=== PATIENT | male | born 1945 | race Caucasian/White ===

== ENCOUNTER → 2017-10-04 | Outpatient (CLI) | payer MEDICARE, SELFPAY | PROVIDERS: Visit Provider Nurse Practitioner Family | DX: E11.9 Type 2 diabetes mellitus without complications (principal) | CPT/HCPCS: 83036 ==

== ENCOUNTER 2017-10-25 01:11 | Emergency (ER) | payer MEDICARE, SELFPAY ==
[2017-10-25 01:14] VITALS: BP 116/69; PULSE 81; RESP 16; TEMP 37.7; O2SAT 99; BMI 38.0
--- NOTE | 2017-10-25 01:25 | CT_ITS ---
CT abdomen pelvis wo con CLINICAL INDICATION: Abdominal pain, bilateral small flank pain ITS.REASON: abd pain ORDERING PHYSICIAN: Kaveh Benoit MD PATIENT AGE: 72 years COMPARISON: 01/25/2010 TECHNIQUE: Axial images obtained with sagittal and coronal reformats. PROCEDURE: Oral Contrast: None IV Contrast: None . FINDINGS: Lower thorax: No acute finding . There is a stent within the LAD versus severe calcification ABDOMEN: Liver: No masses or biliary dilatation. Gallbladder: Prior cholecystectomy. No ductal dilatation or pneumobilia Pancreas: No masses or peripancreatic fluid collections. Spleen: Unremarkable. Adrenals: Unremarkable Kidneys/ureters: No masses. No renal calculi. No hydronephrosis. No perinephric fluid collections. No ureteral dilatation or obvious ureteral calculi. Stomach bowel: Nondistended. No obvious mass or thickening. Appendix: No evidence of appendicitis. PELVIS: Reproductive: There is a penile prosthesis present. The bulb is only partially inflated in the right lower pelvic region Bladder: Nondistended. No obvious stones or masses. ABDOMEN & PELVIS: Peritoneum: No abnormal fluid collections. No obvious inflammatory changes. No free air. Lymph nodes: No enlarged lymph nodes apparent. Vasculature: No evidence of abdominal aortic aneurysm. No retroperitoneal hemorrhage evident. Bones: Degenerative changes lumbar spine IMPRESSION: 1. No acute finding. 2. Penile prosthesis present. The bulb is only partially inflated. Please correlate clinically regarding this finding.
[2017-10-25 01:35] LABS: Basophils % 0.6 % (0.1-2.0); Eosinophils # 0.1 K/mm3 (0.0-0.4); Eosinophils % 2.5 % (0.1-12.0); Hematocrit 37.2 % (42.0-52.0); Hemoglobin 11.8 g/dL (14.1-18.0); Lymphocytes # 0.9 K/mm3 (0.7-4.5); Lymphocytes % 20.6 K/mm3 (10-50); Mean Corpuscular HGB Conc 31.8 g/dL (31.8-35.4); Mean Corpuscular Hemoglobin 28.6 pg (27.0-31.2); Mean Corpuscular Volume 89.8 fl (80-94); Mean Platelet Volume 7.5 fl (7.4-10.4); Monocytes # 0.5 K/mm3 (0.1-1.0); Monocytes % 10.1 % (1.7-9.3); Neutrophils % 66.3 % (37.0-80.0); Platelet Count 228 K/mm3 (142-424); Red Blood Count 4.14 M/mm3 (4.60-6.20); Red Cell Distribution Width 15.1 % (11.5-17.5); White Blood Count 4.6 K/mm3 (4.8-10.8)
[2017-10-25 01:40] LABS: Microscopic, Urine URINE MICROSCOPIC (MICROSCOPIC)
[2017-10-25 01:41] LABS: Appearance,Urine CLEAR (Clear); Bilirubin,Urine Negative (Negative); Blood, Urine TRACE-I (Negative); Color,Urine YELLOW (Yellow); Glucose,Urine (UA) Negative (Negative); Ketones,Urine Negative (Negative); Leukocyte Esterase,Urine Negative (Negative); Nitrate,Urine Negative (Negative); Protein,Urine TRACE (Negative); Specific Gravity, Urine 1.025 (1.005-1.030); Urobilinogen,Urine 0.2 EU/dl (0.2)
[2017-10-25 01:46] LABS: Lipase 218 u/L (73-393)
[2017-10-25 01:49] LABS: Alanine Aminotransferase 24 U/L (12-78); Albumin Level 3.8 gm/dL (3.4-5.0); Albumin/Globulin Ratio 0.8 (1.1-1.8); Alkaline Phosphatase 112 U/L (46-116); Amylase 109 U/L (25-125); Anion Gap 12.1 mEq/L (5-15); Aspartate Amino Transferase 20 U/L (15-37); Bilirubin,Total 0.3 mg/dL (0.2-1.0); Blood Urea Nitrogen 50 mg/dL (7-18); Calcium 8.8 mg/dL (8.5-10.1); Carbon Dioxide 26 mmol/L (21.0-32.0); Chloride 102 mmol/L (98-107); Creatinine Clearance Estimated 49 mL/min (0-300); Estimated Glomerular Filt Rate 26 ml/min (>60); GFR (African American) 31 ML/MIN (>60); Globulin 4.5 gm/dl (1.3-3.2); Glucose 173 mg/dL (74-106); Potassium 5.1 mmoL/L (3.5-5.1); Sodium 135 mmol/L (136-145); Total Protein,Serum 8.3 gm/dL (6.4-8.2)
[2017-10-25 01:54] LABS: Bacteria,Urine 1+ /lpf; Mucus,Urine 1+ /lpf
--- NOTE | 2017-10-25 02:20 | HMH.EDUROGM ---
ED Disposition Clinical Impression: Urethritis, Renal insufficiency Disposition: Home, Self-Care Condition on Discharge: Good Instructions: Prostatitis Additional Instructions: see pcp today for follow up and meds adjustment Referrals: Kaveh Benoit MD [Primary Care Provider] - - Critical Care Critical Care Time: No Attestation: On 10/25/17, the high probability of a clinically significant, sudden or life threatening deterioration of the following system(s) required my full and direct attention, intervention and personal management. The time I documented below is in addition to time spent performing reported procedures but includes the following listed in this critical care notation. Medical Decision Making - Medical Records Medical records reviewed: Yes: I reviewed the patient's medical records. Vital Signs: 10/25/17 01:14 Temperature 99.9 F H Temperature Source Oral Pulse Rate [Right Radial] 81 Respiratory Rate 16 Blood Pressure [Right Arm] 116/69 Blood Pressure Mean [Right Arm] 84 Blood Pressure Source [Right Arm] Automatic Cuff Blood Pressure Position [Right Arm] Sitting 02 Sat by Pulse Oximetry 99 Oxygen Delivery Method Room Air - Lab Data Lab results reviewed: Yes: I reviewed the patient's lab results. Lab Results 10/25/17 01:25: WBC 4.6 L, RBC 4.14 L, Hgb 11.8 L, Hct 37.2 L, MCV 89.8, MCH 28.6, MCHC 31.8, RDW 15.1, Plt Count 228, MPV 7.5, Neut % (Auto) 66.3, Lymph % (Auto) 20.6, [place] % (Auto) 10.1 H, Eos % (Auto) 2.5, Baso % (Auto) 0.6, Neut # (Auto) 3.0, Lymph # (Auto) 0.9, [place] # (Auto) 0.5, Eos # (Auto) 0.1, Baso # (Auto) 0.0 10/25/17 01:25: Sodium 135 L, Potassium 5.1, Chloride 102, Carbon Dioxide 26, Anion Gap 12.1, BUN 50 H, Creatinine 2.50 H, Estimated Creat Clear 49, Estimated GFR 26 L, Est GFR ( Amer) 31 L, Glucose 173 H, Calcium 8.8, Total Bilirubin 0.3, AST 20, ALT 24, Alkaline Phosphatase 112, Total Protein 8.3 H, Albumin 3.8, Globulin 4.5 H, Albumin/Globulin Ratio 0.8 L, Amylase 109 10/25/17 01:25: Lipase 218 10/25/17 01:30: Urine Color Yellow, Urine Appearance Clear, Urine pH 6.0, Ur Specific [place] 1.025, Urine Protein Trace, Urine Glucose (UA) Negative, Urine Ketones Negative, Urine Blood Trace-i, Urine Nitrate Negative, Urine Bilirubin Negative, Urine Urobilinogen 0.2, Ur Leukocyte Esterase Negative, Urine WBC 3-5, Ur Squamous Epith Cells 3-5, Urine Bacteria 1+, Hyaline Casts 5-10, Urine Mucus 1+ Result diagrams: 10/25/17 01:25 10/25/17 01:25 Orders (Tests/Meds): ORDERS Category Date Time Status CT abdomen pelvis wo con Stat Cat Scan 10/25/17 01:25 Taken - CT Data CT Scan: Abdomen, Pelvis Time Received: 02:[address] Reviewed: Yes: I have viewed the radiologist's interpretation Preliminary Findings: Normal/NAD - Bj Inquiry Pt receiving controlled substance: No Male Urogenital HPI - General Chief complaint: Urogenital-Male Stated complaint: burning when voiding, diarrhea, back pain Time Seen by Provider: 10/25/17 02:20 Mode of Arrival: Wheelchair Source of Information: Patient, Relative, Medical Record Limitations: Physical Limitations Description of Symptoms (Recalled from ER Triage Doc. by RN): PT REPORTS KIDNEY PAIN, BURNING WITH URINATION, AND BLOOD IN URINE - History of Present Illness HPI Narrative: py with bilat flank pain with no gross hematuria over the last 2 days MD Complaint: dysuria Onset (ago): day(s) Duration: intermittent Location: right flank, left flank, abdomen Severity: moderate Quality: burning Exacerbating factors: urination - Related Data Home Medications Medication Instructions Recorded Confirmed ALPRAZolam [Alprazolam 2mg Tab] 2 mg pe PO DAILY 10/25/17 10/25/17 Carvedilol [Carvedilol 3.125mg Tab] 3.125 mg PO DAILY 10/25/17 10/25/17 Clopidogrel Bisulfate [Plavix 75mg 75 mg PO DAILY 10/25/17 10/25/17 Tab] Furosemide [Furosemide 40MG tAB] 40 mg PO DAILY 10/25/17 10/25/17 Gabapentin [Neurontin
--- NOTE | 2017-10-25 02:26 | ED_ITS ---
ED Disposition Clinical Impression: Urethritis, Renal insufficiency Disposition: Home, Self-Care Condition on Discharge: Good Instructions: Prostatitis Additional Instructions: see pcp today for follow up and meds adjustment Referrals: Kaveh Benoit MD [Primary Care Provider] - - Critical Care Critical Care Time: No Attestation: On 10/25/17, the high probability of a clinically significant, sudden or life threatening deterioration of the following system(s) required my full and direct attention, intervention and personal management. The time I documented below is in addition to time spent performing reported procedures but includes the following listed in this critical care notation. Medical Decision Making - Medical Records Medical records reviewed: Yes: I reviewed the patient's medical records. Vital Signs: 10/25/17 01:14 Temperature 99.9 F H Temperature Source Oral Pulse Rate [Right Radial] 81 Respiratory Rate 16 Blood Pressure [Right Arm] 116/69 Blood Pressure Mean [Right Arm] 84 Blood Pressure Source [Right Arm] Automatic Cuff Blood Pressure Position [Right Arm] Sitting 02 Sat by Pulse Oximetry 99 Oxygen Delivery Method Room Air - Lab Data Lab results reviewed: Yes: I reviewed the patient's lab results. Lab Results 10/25/17 01:25: WBC 4.6 L, RBC 4.14 L, Hgb 11.8 L, Hct 37.2 L, MCV 89.8, MCH 28.6, MCHC 31.8, RDW 15.1, Plt Count 228, MPV 7.5, Neut % (Auto) 66.3, Lymph % ( Auto) 20.6, [place] % (Auto) 10.1 H, Eos % (Auto) 2.5, Baso % (Auto) 0.6, Neut # ( Auto) 3.0, Lymph # (Auto) 0.9, [place] # (Auto) 0.5, Eos # (Auto) 0.1, Baso # (Auto ) 0.0 10/25/17 01:25: Sodium 135 L, Potassium 5.1, Chloride 102, Carbon Dioxide 26, Anion Gap 12.1, BUN 50 H, Creatinine 2.50 H, Estimated Creat Clear 49, Estimated GFR 26 L, Est GFR ( Amer) 31 L, Glucose 173 H, Calcium 8.8, Total Bilirubin 0.3, AST 20, ALT 24, Alkaline Phosphatase 112, Total Protein 8.3 H, Albumin 3.8, Globulin 4.5 H, Albumin/Globulin Ratio 0.8 L, Amylase 109 10/25/17 01:25: Lipase 218 10/25/17 01:30: Urine Color Yellow, Urine Appearance Clear, Urine pH 6.0, Ur Specific [place] 1.025, Urine Protein Trace, Urine Glucose (UA) Negative, Urine Ketones Negative, Urine Blood Trace-i, Urine Nitrate Negative, Urine Bilirubin Negative, Urine Urobilinogen 0.2, Ur Leukocyte Esterase Negative, Urine WBC 3-5 , Ur Squamous Epith Cells 3-5, Urine Bacteria 1+, Hyaline Casts 5-10, Urine Mucus 1+ Result diagrams: 10/25/17 01:25 10/25/17 01:25 Orders (Tests/Meds): ORDERS Category Date Time Status CT abdomen pelvis wo con Stat Cat Scan 10/25/17 01:25 Taken - CT Data CT Scan: Abdomen, Pelvis Time Received: 02:[address] Reviewed: Yes: I have viewed the radiologist's interpretation Preliminary Findings: Normal/NAD - Bj Inquiry Pt receiving controlled substance: No Male Urogenital HPI - General Chief complaint: Urogenital-Male Stated complaint: burning when voiding, diarrhea, back pain Time Seen by Provider: 10/25/17 02:20 Mode of Arrival: Wheelchair Source of Information: Patient, Relative, Medical Record Limitations: Physical Limitations Description of Symptoms (Recalled from ER Triage Doc. by RN): PT REPORTS KIDNEY PAIN, BURNING WITH URINATION, AND BLOOD IN URINE - History of Present Illness HPI Narrative: py with bilat flank pain with no gross hematuria over the last 2 days MD Complaint: dysuria Onset (ago): day(s)
== END 2017-10-25 03:14 | disposition home or self-care (01) ==
PROVIDERS: Emergency Provider Emergency Medicine; PCP Emergency Medicine
DX: N34.2 Other urethritis (principal); N28.9 Disorder of kidney and ureter, unspecified; E11.65 Type 2 diabetes mellitus with hyperglycemia; Z79.4 Long term (current) use of insulin
CPT/HCPCS: 74176; 80053; 81001; 82150; 83036; 83690; 85025; 87086; 96374; 99283

== ENCOUNTER → 2017-11-02 08:01 | Outpatient (CLI) | payer MEDICARE, SELFPAY ==
--- NOTE | 2017-11-02 08:03 | CA_ITS ---
PROCEDURE: 2-D M-mode and color Doppler study INDICATIONS FOR THE TEST: Chest pain COPD Heart Murmur Tobacco Smoking Palpitations Fatigue Syncope EdemaX HypertensionXDiabetes MellitusX Rheumatic Fever SOBXDOEXObesityXHyperlipidemiaX Family History HD Additional History CAD PATIENT INFORMATION HEIGHT: 72 WEIGHT:280 GENDER: Male B/P:127/76 2-D/M-MODE INTERPRETATION: 2-D MEASUREMENTS OBSERVED VALUES IN CMS Right Ventricular Dimension (RVDd) 3.3 Interventricular Septum (Thickness)(IVsd) 1.3 Left Ventricular Internal Dimensions(LVIDd) 5.7 Left Ventricular Posterior Wall (Thickness)(LVPWd) 1.3 Aortic Root 3.3 Aortic Cusp Separation 2.3 Left Atrial Dimensions (LAD) 4.7 2D 1. Left atrium is mildly enlarged, left ventricle is normal size, there is mild concentric left ventricular hypertrophy, visually estimated ejection fraction of 55% with no obvious regional wall motion abnormality, there is abnormal septal motion. 2. The right atrium and right ventricle are mildly enlarged with normal contractility. 3. The aortic valve is minimally thickened and fibrosed. 4. The mitral and tricuspid valve are structurally normal. 5. The pulmonic valve is poorly visualized. 6. No significant pericardial effusion noted. DOPPLER INTERROGATION: Doppler interrogation of the aortic, mitral and tricuspid valvular presence of mild aortic, mild mitral and tricuspid regurgitation, tricuspid and jet velocity is insufficient for calculation of the right ventricular systolic pressure, grade 1 diastolic dysfunction seen without tissue Doppler evidence of raised left atrial pressure. CONCLUSION: 1. Mildly enlarged left atrium, normal left ventricular size, mild concentric left ventricular hypertrophy, visually estimated ejection fraction 55% with no obvious regional wall motion abnormality, there is abnormal septal motion. Grade 1 diastolic dysfunction seen without tissue Doppler evidence of raised left atrial pressure. 2. Mild aortic, mild mitral and tricuspid regurgitation, tricuspid regurgitant jet velocity is insufficient for calculation of the right ventricular systolic pressure. 3. No significant pericardial effusion noted.
== END ==
PROVIDERS: PCP Emergency Medicine; Visit Provider Internal Medicine
DX: E11.9 Type 2 diabetes mellitus without complications; E78.5 Hyperlipidemia, unspecified; N18.9 Chronic kidney disease, unspecified; I10 Essential (primary) hypertension; I65.23 Occlusion and stenosis of bilateral carotid arteries; I25.10 Atherosclerotic heart disease of native coronary artery without angina pectoris; R53.83 Other fatigue; R20.2 Paresthesia of skin
CPT/HCPCS: 93306

== ENCOUNTER → 2017-11-15 13:27 | Outpatient (CLI) | payer MEDICARE, SELFPAY ==
[2017-11-15 13:33] LABS: Microscopic, Urine URINE MICROSCOPIC (MICROSCOPIC)
[2017-11-15 14:32] LABS: Basophils % 0.4 % (0.1-2.0); Eosinophils # 0.2 K/mm3 (0.0-0.4); Eosinophils % 2.7 % (0.1-12.0); Hematocrit 34.2 % (42.0-52.0); Lymphocytes # 1.8 K/mm3 (0.7-4.5); Lymphocytes % 30.5 K/mm3 (10-50); Mean Corpuscular HGB Conc 32.3 g/dL (31.8-35.4); Mean Corpuscular Hemoglobin 28.8 pg (27.0-31.2); Mean Corpuscular Volume 89.1 fl (80-94); Monocytes # 0.5 K/mm3 (0.1-1.0); Monocytes % 7.9 % (1.7-9.3); Neutrophils # 3.4 K/mm3 (1.8-7.8); Neutrophils % 58.5 % (37.0-80.0); Platelet Count 263 K/mm3 (142-424); Red Blood Count 3.83 M/mm3 (4.60-6.20); Red Cell Distribution Width 14.9 % (11.5-17.5); White Blood Count 5.8 K/mm3 (4.8-10.8)
[2017-11-15 14:52] LABS: Appearance,Urine CLEAR (Clear); Bilirubin,Urine Negative (Negative); Blood, Urine Negative (Negative); Color,Urine YELLOW (Yellow); Glucose,Urine (UA) Negative (Negative); Ketones,Urine Negative (Negative); Leukocyte Esterase,Urine 1+ (Negative); Nitrate,Urine Negative (Negative); Protein,Urine TRACE (Negative); Specific Gravity, Urine 1.025 (1.005-1.030); Urobilinogen,Urine 0.2 EU/dl (0.2)
[2017-11-15 15:09] LABS: Bacteria,Urine 1+ /lpf
[2017-11-15 15:18] LABS: Total Protein,Urine Random 34.7 mg/dL (0.0-11.9)
[2017-11-15 15:40] LABS: Albumin Level 3.4 gm/dL (3.4-5.0); Anion Gap 11.6 mEq/L (5-15); Blood Urea Nitrogen 30 mg/dL (7-18); Calcium 8.7 mg/dL (8.5-10.1); Carbon Dioxide 30 mmol/L (21.0-32.0); Chloride 109 mmol/L (98-107); Creatinine,Serum 1.74 mg/dL (0.70-1.30); Estimated Glomerular Filt Rate 39 ml/min (>60); GFR (African American) 47 ML/MIN (>60); Glucose 140 mg/dL (74-106); Phosphorous 3.6 mg/dL (2.4-4.9); Potassium 4.6 mmoL/L (3.5-5.1); Sodium 146 mmol/L (136-145)
[2017-11-16 17:11] LABS: Parathyroid Hormone Intact 63 pg/mL (15-65); Vitamin D 25 Hydroxy 14.9 ng/mL (30.0-100.0)
== END ==
PROVIDERS: PCP Emergency Medicine; Visit Provider Internal Medicine Nephrology
DX: N28.9 Disorder of kidney and ureter, unspecified (principal)
CPT/HCPCS: 36415; 80069; 81001; 82565; 82652; 83970; 84155; 85025; 87086

== ENCOUNTER → 2017-11-21 12:39 | Outpatient (POV) | payer MEDICARE, SELFPAY | PROVIDERS: Visit Provider Internal Medicine Nephrology | DX: Z00.00 Encounter for general adult medical examination without abnormal findings (principal) ==

== ENCOUNTER → 2017-11-29 09:33 | Outpatient (CLI) | payer MEDICARE, SELFPAY ==
--- NOTE | 2017-11-29 09:36 | US_ITS ---
US Arterial Ankle Brachial Ind INDICATION for exam: Claudication, leg pain, Hypertension, diabetes, coronary artery disease, bilateral claudication ORDERING PHYSICIAN: Charly Serra MD PATIENT AGE: 72 years TECHNIQUE: Segmental pressures obtained of both right and left leg. These are compared to brachial blood pressure to yield index at each level sampled including summary MICHAEL. The data sheets from the procedure are available in PACS FINDINGS Rest study only performed today No prior studies available for comparison. Blood pressures reported are in millimeters mercury. RIGHT LEG MICHAEL = 1.2. Right TBI 1.1 Brachial BP: 168 Thigh BP: 189 Calf BP: 183 Ankle PT: 203 Ankle DP : 186 Digit =187 LEFT LEG MICHAEL = 1.2 Left TBI 0.8 Brachial BPD: 170 Thigh BP: 195 Calf BP: 188 Ankle PT:202 Ankle DP: 198 Digit = 134 Pulses and waveforms: Normal IMPRESSION: The ABIs as reported above are within normal limits. Waveforms and pulses are also unremarkable.
== END ==
PROVIDERS: PCP Emergency Medicine; Visit Provider Internal Medicine
DX: R09.89 Other specified symptoms and signs involving the circulatory and respiratory systems (principal)
CPT/HCPCS: 93922

== ENCOUNTER 2017-12-04 06:56 | Day surgery (SDC) | payer MEDICARE, SELFPAY ==
[2017-12-03 12:04] VITALS: BMI 39.3
[2017-12-04 07:10] VITALS: BP 174/87; PULSE 73; RESP 18; TEMP 37.2; O2SAT 95
[2017-12-04 08:35] VITALS: BP 163/77; PULSE 68; RESP 16; O2SAT 96
[2017-12-04 08:40] VITALS: BP 162/69; PULSE 66; RESP 16; O2SAT 100
[2017-12-04 08:45] VITALS: BP 158/70; PULSE 67; RESP 16; O2SAT 96
[2017-12-04 08:50] VITALS: BP 157/65; PULSE 66; RESP 16; O2SAT 99
[2017-12-04 10:37] VITALS: BP 142/89; PULSE 71; RESP 18; TEMP 37.2; O2SAT 94
[2017-12-06 15:10] LABS: POC Glucose,Bedside 200 mg/dL (70-110)
== END 2017-12-04 09:20 | disposition home or self-care (01) ==
LOC: OR 06:58
PROVIDERS: PCP Emergency Medicine; Visit Provider Ophthalmology
DX: H25.813 Combined forms of age-related cataract, bilateral (principal); H53.8 Other visual disturbances; E11.9 Type 2 diabetes mellitus without complications
CPT/HCPCS: 66984; 82962; V2632

== ENCOUNTER 2017-12-18 07:05 | Day surgery (SDC) | payer MEDICARE, SELFPAY ==
[2017-12-17 12:41] VITALS: BMI 38.0
[2017-12-18] VITALS (7 sets, daily range): BP systolic 106–131; BP diastolic 59–69; PULSE 64–70; RESP 18; TEMP 36.6; O2SAT 94–97
[2017-12-18 07:57] LABS: POC Glucose,Bedside 269 mg/dL (70-110)
== END 2017-12-18 08:42 | disposition home or self-care (01) ==
LOC: OR 07:06
PROVIDERS: PCP Emergency Medicine; Visit Provider Ophthalmology
DX: H25.813 Combined forms of age-related cataract, bilateral (principal)
CPT/HCPCS: 66984; 82962; V2632

== ENCOUNTER → 2017-12-31 13:36 | Outpatient (REF) | payer MEDICARE, SELFPAY ==
[2017-12-31 18:54] LABS: Barbiturates Screen,Urine Negative ng/mL (<200); Methadone Screen,Urine Negative ng/mL (<300)
[2017-12-31 19:07] LABS: Amphetamine/Metha Screen,Urine Negative ng/mL (<1000); Benzodiazepines Screen,Urine Negative ng/mL (200); Cannabinoid Screen,Urine Negative ng/mL (<50); Cocaine Screen,Urine Negative ng/g (<300); Opiate Screen,Urine Negative ng/mL (<300); Phencyclidine Screen,Urine Negative ng/mL (<25)
== END ==
LOC: LAB 13:36
PROVIDERS: Visit Provider Emergency Medicine
DX: Z79.899 Other long term (current) drug therapy (principal)
CPT/HCPCS: 80305

== ENCOUNTER → 2018-01-25 14:38 | Outpatient (REF) | payer MEDICARE, SELFPAY ==
[2018-01-25 18:25] LABS: Hemoglobin A1C 9.2 % (0.0-7.0)
[2018-01-25 18:35] LABS: Anion Gap 10.2 mEq/L (5-15); Blood Urea Nitrogen 36 mg/dL (7-18); Carbon Dioxide 32 mmol/L (21.0-32.0); Chloride 104 mmol/L (98-107); Creatinine,Serum 1.81 mg/dL (0.70-1.30); Estimated Glomerular Filt Rate 37 ml/min (>60); Free T4 (Free Thyroxine) 1.07 ng/dl (0.76-1.46); GFR (African American) 45 ML/MIN (>60); Glucose 235 mg/dL (74-106); Potassium 5.2 mmoL/L (3.5-5.1); Sodium 141 mmol/L (136-145); Thyroid Stimulating Hormone 2.98 uIU/ml (0.358-3.740)
[2018-01-25 19:39] LABS: Amphetamine/Metha Screen,Urine Negative ng/mL (<1000); Barbiturates Screen,Urine Negative ng/mL (<200); Benzodiazepines Screen,Urine Negative ng/mL (200); Cannabinoid Screen,Urine Negative ng/mL (<50); Cocaine Screen,Urine Negative ng/g (<300); Methadone Screen,Urine Negative ng/mL (<300); Opiate Screen,Urine Negative ng/mL (<300); Phencyclidine Screen,Urine Negative ng/mL (<25)
== END ==
LOC: LAB 14:38
PROVIDERS: Visit Provider Emergency Medicine
DX: Z79.899 Other long term (current) drug therapy (principal); E11.9 Type 2 diabetes mellitus without complications; E78.5 Hyperlipidemia, unspecified
CPT/HCPCS: 80048; 80305; 83036; 84439; 84443

== ENCOUNTER → 2018-02-04 14:15 | Outpatient (CLI) | payer MEDICARE, SELFPAY ==
--- NOTE | 2018-02-04 14:31 | US_ITS ---
US kidney retroperitoneal comp HISTORY: ITS.REASON: CHRONIC KIDNEY DISEASE,STAGE III ORDERING PHYSICIAN: Ramu Garcia PATIENT AGE: 72 years FINDINGS: RIGHT KIDNEY:11 x 5 x 7 cm. Mild cortical thinning. No hydronephrosis mass or perinephric fluid collection. Unremarkable echogenicity LEFT KIDNEY:10 x 5 x 5 cm. No hydronephrosis. Mild cortical thinning. No hydronephrosis, mass, or perinephric fluid. Unremarkable echogenicity OTHER FINDINGS: No other pertinent findings IMPRESSION: Bilateral renal cortical thinning. No hydronephrosis
== END ==
PROVIDERS: PCP Emergency Medicine; Visit Provider Internal Medicine Nephrology
DX: N18.3 Chronic kidney disease, stage 3 (moderate) (principal)
CPT/HCPCS: 76770

== ENCOUNTER → 2018-03-11 13:28 | Outpatient (REF) | payer MEDICARE, SELFPAY ==
[2018-03-11 19:39] LABS: Blood Urea Nitrogen 37 mg/dL (7-18); Calcium 8.9 mg/dL (8.5-10.1); Carbon Dioxide 28 mmol/L (21.0-32.0); Chloride 104 mmol/L (98-107); Creatinine,Serum 2.19 mg/dL (0.70-1.30); Estimated Glomerular Filt Rate 30 ml/min (>60); GFR (African American) 36 ML/MIN (>60); Glucose 345 mg/dL (74-106); Sodium 139 mmol/L (136-145)
[2018-03-11 20:37] LABS: Hemoglobin A1C 8.8 % (0.0-7.0)
== END ==
LOC: LAB 13:28
PROVIDERS: Visit Provider Emergency Medicine
DX: E11.9 Type 2 diabetes mellitus without complications (principal); M25.471 Effusion, right ankle; M25.472 Effusion, left ankle
CPT/HCPCS: 80048; 83036

== ENCOUNTER → 2018-05-06 15:06 | Outpatient (CLI) | payer MEDICARE, SELFPAY ==
[2018-05-06 15:22] LABS: Basophils % 0.7 % (0.1-2.0); Eosinophils # 0.2 K/mm3 (0.0-0.4); Eosinophils % 3.3 % (0.1-12.0); Hematocrit 36.1 % (42.0-52.0); Hemoglobin 11.9 g/dL (14.1-18.0); Lymphocytes # 1.7 K/mm3 (0.7-4.5); Lymphocytes % 31.1 K/mm3 (10-50); Mean Corpuscular Hemoglobin 29.5 pg (27.0-31.2); Mean Corpuscular Volume 89.4 fl (80-94); Mean Platelet Volume 8.3 fl (7.4-10.4); Monocytes # 0.4 K/mm3 (0.1-1.0); Monocytes % 6.5 % (1.7-9.3); Neutrophils # 3.1 K/mm3 (1.8-7.8); Neutrophils % 58.5 % (37.0-80.0); Platelet Count 233 K/mm3 (142-424); Red Blood Count 4.03 M/mm3 (4.60-6.20); Red Cell Distribution Width 14.4 % (11.5-17.5); White Blood Count 5.3 K/mm3 (4.8-10.8)
== END ==
PROVIDERS: Visit Provider Internal Medicine
DX: I25.10 Atherosclerotic heart disease of native coronary artery without angina pectoris (principal); R06.00 Dyspnea, unspecified
CPT/HCPCS: 36415; 83880; 85025

== ENCOUNTER → 2018-05-07 11:49 | Outpatient (CLI) | payer MEDICARE, SELFPAY ==
[2018-05-07 12:48] LABS: Anion Gap 10.6 mEq/L (5-15); Blood Urea Nitrogen 39 mg/dL (7-18); Calcium 8.9 mg/dL (8.5-10.1); Carbon Dioxide 30 mmol/L (21.0-32.0); Chloride 106 mmol/L (98-107); Creatinine,Serum 1.79 mg/dL (0.70-1.30); Estimated Glomerular Filt Rate 38 ml/min (>60); GFR (African American) 46 ML/MIN (>60); Glucose 188 mg/dL (74-106); Potassium 4.6 mmoL/L (3.5-5.1); Sodium 142 mmol/L (136-145)
== END ==
PROVIDERS: Visit Provider Internal Medicine
DX: I25.10 Atherosclerotic heart disease of native coronary artery without angina pectoris (principal)
CPT/HCPCS: 36415; 80048

== ENCOUNTER → 2018-05-13 10:57 | Outpatient (CLI) | payer MEDICARE, SELFPAY ==
[2018-05-13 13:39] LABS: Anion Gap 10.8 mEq/L (5-15); Blood Urea Nitrogen 35 mg/dL (7-18); Calcium 8.8 mg/dL (8.5-10.1); Carbon Dioxide 28 mmol/L (21.0-32.0); Chloride 110 mmol/L (98-107); Creatinine,Serum 2.03 mg/dL (0.70-1.30); Estimated Glomerular Filt Rate 33 ml/min (>60); GFR (African American) 39 ML/MIN (>60); Glucose 175 mg/dL (74-106); Potassium 4.8 mmoL/L (3.5-5.1); Sodium 144 mmol/L (136-145)
[2018-05-16 06:56] LABS: Vitamin D 25 Hydroxy 21.4 ng/mL (30.0-100.0)
== END ==
PROVIDERS: Urology; Visit Provider Physician Assistant
DX: I11.9 Hypertensive heart disease without heart failure (principal); I25.10 Atherosclerotic heart disease of native coronary artery without angina pectoris; I35.1 Nonrheumatic aortic (valve) insufficiency; R06.00 Dyspnea, unspecified
CPT/HCPCS: 36415; 80048; 82652

== ENCOUNTER → 2018-07-17 13:12 | Outpatient (REF) | payer MEDICARE, SELFPAY ==
[2018-07-17 19:34] LABS: Amphetamine/Metha Screen,Urine Negative ng/mL (<1000); Barbiturates Screen,Urine Negative ng/mL (<200); Benzodiazepines Screen,Urine Negative ng/mL (<200); Cannabinoid Screen,Urine Negative ng/mL (<50); Cocaine Screen,Urine Negative ng/mL (<300); Methadone Screen,Urine Negative ng/mL (<300); Opiate Screen,Urine Negative ng/mL (<300); Phencyclidine Screen,Urine Negative ng/mL (<25)
[2018-07-24 11:35] LABS: Alprazolam Negative (Cutoff=100); Benzodiazepines Negative ng/mL (Cutoff=100); Clonazepam Negative (Cutoff=100); Flurazepam Negative (Cutoff=100); Lorazepam Negative (Cutoff=100); Midazolam Negative (Cutoff=100); Temazepam Negative (Cutoff=100); Triazolam Negative (Cutoff=100)
== END ==
LOC: LAB 13:12
PROVIDERS: Visit Provider Emergency Medicine
DX: Z79.899 Other long term (current) drug therapy (principal)
CPT/HCPCS: 80305; 80346

== ENCOUNTER → 2018-07-29 11:56 | Outpatient (CLI) | payer MEDICARE, SELFPAY | PROVIDERS: Visit Provider Emergency Medicine | DX: F41.9 Anxiety disorder, unspecified (principal) ==

== ENCOUNTER → 2018-09-16 18:03 | Outpatient (CLI) | payer MEDICARE, SELFPAY ==
[2018-09-16 18:36] LABS: Basophils % 0.4 % (0.1-2.0); Eosinophils # 0.2 K/mm3 (0.0-0.4); Hematocrit 35.5 % (42.0-52.0); Hemoglobin 11.3 g/dL (14.1-18.0); Lymphocytes # 1.5 K/mm3 (0.7-4.5); Lymphocytes % 30.6 % (10-50); Mean Corpuscular HGB Conc 31.9 g/dL (31.8-35.4); Mean Corpuscular Hemoglobin 29.5 pg (27.0-31.2); Mean Corpuscular Volume 92.6 fl (80-94); Mean Platelet Volume 7.5 fl (7.4-10.4); Monocytes # 0.3 K/mm3 (0.1-1.0); Monocytes % 5.9 % (1.7-9.3); Neutrophils % 59.1 % (37.0-80.0); Platelet Count 234 K/mm3 (142-424); Red Blood Count 3.84 M/mm3 (4.60-6.20); Red Cell Distribution Width 14.1 % (11.5-17.5)
[2018-09-16 18:38] LABS: Anion Gap 13.2 mEq/L (5-15); Blood Urea Nitrogen 55 mg/dL (7-18); Calcium 8.8 mg/dL (8.5-10.1); Carbon Dioxide 28 mmol/L (21.0-32.0); Chloride 103 mmol/L (98-107); Creatinine,Serum 2.61 mg/dL (0.70-1.30); Estimated Glomerular Filt Rate 24 ml/min (>60); GFR (African American) 29 ML/MIN (>60); Glucose 282 mg/dL (74-106); Potassium 5.2 mmoL/L (3.5-5.1); Sodium 139 mmol/L (136-145)
[2018-09-16 19:10] LABS: Amphetamine/Metha Screen,Urine Negative ng/mL (<1000); Barbiturates Screen,Urine Negative ng/mL (<200); Benzodiazepines Screen,Urine Negative ng/mL (<200); Cannabinoid Screen,Urine Negative ng/mL (<50); Cocaine Screen,Urine Negative ng/mL (<300); Methadone Screen,Urine Negative ng/mL (<300); Opiate Screen,Urine Negative ng/mL (<300); Phencyclidine Screen,Urine Negative ng/mL (<25)
== END ==
PROVIDERS: Visit Provider Emergency Medicine
DX: E11.9 Type 2 diabetes mellitus without complications (principal); Z79.899 Other long term (current) drug therapy
CPT/HCPCS: 80048; 80305; 83036; 85025

== ENCOUNTER → 2018-10-08 11:45 | Outpatient (CLI) | payer MEDICARE, SELFPAY ==
[2018-10-08 12:37] LABS: Basophils % 0.7 % (0.1-2.0); Eosinophils # 0.2 K/mm3 (0.0-0.4); Eosinophils % 4.5 % (0.1-12.0); Hematocrit 33.5 % (42.0-52.0); Hemoglobin 10.6 g/dL (14.1-18.0); Lymphocytes # 1.6 K/mm3 (0.7-4.5); Lymphocytes % 37.1 % (10-50); Mean Corpuscular HGB Conc 31.7 g/dL (31.8-35.4); Mean Corpuscular Hemoglobin 29.7 pg (27.0-31.2); Mean Corpuscular Volume 93.6 fl (80-94); Mean Platelet Volume 7.2 fl (7.4-10.4); Monocytes # 0.3 K/mm3 (0.1-1.0); Monocytes % 6.2 % (1.7-9.3); Neutrophils # 2.3 K/mm3 (1.8-7.8); Neutrophils % 51.5 % (37.0-80.0); Platelet Count 227 K/mm3 (142-424); Red Blood Count 3.58 M/mm3 (4.60-6.20); Red Cell Distribution Width 13.5 % (11.5-17.5); White Blood Count 4.4 K/mm3 (4.8-10.8)
[2018-10-08 13:08] LABS: Alanine Aminotransferase 20 U/L (12-78); Albumin Level 3.2 gm/dL (3.4-5.0); Alkaline Phosphatase 90 U/L (46-116); Anion Gap 13.5 mEq/L (5-15); Aspartate Amino Transferase 12 U/L (15-37); Bilirubin,Direct 0.1 mg/dL (0.0-0.2); Bilirubin,Indirect 0.2 mg/dL (0.0-0.9); Bilirubin,Total 0.3 mg/dL (0.2-1.0); Blood Urea Nitrogen 68 mg/dL (7-18); Calcium 8.4 mg/dL (8.5-10.1); Carbon Dioxide 27 mmol/L (21.0-32.0); Chloride 103 mmol/L (98-107); Chol/HDL Ratio 3.7 (1-3.5); Cholesterol 155 mg/dL (140-200); Creatinine,Serum 2.56 mg/dL (0.70-1.30); Estimated Glomerular Filt Rate 25 ml/min (>60); GFR (African American) 30 ML/MIN (>60); Glucose 270 mg/dL (74-106); HDL Cholesterol 42 mg/dL (27-67); LDL Cholesterol 69 mg/dL (0-130); Potassium 5.5 mmoL/L (3.5-5.1); Sodium 138 mmol/L (136-145); Total Protein,Serum 6.6 gm/dL (6.4-8.2); Triglycerides 220 mg/dL (30-200); VLDL Cholesterol 44 mg/dL (0-40)
[2018-10-08 14:13] LABS: Phosphorous 4.5 mg/dL (2.4-4.9)
== END ==
PROVIDERS: Urology; Visit Provider Internal Medicine Nephrology
DX: R06.00 Dyspnea, unspecified (principal); N18.3 Chronic kidney disease, stage 3 (moderate); E11.9 Type 2 diabetes mellitus without complications; E78.49 Other hyperlipidemia; I25.10 Atherosclerotic heart disease of native coronary artery without angina pectoris; I65.29 Occlusion and stenosis of unspecified carotid artery; Z95.5 Presence of coronary angioplasty implant and graft
CPT/HCPCS: 36415; 80048; 80061; 80076; 83880; 84100; 85025

== ENCOUNTER → 2018-10-09 13:31 | Outpatient (CLI) | payer MEDICARE, SELFPAY ==
[2018-10-09 13:35] LABS: Microscopic, Urine URINE MICROSCOPIC (MICROSCOPIC)
[2018-10-09 15:48] LABS: Appearance,Urine CLEAR (Clear); Bilirubin,Urine Negative (Negative); Blood, Urine Negative (Negative); Color,Urine YELLOW (Yellow); Glucose,Urine (UA) 3+ (Negative); Ketones,Urine Negative (Negative); Leukocyte Esterase,Urine 1+ (Negative); Nitrate,Urine Negative (Negative); Protein,Urine Negative (Negative); Urobilinogen,Urine 0.2 EU/dl (0.2)
[2018-10-09 17:30] LABS: Creatinine,Urine Random 49 mg/dL (20-320); Total Protein,Urine Random 11.5 mg/dL (0.0-11.9)
[2018-10-09 17:55] LABS: Bacteria,Urine Trace /lpf; Squamous Epithelial Cell,Urine Occasional #/hpf (0-5)
== END ==
PROVIDERS: Visit Provider Internal Medicine Nephrology
DX: N18.3 Chronic kidney disease, stage 3 (moderate) (principal); R82.90 Unspecified abnormal findings in urine
CPT/HCPCS: 81001; 82570; 84155; 87086

== ENCOUNTER → 2018-10-14 16:02 | Outpatient (POV) | payer MEDICARE, SELFPAY | PROVIDERS: Visit Provider Internal Medicine Nephrology | DX: Z00.00 Encounter for general adult medical examination without abnormal findings (principal) ==

== ENCOUNTER → 2018-10-15 17:25 | Outpatient (CLI) | payer MEDICARE, SELFPAY ==
[2018-10-15 18:24] LABS: Amphetamine/Metha Screen,Urine Negative ng/mL (<1000); Barbiturates Screen,Urine Negative ng/mL (<200); Benzodiazepines Screen,Urine Negative ng/mL (<200); Cannabinoid Screen,Urine Negative ng/mL (<50); Cocaine Screen,Urine Negative ng/mL (<300); Methadone Screen,Urine Negative ng/mL (<300); Opiate Screen,Urine Negative ng/mL (<300); Phencyclidine Screen,Urine Negative ng/mL (<25)
[2018-10-21 05:15] LABS: Alprazolam Negative (Cutoff=100); Benzodiazepines Negative ng/mL (Cutoff=100); Clonazepam Negative (Cutoff=100); Flurazepam Negative (Cutoff=100); Lorazepam Negative (Cutoff=100); Midazolam Negative (Cutoff=100); Temazepam Negative (Cutoff=100); Triazolam Negative (Cutoff=100)
== END ==
PROVIDERS: Visit Provider Emergency Medicine
DX: Z79.899 Other long term (current) drug therapy (principal)
CPT/HCPCS: 80305; 80346

== ENCOUNTER → 2018-11-15 11:08 | Outpatient (CLI) | payer MEDICARE, SELFPAY ==
--- NOTE | 2018-11-15 11:10 | CA_ITS ---
PROCEDURE: 2-D M-mode and color Doppler study INDICATIONS FOR THE TEST: Chest pain + COPD Heart Murmur Tobacco Smoking Palpitations Fatigue+ Syncope Edema Hypertension+Diabetes Mellitus+ Rheumatic Fever SOB+CASTILLO Obesity+Hyperlipidemia+ Family History HD Additional History cad PATIENT INFORMATION HEIGHT: 72 WEIGHT:300 GENDER: Male B/P:106/52 2-D/M-MODE INTERPRETATION: 2-D MEASUREMENTS OBSERVED VALUES IN CMS Right Ventricular Dimension (RVDd) 2.9 Interventricular Septum (Thickness)(IVsd) 1.4 Left Ventricular Internal Dimensions(LVIDd) 5.6 Left Ventricular Posterior Wall (Thickness)(LVPWd) 0.9 Aortic Root 3.5 Aortic Cusp Separation 2.4 Left Atrial Dimensions (LAD) 4.3 2D 1. Technically difficult study because of the patient's factor and poor acoustic windows 2. Left atrium is mildly enlarged, left ventricle is normal size, mild concentric left ventricular hypertrophy, visually estimated ejection fraction 50% with no regional wall motion abnormality. 3. The right atrium and right ventricle are mildly enlarged with normal contractility. 4. The aortic valve is minimally thickened and fibrosed. 5. The mitral and tricuspid valve leaflets are minimally thickened. 6. The pulmonic valve is poorly visualized. 7. No significant pericardial effusion noted. DOPPLER INTERROGATION: Doppler interrogation of the aortic, mitral and tricuspid valvular presence of mild mitral and tricuspid regurgitation, tricuspid regurgitation jet velocity is inadequate for calculation of the right ventricular systolic pressure, grade 1 diastolic dysfunction seen with tissue Doppler evidence of raised left atrial pressure. CONCLUSION: 1. Technically difficult study because of the patient's factor and poor acoustic windows 2. The left atrium is mildly enlarged, left ventricle is normal size, mild concentric left ventricular hypertrophy, visually estimated ejection fraction 50% with no regional wall motion abnormality, 1 diastolic dysfunction seen with tissue Doppler evidence of raised left atrial pressure. 3. Mildly enlarged right ventricle with normal contractility. 4. Mild mitral and tricuspid regurgitation 5. No significant pericardial effusion noted.
--- NOTE | 2018-11-15 11:10 | NM_ITS ---
CARDIOLITE SPECT MYOCARDIAL PERFUSION SCAN, REST AND STRESS: EXERCISE STRESS [facility] REVIEW QGS EF AND WALL MOTION EVALUATION: QPS - PERFUSION EVALUATION HISTORY: Chest pain, SOB, CAD, DM DOSE: 11.07 mCi technetium 99m mibi intravenously at rest followed by 30.7 mCi technetium 99m mibi following the intravenous ministration of 0.4 mg of Lexiscan. Resting blood pressure is 109/55. Stress blood pressure 112/54. FINDINGS: Ejection fraction is calculated to be 56%. Stress images reveal decreased activity throughout the anterior wall and apex wall rest images reveal uniform myocardial activity IMPRESSION: High risk abnormal Myoview with anterior wall and apical wall ischemia with normal ejection fraction normal wall motion
== END ==
PROVIDERS: PCP Emergency Medicine; Visit Provider Internal Medicine
DX: R06.02 Shortness of breath; I35.1 Nonrheumatic aortic (valve) insufficiency; R07.9 Chest pain, unspecified
CPT/HCPCS: 78452; 93017; 93306; A9502; J2785

== ENCOUNTER → 2018-12-23 18:40 | Outpatient (CLI) | payer MEDICARE, SELFPAY ==
[2018-12-23 18:56] LABS: Basophils % 0.8 % (0.1-2.0); Eosinophils # 0.2 K/mm3 (0.0-0.4); Eosinophils % 3.4 % (0.1-12.0); Hematocrit 34.1 % (42.0-52.0); Hemoglobin 10.9 g/dL (14.1-18.0); Lymphocytes # 1.5 K/mm3 (0.7-4.5); Lymphocytes % 27.4 % (10-50); Mean Corpuscular Hemoglobin 29.9 pg (27.0-31.2); Mean Corpuscular Volume 93.3 fl (80-94); Mean Platelet Volume 7.4 fl (7.4-10.4); Monocytes # 0.3 K/mm3 (0.1-1.0); Monocytes % 6.2 % (1.7-9.3); Neutrophils # 3.5 K/mm3 (1.8-7.8); Neutrophils % 62.3 % (37.0-80.0); Platelet Count 272 K/mm3 (142-424); Red Blood Count 3.66 M/mm3 (4.60-6.20); Red Cell Distribution Width 13.3 % (11.5-17.5); White Blood Count 5.6 K/mm3 (4.8-10.8)
[2018-12-23 19:17] LABS: Hemoglobin A1C 8.6 % (0.0-7.0)
[2018-12-23 19:22] LABS: Alanine Aminotransferase 22 U/L (12-78); Albumin Level 3.4 gm/dL (3.4-5.0); Albumin/Globulin Ratio 0.9 (1.1-1.8); Alkaline Phosphatase 100 U/L (46-116); Anion Gap 15.4 mEq/L (5-15); Aspartate Amino Transferase 14 U/L (15-37); Bilirubin,Total 0.2 mg/dL (0.2-1.0); Blood Urea Nitrogen 47 mg/dL (7-18); Calcium 8.8 mg/dL (8.5-10.1); Carbon Dioxide 26 mmol/L (21.0-32.0); Chloride 107 mmol/L (98-107); Chol/HDL Ratio 3.2 (1-3.5); Cholesterol 154 mg/dL (140-200); Creatinine,Serum 2.15 mg/dL (0.70-1.30); Estimated Glomerular Filt Rate 30 ml/min (>60); Free T4 (Free Thyroxine) 0.99 ng/dl (0.76-1.46); GFR (African American) 37 ML/MIN (>60); Globulin 3.8 gm/dl (1.3-3.2); Glucose 84 mg/dL (74-106); HDL Cholesterol 48 mg/dL (27-67); LDL Cholesterol 84 mg/dL (0-130); Potassium 4.4 mmoL/L (3.5-5.1); Sodium 144 mmol/L (136-145); Thyroid Stimulating Hormone 2.36 uIU/ml (0.358-3.740); Total Protein,Serum 7.2 gm/dL (6.4-8.2); Triglycerides 111 mg/dL (30-200); VLDL Cholesterol 22 mg/dL (0-40)
[2018-12-25 07:55] LABS: Vitamin D 25 Hydroxy 19.2 ng/mL (30.0-100.0)
[2018-12-25 11:19] LABS: Microalbumin, Urine 21.4 ug/mL (Not Estab.)
== END ==
PROVIDERS: Visit Provider Emergency Medicine
DX: E11.9 Type 2 diabetes mellitus without complications (principal); Z79.4 Long term (current) use of insulin
CPT/HCPCS: 80053; 80061; 82043; 82570; 82652; 83036; 84439; 84443; 85025

== ENCOUNTER → 2019-01-19 18:17 | Outpatient (CLI) | payer MEDICARE, SELFPAY ==
[2019-01-19 18:50] LABS: Basophils % 0.5 % (0.1-2.0); Eosinophils # 0.2 K/mm3 (0.0-0.4); Eosinophils % 3.2 % (0.1-12.0); Hematocrit 33.6 % (42.0-52.0); Hemoglobin 11.2 g/dL (14.1-18.0); Lymphocytes # 1.8 K/mm3 (0.7-4.5); Lymphocytes % 26.1 % (10-50); Mean Corpuscular HGB Conc 33.4 g/dL (31.8-35.4); Mean Corpuscular Hemoglobin 30.2 pg (27.0-31.2); Mean Corpuscular Volume 90.5 fl (80-94); Mean Platelet Volume 7.3 fl (7.4-10.4); Monocytes # 0.4 K/mm3 (0.1-1.0); Monocytes % 6.1 % (1.7-9.3); Neutrophils # 4.4 K/mm3 (1.8-7.8); Neutrophils % 64.1 % (37.0-80.0); Platelet Count 280 K/mm3 (142-424); Red Blood Count 3.71 M/mm3 (4.60-6.20); Red Cell Distribution Width 13.5 % (11.5-17.5); White Blood Count 6.8 K/mm3 (4.8-10.8)
[2019-01-19 18:58] LABS: Albumin Level 3.2 gm/dL (3.4-5.0); Blood Urea Nitrogen 35 mg/dL (7-18); Calcium 8.8 mg/dL (8.5-10.1); Carbon Dioxide 29 mmol/L (21.0-32.0); Chloride 103 mmol/L (98-107); Creatinine,Serum 2.26 mg/dL (0.70-1.30); Estimated Glomerular Filt Rate 29 ml/min (>60); GFR (African American) 35 ML/MIN (>60); Glucose 284 mg/dL (74-106); Phosphorous 2.5 mg/dL (2.4-4.9); Sodium 139 mmol/L (136-145)
== END ==
PROVIDERS: Visit Provider Internal Medicine Nephrology
DX: N18.3 Chronic kidney disease, stage 3 (moderate) (principal)
CPT/HCPCS: 36415; 80069; 85025

== ENCOUNTER → 2019-01-20 15:16 | Outpatient (POV) | payer MEDICARE, SELFPAY | PROVIDERS: Visit Provider Internal Medicine Nephrology | DX: Z00.00 Encounter for general adult medical examination without abnormal findings (principal) ==

== ENCOUNTER → 2019-03-24 18:20 | Outpatient (CLI) | payer MEDICARE, SELFPAY ==
[2019-03-24 20:38] LABS: Amphetamine/Metha Screen,Urine Negative ng/mL (<1000); Barbiturates Screen,Urine Negative ng/mL (<200); Benzodiazepines Screen,Urine Positive ng/mL (<200); Cannabinoid Screen,Urine Negative ng/mL (<50); Cocaine Screen,Urine Negative ng/mL (<300); Methadone Screen,Urine Negative ng/mL (<300); Opiate Screen,Urine Positive ng/mL (<300); Phencyclidine Screen,Urine Negative ng/mL (<25)
== END ==
PROVIDERS: Visit Provider Emergency Medicine
DX: Z79.899 Other long term (current) drug therapy (principal)
CPT/HCPCS: 80305

== ENCOUNTER → 2019-06-20 17:04 | Outpatient (CLI) | payer MEDICARE, SELFPAY ==
[2019-06-20 17:42] LABS: Anion Gap 12.1 mEq/L (5-15); Blood Urea Nitrogen 33 mg/dL (7-18); Calcium 8.9 mg/dL (8.5-10.1); Carbon Dioxide 29 mmol/L (21.0-32.0); Chloride 101 mmol/L (98-107); Creatinine,Serum 2.08 mg/dL (0.70-1.30); Estimated Glomerular Filt Rate 32 ml/min (>60); GFR (African American) 38 ML/MIN (>60); Glucose 295 mg/dL (74-106); Potassium 5.1 mmoL/L (3.5-5.1); Sodium 137 mmol/L (136-145)
[2019-06-20 18:47] LABS: Amphetamine/Metha Screen,Urine Negative ng/mL (<1000); Barbiturates Screen,Urine Negative ng/mL (<200); Benzodiazepines Screen,Urine Negative ng/mL (<200); Cannabinoid Screen,Urine Negative ng/mL (<50); Cocaine Screen,Urine Negative ng/mL (<300); Methadone Screen,Urine Negative ng/mL (<300); Opiate Screen,Urine Negative ng/mL (<300); Phencyclidine Screen,Urine Negative ng/mL (<25)
== END ==
PROVIDERS: Visit Provider Emergency Medicine
DX: E11.9 Type 2 diabetes mellitus without complications (principal); Z79.4 Long term (current) use of insulin; Z79.899 Other long term (current) drug therapy
CPT/HCPCS: 80048; 80305

== ENCOUNTER → 2019-07-23 11:19 | Outpatient (CLI) | payer MEDICARE, SELFPAY ==
--- NOTE | 2019-07-23 11:23 | XR_ITS ---
PROCEDURE: XR FOOT WT BEARING RT 3V CLINICAL INDICATION: pain COMPARISON: FTR3 FOOT-RT-3 VIEWS from 04/23/2017 FINDINGS: No fracture or dislocation. No lytic or blastic change. There is normal mineralization. There are osteoarthritic changes of the 1st metatarsophalangeal joint. A small metallic foreign body is present within the soft tissues anteriorly of the lower leg Other findings:None. 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
--- NOTE | 2019-07-23 11:23 | XR_ITS ---
PROCEDURE: XR FOOT WT BEARING LT 3V CLINICAL INDICATION: pain Foot pain COMPARISON: No exams were available for comparison FINDINGS: There is increased density with degenerative changes involving the navicular cuneiform joint and cuboid metatarsal joint. There is pes planus with mild superior displacement of the navicular. There is a prominent calcaneal spur. Hammertoe deformity is present at the 2nd toe. There is an old fracture of the proximal phalanx of the 3rd toe. Other findings:None. 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
== END ==
PROVIDERS: PCP Emergency Medicine; Visit Provider Podiatrist
DX: M79.671 Pain in right foot (principal); M79.672 Pain in left foot
CPT/HCPCS: 73630

== ENCOUNTER → 2019-09-24 15:52 | Outpatient (CLI) | payer MEDICARE, SELFPAY ==
--- NOTE | 2019-09-24 15:54 | MR_ITS ---
PROCEDURE: MR LUMBAR SPINE WO CON CLINICAL INDICATION: back pain Low back pain COMPARISON: LS5 LUMBAR SPINE 5 VIEWS from 05/12/2014 TECHNIQUE: Standard multiplanar multiecho sequences are performed without contrast. 3-D MIP and myelographic images are also rendered and reviewed FINDINGS: There is normal alignment. Spinal cord ends at the L1-L2 level. T12-L1: Unremarkable. L1-L2: Unremarkable. L2-L3: Mild facet ligamentum hypertrophy. L3-L4: Bulging disc with facet ligamentum hypertrophy with moderate bilateral lateral recess and foraminal narrowing. L4-5: Mild bulging disc with moderate facet ligamentum hypertrophy with mild bilateral foraminal narrowing and lateral recess narrowing. L5-S1: Bulging disc with facet ligamentum hypertrophy. The bulging disc is slightly eccentric toward the left. There is left lateral recess narrowing abutting the anterior aspect of the left S1 nerve root. There is mild right foraminal narrowing and moderate to severe left foraminal narrowing. Lipoma is present involving the L1 vertebral body. IMPRESSION: 1. L3-L4: Bulging disc with facet ligamentum hypertrophy with moderate bilateral lateral recess and foraminal narrowing. 2. L4-5: Mild bulging disc with moderate facet ligamentum hypertrophy with mild bilateral foraminal narrowing and lateral recess narrowing. 3. L5-S1: Bulging disc with facet ligamentum hypertrophy. The bulging disc is slightly eccentric toward the left. There is left lateral recess narrowing abutting the anterior aspect of the left S1 nerve root. There is mild right foraminal narrowing and moderate to severe left foraminal narrowing. 4. No extruded herniated disc Dictated by: Jose Hoffman MD 09/28/2019 20:12 Electronically signed by Jose Hoffman MD in [place] 09/28/2019 20:12
== END ==
PROVIDERS: PCP Emergency Medicine; Visit Provider Emergency Medicine
DX: M54.9 Dorsalgia, unspecified (principal); M54.5 Low back pain
CPT/HCPCS: 72148; 76376

== ENCOUNTER → 2019-11-03 12:15 | Outpatient (CLI) | payer MEDICARE, SELFPAY ==
[2019-11-05 10:46] LABS: Folate 5.6 ng/mL (>3.0)
[2019-11-05 10:48] LABS: Vitamin B12 379 pg/mL (232-1245)
== END ==
PROVIDERS: Visit Provider Specialist
DX: E11.40 Type 2 diabetes mellitus with diabetic neuropathy, unspecified (principal); E11.65 Type 2 diabetes mellitus with hyperglycemia; G20 Parkinson's disease; G47.00 Insomnia, unspecified; G47.8 Other sleep disorders; R06.83 Snoring; R20.0 Anesthesia of skin; R25.2 Cramp and spasm; Z68.41 Body mass index [BMI] 40.0-44.9, adult; Z86.79 Personal history of other diseases of the circulatory system
CPT/HCPCS: 36415; 82607; 82746

== ENCOUNTER → 2019-11-03 12:16 | Outpatient (CLI) | payer MEDICARE, SELFPAY | PROVIDERS: Visit Provider Specialist | DX: R20.0 Anesthesia of skin (principal) | CPT/HCPCS: 36415; 82607; 82746; 95886; 95911 ==

== ENCOUNTER → 2019-11-03 12:18 | Outpatient (CLI) | payer MEDICARE, SELFPAY | PROVIDERS: Visit Provider Specialist | DX: G47.00 Insomnia, unspecified (principal); G47.8 Other sleep disorders; R06.83 Snoring; Z68.41 Body mass index [BMI] 40.0-44.9, adult; R25.2 Cramp and spasm; R20.0 Anesthesia of skin | CPT/HCPCS: 36415; 82607; 82746; 94762; 95886; 95911 ==

== ENCOUNTER → 2019-11-10 09:22 | Outpatient (POV) | payer MEDICARE, SELFPAY ==
[2019-11-10 09:50] VITALS: BP 111/63; PULSE 78; RESP 18; O2SAT 99; BMI 40.6
--- NOTE | 2019-11-11 08:51 | HMH.PMCON ---
Assessment and Plan (1) Degenerative disc disease Current visit: Yes Status: Chronic Qualifiers: Spinal region: lumbar Qualified Code(s): M51.36 - Other intervertebral disc degeneration, lumbar region Category: Medical (2) Spinal stenosis Current visit: Yes Status: Chronic Qualifiers: Neurogenic claudication status: with neurogenic claudication Category: Medical Code(s): M48.00 - Spinal stenosis, site unspecified - Assessment and plan all Dx Assessment and Plan for all problems:: We will set the patient up for an L4-L5 lumbar epidural steroid injection along with a epidurogram to determine if he is a potential mild candidate. Patient and I discussed this being his baseline test for potential procedures in the future. Patient is on Plavix from Dr. Serra we will see if he can come off of this prior to his injection. I will follow-up with him after that reassess his symptoms at that time he is been instructed to call the office if he has any issues prior to his next appointment. Dr. Meehan has reviewed this note and agrees with this plan of care. This note was dictated using voice recognition software and may contain errors or omissions HPI - Data of Consult Consult date: 11/10/19 Requesting Physician: Ashanti Avelar APRN Primary Care Provider: Kaveh Benoit MD - Consult Narrative Reason for consult: Back pain History of present illness: Mr. Polanco is a 74 year old male who presents today for consultation in regards to his low back pain. Patient has had pain for quite some time. Patient states that it is ongoing and constant he rates it a 3 out of 10 mostly in his low back. Patient states is worse when he is standing and walking. He feels like when he is walking that his legs are going to give out from underneath him. Patient states all activities increase pain will rest decreases pain. He denies numbness and tingling in all extremities. Patient has tried and failed medications anti-inflammatories. Patient and I discussed a mild procedure potentially however at this time I do believe that an epidural and epidurogram would help benefit us and understanding pathology of pain. CC: Ashanti Avelar APRN [facility] History I have reviewed the patient's past medical history: Yes Medical History: Reports:: Anxiety, Coronary Artery Disease, Depression, Diabetes Mellitus Type 2, Hyperlipidemia, Hypertension, MRSA, Renal Insufficiency Denies:: Cancer, Diabetes Mellitus Type 1, Internal Pacemaker, Lung Disease, Seizures *Have you ever received a pneumonia vaccine?: Yes *Have you received a flu vaccine this season?: Yes Other Medical History: Reports: Arthritis Laterality Cases: Bilateral: Arthroscopy Knee Other Surgeries: Yes: Appendectomy, Cardiac Catheterization, Cardiac Surgery (stents), Cholecystectomy, Colonoscopy, Coronary Stent, Other. No: Pacemaker Amputation: No Fractures: No - *Social History Smoking Status: Never smoker Alcohol Intake: never Alcohol Intake Frequency:: holidays/special occasions only Substance Use Type: denies use *Occupational Status:: other Housing: house Household Members: other *Travel in the last 8 weeks: None - Psychiatric History Pschychiatric History:: Reports:: Anxiety, Depression Family Hx:: Unable to obtain Review of Systems - Review of Systems ROS General: no recent weight change, no fever, no sleep disturbances Respiratory: no cough, no shortness of air, no recurring pulmonary infections Cardiovascular/Peripheral Vascular: No chest pain, No palpitations, no edema, no shortness of breath. Gastrointestinal: no new onset incontinence, normal bowel movements reported Genitourinary: no new onset incontinence Musculoskeletal: Back pain Psychiatric: normal mood/ affect, Neurological: Weakness bilateral lower extremities while walking, [denies new onset balance issues] Meds Home Medications Medication Instructions Recorded Con
== END ==
PROVIDERS: PCP Emergency Medicine; Visit Provider Clinical Nurse Specialist Family Health
DX: M51.36 Other intervertebral disc degeneration, lumbar region (principal); M48.00 Spinal stenosis, site unspecified
CPT/HCPCS: 99202

== ENCOUNTER → 2019-11-11 13:30 | Outpatient (CLI) | payer MEDICARE, SELFPAY ==
[2019-11-11 15:18] LABS: Amphetamine/Metha Screen,Urine Negative ng/mL (<1000); Barbiturates Screen,Urine Negative ng/mL (<200); Benzodiazepines Screen,Urine Negative ng/mL (<200); Cannabinoid Screen,Urine Negative ng/mL (<50); Cocaine Screen,Urine Negative ng/mL (<300); Methadone Screen,Urine Negative ng/mL (<300); Opiate Screen,Urine Positive ng/mL (<300); Phencyclidine Screen,Urine Negative ng/mL (<25)
[2019-11-18 10:42] LABS: Alprazolam Negative (Cutoff=100); Benzodiazepines Negative ng/mL (Cutoff=100); Clonazepam Negative (Cutoff=100); Flurazepam Negative (Cutoff=100); Lorazepam Negative (Cutoff=100); Midazolam Negative (Cutoff=100); Temazepam Negative (Cutoff=100); Triazolam Negative (Cutoff=100)
== END ==
PROVIDERS: Visit Provider Emergency Medicine
DX: Z79.899 Other long term (current) drug therapy (principal)
CPT/HCPCS: 80305; 80346

== ENCOUNTER → 2019-11-17 20:06 | Outpatient (CLI) | payer MEDICARE, SELFPAY | PROVIDERS: PCP Emergency Medicine; Visit Provider Nurse Practitioner Family | DX: G47.33 Obstructive sleep apnea (adult) (pediatric) (principal); R40.0 Somnolence; R06.83 Snoring; E66.9 Obesity, unspecified; R09.02 Hypoxemia | CPT/HCPCS: 95811 ==

== ENCOUNTER → 2019-11-27 13:27 | Outpatient (POV) | payer MEDICARE, SELFPAY | PROVIDERS: PCP Emergency Medicine; Visit Provider Neurological Surgery | DX: Z00.00 Encounter for general adult medical examination without abnormal findings (principal) ==

== ENCOUNTER → 2019-12-05 14:52 | Outpatient (CLI) | payer MEDICARE, SELFPAY ==
--- NOTE | 2019-12-05 14:53 | CA_ITS ---
APPROVED REPORT EXAM: Comprehensive 2D, Doppler, and color-flow Echocardiogram Addictions Counselor: Melina Dickens RDCS Ht: 6 ft 0 in Wt: 297lbs BSA: 2.52 BP: 112/68 mmHg Indications: AI,CAD,PRE-OP CLEARANCE,HTN,HLP,DM 2D Dimensions LVOT 2.22 cm (M/F) 1.5-2.5 M-Mode Dimensions RVDd 3.80 cm (0.9-2.6) LVDd 5.49 cm (3.5-5.7) LVDs 4.36 cm (3.5-5.7) IVSd 1.22 cm (0.6-1.1) PWd 1.08 cm (0.6-1.1) EF (Teich) 41.60% FS 20.60% EDV (Teich) 146.80 mL ESV (Teich) 85.80 mL LV Diastology E/A Ratio 0.68 Mitral Valve MV A Velocity 76.00 (40-130 cm/s) Left Ventricle Left atrium is mildly enlarged, left ventricle is normal size, mild concentric left ventricular hypertrophy, visually estimated ejection fraction 55% with no regional wall motion abnormality, grade 1 diastolic dysfunction seen without tissue Doppler evidence of raise left atrial pressure. Right Ventricle Right atrium and right ventricular mildly enlarged with normal contractility. Aortic Valve Aortic valve is minimally thickened and fibrosed, there is no aortic stenosis, there is mild aortic insufficiency. Mitral Valve Mitral valve is grossly normal, there is mild mitral regurgitation. Tricuspid Valve Tricuspid valve is grossly normal, there is mild tricuspid regurgitation, tricuspid regurgitation jet velocity is inadequate for calculation of the right ventricular systolic pressure. Pulmonic Valve Pulmonic valve is poorly visualized. Great Vessels Aortic root is normal size. Pericardium No significant pericardial effusion noted. Conclusion 1. Mild mitral enlargement, normal left ventricular size, mild concentric left ventricular hypertrophy, visually estimated ejection fraction 55% with no regional wall motion abnormality, grade 1 diastolic dysfunction seen without tissue Doppler evidence of raise left atrial pressure. 2. Mildly enlarged right ventricle with normal contractility. 3. Mild aortic, mild mitral and tricuspid regurgitation. 4. No significant pericardial effusion noted. Electronically signed by : Joseph Nunez, 12/09/2019 05:30:23
== END ==
PROVIDERS: PCP Emergency Medicine; Visit Provider Internal Medicine Cardiovascular Disease
DX: R06.02 Shortness of breath (principal)
CPT/HCPCS: 93306

== ENCOUNTER 2020-02-28 14:46 | Inpatient (IN) | payer MEDICARE, SELFPAY ==
[2020-02-28] VITALS (10 sets, daily range): BP systolic 100–142; BP diastolic 54–68; PULSE 79–92; RESP 19–24; TEMP 37.4–39.6; O2SAT 92–96; BMI 40.6; BMI 41.5
--- NOTE | 2020-02-28 15:03 | XR_ITS ---
PROCEDURE: XR CHEST PORTABLE Patient Age:74Y CLINICAL HISTORY: fever fever and cough nonsmoker COMPARISON: No exams were available for comparison FINDINGS: AP portable upright CXR but compared to November 2019. Also April 26. Mild cardiomegaly again noted. No CHF... Upper lung corral clear unremarkable Right chest The generous right hany is been seen on previous studies and most likely reflects prominent central pulmonary artery here a of most evident at right hany but this is unchanged since prior studies With this also some mild prominence of the branching vessels in lung markings medial right lung base are,, lobe and right infrahilar region which I believe mainly accounts for appearance here. Doubt infiltrate. There may be a a few scattered tiny calcified granulomas here as well. Difficult to totally exclude some minimal airspace disease towards right infrahilar region/medial right base, probable atelectasis. Left chest: Subtle wispy density projected over the anterior left 4th most likely reflects technique and higher contrast image today. Doubt minimal wispy infiltrate Mediastinal structures stable. Chest wall unremarkable. No pleural effusion or pneumothorax. IMPRESSION: Cardiomegaly Nothing definitely acute. Upper normal markings right infrahilar region as well as area left mid lung-most likely reflecting some mild chronic changes, atelectasis along with today's technique. No definitive or convincing infiltrate. However if symptoms should progress consider follow-up Dictated by: Yg Morales MD 02/28/2020 16:43 Electronically signed by Yg Morales MD in [place] 02/28/2020 16:43
--- NOTE | 2020-02-28 15:03 | HMH.EDGENADL ---
ED Disposition Clinical Impression: Sepsis Qualifiers: Sepsis type: sepsis due to unspecified organism Sepsis acute organ dysfunction status: without acute organ dysfunction Qualified Code(s): A41.9 - Sepsis, unspecified organism UTI (urinary tract infection) Qualifiers: Urinary tract infection type: site unspecified Hematuria presence: without hematuria Qualified Code(s): N39.0 - Urinary tract infection, site not specified Disposition: Admitted As Inpatient Condition on Discharge: Fair Referrals: Kaveh Benoit MD [Primary Care Provider] - - Critical Care Critical Care Time: No Attestation: On 02/28/20, the high probability of a clinically significant, sudden or life threatening deterioration of the following system(s) required my full and direct attention, intervention and personal management. The time I documented below is in addition to time spent performing reported procedures but includes the following listed in this critical care notation. Medical Decision Making - Bj Inquiry Pt receiving controlled substance: No Vital Signs: 02/28/20 14:47 02/28/20 15:40 Temperature 103.2 F H 103.0 F H Temperature Source Oral Oral Pulse Rate [Right Radial] 92 H 90 Respiratory Rate 24 24 Blood Pressure [Right Arm] 142/58 H 132/66 Blood Pressure Mean [Right Arm] 86 88 Blood Pressure Source [Right Arm] Automatic Cuff Automatic Cuff Blood Pressure Position [Right Arm] Sitting Sitting 02 Sat by Pulse Oximetry 92 L 93 L Oxygen Delivery Method Room Air Room Air - Lab Data Lab Results 02/28/20 15:15: WBC 14.8 H, RBC 3.87 L, Hgb 11.8 L, Hct 34.2 L, MCV 88.3, MCH 30.4, MCHC 34.5, RDW 14.1, Plt Count 220, MPV 6.9 L, Neut % (Auto) 90.9 H, Lymph % (Auto) 3.4 L, [place] % (Auto) 4.2, Eos % (Auto) 0.4, Baso % (Auto) 1.0, Neut # (Auto) 13.4 H, Lymph # (Auto) 0.5 L, [place] # (Auto) 0.6, Eos # (Auto) 0.1, Baso # (Auto) 0.2, Total Counted 100, Neutrophils % (Manual) 89 H, Band Neutrophils % 3.0, Lymphocytes % (Manual) 4 L, Monocytes % (Manual) 3, Eosinophils % (Manual) 1, Platelet Estimate Normal, RBC Morphology Normal 02/28/20 15:15: Sodium 138, Potassium 4.4, Chloride 106, Carbon Dioxide 25, Anion Gap 11.4, BUN 34 H, Creatinine 2.10 H, Estimated Creat Clear 61, Estimated GFR 31 L, Est GFR ( Amer) 38 L, Glucose 202 H, Calcium 9.0, Total Bilirubin 0.5, AST 21, ALT 17, Alkaline Phosphatase 88, Total Protein 7.2, Albumin 3.9, Globulin 3.3 H, Albumin/Globulin Ratio 1.2 02/28/20 15:15: Lactate 1.3 02/28/20 15:15: Group A Strep Rapid Negative 02/28/20 15:15: Influenza Type A Ag Negative, Influenza Type B Ag Negative 02/28/20 16:05: Urine Color Yellow, Urine Appearance Cloudy, Urine pH 5.5, Ur Specific [place] 1.020, Urine Protein 1+, Urine Glucose (UA) 2+, Urine Ketones Negative, Urine Blood 1+, Urine Nitrate Negative, Urine Bilirubin Negative, Urine Urobilinogen 0.2, Ur Leukocyte Esterase 2+ A, Urine RBC 5-10, Urine WBC 50-100, Ur Squamous Epith Cells 10-20, Ur Transition Epith Cell 3-5, Amorphous Sediment 3+, Urine Bacteria 1+ Result diagrams: 02/28/20 15:15 02/28/20 15:15 Orders (Tests/Meds): ED MEDICATIONS Discontinued Medications Generic Name Dose Route Start Last Admin Trade Name Freq PRN Reason Stop Dose Admin Acetaminophen 1,000 mg 02/28/20 15:35 02/28/20 15:36 Tylenol 500mg Tablet PO 02/28/20 15:36 1,000 mg ONCE ONE Administration ORDERS Category Date Time Status XR chest portable Stat Exams 02/28/20 15:03 Taken Respiratory Panel (COVID), PCR Stat Lab 02/28/20 15:30 Received Blood Culture Stat Micro 02/28/20 15:25 Received Strep Screen Confirmation Stat Micro 02/28/20 15:15 Received Urine Culture Stat Micro 02/28/20 16:05 Received - Radiology Data #1 Image(s): Chest Image Reviewed: Yes I reviewed the patient's radiology image Preliminary Findings: Normal/NAD - Physician Consults Physician Consulted: Anthony Benoit Time: 16:31 Reason -: Admission Comment/Response: Arnold
[2020-02-28 15:37] LABS: Basophils # 0.2 K/mm3 (0-0.2); Eosinophils # 0.1 K/mm3 (0.0-0.4); Eosinophils % 0.4 % (0.1-12.0); Hematocrit 34.2 % (42.0-52.0); Hemoglobin 11.8 g/dL (14.1-18.0); Lymphocytes # 0.5 K/mm3 (0.7-4.5); Lymphocytes % 3.4 % (10-50); Mean Corpuscular HGB Conc 34.5 g/dL (31.8-35.4); Mean Corpuscular Hemoglobin 30.4 pg (27.0-31.2); Mean Corpuscular Volume 88.3 fl (80-94); Mean Platelet Volume 6.9 fl (7.4-10.4); Monocytes # 0.6 K/mm3 (0.1-1.0); Monocytes % 4.2 % (1.7-9.3); Neutrophils # 13.4 K/mm3 (1.8-7.8); Neutrophils % 90.9 % (37.0-80.0); Platelet Count 220 K/mm3 (142-424); Red Blood Count 3.87 M/mm3 (4.60-6.20); Red Cell Distribution Width 14.1 % (11.5-17.5); White Blood Count 14.8 K/mm3 (4.8-10.8)
[2020-02-28 15:41] LABS: Adenovirus,PCR Not Detected (NotDetected); Bordetella Pertussis Not Detected (NotDetected); Chlamydophila Pneumoniae, PCR Not Detected (NotDetected); Coronavirus 19, PCR Not Detected (NotDetected); Coronavirus 229E Not Detected (NotDetected); Coronavirus NL63 Not Detected (NotDetected); Coronavirus OC43 Not Detected (NotDetected); Coronovirus HKU1,PCR Not Detected (NotDetected); Human Metapneumovirus Not Detected (NotDetected); Influenza A, PCR Not Detected (NotDetected); Influenza AH1, 2009 Not Detected (NotDetected); Influenza AH1, PCR Not Detected (NotDetected); Influenza AH3,PCR Not Detected (NotDetected); Influenza B, PCR Not Detected (NotDetected); Mycoplasma Pneumoniae, PCR Not Detected (NotDected); Parainfluenza 1, PCR Not Detected (NotDetected); Parainfluenza 2, PCR Not Detected (NotDetected); Parainfluenza 3, PCR Not Detected (NotDetected); Parainfluenza 4, PCR Not Detected (NotDetected); Respiratory Syncytial Virus Not Detected (NotDetected); Rhinovirus/Enterovirus Not Detected (NotDetected)
[2020-02-28 15:43] LABS: MANUAL DIFFERENTIAL MANUAL DIFFERENTIAL (MANUAL DIFF)
[2020-02-28 15:44] LABS: Chloride 106 mmol/L (98-107); Potassium 4.4 mmoL/L (3.5-5.1); Sodium 138 mmol/L (136-145)
[2020-02-28 15:46] LABS: Blood Urea Nitrogen 34 mg/dl (9-20)
[2020-02-28 15:47] LABS: Alanine Aminotransferase 17 U/L (12-78); Albumin Level 3.9 g/dl (3.5-5.0); Albumin/Globulin Ratio 1.2 (1.1-1.8); Alkaline Phosphatase 88 U/L (38-126); Anion Gap 11.4 mEq/L (5-15); Aspartate Amino Transferase 21 U/L (17-59); Bilirubin,Total 0.5 mg/dl (0.2-1.3); Carbon Dioxide 25 mmol/L (22.0-30.0); Creatinine Clearance Estimated 61 mL/min (50-200); Estimated Glomerular Filt Rate 31 ml/min (>60); GFR (African American) 38 ML/MIN (>60); Globulin 3.3 g/dL (1.3-3.2); Glucose 202 mg/dl (74-100); Lactic Acid 1.3 mmol/L (0.7-2.1); Strep Scrn Group A (Rapid) Negative (Negative); Total Protein,Serum 7.2 g/dl (6.3-8.2)
[2020-02-28 15:52] LABS: Eosinophils % 1 % (0-3); Lymphocytes % 4 % (10-50); Monocytes % 3 % (2-9); Neutrophils % 89 % (42-76); Platelet Estimate Normal; RBC Morphology Normal; Total Cells Counted 100
[2020-02-28 16:07] LABS: Appearance,Urine CLOUDY (Clear); Bilirubin,Urine Negative (Negative); Blood, Urine 1+ (Negative); Color,Urine YELLOW (Yellow); Glucose,Urine (UA) 2+ (Negative); Ketones,Urine Negative (Negative); Leukocyte Esterase,Urine 2+ (Negative); Microscopic, Urine URINE MICROSCOPIC (MICROSCOPIC); Nitrate,Urine Negative (Negative); PH,Urine 5.5 (5.0-8.5); Protein,Urine 1+ (Negative); Urobilinogen,Urine 0.2 EU/dl (0.2)
[2020-02-28 16:17] LABS: Amorphous Sediment,Urine 3+ /lpf; Bacteria,Urine 1+ /lpf; WBC,Urine 50-100 #/hpf (0-3)
--- NOTE | 2020-02-28 16:25 | PC.NURSE ---
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
--- NOTE | 2020-02-28 16:28 | PC.NURSE ---
DERIK ALMAGUER speaking with Dr. Cruz
--- NOTE | 2020-02-28 16:43 | PC.NURSE ---
attempted to reconcile pt home medications, pt does not have a list of his home medications and he does not know the names of them. Asked pt son to bring medications to the hospital so staff can reconcile medications
--- NOTE | 2020-02-28 16:45 | PC.NURSE ---
notified ER MD pt temperature still elevated at 103.1 ER MD gave verbal order for 1L of NS per IV
--- NOTE | 2020-02-28 17:10 | PC.NURSE ---
registration notified of pt admission information
--- NOTE | 2020-02-28 17:25 | PC.NURSE ---
report called to nga brown rn on second floor, states she will send staff down to get pt
--- NOTE | 2020-02-28 18:10 | PC.NURSE ---
pt son brought pt medications in at this time, medications reconciled based off of prescriptions bottles. ER MD notified
[2020-02-29] VITALS (8 sets, daily range): BP systolic 114–158; BP diastolic 63–83; PULSE 72–76; RESP 19–20; TEMP 37.1–37.5; O2SAT 95–98; BMI 41.8
[2020-02-29 00:22] LABS: POC Glucose,Bedside 218 (70-110)
[2020-02-29 00:52] LABS: POC Glucose,Bedside 173 (70-110)
--- NOTE | 2020-02-29 03:46 | PC.NURSE ---
Pt A&O x3. Has slept at intervals this shift. Pt has c/o chills and shivering. Pt has been febrile most of shift. Had difficulty early in shift with urination. Pt ambulated to BR with 2 assist. Has voided x2. 250 total urine output measured plus 1 unmeasured. Urine is yellow and cloudy. Bath given per staff. Medication administered per dec. VSS. Pt is currently on O2 2L NC while sleeping. Lungs noted to have crackles to bilateral bases. No other concerns. Call light within reach. Will continue to monitor.
[2020-02-29 05:35] LABS: POC Glucose,Bedside 171 (70-110)
[2020-02-29 07:05] LABS: Chloride 106 mmol/L (98-107); Potassium 4.2 mmoL/L (3.5-5.1); Sodium 137 mmol/L (136-145)
[2020-02-29 07:08] LABS: Anion Gap 12.2 mEq/L (5-15); Blood Urea Nitrogen 35 mg/dl (9-20); Carbon Dioxide 23 mmol/L (22.0-30.0); Creatinine Clearance Estimated 33 mL/min (50-200); Estimated Glomerular Filt Rate 30 ml/min (>60); GFR (African American) 36 ML/MIN (>60)
[2020-02-29 07:09] LABS: Calcium 8.4 mg/dl (8.4-10.2); Glucose 163 mg/dl (74-100)
--- NOTE | 2020-02-29 10:10 | HMH.HP ---
*Admission Date: 02/29/20 *Chief complaint: uti *History of present illness: 74 yr old male presents to ed with c/o shakiness, weakness, intermittent vomiting today, not eating or drinking well. Blood sugar was 258. Denies any pain, diarrhea, cough or shortness of breath. Once arrived to ED he was found to be febrile on arrival, patient and son were not aware he was febrile until temperature was checked in ED. Pt admitted for UTI. [facility] History I have reviewed the patient's past medical history: Yes Medical History: Reports:: Anxiety, Coronary Artery Disease, Depression, Diabetes Mellitus Type 2, Hyperlipidemia, Hypertension, MRSA, Renal Disease, Renal Insufficiency Denies:: Cancer, Diabetes Mellitus Type 1, Internal Pacemaker, Lung Disease, Seizures *Have you ever received a pneumonia vaccine?: No *Have you received a flu vaccine this season?: No Other Medical History: Reports: Arthritis, Glaucoma Laterality Cases: Bilateral: Arthroscopy Knee Other Surgeries: Yes: Appendectomy, Cardiac Catheterization, Cardiac Surgery (stents), Cholecystectomy, Colonoscopy, Coronary Stent, Other. No: Pacemaker Amputation: No Fractures: No - *Social History Educational Level: Completed College Smoking Status: Never smoker Alcohol Intake: never Alcohol Intake Frequency:: holidays/special occasions only Substance Use Type: denies use *Occupational Status:: retired Housing: house Household Members: other *Travel in the last 8 weeks: None - Psychiatric History Pschychiatric History:: Reports:: Anxiety, Depression Family Hx:: Coronary Artery Disease, Diabetes, Hyperlipidemia, Hypertension Review of Systems - Review of Systems Review of systems:: pertinent systems reviewed and negative unless documented below - Constitutional Reports fever(s), Reports weakness, Denies chills - Eyes Denies blurry vision - ENT Denies post nasal drip, Denies sore throat - *Cardiovascular Denies chest pain, Denies leg pain with activity - *Respiratory Denies change in phlegm color, Denies cough - *Gastrointestinal Reports nausea, Reports vomiting, Denies bloating - *Genitourinary Denies urinary frequency, Denies urinary hesitancy, Denies urinary incontinence - *Musculoskeletal Reports muscle weakness, Denies joint pain - Integumentary/Breasts Denies bleeding lesions, Denies rash - *Neurologic Reports abnormal movements, Reports weakness, Denies dizziness, Denies headache(s) - Psychiatric Denies anxiety - Endocrine Denies increased urination - Hematologic/Lymphatic Denies easy bruising - Allergic/Immunologic Denies GI upset with certain foods Meds Home Medications Medication Instructions Recorded Confirmed Type aspirin 81 mg tablet,delayed 81 mg PO DAILY tab 12/25/17 02/28/20 History release Fluticasone Propionate [Flonase 1 spray INTRANASAL DAILY 12/23/18 02/29/20 History Allergy Relief NS] carvediloL [Carvedilol 6.25mg Tab] 6.25 mg PO BID 03/31/19 02/28/20 History Glucagon,Human Recombinant 1 mg IJ NEEDED PRN #1 kit 09/03/19 02/28/20 Rx [Glucagon Emergency Kit] ergocalciferol (vitamin D2) 1,250 50,000 unit PO QWEEK #14 cap 11/07/19 02/28/20 Rx mcg (50,000 unit) capsule alprazolam 0.5 mg tablet 0.5 mg PO TID #90 tab 11/11/19 02/28/20 Rx econazole 1 % topical cream 1 applic TOPICAL DIRECTED 11/11/19 02/28/20 History spironolactone 25 mg tablet 25 mg PO DAILY #30 tab 11/12/19 02/28/20 Rx Clopidogrel Bisulfate [Plavix 75mg 75 mg PO DAILY 11/18/19 02/28/20 History Tab] Furosemide [Furosemide 40MG tAB] 40 mg PO DAILY 11/18/19 02/28/20 History Urea [Uramaxin] 1 applic TOPICAL BID 11/18/19 02/28/20 History acetaminophen 300 mg-codeine 30 mg 1 tab PO BID PRN #28 tab 02/20/20 02/28/20 Rx tablet losartan 25 mg tablet 25 mg PO DAILY #90 tab 02/24/20 02/28/20 Rx Atorvastatin Calcium [Atorvastatin 20 mg PO HS 02/28/20 02/29/20 History 20mg Tab] Insulin Aspart Prot/Insuln Asp 15 units SQ BID 02/28/20 0
--- NOTE | 2020-02-29 11:01 | HMH.PHAVTE ---
[facility] Pharmacy VTE Monitoring - Patient Demographics Admission date: 02/29/20 Report Date: 02/29/20 Time: 11:01 Allergies/Adverse Reactions: Patient Allergies No Known Allergies Allergy (Verified 02/23/20 16:19) Height: 1.83 m Weight: 139.905 kg Patient Problems: Current Active Problems (Last Updated 06/03/19 @ 11:58 by Carrie Banegas RN) Sepsis (Acute) UTI (urinary tract infection) (Acute) - VTE Risk Labs: VTE Related Lab Results Hgb 11.8 g/dL (14.1-18.0) L 02/28/20 15:15 Hct 34.2 % (42.0-52.0) L 02/28/20 15:15 Plt Count 220 K/mm3 (142-424) 02/28/20 15:15 BUN 35 mg/dl (9-20) H 02/29/20 06:30 Creatinine 2.20 mg/dl (0.66-1.25) H 02/29/20 06:30 Estimated Creat Clear 33 mL/min (50-200) 02/29/20 06:30 Was VTE Risk Assessment Performed: No VTE Score: 4 VTE Risk Level: Low Risk - Prophylaxis Types of VTE Prophylaxis: TEDS Knee High (ANGÉLICA HOSE ORDERED) Location of Applied Device: Refused
[2020-02-29 11:22] LABS: POC Glucose,Bedside 203 (70-110)
[2020-02-29 16:12] LABS: POC Glucose,Bedside 209 (70-110)
--- NOTE | 2020-02-29 17:40 | PC.NURSE ---
PT IS ALERT AND ORIENTED X4. UP TO CHAIR ALL SHIFT. PT VOIDS DARK YELLOW URINE VIA URINAL AND TOILET. NO REPORTED BM THIS SHIFT. PAIN MEDS ADMINISTERED PER MAR. SAFETY MEASURES IN PLACE, WILL CONTINUE TO MONITOR
[2020-02-29 20:58] LABS: POC Glucose,Bedside 270 (70-110)
[2020-03-01 00:49] LABS: POC Glucose,Bedside 194 (70-110)
[2020-03-01 04:00] VITALS: BP 122/70; PULSE 69; RESP 20; TEMP 37.1; O2SAT 94
[2020-03-01 05:56] VITALS: BMI 42.5
[2020-03-01 05:59] LABS: POC Glucose,Bedside 173 (70-110)
[2020-03-01 06:14] LABS: Basophils % 0.1 % (0.1-2.0); Eosinophils # 0.1 K/mm3 (0.0-0.4); Eosinophils % 1.2 % (0.1-12.0); Hematocrit 28.9 % (42.0-52.0); Hemoglobin 9.7 g/dL (14.1-18.0); Lymphocytes # 1.5 K/mm3 (0.7-4.5); Mean Corpuscular HGB Conc 33.6 g/dL (31.8-35.4); Mean Corpuscular Volume 89.1 fl (80-94); Mean Platelet Volume 8.7 fl (7.4-10.4); Monocytes # 0.4 K/mm3 (0.1-1.0); Monocytes % 4.5 % (1.7-9.3); Neutrophils # 6.6 K/mm3 (1.8-7.8); Neutrophils % 77.1 % (37.0-80.0); Platelet Count 179 K/mm3 (142-424); Red Blood Count 3.24 M/mm3 (4.60-6.20); Red Cell Distribution Width 14.2 % (11.5-17.5); White Blood Count 8.6 K/mm3 (4.8-10.8)
--- NOTE | 2020-03-01 06:14 | PC.NURSE ---
No acute changes noted. Pt has been afebrile this shift. Other VSS. Remains on RA. Complained of discomfort to neck x1 this shift. Medicated per DEC. Pt has ambulated to bathroom. Total urine output of 1850 ml. Call light within reach. No concerns at this time. Will continue to monitor.
[2020-03-01 06:19] LABS: Chloride 109 mmol/L (98-107); Potassium 4.2 mmoL/L (3.5-5.1); Sodium 137 mmol/L (136-145)
[2020-03-01 06:22] LABS: Anion Gap 9.2 mEq/L (5-15); Blood Urea Nitrogen 27 mg/dl (9-20); Calcium 8.1 mg/dl (8.4-10.2); Carbon Dioxide 23 mmol/L (22.0-30.0); Creatinine Clearance Estimated 37 mL/min (50-200); Estimated Glomerular Filt Rate 33 ml/min (>60); GFR (African American) 40 ML/MIN (>60); Glucose 166 mg/dl (74-100)
[2020-03-01 08:00] VITALS: BP 132/58; PULSE 68; RESP 16; TEMP 37.4; O2SAT 96
--- NOTE | 2020-03-01 08:48 | HMH.ACPN2 ---
Internal Medicine - PN: Subj *Date: 03/03/20 *Time: 06:57 Interval history: doing better - sitting in chair Exam Vital signs and Labs for Last 24 Hours: Temp Pulse Resp BP Pulse Ox 99.4 F 68 16 132/58 L 96 03/01/20 08:00 03/01/20 08:00 03/01/20 08:00 03/01/20 08:00 03/01/20 08:00 Laboratory Results - last 24 hr 02/28/20 16:05: Urine Color Yellow, Urine Appearance Cloudy, Urine pH 5.5, Ur Specific [place] 1.020, Urine Protein 1+, Urine Glucose (UA) 2+, Urine Ketones Negative, Urine Blood 1+, Urine Nitrate Negative, Urine Bilirubin Negative, Urine Urobilinogen 0.2, Ur Leukocyte Esterase 2+ A, Urine RBC 5-10, Urine WBC 50-100, Ur Squamous Epith Cells 10-20, Ur Transition Epith Cell 3-5, Amorphous Sediment 3+, Urine Bacteria 1+ 02/29/20 11:11: POC Glucose 203 H 02/29/20 15:54: POC Glucose 209 H 02/29/20 20:34: POC Glucose 270 H 03/01/20 00:42: POC Glucose 194 H 03/01/20 05:36: POC Glucose 173 H 03/01/20 05:53: WBC 8.6 D, RBC 3.24 L, Hgb 9.7 L, Hct 28.9 L, MCV 89.1, MCH 30.0, MCHC 33.6, RDW 14.2, Plt Count 179, MPV 8.7, Neut % (Auto) 77.1, Lymph % (Auto) 17.0, [place] % (Auto) 4.5, Eos % (Auto) 1.2, Baso % (Auto) 0.1, Neut # (Auto) 6.6, Lymph # (Auto) 1.5, [place] # (Auto) 0.4, Eos # (Auto) 0.1, Baso # (Auto) 0.0 03/01/20 05:53: Sodium 137, Potassium 4.2, Chloride 109 H, Carbon Dioxide 23, Anion Gap 9.2, BUN 27 H, Creatinine 2.00 H, Estimated Creat Clear 37, Estimated GFR 33 L, Est GFR ( Amer) 40 L, Glucose 166 H, Calcium 8.1 L I & O for Last 24 hours: Intake & Output 02/27/20 02/28/20 02/29/20 03/01/20 11:59 11:59 11:59 11:59 Intake Total 360 / 360 600 / 600 Output Total 250 / 250 2850 / 2850 Balance 110 / 110 -2250 / -2250 Weight 308 lb 7 oz 314 lb 5 oz Microbiology Reports for the Last 24 Hours: Microbiology 02/28/20 15:15 Throat Group A Streptococcus Screen (GARY) - Final Negative for Group A Streptococcus. 02/28/20 16:05 Urine,Catheterized Urine Culture - Preliminary Gram Negative Rods - Constitutional no acute distress, obese - *Routine HEENT Exam Head: Present: normocephalic Eye: Present: EOMI, PERRL ENT: Present: mucous membranes dry - *Routine Neck Exam Absent: JVD - *Routine Respiratory Exam Present: decreased breath sounds - *Routine Cardiovascular Exam Present: RRR - *Routine Abdominal Exam Present: soft - *Routine Extremities Exam Absent: calf tenderness - *Routine Skin Exam Absent: petechiae, jaundice - *Routine Neurological Exam Present: alert, CN II-XII intact - Routine Psychiatric Exam Present: normal affect Assessment and Plan (1) Sepsis Current visit: Yes Status: Acute Qualifiers: Sepsis type: sepsis due to unspecified organism Sepsis acute organ dysfunction status: without acute organ dysfunction Qualified Code(s): A41.9 - Sepsis, unspecified organism Category: Medical Code(s): A41.9 - Sepsis, unspecified organism (2) UTI (urinary tract infection) Current visit: Yes Status: Acute Qualifiers: Urinary tract infection type: site unspecified Hematuria presence: without hematuria Qualified Code(s): N39.0 - Urinary tract infection, site not specified Category: Medical Code(s): N39.0 - Urinary tract infection, site not specified (3) Obesity due to excess calories with serious comorbidity Current visit: No Status: Acute Qualifiers: Body mass index: BMI 40.0-44.9 Category: Medical Code(s): E66.09 - Other obesity due to excess calories (4) Diabetes Current visit: No Status: Chronic Qualifiers: Diabetes mellitus type: type 2 Diabetes mellitus fci insulin use: with terminal superintendent use Diabetes mellitus complication status: without complication Qualified Code(s): E11.9 - Type 2 diabetes mellitus without complications; Z79.4 - half-way (current) use of insulin Category: Medical Code(s): E11.9 - Type 2 diabetes m
[2020-03-01 11:59] VITALS: BP 137/68; PULSE 57; RESP 16; TEMP 36.8; O2SAT 97
[2020-03-01 12:11] LABS: POC Glucose,Bedside 227 (70-110)
[2020-03-01 15:32] VITALS: BMI 42.7
[2020-03-01 16:00] VITALS: BP 138/74; PULSE 64; RESP 16; TEMP 36.8; O2SAT 98
[2020-03-01 16:54] LABS: POC Glucose,Bedside 193 (70-110)
--- NOTE | 2020-03-01 18:05 | PC.NURSE ---
Pt has been up to chair all shift. Remains on room air. Denies pain at this time. Requires standby assistance when ambulating to bathroom. No needs voiced at this time. Call light w/in reach. Will continue to monitor.
--- NOTE | 2020-03-01 19:16 | PC.NURSE ---
report given to anders
[2020-03-01 20:00] VITALS: BP 162/81; PULSE 72; RESP 20; TEMP 36.8; O2SAT 98
[2020-03-01 21:28] LABS: POC Glucose,Bedside 239 (70-110)
[2020-03-02 04:00] VITALS: BP 160/63; PULSE 77; RESP 22; TEMP 38; O2SAT 95
[2020-03-02 05:00] VITALS: BMI 42.5
[2020-03-02 06:48] LABS: POC Glucose,Bedside 222 (70-110)
[2020-03-02 07:39] VITALS: BP 157/81; PULSE 68; RESP 19; TEMP 37.9; O2SAT 94
--- NOTE | 2020-03-02 09:09 | XR_ITS ---
PROCEDURE: XR FOOT RT MIN 3V CLINICAL INDICATION: DM Pain COMPARISON: FTR3 FOOT-RT-3 VIEWS from 04/23/2017 XR FOOT WT BEARING RT 3V from 07/23/2019 XR FOOT WT BEARING LT 3V from 07/23/2019 FINDINGS: No fracture or dislocation. No lytic or blastic change. There is normal mineralization. Mild osteoarthritis 1st MTP joint. No acute fracture or dislocation. No lytic or blastic change. There is a thin metallic density along the anterior aspect at the level of the ankle joint suggesting a small foreign body. Other findings:None. IMPRESSION: No change with no acute finding. Small foreign body anterior to the ankle joint Dictated by: Jose Hoffman MD 03/02/2020 10:06 Electronically signed by Jose Hoffman MD in [place] 03/02/2020 10:06
--- NOTE | 2020-03-02 09:09 | XR_ITS ---
PROCEDURE: XR FOOT LT MIN 3V CLINICAL INDICATION: L toe wound Pain swelling and redness COMPARISON: FTR3 FOOT-RT-3 VIEWS from 04/23/2017 XR FOOT WT BEARING RT 3V from 07/23/2019 XR FOOT WT BEARING LT 3V from 07/23/2019 FINDINGS: No fracture or dislocation. No lytic or blastic change. There is normal mineralization. Bandage artifact with soft tissue swelling noted at the great toe. No bony destructive process evident. There is hammertoe deformity of the 2nd and 3rd toes with old fractures of the proximal phalanges of these toes. Osteoarthritic changes are present involving the midfoot at the navicular cuneiform joint. There is a prominent calcaneal spur measuring 2 cm in length. Other findings:None. IMPRESSION: No bony destructive process evident. 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
[2020-03-02 10:38] LABS: C-Reactive Protein 74.7 mg/L (0-4)
--- NOTE | 2020-03-02 10:39 | HMH.ORTHOCON ---
*Admission Date: 02/29/20 *Reason for consult:: L Great toe callus *History of present illness: Mr. Polanco is a 74 y/o male who was admitted 02/28/20 for UTI. He presented to ED with c/o shakiness, weakness, intermittent vomiting, not eating or drinking well. Blood sugar was 258. Denies any pain, diarrhea, cough or shortness of breath. Today patient is resting comfortably at the bedside. He denies pain to the pigtail. Patient is unsure of how long he has had the callus/wound. He denies drainage or malodor to that area. Review of Systems - Review of Systems Review of systems:: pertinent systems reviewed and negative unless documented below - Constitutional Reports fever(s), Reports lack of energy - Eyes Denies blind spots - ENT Denies abnormal hearing - *Cardiovascular Reports generalized swelling, Denies chest pain - *Respiratory Denies cough, Denies shortness of breath - *Gastrointestinal Reports nausea - *Genitourinary Denies difficulty urinating - *Musculoskeletal Reports numbness - Integumentary/Breasts Reports hair loss, Reports change in hair, Reports nail changes, Reports dry skin, Reports skin ulcer - *Neurologic Reports abnormal movements, Reports weakness, Denies dizziness, Denies headache(s) - Psychiatric Denies abnormal sleep pattern - Endocrine Denies cold intolerance - Allergic/Immunologic Reports GI upset with certain foods [facility] History I have reviewed the patient's past medical history: Yes Medical History: Reports:: Anxiety, Coronary Artery Disease, Depression, Diabetes Mellitus Type 2, Hyperlipidemia, Hypertension, MRSA, Renal Disease, Renal Insufficiency Denies:: Cancer, Diabetes Mellitus Type 1, Internal Pacemaker, Lung Disease, Seizures *Have you ever received a pneumonia vaccine?: No *Have you received a flu vaccine this season?: No Other Medical History: Reports: Arthritis, Glaucoma Laterality Cases: Bilateral: Arthroscopy Knee Other Surgeries: Yes: Appendectomy, Cardiac Catheterization, Cardiac Surgery (stents), Cholecystectomy, Colonoscopy, Coronary Stent, Other. No: Pacemaker Amputation: No Fractures: No - *Social History Educational Level: Completed College Smoking Status: Never smoker Alcohol Intake: never Alcohol Intake Frequency:: holidays/special occasions only Substance Use Type: denies use *Occupational Status:: retired Housing: house Household Members: other *Travel in the last 8 weeks: None - Psychiatric History Pschychiatric History:: Reports:: Anxiety, Depression Family Hx:: Coronary Artery Disease, Diabetes, Hyperlipidemia, Hypertension Meds Home Medications Medication Instructions Recorded Confirmed Type aspirin 81 mg tablet,delayed 81 mg PO DAILY tab 12/25/17 02/28/20 History release Fluticasone Propionate [Flonase 1 spray INTRANASAL DAILY 12/23/18 02/29/20 History Allergy Relief NS] carvediloL [Carvedilol 6.25mg Tab] 6.25 mg PO BID 03/31/19 02/28/20 History Glucagon,Human Recombinant 1 mg IJ NEEDED PRN #1 kit 09/03/19 02/28/20 Rx [Glucagon Emergency Kit] ergocalciferol (vitamin D2) 1,250 50,000 unit PO QWEEK #14 cap 11/07/19 02/28/20 Rx mcg (50,000 unit) capsule alprazolam 0.5 mg tablet 0.5 mg PO TID #90 tab 11/11/19 02/28/20 Rx econazole 1 % topical cream 1 applic TOPICAL DIRECTED 11/11/19 02/28/20 History spironolactone 25 mg tablet 25 mg PO DAILY #30 tab 11/12/19 02/28/20 Rx Clopidogrel Bisulfate [Plavix 75mg 75 mg PO DAILY 11/18/19 02/28/20 History Tab] Furosemide [Furosemide 40MG tAB] 40 mg PO DAILY 11/18/19 02/28/20 History Urea [Uramaxin] 1 applic TOPICAL BID 11/18/19 02/28/20 History acetaminophen 300 mg-codeine 30 mg 1 tab PO BID PRN #28 tab 02/20/20 02/28/20 Rx tablet losartan 25 mg tablet 25 mg PO DAILY #90 tab 02/24/20 02/28/20 Rx Atorvastatin Calcium [Atorvastatin 20 mg PO HS 02/28/20 02/29/20 History 20mg Tab] Insulin Aspart Prot/Insuln Asp 15 units SQ BID 02/28/20 02/28/20 History [Insulin Aspar
[2020-03-02 11:31] LABS: POC Glucose,Bedside 222 (70-110)
[2020-03-02 11:42] LABS: Erythrocyte Sedimentation Rate 117 mm/hr (0-20)
--- NOTE | 2020-03-02 12:11 | HMH.ACPN2 ---
Internal Medicine - PN: Subj *Date: 03/02/20 *Time: 12:11 Interval history: 74-year-old male patient sitting up in chair, tolerated breakfast without difficulties. He does have a callus to his outer left great toe. Exam Vital signs and Labs for Last 24 Hours: Temp Pulse Resp BP Pulse Ox 100.2 F H 68 19 157/81 H 94 L 03/02/20 07:39 03/02/20 07:39 03/02/20 07:39 03/02/20 07:39 03/02/20 07:39 Laboratory Results - last 24 hr 02/28/20 16:05: Urine Color Yellow, Urine Appearance Cloudy, Urine pH 5.5, Ur Specific [place] 1.020, Urine Protein 1+, Urine Glucose (UA) 2+, Urine Ketones Negative, Urine Blood 1+, Urine Nitrate Negative, Urine Bilirubin Negative, Urine Urobilinogen 0.2, Ur Leukocyte Esterase 2+ A, Urine RBC 5-10, Urine WBC 50-100, Ur Squamous Epith Cells 10-20, Ur Transition Epith Cell 3-5, Amorphous Sediment 3+, Urine Bacteria 1+ 03/01/20 11:36: POC Glucose 227 H 03/01/20 16:47: POC Glucose 193 H 03/01/20 20:46: POC Glucose 239 H 03/02/20 05:35: POC Glucose 222 H 03/02/20 09:49: ESR 117 H 03/02/20 09:49: C-Reactive Protein 74.7 H 03/02/20 11:02: POC Glucose 222 H I & O for Last 24 hours: Intake & Output 02/28/20 02/29/20 03/01/20 03/02/20 23:59 23:59 23:59 23:59 Intake Total 960 / 960 4211 / 4211 490 / 490 Output Total 1250 / 2950 5150 / 5150 700 / 700 Balance -290 / -1990 -939 / -939 -210 / -210 Weight 306 lb 6 oz 308 lb 7 oz 315 lb 4.176 oz 313 lb 9 oz Microbiology Reports for the Last 24 Hours: Microbiology 02/28/20 15:25 Blood Blood Culture - Preliminary Gram Positive Cocci 02/28/20 15:25 Blood Blood Culture - Preliminary Gram Positive Cocci 02/28/20 16:05 Urine,Catheterized Urine Culture - Preliminary Pseudomonas aeruginosa - Constitutional no acute distress - *Routine HEENT Exam Head: Present: normocephalic ENT: Present: mucous membranes moist - *Routine Neck Exam Present: full ROM, trachea midline. Absent: JVD, tracheal deviation - *Routine Respiratory Exam Present: CTA bilaterally. Absent: accessory muscle use - *Routine Cardiovascular Exam Present: RRR, murmur - *Routine Abdominal Exam Present: soft, normoactive bowel sounds. Absent: tenderness - *Routine Extremities Exam Present: edema. Absent: calf tenderness - *Routine Skin Exam Present: warm Comments: Callus noted to left outer great toe - *Routine Neurological Exam Present: alert, oriented X3 - Routine Psychiatric Exam Present: normal affect Assessment and Plan (1) Sepsis Current visit: Yes Status: Acute Qualifiers: Sepsis type: sepsis due to unspecified organism Sepsis acute organ dysfunction status: without acute organ dysfunction Qualified Code(s): A41.9 - Sepsis, unspecified organism Category: Medical Code(s): A41.9 - Sepsis, unspecified organism (2) UTI (urinary tract infection) Current visit: Yes Status: Acute Qualifiers: Urinary tract infection type: site unspecified Hematuria presence: without hematuria Qualified Code(s): N39.0 - Urinary tract infection, site not specified Category: Medical Code(s): N39.0 - Urinary tract infection, site not specified (3) Obesity due to excess calories with serious comorbidity Current visit: No Status: Acute Qualifiers: Body mass index: BMI 40.0-44.9 Category: Medical Code(s): E66.09 - Other obesity due to excess calories (4) Diabetes Current visit: No Status: Chronic Qualifiers: Diabetes mellitus type: type 2 Diabetes mellitus custodial insulin use: with 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
--- NOTE | 2020-03-02 13:40 | SW/DCPLANNER ---
I have spoke with this patient regarding discharge plans. Patient stated that he resides at home with a roommate. I have informed this patient he will need IV antibiotics at time of discharge. Patient stated that he has received IV antibiotics in the past by returning to hospital as an outpatient. Patient stated that he prefer if IV antibiotics are needed at discharge to return to [facility] for IV antibiotics. Patient has stated that transportation will not be an issue. Discharge date is unknown at this time but I will continue to follow up with patient and MD.
--- NOTE | 2020-03-02 14:03 | HMH.PTEV ---
Physical Therapy Evaluation Rehab PT IP Evaluation Start: 03/02/20 11:07 Freq: .once Status: Active Protocol: Document 03/02/20 13:40 PH[place]ODESTO (Rec: 03/02/20 14:01 PHORNE [id number]) Subjective/History History History 74 yowm adm to [facility] with general weakness and UTI. He reports having no steps to enter the home and is independent with ambulation using a cane at baseline. Subjective Subjective Pt reports no c/o this pm. Rehab PT IP Eval Objective Appearance Patient Behavior Appropriate Patient Orientation Person,Place,Time Difficulty following instructions none Speech Pattern Clear Ambulation Patient Able to Ambulate Yes Ambulation Observation IP General Gait Pattern Observation Wide Based Gait Ambulation Distance (feet) 30 Ambulation Assistive Device None Ambulation Ability Supervision/Stand by Balance Ability to Arise Able, uses arms to help Sitting Balance Steady, safe Standing Balance Steady, wide stance Dynamic Sitting Balance Ability Good Dynamic Standing Balance Ability Good Transfers Bed Transfer Ability Supervision/Stand by Chair Transfer Ability Supervision/Stand by Sit to Stand Bed Transfer Ability Supervision/Stand by Sit to Stand Chair Transfer Ability Supervision/Stand by ROM All Extremities PT ROM Status WFL MMT All Extremities PT MMT WFL Rehab PT IP prob,goals,plan Problems Date of Evaluation: 03/02/20 Discharge Plan PT Discharge Plan Pt appears to be at baseline for all mobility at this time and is appropriate to return home once medically stable. HHPT may be beneficial after d /c. G -code Required No Eval Complexity Eval Charge Codes 86074 - Moderate Complexity PHYSICIAN CERTIFICATION: I certify the specified therapy services for Twan Shelleykerry COE are required, authorized, and reviewed every 30 days.
[2020-03-02 15:41] VITALS: BP 127/74; PULSE 59; RESP 19; TEMP 36.7; O2SAT 92
[2020-03-02 17:03] LABS: POC Glucose,Bedside 254 (70-110)
--- NOTE | 2020-03-02 19:30 | PC.NURSE ---
Has been up to chair all of shift. Remains on room air. Has been assisted (standby) to the bathroom multiple times this shift, tolerating well. Has received pain med once this shift. No further complaints voiced. Report given to Janett Parker RN
[2020-03-02 19:47] VITALS: BP 146/74; PULSE 62; RESP 18; TEMP 36.7; O2SAT 93
[2020-03-02 20:00] VITALS: O2SAT 93
[2020-03-02 21:59] LABS: POC Glucose,Bedside 179 (70-110)
[2020-03-03 03:57] VITALS: BP 164/73; PULSE 62; RESP 17; TEMP 36.6; O2SAT 98
--- NOTE | 2020-03-03 04:41 | PC.NURSE ---
All care provided by Monica STARKS was supervised by Shanna Parker RN
--- NOTE | 2020-03-03 04:41 | PC.NURSE ---
Pt is A&Ox3 and has ambulated to the bathroom several times this shift with staff SBA x1 and pt tolerated fair d/t weakness getting out of bed and out of the chair. Pt c/o neck pain 1x this shift, tolerated w/ Tylenol #3 and pt reported decrease in pain on reassessment. Pt denied any N/V/D this shift although states he had some nausea wo emesis on previous shift. ABD is hypoactive, large, rounds, and slightly firm. Pt reports last BM was 02/27/20 and reports he usually has a BM after several days. Lungs CTA, diminished bases, and audible wheezing noted with activity and repositioning. Pt continues on room air with sats 93-98% t/o shift. +2 pitting edema noted to LLE with slight redness and warmth just above the ankle. Betadine soaked gauze dressing in place to Left foot's great toe from debridement during previous shift. VSS, call light within reach, will continue to monitor.
[2020-03-03 05:02] VITALS: BMI 42.5
[2020-03-03 05:44] LABS: POC Glucose,Bedside 161 (70-110)
[2020-03-03 06:34] LABS: Chloride 107 mmol/L (98-107); Potassium 4.4 mmoL/L (3.5-5.1); Sodium 139 mmol/L (136-145)
[2020-03-03 06:37] LABS: Anion Gap 8.4 mEq/L (5-15); Blood Urea Nitrogen 26 mg/dl (9-20); Calcium 8.6 mg/dl (8.4-10.2); Carbon Dioxide 28 mmol/L (22.0-30.0); Creatinine Clearance Estimated 43 mL/min (50-200); Estimated Glomerular Filt Rate 40 ml/min (>60); GFR (African American) 48 ML/MIN (>60); Glucose 147 mg/dl (74-100)
[2020-03-03 07:07] LABS: Basophils # 0.1 K/mm3 (0-0.2); Basophils % 0.7 % (0.1-2.0); Eosinophils # 0.3 K/mm3 (0.0-0.4); Eosinophils % 3.5 % (0.1-12.0); Hematocrit 29.1 % (42.0-52.0); Hemoglobin 9.9 g/dL (14.1-18.0); Lymphocytes # 1.9 K/mm3 (0.7-4.5); Lymphocytes % 23.4 % (10-50); Mean Corpuscular HGB Conc 33.8 g/dL (31.8-35.4); Mean Corpuscular Hemoglobin 29.9 pg (27.0-31.2); Mean Corpuscular Volume 88.4 fl (80-94); Mean Platelet Volume 7.2 fl (7.4-10.4); Monocytes # 0.5 K/mm3 (0.1-1.0); Monocytes % 5.6 % (1.7-9.3); Neutrophils # 5.3 K/mm3 (1.8-7.8); Neutrophils % 66.8 % (37.0-80.0); Platelet Count 221 K/mm3 (142-424); Red Blood Count 3.29 M/mm3 (4.60-6.20); Red Cell Distribution Width 14.2 % (11.5-17.5)
[2020-03-03 08:00] VITALS: BP 170/76; PULSE 62; RESP 17; TEMP 36.9; O2SAT 94
--- NOTE | 2020-03-03 10:02 | HMH.ORTHPN ---
Subjective Date: 03/03/20 <Vale Friedman - 03/03/20 10:17> Time: 08:40 <Vlae Friedman - 03/03/20 10:17> Principal diagnosis: Left medial plantar hallux callus <Vale Friedman - 03/03/20 10:17> Interval history: Mr. Polanco is a 74 y/o male who was admitted 02/28/20 for UTI. He presented to ED with c/o shakiness, weakness, intermittent vomiting, not eating or drinking well. Blood sugar was 258. Denies any pain, diarrhea, cough or shortness of breath. Today patient is resting comfortably in his recliner, just finished his breakfast. He denies pain to the left hallux. Patient states he is ready to go home he is just waiting for his blood cultures to clear and then he will be ready to go home. He denies drainage or malodor to that area. <IdaliaVale Shayy - 03/03/20 10:17> PN: Obj Ex Vital signs: Temp Pulse Resp BP Pulse Ox 98.5 F 62 17 170/76 H 94 L 03/03/20 08:00 03/03/20 08:00 03/03/20 08:00 03/03/20 08:00 03/03/20 08:00 <RoxanneJayHeike - 03/03/20 16:20> Temp Pulse Resp BP Pulse Ox 98.5 F 62 17 170/76 H 94 L 03/03/20 08:00 03/03/20 08:00 03/03/20 08:00 03/03/20 08:00 03/03/20 08:00 <Vale Friedman Shayy - 03/03/20 10:17> - Constitutional no acute distress <IdaliaVale Shayy - 03/03/20 10:17> - Routine HEENT Exam Head: Present: normocephalic <IdaliaVale L - 03/03/20 10:17> Eye: Present: PERRL <IdaliaVale L - 03/03/20 10:17> ENT: Present: mucous membranes moist <Vale Friedman - 03/03/20 10:17> - Routine Neck Exam Present: full ROM, trachea midline <Vale Friedman - 03/03/20 10:17> - Routine Respiratory Exam Absent: respiratory distress <Vale Friedman 03/03/20 10:17> - Routine Cardiovascular Exam Present: RRR <Vale Friedman 03/03/20 10:17> - Routine Abdominal Exam Present: soft <Vale Friedman 03/03/20 10:17> - Routine Extremities Exam Present: pulses intact, normal capillary refill. Absent: calf tenderness <Vale Friedman - 03/03/20 10:17> - Routine Back/Spine/Pelvis Exam Back/Spine: Present: full ROM <Vale Friedman 03/03/20 10:17> - Routine Skin Exam Present: dry <Vale Friedman 03/03/20 10:17> Comments: Left medial hallux callus, no drainage noted today. <Vale Friedman 03/03/20 10:17> - Routine Neurological Exam Present: oriented X3 <Vale Friedman 03/03/20 10:17> - Routine Psychiatric Exam Present: normal affect <Vale Friedman 03/03/20 10:17> Progress Note: A&P (1) Sepsis Status: Acute Current Visit: Yes (2) UTI (urinary tract infection) Status: Acute Current Visit: Yes (3) Obesity due to excess calories with serious comorbidity Status: Acute Current Visit: No (4) Diabetes Status: Chronic Current Visit: No (5) HHD (hypertensive heart disease) Status: Chronic Current Visit: No (6) HLD (hyperlipidemia) Status: Chronic Current Visit: No (7) Renal insufficiency Status: Chronic Current Visit: No <Vale Friedman 03/03/20 11:06> (1) Sepsis Status: Acute Current Visit: Yes (2) UTI (urinary tract infection) Status: Acute Current Visit: Yes (3) Obesity due to excess calories with serious comorbidity Status: Acute Current Visit: No (4) Diabetes Status: Chronic Current Visit: No (5) HHD (hypertensive heart disease) Status: Chronic Current Visit: No (6) HLD (hyperlipidemia) Status: Chronic Current Visit: No (7) Renal insufficiency Status: Chronic Current Visit: No <Heike Oliveira - 03/03/20 16:20> Assessment and Plan for All Diagnoses:: Physician Attestation: The patient was seen, evaluated and examined as above. I have read the office note that was documented by the staff and/or LINUX SECURITY ADMINISTRATOR and agree with the documentation. <Heike Oliveira - 03/03/20 16:20> - Assessment and plan all Dx Assessment and Plan for all problems:: Non-infected Wound: left hallux callus with underlying ulce
[2020-03-03 11:06] LABS: POC Glucose,Bedside 206 (70-110)
[2020-03-03 16:00] VITALS: BP 125/92; PULSE 60; RESP 17; TEMP 36.6; O2SAT 93
--- NOTE | 2020-03-03 16:46 | HMH.ACPN2 ---
Internal Medicine - PN: Subj *Date: 03/03/20 *Time: 08:20 Interval history: pt states he is doing well no issues Exam Vital signs and Labs for Last 24 Hours: Temp Pulse Resp BP Pulse Ox 97.9 F 60 17 125/92 H 93 L 03/03/20 16:00 03/03/20 16:00 03/03/20 16:00 03/03/20 16:00 03/03/20 16:00 Laboratory Results - last 24 hr 02/28/20 16:05: Urine Color Yellow, Urine Appearance Cloudy, Urine pH 5.5, Ur Specific [place] 1.020, Urine Protein 1+, Urine Glucose (UA) 2+, Urine Ketones Negative, Urine Blood 1+, Urine Nitrate Negative, Urine Bilirubin Negative, Urine Urobilinogen 0.2, Ur Leukocyte Esterase 2+ A, Urine RBC 5-10, Urine WBC 50-100, Ur Squamous Epith Cells 10-20, Ur Transition Epith Cell 3-5, Amorphous Sediment 3+, Urine Bacteria 1+ 03/02/20 16:38: POC Glucose 254 H 03/02/20 21:17: POC Glucose 179 H 03/03/20 05:22: POC Glucose 161 H 03/03/20 05:55: WBC 8.0, RBC 3.29 L, Hgb 9.9 L, Hct 29.1 L, MCV 88.4, MCH 29.9, MCHC 33.8, RDW 14.2, Plt Count 221, MPV 7.2 L, Neut % (Auto) 66.8, Lymph % (Auto) 23.4, [place] % (Auto) 5.6, Eos % (Auto) 3.5, Baso % (Auto) 0.7, Neut # (Auto) 5.3, Lymph # (Auto) 1.9, [place] # (Auto) 0.5, Eos # (Auto) 0.3, Baso # (Auto) 0.1 03/03/20 05:55: Sodium 139, Potassium 4.4, Chloride 107, Carbon Dioxide 28 D, Anion Gap 8.4, BUN 26 H, Creatinine 1.70 H, Estimated Creat Clear 43, Estimated GFR 40 L, Est GFR ( Amer) 48 L, Glucose 147 H, Calcium 8.6 03/03/20 10:57: POC Glucose 206 H I & O for Last 24 hours: Intake & Output 03/01/20 03/02/20 03/03/20 03/04/20 11:59 11:59 11:59 11:59 Intake Total 4185 / 4185 1116 / 1116 3508 / 3508 Output Total 2850 / 2850 4000 / 4000 6100 / 6100 900 / 900 Balance 1335 / 1335 -2884 / -2884 -2592 / -2592 -900 / -900 Weight 314 lb 5 oz 313 lb 9 oz 313 lb 9.015 oz Microbiology Reports for the Last 24 Hours: Microbiology 02/28/20 16:05 Urine,Catheterized Urine Culture - Preliminary Pseudomonas aeruginosa Gram Positive Cocci 02/28/20 15:25 Blood Blood Culture - Preliminary Strep dysgalactiae/canis 02/28/20 15:25 Blood Blood Culture - Preliminary Strep dysgalactiae/canis - Constitutional no acute distress, obese - *Routine HEENT Exam Head: Present: normocephalic Eye: Present: PERRL ENT: Present: mucous membranes moist - *Routine Neck Exam Present: supple. Absent: lymphadenopathy - *Routine Respiratory Exam Present: CTA bilaterally - *Routine Cardiovascular Exam Present: RRR - *Routine Abdominal Exam Present: soft, normoactive bowel sounds. Absent: tenderness - *Routine Extremities Exam Absent: cyanosis, clubbing, edema - *Routine Skin Exam Present: warm. Absent: rash - *Routine Neurological Exam Present: alert, oriented X3 - Routine Psychiatric Exam Present: normal affect Assessment and Plan (1) Sepsis Current visit: Yes Status: Acute Qualifiers: Sepsis type: sepsis due to unspecified organism Sepsis acute organ dysfunction status: without acute organ dysfunction Qualified Code(s): A41.9 - Sepsis, unspecified organism Category: Medical Code(s): A41.9 - Sepsis, unspecified organism (2) UTI (urinary tract infection) Current visit: Yes Status: Acute Qualifiers: Urinary tract infection type: site unspecified Hematuria presence: without hematuria Qualified Code(s): N39.0 - Urinary tract infection, site not specified Category: Medical Code(s): N39.0 - Urinary tract infection, site not specified (3) Obesity due to excess calories with serious comorbidity Current visit: No Status: Acute Qualifiers: Body mass index: BMI 40.0-44.9 Category: Medical Code(s): E66.09 - Other obesity due to excess calories (4) Diabetes Current visit: No Status: Chronic Qualifiers: Diabetes mellitus type: type 2 Diabetes mellitus usp insulin use: with long
[2020-03-03 16:55] LABS: POC Glucose,Bedside 194 (70-110)
--- NOTE | 2020-03-03 17:34 | HMH.DCSUM ---
General - General Admission date:: 02/28/20 Discharge date: 03/03/20 HPI HPI: 74 yr old male presents to ed with c/o shakiness, weakness, intermittent vomiting today, not eating or drinking well. Blood sugar was 258. Denies any pain, diarrhea, cough or shortness of breath. Once arrived to ED he was found to be febrile on arrival, patient and son were not aware he was febrile until temperature was checked in ED. Pt admitted for UTI. Hospital Course Hospital Course: Laboratory Tests 02/28/20 02/28/20 02/28/20 15:15 15:15 15:15 WBC 14.8 H RBC 3.87 L Hgb 11.8 L Hct 34.2 L MCV 88.3 MCH 30.4 MCHC 34.5 RDW 14.1 Plt Count 220 MPV 6.9 L Neut % (Auto) 90.9 H Lymph % (Auto) 3.4 L [place] % (Auto) 4.2 Eos % (Auto) 0.4 Baso % (Auto) 1.0 Neut # (Auto) 13.4 H Lymph # (Auto) 0.5 L [place] # (Auto) 0.6 Eos # (Auto) 0.1 Baso # (Auto) 0.2 Total Counted 100 Neutrophils % (Manual) 89 H Band Neutrophils % 3.0 Lymphocytes % (Manual) 4 L Monocytes % (Manual) 3 Eosinophils % (Manual) 1 Platelet Estimate Normal RBC Morphology Normal ESR Sodium 138 Potassium 4.4 Chloride 106 Carbon Dioxide 25 Anion Gap 11.4 BUN 34 H Creatinine 2.10 H Estimated Creat Clear 61 Estimated GFR 31 L Est GFR ( Amer) 38 L Glucose 202 H POC Glucose Lactate 1.3 Calcium 9.0 Total Bilirubin 0.5 AST 21 ALT 17 Alkaline Phosphatase 88 C-Reactive Protein Total Protein 7.2 Albumin 3.9 Globulin 3.3 H Albumin/Globulin Ratio 1.2 Urine Color Urine Appearance Urine pH Ur Specific [place] Urine Protein Urine Glucose (UA) Urine Ketones Urine Blood Urine Nitrate Urine Bilirubin Urine Urobilinogen Ur Leukocyte Esterase Urine RBC Urine WBC Ur Squamous Epith Cells Ur Transition Epith Cell Amorphous Sediment Urine Bacteria Chlamy pneumoniae PCR Adenovirus (PCR) B. pertussis DNA (PCR) Coronavirus OC43 (PCR) Coronavirus HKU1 (PCR) Coronavirus 229E (PCR) COVID-19 PCR Coronavirus NL63 (PCR) Human Metapneumovir PCR Influenza A (H1) PCR Influ A (H1N1/09) PCR Influenza A (H3) PCR Influenza Type A Ag Influenza Type A (PCR) Influenza Type B Ag Influenza Type B (PCR) M. pneumoniae (PCR) Parainfluenza 1 (PCR) Parainfluenza 2 (PCR) Parainfluenza 3 (PCR) Parainfluenza 4 (PCR) RSV (PCR) Entero/Rhino (PCR) Group A Strep Rapid 02/28/20 02/28/20 02/28/20 15:15 15:15 15:30 WBC RBC Hgb Hct MCV MCH MCHC RDW Plt Count MPV Neut % (Auto) Lymph % (Auto) [place] % (Auto) Eos % (Auto) Baso % (Auto) Neut # (Auto) Lymph # (Auto) [place] # (Auto) Eos # (Auto) Baso # (Auto) Total Counted Neutrophils % (Manual) Band Neutrophils % Lymphocytes % (Manual) Monocytes % (Manual) Eosinophils % (Manual) Platelet Estimate RBC Morphology ESR Sodium Potassium Chloride Carbon Dioxide Anion Gap BUN Creatinine Estimated Creat Clear Estimated GFR Est GFR ( Amer) Glucose POC Glucose Lactate Calcium Total Bilirubin AST ALT Alkaline Phosphatase C-Reactive Protein Total Protein Albumin Globulin Albumin/Globulin Ratio Urine Color Urine Appearance Urine pH Ur Specific [place] Urine Protein Urine Glucose (UA) Urine Ketones Urine Blood Urine Nitrate Urine Bilirubin Urine Urobilinogen Ur Leukocyte Esterase Urine RBC Urine WBC Ur Squamous Epith Cells Ur Transition Epith Cell Amorphous Sediment Urine Bacteria Chlamy pneumoniae PCR Not detected Adenovirus (PCR) Not detected B. pertussis DNA (PCR) Not detected Coronavirus OC43 (PCR) Not dete
--- NOTE | 2020-03-03 19:11 | PC.NURSE ---
report given to jasper
[2020-03-09 10:08] LABS: POC Glucose,Bedside 191 (70-110)
== END 2020-03-03 19:15 | disposition home or self-care (01) | DRG 689 ==
LOC: ER 16:31 → 2ND 02-29 09:19
PROVIDERS: Nurse Practitioner Family; Podiatrist; Admitting Provider Internal Medicine Adolescent Medicine; Emergency Provider Emergency Medicine; PCP Emergency Medicine; Visit Provider Emergency Medicine
DX: N39.0 Urinary tract infection, site not specified (principal); A41.9 Sepsis, unspecified organism; Z68.41 Body mass index [BMI] 40.0-44.9, adult; I25.10 Atherosclerotic heart disease of native coronary artery without angina pectoris; Z79.4 Long term (current) use of insulin; Z79.82 Long term (current) use of aspirin; E66.09 Other obesity due to excess calories; L84 Corns and callosities; E11.621 Type 2 diabetes mellitus with foot ulcer; L60.2 Onychogryphosis; L97.529 Non-pressure chronic ulcer of other part of left foot with unspecified severity; I12.9 Hypertensive chronic kidney disease with stage 1 through stage 4 chronic kidney disease, or unspecified chronic kidney disease; E11.22 Type 2 diabetes mellitus with diabetic chronic kidney disease; N18.9 Chronic kidney disease, unspecified
CPT/HCPCS: 11042; 17999; 36415; 71045; 73630; 80048; 80053; 81001; 82962; 83605; 85007; 85025; 85651; 86140; 87040; 87077; 87086; 87088; 87186; 87275; 87276; 87430; 87581; 87633; 87798; 96365; 96375; 97162; 99285; J1335; J1956; J2405

== ENCOUNTER → 2020-03-05 10:59 | Outpatient (CLI) | payer MEDICARE, SELFPAY ==
[2020-03-05 13:41] LABS: Chloride 103 mmol/L (98-107)
[2020-03-05 13:42] LABS: Potassium 4.5 mmoL/L (3.5-5.1); Sodium 139 mmol/L (136-145)
[2020-03-05 13:45] LABS: Anion Gap 10.5 mEq/L (5-15); Blood Urea Nitrogen 31 mg/dl (9-20); Carbon Dioxide 30 mmol/L (22.0-30.0); Estimated Glomerular Filt Rate 33 ml/min (>60); GFR (African American) 40 ML/MIN (>60); Glucose 75 mg/dl (74-100)
== END ==
PROVIDERS: Visit Provider Emergency Medicine
DX: E11.9 Type 2 diabetes mellitus without complications (principal); Z79.4 Long term (current) use of insulin
CPT/HCPCS: 36415; 80048

== ENCOUNTER → 2020-03-19 10:49 | Outpatient (CLI) | payer MEDICARE, SELFPAY ==
[2020-03-19 11:57] LABS: Chloride 106 mmol/L (98-107); Potassium 4.3 mmoL/L (3.5-5.1); Sodium 138 mmol/L (136-145)
[2020-03-19 12:00] LABS: Anion Gap 9.3 mEq/L (5-15); Blood Urea Nitrogen 40 mg/dl (9-20); Calcium 8.6 mg/dl (8.4-10.2); Carbon Dioxide 27 mmol/L (22.0-30.0); Estimated Glomerular Filt Rate 28 ml/min (>60); GFR (African American) 34 ML/MIN (>60); Glucose 199 mg/dl (74-100)
== END ==
PROVIDERS: Visit Provider Emergency Medicine
DX: E11.9 Type 2 diabetes mellitus without complications (principal); Z79.4 Long term (current) use of insulin
CPT/HCPCS: 36415; 80048

== ENCOUNTER → 2020-04-05 14:03 | Outpatient (CLI) | payer MEDICARE, SELFPAY ==
[2020-04-05 14:27] LABS: Chloride 104 mmol/L (98-107); Sodium 138 mmol/L (136-145)
[2020-04-05 14:30] LABS: Potassium 4.9 mmoL/L (3.5-5.1)
[2020-04-05 14:31] LABS: Anion Gap 11.9 mEq/L (5-15); Blood Urea Nitrogen 39 mg/dl (9-20); Calcium 8.7 mg/dl (8.4-10.2); Carbon Dioxide 27 mmol/L (22.0-30.0); Estimated Glomerular Filt Rate 33 ml/min (>60); GFR (African American) 40 ML/MIN (>60); Glucose 308 mg/dl (74-100)
== END ==
LOC: LAB 14:04 → LAB.DROPOF 04-06 09:18
PROVIDERS: Visit Provider Emergency Medicine
DX: R42 Dizziness and giddiness (principal)
CPT/HCPCS: 80048

== ENCOUNTER → 2020-04-06 13:04 | Outpatient (CLI) | payer MEDICARE, SELFPAY ==
[2020-04-06 14:21] LABS: Creatinine,Urine Random 114 mg/dL (Not Estab.)
[2020-04-06 15:14] LABS: Albumin Level 3.7 g/dl (3.5-5.0); Chloride 105 mmol/L (98-107); Sodium 138 mmol/L (136-145)
[2020-04-06 15:16] LABS: Blood Urea Nitrogen 40 mg/dl (9-20); Estimated Glomerular Filt Rate 31 ml/min (>60); GFR (African American) 38 ML/MIN (>60)
[2020-04-06 15:17] LABS: Calcium 8.9 mg/dl (8.4-10.2); Carbon Dioxide 25 mmol/L (22.0-30.0); Glucose 177 mg/dl (74-100); Phosphorous 4.4 mg/dl (2.5-4.5)
[2020-04-06 15:28] LABS: Intact Parathyroid Hormone 217.6 pg/mL (7.5-53.5)
[2020-04-06 15:34] LABS: 25-OH Vitamin D, Total 30.7 ng/mL (30-100)
== END ==
PROVIDERS: Visit Provider Internal Medicine Nephrology
DX: N18.3 Chronic kidney disease, stage 3 (moderate) (principal)
CPT/HCPCS: 36415; 80069; 82306; 82570; 83970; 84155

== ENCOUNTER → 2020-04-12 15:32 | Outpatient (CLI) | payer MEDICARE, SELFPAY ==
[2020-04-12 17:24] LABS: Hemoglobin A1C 8.4 % (4.0-6.0)
== END ==
PROVIDERS: Visit Provider Emergency Medicine
DX: E11.621 Type 2 diabetes mellitus with foot ulcer (principal); L97.529 Non-pressure chronic ulcer of other part of left foot with unspecified severity
CPT/HCPCS: 36415; 83036

== ENCOUNTER 2020-04-23 23:08 | Observation (INO) | payer MEDICARE, SELFPAY ==
[2020-04-23 23:20] VITALS: BP 139/75; PULSE 77; RESP 16; TEMP 37.7; O2SAT 96; BMI 42.0
[2020-04-23 23:30] VITALS: BP 132/74; PULSE 78; RESP 16; O2SAT 97
[2020-04-23 23:48] LABS: Basophils % 0.5 % (0.1-2.0); Eosinophils # 0.2 K/mm3 (0.0-0.4); Eosinophils % 2.1 % (0.1-12.0); Hematocrit 34.5 % (42.0-52.0); Hemoglobin 11.4 g/dL (14.1-18.0); Lymphocytes % 23.4 % (10-50); Mean Corpuscular HGB Conc 33.1 g/dL (31.8-35.4); Mean Corpuscular Hemoglobin 30.1 pg (27.0-31.2); Monocytes # 0.4 K/mm3 (0.1-1.0); Monocytes % 4.3 % (1.7-9.3); Neutrophils # 5.8 K/mm3 (1.8-7.8); Neutrophils % 69.7 % (37.0-80.0); Platelet Count 263 K/mm3 (142-424); Red Blood Count 3.79 M/mm3 (4.60-6.20); Red Cell Distribution Width 14.2 % (11.5-17.5); White Blood Count 8.4 K/mm3 (4.8-10.8)
[2020-04-23 23:59] LABS: Lactic Acid 1.9 mmol/L (0.7-2.1)
[2020-04-24] VITALS (8 sets, daily range): BP systolic 121–167; BP diastolic 62–75; PULSE 64–78; RESP 15–19; TEMP 36.6–36.9; O2SAT 94–98; BMI 40.9
[2020-04-24] LABS: Alanine Aminotransferase 18 U/L (12-78); Alkaline Phosphatase 109 U/L (38-126); Anion Gap 13.7 mEq/L (5-15); Aspartate Amino Transferase 27 U/L (17-59); Bilirubin,Total 0.4 mg/dl (0.2-1.3); Blood Urea Nitrogen 47 mg/dl (9-20); Calcium 8.9 mg/dl (8.4-10.2); Carbon Dioxide 29 mmol/L (22.0-30.0); Chloride 101 mmol/L (98-107); Creatinine Clearance Estimated 32 mL/min (50-200); Estimated Glomerular Filt Rate 28 ml/min (>60); GFR (African American) 34 ML/MIN (>60); Glucose 294 mg/dl (74-100); Potassium 4.7 mmoL/L (3.5-5.1); Sodium 139 mmol/L (136-145)
--- NOTE | 2020-04-24 00:03 | CT_ITS ---
PROCEDURE: CT FOOT LT WO CON Patient Age:74Y CLINICAL HISTORY: wound to great toe. Progressing over last week. Swollen and draining Patient states there is a callus at great toe which he removed. Wound become worse particularly over last several days. Foul smell today. Diabetic with neuropathy COMPARISON: XR FOOT LT MIN 3V from 04/24/2020 TECHNIQUE: No IV contrast . Helical axial images obtained with sagittal and coronal reformats. All CT scans at the facility use one or more dose reduction, viz: automated exposure control, ma/kV adjustment per patient size (including targeted exams where dose is matched to indication, i.e. head), or iterative reconstruction technique. FINDINGS: . Apparently newer positioning technique feet utilized and with this the obtained images do not include distal most tip and distal tuft of great toe. In addition there is motion on the submitted images. There is a ulcer defect seen I believe at the plantar medial aspect of great toe with prominent soft tissue swelling throughout the toe with swelling and edema most evident medial aspect great toe. There is also soft tissue swelling throughout the dorsum of the foot which extends down to the other toes. the 2nd, 3rd, 4th and 5th toes are visualized in their entirety. No destructive or erosive changes but there is some deformity at the neck of 3rd proximal phalanx which likely reflects old healed fracture. Cyst sucks. There is flexion deformity of the toes with some degenerative changes particularly at the PIP joints. Mild narrowing and degenerative changes at 1st MTP joint. Other MTP joints unremarkable. Metatarsals intact. Tarsal-metatarsal joints unremarkable.. Extensive degenerative changes are seen at the midfoot likely reflect Charcot's type neuropathic joint changes. Joint space narrowing at the navicular-cuneiform articulation.. Numerous small subchondral degenerative cystic changes at the ulnar and to lesser degree cuneiforms. For example cystic change and fragmentation at 4th tarsal-metatarsal joint noted. Subtalar joint intact with a slight narrowing.. Long, prominent plantar calcaneal spur over 3 cm in length. . IMPRESSION: 1.. Diffuse edema and soft tissue swelling throughout the foot and into the great toe 2. Ulcer defect medial plantar aspect of great toe with associated prominent soft tissue swelling and cellulitis most pronounced about this ulcer defect . Because of motion as well as positioning, the tip/distal tuft great toe is not adequately imaged However the base of distal phalanx and remainder of great toe shows no osseous erosion or destruction-no definitive osteomyelitis by CT and great toe ((however again note the tip of the great toe is not adequately imaged) 3. Edema throughout and swelling throughout the foot with prominent at dorsal aspect foot 4. Extensive degenerative changes at midfoot likely reflect developing Charcot's neuropathic joint features Dictated by: Yg Morales MD 04/24/2020 21:54 Electronically signed by Yg Morales MD in [place] 04/24/2020 21:54
--- NOTE | 2020-04-24 00:03 | XR_ITS ---
PROCEDURE: XR FOOT LT MIN 3V CLINICAL INDICATION: wound Pain and swelling COMPARISON: XR FOOT WT BEARING RT 3V from 07/23/2019 XR FOOT WT BEARING LT 3V from 07/23/2019 XR FOOT RT MIN 3V from 03/02/2020 XR FOOT LT MIN 3V from 03/02/2020 FINDINGS: Soft tissue gas is present medially at the 1st interphalangeal joint. No obvious bony erosive process. There is an old fracture of the proximal phalanx of the 3rd toe. Degenerative changes are present in the midfoot with bony hypertrophy/osteo arthritis. There is a prominent calcaneal spur as before. Soft tissue swelling noted dorsally. Hammertoe deformity of the 2nd and 3rd toes. IMPRESSION: Soft tissue ulceration. No definite bony destructive process. Degenerative changes as detailed above Dictated by: Jose Hoffman MD 04/24/2020 09:43 Electronically signed by Jose Hoffman MD in [place] 04/24/2020 09:43
--- NOTE | 2020-04-24 00:21 | PC.NURSE ---
to ct via wc at this time
[2020-04-24 00:23] LABS: Acetaminophen < 10 ug/ml (10-30)
--- NOTE | 2020-04-24 01:33 | HMH.EDSKAF ---
ED Disposition Clinical Impression: Diabetes 1.5, managed as type 1, Neuropathy, Renal insufficiency Abscess of skin or subcutaneous tissue Qualifiers: Site of cutaneous abscess: extremity Site of cutaneous abscess of extremity: lower extremity Laterality: left Qualified Code(s): L02.416 - Cutaneous abscess of left lower limb CAD (coronary artery disease) Qualifiers: Coronary Disease-Associated Artery/Lesion type: unspecified vessel or lesion type [place] vs. transplanted heart: [place] heart Associated angina: without angina Qualified Code(s): I25.10 - Atherosclerotic heart disease of [place] coronary artery without angina pectoris Obesity Qualifiers: Obesity type: due to excess calories Obesity classification: adult class 3 (BMI >= 40) Serious obesity comorbidity presence: with serious comorbidity Body mass index: BMI 40.0-44.9 Qualified Code(s): E66.01 - Morbid (severe) obesity due to excess calories; Z68.41 - Body mass index (BMI) 40.0-44.9, adult Disposition: Admitted As Inpatient Condition on Discharge: Fair - Critical Care Critical Care Time: No Attestation: On 04/23/20, the high probability of a clinically significant, sudden or life threatening deterioration of the following system(s) required my full and direct attention, intervention and personal management. The time I documented below is in addition to time spent performing reported procedures but includes the following listed in this critical care notation. Medical Decision Making - Medical Records Medical records reviewed: Yes: I reviewed the patient's medical records. - Bj Inquiry Pt receiving controlled substance: No Vital Signs: 04/23/20 23:20 04/23/20 23:30 04/24/20 00:00 Temperature 99.9 F H Temperature Source Oral Pulse Rate [Right Brachial] 77 78 78 Respiratory Rate 16 16 18 Blood Pressure [Right Arm] 139/75 132/74 139/75 Blood Pressure Mean [Right Arm] 96 93 96 Blood Pressure Source [Right Arm] Automatic Cuff Automatic Cuff Automatic Cuff Blood Pressure Position [Right Arm] Sitting Supine Supine 02 Sat by Pulse Oximetry 96 97 98 Oxygen Delivery Method Room Air Room Air Room Air 04/24/20 00:30 Temperature Temperature Source Pulse Rate [Right Brachial] 78 Respiratory Rate 16 Blood Pressure [Right Arm] 129/73 Blood Pressure Mean [Right Arm] 91 Blood Pressure Source [Right Arm] Automatic Cuff Blood Pressure Position [Right Arm] Supine 02 Sat by Pulse Oximetry 97 Oxygen Delivery Method Room Air - Lab Data Lab results reviewed: Yes: I reviewed the patient's lab results. Lab Results 04/23/20 23:32: WBC 8.4, RBC 3.79 L, Hgb 11.4 L, Hct 34.5 L, MCV 91.0, MCH 30.1, MCHC 33.1, RDW 14.2, Plt Count 263, MPV 7.0 L, Neut % (Auto) 69.7, Lymph % (Auto) 23.4, [place] % (Auto) 4.3, Eos % (Auto) 2.1, Baso % (Auto) 0.5, Neut # (Auto) 5.8, Lymph # (Auto) 2.0, [place] # (Auto) 0.4, Eos # (Auto) 0.2, Baso # (Auto) 0.0 04/23/20 23:32: Sodium 139, Potassium 4.7, Chloride 101, Carbon Dioxide 29, Anion Gap 13.7, BUN 47 H, Creatinine 2.30 H, Estimated Creat Clear 32, Estimated GFR 28 L, Est GFR ( Amer) 34 L, Glucose 294 H, Calcium 8.9, Total Bilirubin 0.4, AST 27, ALT 18, Alkaline Phosphatase 109, Total Protein 8.0, Albumin 4.0, Globulin 4.0 H, Albumin/Globulin Ratio 1.0 L, Acetaminophen < 10 L 04/23/20 23:32: Lactate 1.9 Result diagrams: 04/23/20 23:32 04/23/20 23:32 Orders (Tests/Meds): ED MEDICATIONS Generic Name Dose Route Start Last Admin Trade Name Prashanth PRN Reason Stop Dose Admin Cefepime HCl 2 gm/ Sodium 100 mls @ 200 mls/hr 04/24/20 01:45 04/24/20 02:00 Chloride IV 05/08/20 01:44 200 mls/hr Q8H KEM Administration Protocol Vancomycin HCl 2,000 mg/ 250 mls @ 125 mls/hr 04/24/20 01:39 Sodium Chloride IV 04/24/20 03:38 ONCE ONE Protocol Miscellaneous 1 each 04/24/20 01:45 Vancomycin Consult Request * 05/24/20 01:44 CONSULT PHARMACY KEM ORDERS Category Date Time Status CT foot
[2020-04-24 02:56] LABS: Coronavirus 19 IgG Antibody Negative (Negative); Coronavirus 19 IgM Antibody Negative (Negative)
--- NOTE | 2020-04-24 03:07 | PC.NURSE ---
dressing placed to foot, to protect while ambulating.
--- NOTE | 2020-04-24 03:16 | PC.NURSE ---
pt back from bathroom. urine sent to lab
--- NOTE | 2020-04-24 03:23 | PC.NURSE ---
report called to bebeto gallo; m/s nurse. states it'll be a few mins before they transport to floor. pt notified.
--- NOTE | 2020-04-24 04:00 | PC.NURSE ---
waiting on transport to floor.
--- NOTE | 2020-04-24 04:09 | PC.NURSE ---
PT ARRIVED TO THE FLOOR VIA W/C FROM ED AT 0405.
[2020-04-24 05:28] LABS: POC Glucose,Bedside 184 (70-110)
[2020-04-24 08:37] LABS: Basophils % 0.5 % (0.1-2.0); Eosinophils # 0.2 K/mm3 (0.0-0.4); Hematocrit 32.9 % (42.0-52.0); Hemoglobin 10.6 g/dL (14.1-18.0); Lymphocytes # 2.3 K/mm3 (0.7-4.5); Lymphocytes % 32.5 % (10-50); Mean Corpuscular HGB Conc 32.2 g/dL (31.8-35.4); Mean Corpuscular Hemoglobin 29.6 pg (27.0-31.2); Mean Corpuscular Volume 91.8 fl (80-94); Mean Platelet Volume 6.8 fl (7.4-10.4); Monocytes # 0.4 K/mm3 (0.1-1.0); Monocytes % 6.2 % (1.7-9.3); Neutrophils # 4.1 K/mm3 (1.8-7.8); Neutrophils % 57.9 % (37.0-80.0); Platelet Count 247 K/mm3 (142-424); Red Blood Count 3.58 M/mm3 (4.60-6.20); Red Cell Distribution Width 14.2 % (11.5-17.5); White Blood Count 7.1 K/mm3 (4.8-10.8)
--- NOTE | 2020-04-24 08:42 | HMH.PHACONS ---
- Pharmacy Consult Date: 04/24/20 Time: 08:42 Referring provider: DR. ROBERT Reason for Consult:: VANCOMYCIN DOSING Allergies and ADEs:: Allergies Allergy/AdvReac Type Severity Reaction Status Date / Time No Known Allergies Allergy Verified 04/20/20 11:14 Home Medications:: Home Medications Medication Instructions Recorded Confirmed Type aspirin 81 mg tablet,delayed 81 mg PO DAILY tab 12/25/17 04/20/20 History release carvediloL [Carvedilol 6.25mg Tab] 6.25 mg PO BID 03/31/19 04/20/20 History econazole 1 % topical cream 1 applic TOPICAL DIRECTED 11/11/19 04/20/20 History spironolactone 25 mg tablet 25 mg PO DAILY #30 tab 11/12/19 04/20/20 Rx Clopidogrel Bisulfate [Plavix 75mg 75 mg PO DAILY 11/18/19 04/20/20 History Tab] Furosemide [Furosemide 40MG tAB] 40 mg PO DAILY 11/18/19 04/20/20 History Urea [Uramaxin] 1 applic TOPICAL BID 11/18/19 04/20/20 History Atorvastatin Calcium [Lipitor 20mg 20 mg PO HS 02/28/20 04/20/20 History Tab] Lidocaine 1 patch TOPICAL DAILY 02/28/20 04/20/20 History Linagliptin [Tradjenta 5mg tablet] 5 mg PO DAILY 02/28/20 04/20/20 History PARoxetine HCl [Paxil] 10 mg PO DAILY 02/28/20 04/20/20 History glipiZIDE [Glipizide] 10 mg PO BID 02/28/20 04/20/20 History Insulin Glargine,Hum.rec.anlog 50 unit SQ HS 02/29/20 04/20/20 History [Basaglar Kwikpen U-100] ergocalciferol (vitamin D2) 1,250 50,000 unit PO QWEEK #14 cap 03/25/20 04/20/20 Rx mcg (50,000 unit) capsule insulin glargine 100 unit/mL (3 50 unit SQ .COMPLEX #15 ml 03/25/20 04/20/20 Rx mL) subcutaneous pen pen needle, diabetic 29 gauge x See Rx Instructions .ROUTE 06/29/20 07/14/20 Rx 1/2 .MEDSUPPLY #100 each insulin aspar prot-insulin aspart 44 unit SQ BID ml 04/14/20 04/20/20 History 100 unit/mL (70-30) subcutaneous pen losartan 25 mg tablet 25 mg PO DAILY #90 tab 04/14/20 04/20/20 Rx acetaminophen 300 mg-codeine 30 mg 1 tab PO BID PRN #60 tab 04/16/20 04/20/20 Rx tablet albuterol sulfate 90 mcg/actuation 2 puff INHALATION Q8H PRN #18 g 04/16/20 04/20/20 Rx aerosol inhaler alprazolam 0.5 mg tablet 0.5 mg PO TID #90 tab 04/16/20 04/20/20 Rx gabapentin 300 mg capsule 300 mg PO QHS #30 cap 04/16/20 04/20/20 Rx Height: 1.83 m Weight: 137 kg Laboratory Results:: Laboratory Results - last 24 hr 04/23/20 23:32: WBC 8.4, RBC 3.79 L, Hgb 11.4 L, Hct 34.5 L, MCV 91.0, MCH 30.1, MCHC 33.1, RDW 14.2, Plt Count 263, MPV 7.0 L, Neut % (Auto) 69.7, Lymph % (Auto) 23.4, [place] % (Auto) 4.3, Eos % (Auto) 2.1, Baso % (Auto) 0.5, Neut # (Auto) 5.8, Lymph # (Auto) 2.0, [place] # (Auto) 0.4, Eos # (Auto) 0.2, Baso # (Auto) 0.0 04/23/20 23:32: Sodium 139, Potassium 4.7, Chloride 101, Carbon Dioxide 29, Anion Gap 13.7, BUN 47 H, Creatinine 2.30 H, Estimated Creat Clear 32, Estimated GFR 28 L, Est GFR ( Amer) 34 L, Glucose 294 H, Calcium 8.9, Total Bilirubin 0.4, AST 27, ALT 18, Alkaline Phosphatase 109, Total Protein 8.0, Albumin 4.0, Globulin 4.0 H, Albumin/Globulin Ratio 1.0 L, Acetaminophen < 10 L 04/23/20 23:32: Lactate 1.9 04/23/20 23:32: SARS-CoV-2 IgG Ab (Rapid) Negative, SARS-CoV-2 IgM Ab (Rapid) Negative 04/24/20 05:21: POC Glucose 184 H Medical History: Reports:: Anxiety, Coronary Artery Disease, Depression, Diabetes Mellitus Type 2, Gastroesophageal Reflux Disease(GERD), Hyperlipidemia, Hypertension, MRSA, Renal Disease, Renal Insufficiency Denies:: Cancer, Diabetes Mellitus Type 1, Internal Pacemaker, Lung Disease, Seizures Assessment and Plan - Assessment and plan all Dx Assessment and Plan for all problems:: IBW (kg): 77.60 Dosing wt(kg): 137 Estimated Creatinine clearance (ml/min): 31.9 CRCL method: Cockcroft and Gault using ibw(default). Drug selected: Vancomycin Loading dose (mg): 0 Vd (liters): 109.6 (factor used: 0.8 L/kg) Chau (hr-1): 0.031 Half life (hrs): 22.36 Recommended dose: 2000 mg Interval: 24 hrs Infusion emma
[2020-04-24 08:44] LABS: Chloride 106 mmol/L (98-107); Potassium 4.2 mmoL/L (3.5-5.1); Sodium 141 mmol/L (136-145)
[2020-04-24 08:46] LABS: Blood Urea Nitrogen 41 mg/dl (9-20); Creatinine Clearance Estimated 59 mL/min (50-200); Estimated Glomerular Filt Rate 30 ml/min (>60); GFR (African American) 36 ML/MIN (>60)
[2020-04-24 08:47] LABS: Anion Gap 10.2 mEq/L (5-15); Calcium 8.4 mg/dl (8.4-10.2); Carbon Dioxide 29 mmol/L (22.0-30.0); Glucose 159 mg/dl (74-100); Magnesium 2.1 mg/dl (1.6-2.3)
--- NOTE | 2020-04-24 09:29 | HMH.HP ---
*Admission Date: 04/23/20 *Chief complaint: infected toe *History of present illness: this pt presented to the ed with progressive reddness and drainage from lt foot - pt is diabetic and noted smell from area also - he presented to the ed and was admitted for ivf and abx and podiatry consult [facility] History I have reviewed the patient's past medical history: Yes Medical History: Reports:: Anxiety, Coronary Artery Disease, Depression, Diabetes Mellitus Type 2, Gastroesophageal Reflux Disease(GERD), Hyperlipidemia, Hypertension, MRSA, Renal Disease, Renal Insufficiency Denies:: Cancer, Diabetes Mellitus Type 1, Internal Pacemaker, Lung Disease, Seizures *Have you ever received a pneumonia vaccine?: No *Have you received a flu vaccine this season?: No Other Medical History: Reports: Arthritis, Glaucoma Laterality Cases: Bilateral: Arthroscopy Knee Other Surgeries: Yes: Appendectomy, Cardiac Catheterization, Cardiac Surgery (stents), Cholecystectomy, Colonoscopy, Coronary Stent, Other. No: Pacemaker Amputation: No Fractures: No - *Social History Smoking Status: Never smoker Alcohol Intake: never Alcohol Intake Frequency:: holidays/special occasions only Substance Use Type: denies use *Occupational Status:: retired Housing: house Household Members: friend(s) *Travel in the last 8 weeks: None - Psychiatric History Expresses thoughts of harming self/others: None Pschychiatric History:: Reports:: Anxiety, Depression Family Hx:: Coronary Artery Disease, Diabetes, Hyperlipidemia, Hypertension Review of Systems - Review of Systems Review of systems:: pertinent systems reviewed and negative unless documented below - Constitutional Reports malaise, Denies fever(s) - Eyes Denies change in vision - ENT Denies sore throat - *Cardiovascular Denies chest pain at rest - *Respiratory Denies cough - *Gastrointestinal Denies abdominal pain - *Genitourinary Denies blood in urine - *Musculoskeletal Reports joint pain, Reports joint swelling, Reports limited joint movement - Integumentary/Breasts Reports other (foot changes ) - *Neurologic Denies localized weakness, Denies headache(s) - Psychiatric Denies anxiety Meds Home Medications Medication Instructions Recorded Confirmed Type Urea [Uramaxin] 1 applic TOPICAL BID 11/18/19 04/24/20 History Linagliptin [Tradjenta 5mg tablet] 5 mg PO DAILY 02/28/20 04/24/20 History PARoxetine HCl [Paxil] 10 mg PO DAILY 02/28/20 04/24/20 History Insulin Glargine,Hum.rec.anlog 50 unit SQ HS 02/29/20 04/24/20 History [Davida Jimenez U-100] ALPRAZolam [Xanax 0.5mg tab] 0.5 mg PO TID 04/24/20 04/24/20 History Acetaminophen with Codeine 1 tab PO BIDP PRN 04/24/20 04/24/20 History [Tylenol with Codeine #3 tablet] Albuterol Sulfate [Albuterol 2 puffs IH Q8HP PRN 04/24/20 04/24/20 History Sulfate Hfa] Aspirin [Aspir 81] 81 mg PO DAILY 04/24/20 04/24/20 History Atorvastatin Calcium [Lipitor 20mg 20 mg PO HS 04/24/20 04/24/20 History Tab] Clopidogrel Bisulfate [Clopidogrel 75 mg PO DAILY 04/24/20 04/24/20 History 75mg Tab] Econazole Nitrate 1 applic TP DIRECTED 04/24/20 04/24/20 History Ergocalciferol (Vitamin D2) 50,000 unit PO WEEKLY 04/24/20 04/24/20 History [Vitamin D2] Furosemide [Furosemide 40MG tAB] 40 mg PO DAILY 04/24/20 04/24/20 History Gabapentin [Gabapentin 300mg Cap] 300 mg PO HS 04/24/20 04/24/20 History Insulin Aspart Prot/Insuln Asp 15 units SQ BID 04/24/20 04/24/20 History [Novolog Mix 70/30 Flexpen 100 Units/mL 3mL] Lidocaine [Lidoderm 5% transdermal 1 patch TOPICAL DAILY 04/24/20 04/24/20 History patch] Losartan Potassium 25 mg PO DAILY 04/24/20 04/24/20 History Spironolactone [Spironolactone 25 mg PO DAILY 04/24/20 04/24/20 History 25mg Tablet] carvediloL [Carvedilol 6.25mg Tab] 6.25 mg PO BID 04/24/20 04/24/20 History glipiZIDE [Glipizide] 10 mg PO BID 04/24/20 04/24/20 History Allergies Allergy/Adv
[2020-04-24 11:26] LABS: POC Glucose,Bedside 224 (70-110)
--- NOTE | 2020-04-24 13:51 | P.CONPHA_ITS ---
[facility] Pharmacy VTE Monitoring - Patient Demographics Admission date: 04/24/20 Report Date: 04/24/20 Time: 13:51 Allergies/Adverse Reactions: Patient Allergies No Known Allergies Allergy (Verified 04/20/20 11:14) Height: 1.83 m Weight: 137 kg Patient Problems: Current Active Problems (Last Updated 06/03/19 @ 11:58 by Carrie Banegas RN) Abscess of skin or subcutaneous tissue (Acute) Obesity (Acute) Diabetes 1.5, managed as type 1 (Acute) Neuropathy (Acute) CAD (coronary artery disease) (Chronic) Renal insufficiency (Chronic) - VTE Risk Labs: VTE Related Lab Results Hgb 10.6 g/dL (14.1-18.0) L 04/24/20 08:04 Hct 32.9 % (42.0-52.0) L 04/24/20 08:04 Plt Count 247 K/mm3 (142-424) 04/24/20 08:04 BUN 41 mg/dl (9-20) H 04/24/20 08:04 Creatinine 2.20 mg/dl (0.66-1.25) H 04/24/20 08:04 Estimated Creat Clear 59 mL/min (50-200) 04/24/20 08:04 Was VTE Risk Assessment Performed: Yes VTE Score: 4 VTE Risk Level: Low Risk - Prophylaxis Types of VTE Prophylaxis: TEDS Knee High (ANGÉLICA HOSE ORDER PLACED) Location of Applied Device: Refused
[2020-04-24 17:08] LABS: POC Glucose,Bedside 164 (70-110)
--- NOTE | 2020-04-24 17:29 | PC.NURSE ---
PATIENT A&O X4, LUNGS CLEAR, BUE PULSES EQUAL, BLE DOPPLER USED PULSES EQUAL +2 BLE +2 PITTING EDEMA. DURING AM ASSESSMENT THIS RN CLEANED ULCER ON LEFT GREAT TOE WITH IODINE, COVERED WITH NON ADHERENT GAUZE, WRAPPED WITH KERLIX AND ANA ROSA BANDAGE. PATIENT TOLERATED WELL. THIS RN WENT INTO PATIENT'S ROOM FOR HOURLY CHECK, PATIENT WAS EATING LONG LOI ESTELA FISH AND COLESLAW. THIS RN EDUCATED PATIENT AND PATIENT'S GUEST THE IMPORTANCE OF EATING PROPERLY WITH DIABETES. BOTH VERBALIZED AN UNDERSTANDING. NO OTHER NEEDS AT THIS TIME.
[2020-04-24 21:37] LABS: POC Glucose,Bedside 216 (70-110)
--- NOTE | 2020-04-24 23:25 | INFXCTL.NOTE ---
PT REQUESTED TO HAVE 2 LNC AT THIS TIME FOR COMFORT. STATES HE WEARS 2LNC AT HOME AT HS. NO RESPIRATORY DISTRESS NOTED AT THIS TIME. WILL CONTINUE TO MONITOR.
--- NOTE | 2020-04-25 04:24 | PC.NURSE ---
A&O X4. PT RESTED WELL THIS SHIFT WITH EYES CLOSED. NO ACUTE CHANGES NOTED FROM PREVIOUS SHIFT. TOLERATED RA WELL. BILATERAL LUNGS NOTED CLEAR. PLACED 2LNC ON PT PER REQUEST AT HS. +2 PITTING EDEMA NOTED TO BLE. ELEVATED BLE WHILE LYING IN BED THIS SHIFT ON 2 PILLOWS. +2 STRONG PULSES NOTED WITH FIRM PALPATION TO BILAT FEET. AMB WELL WITH STANDBY ASSIST TO AND FROM BATHROOM. THIS RN NOTICED PT SWAYING AT TIMES WHILE AMB. PT DENIES DIZZINESS OR LIGHTHEADNESS. VSS. REFSUED TEDS. REMAINS SAFE. CALL LIGHT WITHIN REACH. WILL CONTINUE TO MONITOR.
[2020-04-25 04:32] VITALS: BP 124/69; PULSE 64; RESP 20; TEMP 36.4; O2SAT 96
[2020-04-25 05:00] VITALS: BMI 41.6
[2020-04-25 05:27] LABS: POC Glucose,Bedside 179 (70-110)
[2020-04-25 08:00] VITALS: BP 158/78; PULSE 60; RESP 20; TEMP 36.6; O2SAT 97
--- NOTE | 2020-04-25 08:45 | HMH.ACPN2 ---
Internal Medicine - PN: Subj *Date: 04/26/20 *Time: 06:43 Interval history: pt doing some better Exam Vital signs and Labs for Last 24 Hours: Temp Pulse Resp BP Pulse Ox 97.8 F 60 20 158/78 H 97 04/25/20 08:00 04/25/20 08:00 04/25/20 08:00 04/25/20 08:00 04/25/20 08:00 Laboratory Results - last 24 hr 04/24/20 08:04: WBC 7.1, RBC 3.58 L, Hgb 10.6 L, Hct 32.9 L, MCV 91.8, MCH 29.6, MCHC 32.2, RDW 14.2, Plt Count 247, MPV 6.8 L, Neut % (Auto) 57.9, Lymph % (Auto) 32.5, [place] % (Auto) 6.2, Eos % (Auto) 3.0, Baso % (Auto) 0.5, Neut # (Auto) 4.1, Lymph # (Auto) 2.3, [place] # (Auto) 0.4, Eos # (Auto) 0.2, Baso # (Auto) 0.0 04/24/20 08:04: Sodium 141, Potassium 4.2, Chloride 106, Carbon Dioxide 29, Anion Gap 10.2, BUN 41 H, Creatinine 2.20 H, Estimated Creat Clear 59, Estimated GFR 30 L, Est GFR ( Amer) 36 L, Glucose 159 H D, Calcium 8.4, Magnesium 2.1 04/24/20 11:17: POC Glucose 224 H 04/24/20 17:00: POC Glucose 164 H 04/24/20 20:35: POC Glucose 216 H 04/25/20 05:16: POC Glucose 179 H I & O for Last 24 hours: Intake & Output 04/22/20 04/23/20 04/24/20 04/25/20 11:59 11:59 11:59 11:59 Intake Total 1460 / 1460 3207 / 3207 Output Total 400 / 400 450 / 450 Balance 1060 / 1060 2757 / 2757 Weight 302 lb 0.533 oz 307 lb 5.19 oz - Constitutional no acute distress, obese - *Routine HEENT Exam Head: Present: normocephalic Eye: Present: EOMI, PERRL ENT: Present: mucous membranes dry - *Routine Neck Exam Present: supple - *Routine Respiratory Exam Present: CTA bilaterally - *Routine Cardiovascular Exam Present: RRR, murmur - *Routine Abdominal Exam Present: soft - *Routine Extremities Exam Comments: dressing on foot - *Routine Skin Exam Comments: changes to foot - *Routine Neurological Exam Present: alert - Routine Psychiatric Exam Present: normal affect Assessment and Plan (1) Abscess of skin or subcutaneous tissue Current visit: Yes Status: Acute Qualifiers: Site of cutaneous abscess: extremity Site of cutaneous abscess of extremity: lower extremity Laterality: left Qualified Code(s): L02.416 - Cutaneous abscess of left lower limb Category: Medical Code(s): L02.91 - Cutaneous abscess, unspecified (2) Obesity Current visit: Yes Status: Acute Qualifiers: Obesity type: due to excess calories Obesity classification: adult class 3 (BMI >= 40) Serious obesity comorbidity presence: with serious comorbidity Body mass index: BMI 40.0-44.9 Qualified Code(s): E66.01 - Morbid (severe) obesity due to excess calories; Z68.41 - Body mass index (BMI) 40.0-44.9, adult Category: Medical Code(s): E66.9 - Obesity, unspecified (3) Diabetes 1.5, managed as type 1 Current visit: Yes Status: Acute Category: Medical Code(s): E13.9 - Other specified diabetes mellitus without complications (4) Neuropathy Current visit: Yes Status: Acute Category: Medical Code(s): G62.9 - Polyneuropathy, unspecified (5) Degenerative disc disease Current visit: No Status: Chronic Qualifiers: Spinal region: lumbar Qualified Code(s): M51.36 - Other intervertebral disc degeneration, lumbar region Category: Medical (6) Renal insufficiency Current visit: Yes Status: Acute Category: Medical Code(s): N28.9 - Disorder of kidney and ureter, unspecified (7) Obesity Current visit: Yes Status: Acute Qualifiers: Obesity type: due to excess calories Obesity classification: adult class 3 (BMI >= 40) Serious obesity comorbidity presence: with serious comorbidity Body mass index: BMI 40.0-44.9 Qualified Code(s): E66.01 - Morbid (severe) obesity due to excess calories; Z68.41 - Body mass index (BMI) 40.0-44.9, adult Category: Medical Code(s): E66.9 - Obesity, unspecified
[2020-04-25 09:40] LABS: Basophils % 0.7 % (0.1-2.0); Eosinophils # 0.2 K/mm3 (0.0-0.4); Eosinophils % 4.5 % (0.1-12.0); Hematocrit 31.3 % (42.0-52.0); Lymphocytes # 1.3 K/mm3 (0.7-4.5); Lymphocytes % 26.3 % (10-50); Mean Corpuscular HGB Conc 32.1 g/dL (31.8-35.4); Mean Corpuscular Hemoglobin 29.7 pg (27.0-31.2); Mean Corpuscular Volume 92.6 fl (80-94); Mean Platelet Volume 8.8 fl (7.4-10.4); Monocytes # 0.3 K/mm3 (0.1-1.0); Monocytes % 6.3 % (1.7-9.3); Neutrophils # 3.1 K/mm3 (1.8-7.8); Neutrophils % 62.2 % (37.0-80.0); Platelet Count 204 K/mm3 (142-424); Red Blood Count 3.39 M/mm3 (4.60-6.20); Red Cell Distribution Width 14.2 % (11.5-17.5)
[2020-04-25 09:41] LABS: Chloride 106 mmol/L (98-107); Potassium 4.3 mmoL/L (3.5-5.1); Sodium 139 mmol/L (136-145)
[2020-04-25 09:44] LABS: Anion Gap 12.3 mEq/L (5-15); Blood Urea Nitrogen 30 mg/dl (9-20); Calcium 8.2 mg/dl (8.4-10.2); Carbon Dioxide 25 mmol/L (22.0-30.0); Creatinine Clearance Estimated 43 mL/min (50-200); Estimated Glomerular Filt Rate 40 ml/min (>60); GFR (African American) 48 ML/MIN (>60); Glucose 223 mg/dl (74-100)
[2020-04-25 11:51] LABS: POC Glucose,Bedside 262 (70-110)
[2020-04-25 15:45] VITALS: BP 169/78; PULSE 61; RESP 20; TEMP 36.7; O2SAT 97
[2020-04-25 17:07] LABS: POC Glucose,Bedside 229 (70-110)
--- NOTE | 2020-04-25 17:47 | PC.NURSE ---
PATIENT A&O X4, LUNGS DIMINSHED, GURMEET PEDAL PULSES CAN BE FELT WHEN LEGS ARE ELEVATED. WHEN PATIENT IS SITTING IN CHAIR WITH LEGS DOWN, UNABLE TO FEEL PULSE. PATIENT HAS SLEPT FOR MOST OF THIS RN SHIFT. PATIENT WAKES UP IMMEDIATELY WHEN HIS NAME CALLED. PATIENT IS A 1X ASSIST TO AMBULATE. PATIENT SWAYS WHEN WALKING. THIS RN ASKED PATIENT TO HAVE HIS CPAP BROUGHT IN FOR SLEEPING. PATIENT PHONED A FRIEND AND ASKED THEM TO BRING IT IN. THAT FRIEND, JORGE, PHONED THIS RN AND STATED THAT SHE DID NOT FEEL COMFORTABLE BRINGING IN THE MACHINE DUE TO THE PATIENT HAS A RO INFESTATION IN HIS HOUSE. NO OTHER CONCERNS AT THIS TIME.
[2020-04-25 20:00] VITALS: BP 170/72; PULSE 69; RESP 18; TEMP 36.5; O2SAT 96
[2020-04-25 20:38] LABS: POC Glucose,Bedside 229 (70-110)
[2020-04-25 23:11] LABS: Vancomycin,Trough 11.7 ug/mL (5.0-10.0)
--- NOTE | 2020-04-26 03:14 | PC.NURSE ---
A&OX4. PT TOLERATING RA WHILE AWAKE AND 2LNC WHILE SLEEPING. PT HAS HAD NO C/O OF PAIN, NA/VO T/O SHIFT. T HAS SLEPT MAJORITY OF THIS SHIFT. ULCER PRESENT TO L GREAT TOE. CLEAN DRESSING APPLIED. FOWL ODOR NOTED. PEREZ/BROWN DRAINAGE PRESENT. NO PAIN REPORTED BY PT. FEET KEPT ELEVATED T/O SHIFT. VSS WILL CONTINUE TO MONITOR.
[2020-04-26 03:33] VITALS: BP 149/78; PULSE 71; RESP 16; TEMP 36.4; O2SAT 94
[2020-04-26 05:00] VITALS: BMI 42.0
[2020-04-26 05:48] LABS: POC Glucose,Bedside 219 (70-110)
[2020-04-26 08:00] VITALS: BP 160/77; PULSE 67; RESP 19; TEMP 36.6; O2SAT 96
--- NOTE | 2020-04-26 08:17 | HMH.PHACONS ---
- Pharmacy Consult Date: 04/26/20 Time: 08:17 Referring provider: DR. ROBERT Reason for Consult:: VANCOMYCIN TROUGH LEVEL Allergies and ADEs:: Allergies Allergy/AdvReac Type Severity Reaction Status Date / Time No Known Allergies Allergy Verified 04/20/20 11:14 Home Medications:: Home Medications Medication Instructions Recorded Confirmed Type Urea [Uramaxin] 1 applic TOPICAL BID 11/18/19 04/24/20 History Linagliptin [Tradjenta 5mg tablet] 5 mg PO DAILY 02/28/20 04/24/20 History PARoxetine HCl [Paxil] 10 mg PO DAILY 02/28/20 04/24/20 History Insulin Glargine,Hum.rec.anlog 50 unit SQ HS 02/29/20 04/24/20 History [Basaglar Kwikpen U-100] ALPRAZolam [Xanax 0.5mg tab] 0.5 mg PO TID 04/24/20 04/24/20 History Acetaminophen with Codeine 1 tab PO BIDP PRN 04/24/20 04/24/20 History [Tylenol with Codeine #3 tablet] Albuterol Sulfate [Albuterol 2 puffs IH Q8HP PRN 04/24/20 04/24/20 History Sulfate Hfa] Aspirin [Aspir 81] 81 mg PO DAILY 04/24/20 04/24/20 History Atorvastatin Calcium [Lipitor 20mg 20 mg PO HS 04/24/20 04/24/20 History Tab] Clopidogrel Bisulfate [Clopidogrel 75 mg PO DAILY 04/24/20 04/24/20 History 75mg Tab] Econazole Nitrate 1 applic TP DIRECTED 04/24/20 04/24/20 History Ergocalciferol (Vitamin D2) 50,000 unit PO WEEKLY 04/24/20 04/24/20 History [Vitamin D2] Furosemide [Furosemide 40MG tAB] 40 mg PO DAILY 04/24/20 04/24/20 History Gabapentin [Gabapentin 300mg Cap] 300 mg PO HS 04/24/20 04/24/20 History Insulin Aspart Prot/Insuln Asp 15 units SQ BID 04/24/20 04/24/20 History [Novolog Mix 70/30 Flexpen 100 Units/mL 3mL] Lidocaine [Lidoderm 5% transdermal 1 patch TOPICAL DAILY 04/24/20 04/24/20 History patch] Losartan Potassium 25 mg PO DAILY 04/24/20 04/24/20 History Spironolactone [Spironolactone 25 mg PO DAILY 04/24/20 04/24/20 History 25mg Tablet] carvediloL [Carvedilol 6.25mg Tab] 6.25 mg PO BID 04/24/20 04/24/20 History glipiZIDE [Glipizide] 10 mg PO BID 04/24/20 04/24/20 History Height: 1.83 m Weight: 140.7 kg Laboratory Results:: Laboratory Results - last 24 hr 04/25/20 09:26: WBC 5.0 D, RBC 3.39 L, Hgb 10.0 L, Hct 31.3 L, MCV 92.6, MCH 29.7, MCHC 32.1, RDW 14.2, Plt Count 204, MPV 8.8, Neut % (Auto) 62.2, Lymph % (Auto) 26.3, Nye % (Auto) 6.3, Eos % (Auto) 4.5, Baso % (Auto) 0.7, Neut # (Auto) 3.1, Lymph # (Auto) 1.3, Nye # (Auto) 0.3, Eos # (Auto) 0.2, Baso # (Auto) 0.0 04/25/20 09:26: Sodium 139, Potassium 4.3, Chloride 106, Carbon Dioxide 25, Anion Gap 12.3, BUN 30 H D, Creatinine 1.70 H D, Estimated Creat Clear 43, Estimated GFR 40 L, Est GFR ( Amer) 48 L D, Glucose 223 H, Calcium 8.2 L 04/25/20 11:23: POC Glucose 262 H 04/25/20 16:57: POC Glucose 229 H 04/25/20 19:48: POC Glucose 229 H 04/25/20 22:30: Vancomycin Trough 11.7 H 04/26/20 05:22: POC Glucose 219 H Medical History: Reports:: Anxiety, Coronary Artery Disease, Depression, Diabetes Mellitus Type 2, Gastroesophageal Reflux Disease(GERD), Hyperlipidemia, Hypertension, MRSA, Renal Disease, Renal Insufficiency Denies:: Cancer, Diabetes Mellitus Type 1, Internal Pacemaker, Lung Disease, Seizures Assessment and Plan (1) Abscess of skin or subcutaneous tissue Current visit: Yes Status: Acute Qualifiers: Site of cutaneous abscess: extremity Site of cutaneous abscess of extremity: lower extremity Laterality: left Qualified Code(s): L02.416 - Cutaneous abscess of left lower limb Category: Medical Code(s): L02.91 - Cutaneous abscess, unspecified (2) Obesity Current visit: Yes Status: Acute Qualifiers: Obesity type: due to excess calories Obesity classification: adult class 3 (BMI >= 40) Serious obesity comorbidity presence: with serious comorbidity Body mass index: BMI 40.0-44.9 Qualified Code(s): E66.01 - Morbid (severe) obesity due to excess calories; Z68.41 - Body mass index (BMI) 40.0-44.9, adult Category: Medical Code(s): E66.9 -
--- NOTE | 2020-04-26 10:38 | SW/DCPLANNER ---
Addendum entered by [facility] 04/26/20 15:07: Francis from [facility] has confirmed patient information has been received and services will begin tomorrow. Addendum entered by [facility] 04/26/20 14:16: Patient information has been faxed to [facility]. Addendum entered by [facility] 04/26/20 13:29: Oxylite will be delivered to patients home per Cindy from [facility]. Patient will also need daily dressing changes per Dr Oliveira. Patient will be set up with [facility] home health at time of discharge for dressing changes, PT/OT, penitentiary. Patient has stated that he will have someone that can do dressing changes the day that home health can not complete. I will set up home health at time of discharge. Addendum entered by [facility] 04/26/20 11:34: Oxylite order for this patient has been faxed to [facility]. Original Note: I have spoke with this patient regarding discharge plans. Patient stated that he resides at home alone. Patient stated that he does as little driving as possible. Patient has a rolling walker, cane and home o2 already at home. Patient stated that he could benefit from OxyLite at discharge due to not being able to roll portable tank because he uses a walker. Patient is also agreeable to home health services at discharge. Patient prefers [facility] at discharge. Patient is also interested in meal programs for home delivered meals. I will continue to follow up with this patient and resources once stable for discharge. Patient has a Dr Oliveira consult for today.
[2020-04-26 11:24] LABS: POC Glucose,Bedside 241 (70-110)
--- NOTE | 2020-04-26 12:45 | HMH.ACPN2 ---
Internal Medicine - PN: Subj *Date: 04/26/20 *Time: 13:53 Interval history: doing better -awaiting podiatry Exam Vital signs and Labs for Last 24 Hours: Temp Pulse Resp BP Pulse Ox 97.9 F 67 19 160/77 H 96 04/26/20 08:00 04/26/20 08:00 04/26/20 08:00 04/26/20 08:00 04/26/20 08:00 Laboratory Results - last 24 hr 04/25/20 16:57: POC Glucose 229 H 04/25/20 19:48: POC Glucose 229 H 04/25/20 22:30: Vancomycin Trough 11.7 H 04/26/20 05:22: POC Glucose 219 H 04/26/20 11:17: POC Glucose 241 H I & O for Last 24 hours: Intake & Output 04/24/20 04/25/20 04/26/20 04/27/20 11:59 11:59 11:59 11:59 Intake Total 1460 / 1460 3207 / 3207 3264 / 3264 Output Total 400 / 400 450 / 450 3050 / 3050 Balance 1060 / 1060 2757 / 2757 214 / 214 Weight 302 lb 0.533 oz 307 lb 5.19 oz 310 lb 3.046 oz Microbiology Reports for the Last 24 Hours: Microbiology 04/23/20 23:32 Blood Blood Culture - Preliminary NO GROWTH AFTER 48 HOURS 04/23/20 23:32 Blood Blood Culture - Preliminary NO GROWTH AFTER 48 HOURS - Constitutional no acute distress, obese - *Routine HEENT Exam Head: Present: normocephalic Eye: Present: EOMI, PERRL ENT: Present: mucous membranes dry - *Routine Neck Exam Present: supple. Absent: JVD - *Routine Respiratory Exam Present: decreased breath sounds - *Routine Cardiovascular Exam Present: RRR, murmur - *Routine Abdominal Exam Present: soft - *Routine Extremities Exam Comments: lt foot looks better - *Routine Skin Exam Present: warm - *Routine Neurological Exam Present: alert, oriented X3, CN II-XII intact - Routine Psychiatric Exam Present: normal affect Assessment and Plan (1) Abscess of skin or subcutaneous tissue Current visit: Yes Status: Acute Qualifiers: Site of cutaneous abscess: extremity Site of cutaneous abscess of extremity: lower extremity Laterality: left Qualified Code(s): L02.416 - Cutaneous abscess of left lower limb Category: Medical Code(s): L02.91 - Cutaneous abscess, unspecified (2) Obesity Current visit: Yes Status: Acute Qualifiers: Obesity type: due to excess calories Obesity classification: adult class 3 (BMI >= 40) Serious obesity comorbidity presence: with serious comorbidity Body mass index: BMI 40.0-44.9 Qualified Code(s): E66.01 - Morbid (severe) obesity due to excess calories; Z68.41 - Body mass index (BMI) 40.0-44.9, adult Category: Medical Code(s): E66.9 - Obesity, unspecified (3) Diabetes 1.5, managed as type 1 Current visit: Yes Status: Acute Category: Medical Code(s): E13.9 - Other specified diabetes mellitus without complications (4) Neuropathy Current visit: Yes Status: Acute Category: Medical Code(s): G62.9 - Polyneuropathy, unspecified (5) Degenerative disc disease Current visit: No Status: Chronic Qualifiers: Spinal region: lumbar Qualified Code(s): M51.36 - Other intervertebral disc degeneration, lumbar region Category: Medical (6) Renal insufficiency Current visit: Yes Status: Acute Category: Medical Code(s): N28.9 - Disorder of kidney and ureter, unspecified (7) Obesity Current visit: Yes Status: Acute Qualifiers: Obesity type: due to excess calories Obesity classification: adult class 3 (BMI >= 40) Serious obesity comorbidity presence: with serious comorbidity Body mass index: BMI 40.0-44.9 Qualified Code(s): E66.01 - Morbid (severe) obesity due to excess calories; Z68.41 - Body mass index (BMI) 40.0-44.9, adult Category: Medical Code(s): E66.9 - Obesity, unspecified
--- NOTE | 2020-04-26 12:51 | HMH.ORTHOCON ---
*Admission Date: 04/24/20 <Heike Oliveira 04/26/20 12:53> *Reason for consult:: Left hallux DM ulcer <Heike Oliveira 04/26/20 12:53> *History of present illness: Patient is resting comfortably in the recliner. He denies pain to the foot. He states the legs are swollen like normal. He states several days ago the left great toe was very swollen and had some drainage. Patient is sister showed us a picture which looked much worse than today. Patient reports today looks way better and the antibiotics are helping . He lives at home. He has a walker. <Heike Oliveira 04/26/20 13:49> Review of Systems - Review of Systems Review of systems:: pertinent systems reviewed and negative unless documented below <Heike Oliveira 04/26/20 13:49> - Constitutional Denies weakness <Vale Friedman 04/26/20 13:24> - Eyes Denies change in vision <Vale Friedman 04/26/20 13:24> - ENT Denies abnormal hearing <Heike Oliveira 04/26/20 13:49> Denies dry mouth, Denies difficulty swallowing <Vale Friedman 04/26/20 13:24> - *Cardiovascular Denies chest pain <RoxanneHeike 04/26/20 13:49> Denies shortness of breath <Vale Friedman 04/26/20 13:24> - *Respiratory Denies cough <Vale Friedman 04/26/20 13:24> - *Gastrointestinal Denies abdominal pain <Vale Friedman 04/26/20 13:24> - *Genitourinary Denies difficulty urinating <Vale Friedman 04/26/20 13:24> - *Musculoskeletal Denies numbness, Denies tingling <Vale Friedman 04/26/20 13:24> - Integumentary/Breasts Reports hair loss, Reports nail changes <Heike Oliveira 04/26/20 13:49> Reports dry skin, Reports wounds <Vale Friedman 04/26/20 13:24> - *Neurologic Denies localized weakness, Denies headache(s) <Heike Oliveira 04/26/20 12:53> - Psychiatric Denies anxiety, Denies confusion <Vale Friedman 04/26/20 13:24> [facility] History I have reviewed the patient's past medical history: Yes <Heike Oliveira 04/26/20 13:49> Medical History: Reports:: Anxiety, Coronary Artery Disease, Depression, Diabetes Mellitus Type 2, Gastroesophageal Reflux Disease(GERD), Hyperlipidemia, Hypertension, MRSA, Renal Disease, Renal Insufficiency Denies:: Cancer, Diabetes Mellitus Type 1, Internal Pacemaker, Lung Disease, Seizures <Heike Oliveira 04/26/20 12:53> *Have you ever received a pneumonia vaccine?: No <Roxanne04/26/20 12:53> *Have you received a flu vaccine this season?: No <RoxanneHeike 04/26/20 12:53> Other Medical History: Reports: Arthritis, Glaucoma <Roxanne04/26/20 12:53> Laterality Cases: Bilateral: Arthroscopy Knee <Roxanne04/26/20 12:53> Other Surgeries: Yes: Appendectomy, Cardiac Catheterization, Cardiac Surgery (stents), Cholecystectomy, Colonoscopy, Coronary Stent, Other. No: Pacemaker <Roxanne04/26/20 12:53> Amputation: No <RoxanneHeike 04/26/20 12:53> Fractures: No <Roxanne04/26/20 12:53> - *Social History Smoking Status: Never smoker <Heike Oliveira 04/26/20 12:53> Alcohol Intake: never <Heike Oliveira 04/26/20 12:53> Alcohol Intake Frequency:: holidays/special occasions only <Roxanne04/26/20 12:53> Substance Use Type: denies use <Roxanne04/26/20 12:53> *Occupational Status:: retired <Heike Oliveira 04/26/20 12:53> Housing: house <Roxanne04/26/20 12:53> Household Members: friend(s) <Heike Oliveira 04/26/20 12:53> *Travel in the last 8 weeks: None <Heike Oliveira 04/26/20 12:53> - Psychiatric History Expresses thoughts of harming self/others: None <Heike Oliveira 04/26/20 12:53> Pschychiatric History:: Reports:: Anxiety, Depression <Heike Oliveira 04/26/20 12:53> Family Hx:: Coronary Artery Disease, Diabetes, Hyperlipidemia, Hypertension <Heike Oliveira 04/26/20 12:53> Meds Home Medications Medication Instructions Recorded Conf
[2020-04-26 13:33] LABS: Chloride 103 mmol/L (98-107); Sodium 138 mmol/L (136-145)
[2020-04-26 13:34] LABS: Potassium 4.6 mmoL/L (3.5-5.1)
[2020-04-26 13:36] LABS: Blood Urea Nitrogen 22 mg/dl (9-20); Creatinine Clearance Estimated 49 mL/min (50-200); Estimated Glomerular Filt Rate 46 ml/min (>60); GFR (African American) 56 ML/MIN (>60)
[2020-04-26 13:37] LABS: Anion Gap 11.6 mEq/L (5-15); Calcium 8.8 mg/dl (8.4-10.2); Carbon Dioxide 28 mmol/L (22.0-30.0); Glucose 233 mg/dl (74-100)
[2020-04-26 14:19] VITALS: BMI 42.0
--- NOTE | 2020-04-26 14:42 | HMH.DCSUM ---
General - General Admission date:: 04/24/20 Discharge date: 04/26/20 HPI HPI: this pt presented to the ed with progressive reddness and drainage from lt foot - pt is diabetic and noted smell from area also - he presented to the ed and was admitted for ivf and abx and podiatry consult Hospital Course Hospital Course: pt has responded well to ivf and abx - feels better - he was seen by podiatry-eft hallux DM ulcer <Heike Oliveira - 04/26/20 12:53> *History of present illness: Patient is resting comfortably in the recliner. He denies pain to the foot. He states the legs are swollen like normal. He states several days ago the left great toe was very swollen and had some drainage. Patient is sister showed us a picture which looked much worse than today. Patient reports today looks way better and the antibiotics are helping . He lives at home. He has a walker. <Heike Oliveira - 04/26/20 13:49> EFT HALLUX DM ULCER: I discussed with the patient the importance of proper hygiene and maintaining a clean healthy wound bed to avoid getting an infection. The wound was cleansed with betadine. The wound was sharply excisionally debrided with a 15 blade through the skin into subcutaneous tissue. Serous drainage noted-wound culture taken. No ascending cellulitis, purulence or malodor noted. Post debridement the wound bed was 85% granular, 15% fibrotic and measured 1.7x0.9x0.2cm. Some bleeding noted. Weakly palpable pedal pulses. CFT 4-5 seconds. B/L LE edema 1+ pitting noted. X-rays left foot and CT left foot taken 04/24/20 evaluated. FINDINGS: Soft tissue gas is present medially at the 1st interphalangeal joint. No obvious bony erosive process. There is an old fracture of the proximal phalanx of the 3rd toe. Degenerative changes are present in the midfoot with bony hypertrophy/osteo arthritis. There is a prominent calcaneal spur as before. Soft tissue swelling noted dorsally. Hammertoe deformity of the 2nd and 3rd toes. IMPRESSION: Soft tissue ulceration. No definite bony destructive process. Degenerative changes as detailed above. CT IMPRESSION: 1. Diffuse edema and soft tissue swelling throughout the foot and into the great toe. 2. Ulcer defect medial plantar aspect of great toe with associated prominent soft tissue swelling and cellulitis most pronounced about this ulcer defect. Because of remainder of great toe shows no osseous erosion or destruction-no definitive osteomyelitis by CT and great toe ((however again note the tip of the great toe is not adequately imaged). 3. Edema throughout and swelling throughout the foot with prominent at dorsal aspect foot. 4. Extensive degenerative changes at midfoot likely reflect developing Charcot's neuropathic joint features. 1. Left hallux ulcer debrided as above and dressing changed at the bedside 2. Dressing applied: betadine, 4x4s, Kevin 3. Wound care instructions given: change dressing at least 3 times weekly via Home Health Care Cleanse the toe with wound sanitation truck cleaner or saline. Dry thoroughly. Apply Betadine gauze to ulcer followed by dry sterile dressing (4x4's, Kevin/Kerlix, secure with tape) 4. WB in post op shoe/fracture boot with DME assistance (has post op shoe, walker at home) 5. No plans for surgical intervention 6. Changed the dressing today and okay from Podiatry stand point for discharge with oral Abx (recommend Clinda 300mg TID x 2 weeks - due to elevated BUN/creatinine) 7. Follow up in one week with Podiatry out patient <Heike Oliveira - 04/26/20 13:49> have set up home health and will d/c at this time Objective Vital signs: Temp Pulse Resp BP Pulse Ox 97.9 F 67 19 160/77 H 96 04/26/20 08:00 04/26/20 08:00 04/26/20 08:00 04/26/20 08:00 04/26/20 08:00 no acute distress, obese - *Routine HEENT Exam Head: Present: normocephalic Eye: Present: EOMI, PERRL ENT: Present: mucous membranes moist - *Routine Neck Exam Present: supple - *Routine Respiratory Ex
--- NOTE | 2020-04-26 14:57 | DIET.NUTRFU ---
Nutritional assessment, IP completed by student Loreta Johnson under my direct supervision.
--- NOTE | 2020-05-03 10:24 | HMH.PHAINT ---
Addendum entered and electronically signed by Yanelis Delacruz, Litzy 05/03/20 10:52: PATIENT'S HOME MEDICATIONS INTERACT WITH BACTRIM. PATIENT WILL BE SWITCHED TO LEVAQUIN AND MINOCYCLINE. Original Note: WOUND CULTURE RESULTS 1. ALCALIGENES SPECIES (FACECALIS) 2. STAPHYLOCOCCUS AUREUS-RESISTANT TO CLINDAMYCIN PATIENT WAS SENT HOME ON CLINDAMYCIN ON 04/26/20 BOTH ORGANISMS ARE SUSEPTIBLE TO BACTRIM SPOKE TO [employer]...PATIENT HAS A FOLLOW-UP TODAY ON 05/03/20, SHE WILL CHANGE ANTIBIOTIC TO BACTRIM.
== END 2020-04-26 16:10 | disposition home or self-care (01) ==
LOC: ER 23:45 → 2ND 04-24 02:42
PROVIDERS: Admitting Provider Emergency Medicine; Emergency Provider Emergency Medicine; PCP Emergency Medicine; Visit Provider Emergency Medicine
DX: E11.621 Type 2 diabetes mellitus with foot ulcer (principal); L02.416 Cutaneous abscess of left lower limb; I25.10 Atherosclerotic heart disease of native coronary artery without angina pectoris; I10 Essential (primary) hypertension; Z79.4 Long term (current) use of insulin; Z95.5 Presence of coronary angioplasty implant and graft; Z79.899 Other long term (current) drug therapy; E66.01 Morbid (severe) obesity due to excess calories; Z68.41 Body mass index [BMI] 40.0-44.9, adult; L97.521 Non-pressure chronic ulcer of other part of left foot limited to breakdown of skin
CPT/HCPCS: 11042; 36415; 73630; 73700; 80048; 80053; 80202; 80329; 82962; 83605; 83735; 85025; 86328; 87040; 87070; 87077; 87186; 87205; 96365; 96367; 99285; G0378; J3370

== ENCOUNTER → 2020-05-03 13:19 | Outpatient (CLI) | payer MEDICARE, SELFPAY ==
--- NOTE | 2020-05-03 13:32 | XR_ITS ---
PROCEDURE: XR KNEE RT 3V CLINICAL INDICATION: right knee pain COMPARISON: No exams were available for comparison FINDINGS: No fracture or dislocation. No lytic or blastic change. There is normal mineralization. The joint spaces are well-preserved. No significant degenerative/arthritic changes. No erosive changes evident. Other findings:None. IMPRESSION: No acute findings. Dictated by: Jose Hoffman MD 05/03/2020 22:15 Electronically signed by Jose Hoffman MD in [place] 05/03/2020 22:15
== END ==
PROVIDERS: PCP Emergency Medicine; Visit Provider Emergency Medicine
DX: M25.561 Pain in right knee (principal)
CPT/HCPCS: 73562

== ENCOUNTER → 2020-05-07 12:37 | Outpatient (CLI) | payer MEDICARE, SELFPAY ==
--- NOTE | 2020-05-07 12:41 | XR_ITS ---
PROCEDURE: XR KNEE RT 4V CLINICAL INDICATION: Knee pain Right knee pain. COMPARISON: XR KNEE RT 3V from 05/03/2020 FINDINGS: No fracture or dislocation. No lytic or blastic change. There is periarticular bony demineralization. There is moderate osteoarthrosis of the medial and lateral femorotibial compartments with asymmetric joint space narrowing and small osteophyte formation. There is an enthesophyte is seen from the upper pole of the patella. Other findings:No substantial joint effusion is demonstrated. IMPRESSION: 1. No acute findings. 2. Moderate knee osteoarthrosis. Dictated by: Tapan Dahl 05/07/2020 13:30 Electronically signed by Tapan Dahl in [place] 05/07/2020 13:30
== END ==
PROVIDERS: PCP Emergency Medicine; Visit Provider Orthopaedic Surgery
DX: M25.561 Pain in right knee (principal)
CPT/HCPCS: 73564

== ENCOUNTER → 2020-05-10 12:33 | Outpatient (CLI) | payer MEDICARE, SELFPAY ==
--- NOTE | 2020-05-10 12:37 | XR_ITS ---
PROCEDURE: XR FOOT WT BEARING LT 3V CLINICAL INDICATION: diabetic ulcer Pain COMPARISON: XR FOOT WT BEARING RT 3V from 07/23/2019 XR FOOT RT MIN 3V from 03/02/2020 XR FOOT LT MIN 3V from 03/02/2020 XR FOOT LT MIN 3V from 04/24/2020 FINDINGS: There is hammertoe deformity of the 2nd digit. Bandage artifact is present at the great toe. No obvious erosive changes evident at this region. There is nonspecific area of decreased attenuation involving the distal aspect of the 1st metatarsal medially. Developing Charcot joint noted in the midfoot with diffuse subarticular cystic changes and flattening of the navicular and severe osteoarthritic changes of the navicular cuneiform joint similar to the previous exam with pes planus. There is mild superior translation of the navicular I at the talonavicular joint. Prominent calcaneal spur is noted IMPRESSION: Overall no significant change in the chronic degenerative changes with Charcot midfoot joint and hammertoe deformity. No evidence of acute osteomyelitis Dictated by: Jose Hoffman MD 05/10/2020 13:17 Electronically signed by Jose Hoffman MD in [place] 05/10/2020 13:17
== END ==
PROVIDERS: PCP Emergency Medicine; Visit Provider Nurse Practitioner
DX: E11.621 Type 2 diabetes mellitus with foot ulcer (principal); L97.529 Non-pressure chronic ulcer of other part of left foot with unspecified severity
CPT/HCPCS: 73630

== ENCOUNTER → 2020-05-18 16:14 | Outpatient (CLI) | payer MEDICARE, SELFPAY ==
[2020-05-18 16:47] LABS: Basophils % 0.6 % (0.1-2.0); Eosinophils # 0.2 K/mm3 (0.0-0.4); Eosinophils % 3.4 % (0.1-12.0); Hematocrit 36.1 % (42.0-52.0); Hemoglobin 12.1 g/dL (14.1-18.0); Lymphocytes # 1.9 K/mm3 (0.7-4.5); Lymphocytes % 29.2 % (10-50); Mean Corpuscular HGB Conc 33.4 g/dL (31.8-35.4); Mean Corpuscular Hemoglobin 29.9 pg (27.0-31.2); Mean Corpuscular Volume 89.5 fl (80-94); Monocytes # 0.4 K/mm3 (0.1-1.0); Monocytes % 6.7 % (1.7-9.3); Neutrophils # 3.9 K/mm3 (1.8-7.8); Neutrophils % 60.1 % (37.0-80.0); Platelet Count 215 K/mm3 (142-424); Red Blood Count 4.04 M/mm3 (4.60-6.20); Red Cell Distribution Width 13.9 % (11.5-17.5); White Blood Count 6.5 K/mm3 (4.8-10.8)
[2020-05-18 17:09] LABS: Hemoglobin A1C 8.1 % (4.0-6.0)
[2020-05-18 17:24] LABS: Alanine Aminotransferase 17 U/L (12-78); Albumin Level 3.7 g/dl (3.5-5.0); Albumin/Globulin Ratio 1.1 (1.1-1.8); Alkaline Phosphatase 101 U/L (38-126); Anion Gap 14.4 mEq/L (5-15); Aspartate Amino Transferase 26 U/L (17-59); Bilirubin,Total 0.3 mg/dl (0.2-1.3); Blood Urea Nitrogen 60 mg/dl (9-20); Carbon Dioxide 30 mmol/L (22.0-30.0); Chloride 101 mmol/L (98-107); Estimated Glomerular Filt Rate 25 ml/min (>60); GFR (African American) 31 ML/MIN (>60); Globulin 3.3 g/dL (1.3-3.2); Glucose 154 mg/dl (74-100); Potassium 4.4 mmoL/L (3.5-5.1); Sodium 141 mmol/L (136-145)
[2020-05-18 17:30] LABS: C-Reactive Protein 5.1 mg/L (0-4)
[2020-05-18 18:18] LABS: Erythrocyte Sedimentation Rate 48 mm/hr (0-20)
== END ==
PROVIDERS: Visit Provider Nurse Practitioner
DX: E11.621 Type 2 diabetes mellitus with foot ulcer (principal); L97.502 Non-pressure chronic ulcer of other part of unspecified foot with fat layer exposed
CPT/HCPCS: 36415; 80053; 83036; 85025; 85651; 86140

== ENCOUNTER → 2020-06-07 13:14 | Outpatient (CLI) | payer MEDICARE, SELFPAY ==
[2020-06-07 14:21] LABS: Basophils % 0.5 % (0.1-2.0); Eosinophils # 0.3 K/mm3 (0.0-0.4); Eosinophils % 4.7 % (0.1-12.0); Hematocrit 35.1 % (42.0-52.0); Hemoglobin 11.9 g/dL (14.1-18.0); Lymphocytes # 1.9 K/mm3 (0.7-4.5); Lymphocytes % 31.2 % (10-50); Mean Corpuscular HGB Conc 33.8 g/dL (31.8-35.4); Mean Corpuscular Hemoglobin 30.5 pg (27.0-31.2); Mean Corpuscular Volume 90.1 fl (80-94); Mean Platelet Volume 7.7 fl (7.4-10.4); Monocytes # 0.3 K/mm3 (0.1-1.0); Monocytes % 4.1 % (1.7-9.3); Neutrophils # 3.7 K/mm3 (1.8-7.8); Neutrophils % 59.5 % (37.0-80.0); Platelet Count 257 K/mm3 (142-424); Red Cell Distribution Width 14.3 % (11.5-17.5); White Blood Count 6.1 K/mm3 (4.8-10.8)
[2020-06-07 14:47] LABS: Erythrocyte Sedimentation Rate 48 mm/hr (0-20)
[2020-06-07 15:08] LABS: Chloride 109 mmol/L (98-107); Potassium 4.5 mmoL/L (3.5-5.1); Sodium 141 mmol/L (136-145)
[2020-06-07 15:11] LABS: Alanine Aminotransferase 21 U/L (12-78); Albumin Level 3.7 g/dl (3.5-5.0); Albumin/Globulin Ratio 1.2 (1.1-1.8); Alkaline Phosphatase 74 U/L (38-126); Anion Gap 13.5 mEq/L (5-15); Aspartate Amino Transferase 23 U/L (17-59); Bilirubin,Total 0.3 mg/dl (0.2-1.3); Blood Urea Nitrogen 34 mg/dl (9-20); Calcium 9.2 mg/dl (8.4-10.2); Carbon Dioxide 23 mmol/L (22.0-30.0); Estimated Glomerular Filt Rate 31 ml/min (>60); GFR (African American) 38 ML/MIN (>60); Globulin 3.1 g/dL (1.3-3.2); Glucose 205 mg/dl (74-100); Total Protein,Serum 6.8 g/dl (6.3-8.2)
[2020-06-07 15:39] LABS: C-Reactive Protein 7.7 mg/L (0-4)
== END ==
PROVIDERS: Visit Provider Nurse Practitioner
DX: E11.621 Type 2 diabetes mellitus with foot ulcer (principal); L97.529 Non-pressure chronic ulcer of other part of left foot with unspecified severity; Z79.4 Long term (current) use of insulin
CPT/HCPCS: 36415; 80053; 85025; 85651; 86140

== ENCOUNTER → 2020-06-25 12:29 | Outpatient (CLI) | payer MEDICARE, SELFPAY ==
[2020-06-25 14:52] LABS: Anion Gap 11.3 mEq/L (5-15); Blood Urea Nitrogen 35 mg/dl (9-20); Calcium 9.1 mg/dl (8.4-10.2); Carbon Dioxide 29 mmol/L (22.0-30.0); Chloride 105 mmol/L (98-107); Estimated Glomerular Filt Rate 33 ml/min (>60); GFR (African American) 40 ML/MIN (>60); Glucose 237 mg/dl (74-100); Potassium 4.3 mmoL/L (3.5-5.1); Sodium 141 mmol/L (136-145)
== END ==
PROVIDERS: Visit Provider Internal Medicine Nephrology
DX: N18.3 Chronic kidney disease, stage 3 (moderate) (principal)
CPT/HCPCS: 36415; 80048

== ENCOUNTER → 2020-06-28 09:26 | Outpatient (POV) | payer MEDICARE, SELFPAY | PROVIDERS: Visit Provider Internal Medicine Nephrology | DX: Z00.00 Encounter for general adult medical examination without abnormal findings (principal) ==

== ENCOUNTER 2020-07-06 08:30 | Outpatient (RCR) | payer MEDICARE, SELFPAY ==
--- NOTE | 2020-06-24 11:04 | HMH.PTOPWND ---
Rehab Outpt Wound Evaluation Rehab OP Wound Evaluation Start: 06/24/20 10:11 Freq: Status: Active Protocol: Document 06/24/20 10:55 EDILBERTO (Rec: 06/24/20 11:04 EDILBERTO [id number]) Electronically Signed By Reinier Bai, PT 06/24/20 10:55 Subjective/History History History Pt is 75 yowm who presents with L plantar great toe wound x ~ 2 mos per his reports. X- rays were negative for osteomyelitis. He reports no known injury, and he states I had a callus there and then when we took it off there was a hole under there. 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 Last A1c was 8.1%. He also has PMH of CAD, HTN, COPD, MARION, CRI chronic LBP, and obesity. Subjective Subjective He reports no c/o pain at this time. Wound Eval Wound Left Lower Great Toe Wound Type Diabetic Foot Ulcer Is This a Chronic Wound Yes Wound Length (cm) 1.7 Wound Width (cm) 0.5 Wound Bed Appearance Beefy Red Wound Margins Description callus Undermining Position 12 Undermining Length (cm) 0.1 Drainage Description Serosanguineous Drainage Amount Small Drainage Odor No Odor Wound Topical Solution/Irrigant Antibiotic Irrigant Primary Dressing Silver Dressing Comment betadine, tegaderm Ag mesh Wound Secondary Dressing Type Composite,Gauze Roll/Wrap Comment optifoam gentle border lite Wound Debridement Method Sharps,Forceps,Gauze Wound Debridement Amount of Tissue Minimal Removed Dressing Change Patient Tolerance Tolerated Well Wound Problems/Impairments Impairments Problems/Impairmments Wound Care Needs,Impaired Self Care/Self Management Prognosis Rehab Potential Good Clinical Impression Consistent with Diagnosis Yes Short Term Goals Number of Weeks 4 Decrease Wound Area Yes: by 50% Bar Welder Goals Number of Weeks 8 Decrease Wound Area Yes: by 100% Patient to be Ind w/ Home Wound Care/ Yes Dressing Changes Outpatient Therapy Plan of Care Treatment Plan May Include Therapeutic Exercise Including Home Yes Exercise Program Manual Therapy Techniques Yes Neuromuscular Re-education
== END 2020-07-06 08:35 | disposition home or self-care (01) ==
LOC: PT 08:30
PROVIDERS: Visit Provider Podiatrist
DX: E08.621 Diabetes mellitus due to underlying condition with foot ulcer (principal); L97.501 Non-pressure chronic ulcer of other part of unspecified foot limited to breakdown of skin
CPT/HCPCS: 97162; 97597

== ENCOUNTER → 2020-07-21 08:21 | Outpatient (CLI) | payer MEDICARE, SELFPAY ==
--- NOTE | 2020-07-21 08:30 | XR_ITS ---
PROCEDURE: XR FOOT WT BEARING LT 3V CLINICAL INDICATION: ulcer Pain and ulceration under big toe COMPARISON: CR XR FOOT RT MIN 3V from 03/02/2020 CR XR FOOT LT MIN 3V from 03/02/2020 CR XR FOOT LT MIN 3V from 04/24/2020 CR XR FOOT WT BEARING LT 3V from 05/10/2020 FINDINGS: No acute fracture or dislocation. Hammertoe deformity of the 2nd toe. Bandage artifact along the 1st toe. No bony destructive process. Osteosclerosis with fragmentation at the navicular cuneiform joint. Developing Charcot joint suspected. There is a large spur along the plantar surface of the calcaneus IMPRESSION: No acute finding. Suspect developing Charcot joint in the midfoot Dictated by: Jose Hoffman MD 07/21/2020 16:48 Jose Hoffman MD in [place] 07/21/2020 16:48
[2020-07-21 09:12] LABS: Hemoglobin A1C 8.9 % (4.0-6.0)
[2020-07-21 09:20] LABS: Basophils % 0.6 % (0.1-2.0); Eosinophils # 0.2 K/mm3 (0.0-0.4); Eosinophils % 3.1 % (0.1-12.0); Hematocrit 37.5 % (42.0-52.0); Hemoglobin 11.6 g/dL (14.1-18.0); Lymphocytes # 1.7 K/mm3 (0.7-4.5); Lymphocytes % 29.3 % (10-50); Mean Corpuscular Hemoglobin 28.6 pg (27.0-31.2); Mean Corpuscular Volume 92.6 fl (80-94); Mean Platelet Volume 6.6 fl (7.4-10.4); Monocytes # 0.4 K/mm3 (0.1-1.0); Monocytes % 7.5 % (1.7-9.3); Neutrophils # 3.4 K/mm3 (1.8-7.8); Neutrophils % 59.5 % (37.0-80.0); Platelet Count 339 K/mm3 (142-424); Red Blood Count 4.05 M/mm3 (4.60-6.20); Red Cell Distribution Width 13.7 % (11.5-17.5); White Blood Count 5.6 K/mm3 (4.8-10.8)
[2020-07-21 10:18] LABS: Erythrocyte Sedimentation Rate 90 mm/hr (0-20)
[2020-07-21 11:21] LABS: Alanine Aminotransferase 21 U/L (12-78); Albumin Level 3.8 g/dl (3.5-5.0); Albumin/Globulin Ratio 1.2 (1.1-1.8); Alkaline Phosphatase 78 U/L (38-126); Aspartate Amino Transferase 25 U/L (17-59); Bilirubin,Total 0.5 mg/dl (0.2-1.3); Blood Urea Nitrogen 24 mg/dl (9-20); Calcium 9.5 mg/dl (8.4-10.2); Carbon Dioxide 30 mmol/L (22.0-30.0); Chloride 101 mmol/L (98-107); Estimated Glomerular Filt Rate 29 ml/min (>60); GFR (African American) 36 ML/MIN (>60); Globulin 3.1 g/dL (1.3-3.2); Glucose 151 mg/dl (74-100); Sodium 140 mmol/L (136-145); Total Protein,Serum 6.9 g/dl (6.3-8.2)
[2020-07-21 11:30] LABS: C-Reactive Protein 7.6 mg/L (0-4)
== END ==
PROVIDERS: Visit Provider Podiatrist
DX: E11.621 Type 2 diabetes mellitus with foot ulcer (principal); L97.529 Non-pressure chronic ulcer of other part of left foot with unspecified severity; L97.501 Non-pressure chronic ulcer of other part of unspecified foot limited to breakdown of skin; Z79.4 Long term (current) use of insulin
CPT/HCPCS: 36415; 73630; 80053; 83036; 85025; 85651; 86140

== ENCOUNTER → 2020-08-18 13:06 | Outpatient (CLI) | payer MEDICARE, SELFPAY ==
--- NOTE | 2020-08-18 13:13 | XR_ITS ---
PROCEDURE: XR FOOT WT BEARING LT 3V CLINICAL INDICATION: pain, chronic wound chronic wound of the great toe COMPARISON: CR XR FOOT LT MIN 3V from 03/02/2020 CR XR FOOT LT MIN 3V from 04/24/2020 CR XR FOOT WT BEARING LT 3V from 05/10/2020 CR XR FOOT WT BEARING LT 3V from 07/21/2020 FINDINGS: There is pes planus with Charcot joint in the midfoot involving the navicular and cuneiforms and cuboid with fragmentation at the navicular cuneiform joint with pes planus. There is a prominent calcaneal spur. Hammertoe deformity involves the 2nd and 3rd toes. Small density is present along the cutaneous tissues of the distal aspect of the great toe medially and could be due to something upon or within the patient's skin. IMPRESSION: Charcot joint with pes planus as described above. No evidence osteomyelitis of the great toe. Small foreign body versus something upon the scan at the great toe medially and distally. Hammertoe deformity Dictated by: Jose Hoffman MD 08/18/2020 14:13 Jose Hoffman MD in [place] 08/18/2020 14:13
[2020-08-18 13:41] LABS: Basophils # 0.1 K/mm3 (0-0.2); Basophils % 1.4 % (0.1-2.0); Eosinophils % 13.1 % (0.1-12.0); Hematocrit 38.4 % (42.0-52.0); Lymphocytes # 1.6 K/mm3 (0.7-4.5); Lymphocytes % 20.8 % (10-50); Mean Corpuscular HGB Conc 31.1 g/dL (31.8-35.4); Mean Corpuscular Hemoglobin 28.4 pg (27.0-31.2); Mean Corpuscular Volume 91.3 fl (80-94); Mean Platelet Volume 6.8 fl (7.4-10.4); Monocytes # 0.4 K/mm3 (0.1-1.0); Monocytes % 5.3 % (1.7-9.3); Neutrophils # 4.5 K/mm3 (1.8-7.8); Neutrophils % 59.4 % (37.0-80.0); Platelet Count 297 K/mm3 (142-424); Red Blood Count 4.21 M/mm3 (4.60-6.20); White Blood Count 7.5 K/mm3 (4.8-10.8)
[2020-08-18 14:18] LABS: Erythrocyte Sedimentation Rate 33 mm/hr (0-20)
[2020-08-18 14:22] LABS: Alanine Aminotransferase 22 U/L (12-78); Albumin Level 3.9 g/dl (3.5-5.0); Albumin/Globulin Ratio 1.1 (1.1-1.8); Alkaline Phosphatase 85 U/L (38-126); Aspartate Amino Transferase 28 U/L (17-59); Bilirubin,Total 0.5 mg/dl (0.2-1.3); Blood Urea Nitrogen 29 mg/dl (9-20); Calcium 9.6 mg/dl (8.4-10.2); Carbon Dioxide 31 mmol/L (22.0-30.0); Chloride 102 mmol/L (98-107); Estimated Glomerular Filt Rate 27 ml/min (>60); GFR (African American) 32 ML/MIN (>60); Globulin 3.4 g/dL (1.3-3.2); Glucose 235 mg/dl (74-100); Sodium 139 mmol/L (136-145); Total Protein,Serum 7.3 g/dl (6.3-8.2)
[2020-08-18 14:28] LABS: C-Reactive Protein 7.6 mg/L (0-4)
== END ==
PROVIDERS: Visit Provider Podiatrist
DX: E11.621 Type 2 diabetes mellitus with foot ulcer (principal); L97.529 Non-pressure chronic ulcer of other part of left foot with unspecified severity; L97.501 Non-pressure chronic ulcer of other part of unspecified foot limited to breakdown of skin; Z79.4 Long term (current) use of insulin
CPT/HCPCS: 36415; 73630; 80053; 85025; 85651; 86140

== ENCOUNTER → 2020-09-28 18:12 | Outpatient (CLI) | payer MEDICARE, SELFPAY | PROVIDERS: Visit Provider Nurse Practitioner | DX: Z51.89 Encounter for other specified aftercare (principal) | CPT/HCPCS: 87070; 87077; 87205 ==

== ENCOUNTER → 2020-09-29 15:08 | Outpatient (CLI) | payer MEDICARE, SELFPAY ==
--- NOTE | 2020-09-29 15:24 | XR_ITS ---
PROCEDURE: XR FOOT WT BEARING LT 3V CLINICAL INDICATION: wound, non healing Diabetic, nonhealing COMPARISON: CR XR FOOT LT MIN 3V from 04/24/2020 CR XR FOOT WT BEARING LT 3V from 05/10/2020 CR XR FOOT WT BEARING LT 3V from 07/21/2020 CR XR FOOT WT BEARING LT 3V from 08/18/2020 FINDINGS: Charcot joint in the mid foot. There is superior translation of the navicular with pes planus degenerative changes noted in the midfoot with some calcification along the dorsal aspect of the midfoot. Osteosclerosis noted of the navicular with subchondral cystic change the mid aspect. Hammertoe deformity involves the 2nd toe. Prominent calcaneal spur noted. There is a small enthesophyte at the Achilles insertion IMPRESSION: As above, Charcot joint midfoot with degenerative changes. Overall no significant change. Dictated by: Jose Hoffman MD 09/29/2020 16:19 Jose Hoffman MD in [place] 09/29/2020 16:19
[2020-09-29 15:40] LABS: Basophils # 0.1 K/mm3 (0-0.2); Basophils % 0.7 % (0.1-2.0); Eosinophils # 0.3 K/mm3 (0.0-0.4); Eosinophils % 4.8 % (0.1-12.0); Hematocrit 40.5 % (42.0-52.0); Lymphocytes % 28.3 % (10-50); Mean Corpuscular Hemoglobin 29.7 pg (27.0-31.2); Mean Corpuscular Volume 92.9 fl (80-94); Mean Platelet Volume 8.1 fl (7.4-10.4); Monocytes # 0.4 K/mm3 (0.1-1.0); Monocytes % 6.2 % (1.7-9.3); Neutrophils # 4.3 K/mm3 (1.8-7.8); Neutrophils % 60.1 % (37.0-80.0); Platelet Count 287 K/mm3 (142-424); Red Blood Count 4.36 M/mm3 (4.60-6.20); Red Cell Distribution Width 14.4 % (11.5-17.5); White Blood Count 7.1 K/mm3 (4.8-10.8)
[2020-09-29 16:28] LABS: Chloride 104 mmol/L (98-107); Potassium 4.6 mmoL/L (3.5-5.1); Sodium 141 mmol/L (136-145)
[2020-09-29 16:30] LABS: Alanine Aminotransferase 20 U/L (12-78); Aspartate Amino Transferase 22 U/L (17-59); Blood Urea Nitrogen 29 mg/dl (9-20); Estimated Glomerular Filt Rate 29 ml/min (>60); GFR (African American) 36 ML/MIN (>60)
[2020-09-29 16:31] LABS: Albumin Level 3.9 g/dl (3.5-5.0); Albumin/Globulin Ratio 1.2 (1.1-1.8); Alkaline Phosphatase 105 U/L (38-126); Anion Gap 14.6 mEq/L (5-15); Bilirubin,Total 0.3 mg/dl (0.2-1.3); Calcium 9.5 mg/dl (8.4-10.2); Carbon Dioxide 27 mmol/L (22.0-30.0); Globulin 3.3 g/dL (1.3-3.2); Glucose 236 mg/dl (74-100); Total Protein,Serum 7.2 g/dl (6.3-8.2)
[2020-09-29 16:33] LABS: Hemoglobin A1C 9.2 % (4.0-6.0)
[2020-09-29 16:37] LABS: C-Reactive Protein 6.9 mg/L (0-4)
[2020-09-29 18:00] LABS: Erythrocyte Sedimentation Rate 27 mm/hr (0-20)
== END ==
PROVIDERS: PCP Emergency Medicine; Visit Provider Nurse Practitioner
DX: R21 Rash and other nonspecific skin eruption (principal); T78.40XA Allergy, unspecified, initial encounter; Z51.89 Encounter for other specified aftercare; E11.610 Type 2 diabetes mellitus with diabetic neuropathic arthropathy; Z79.4 Long term (current) use of insulin
CPT/HCPCS: 36415; 73630; 80053; 83036; 85025; 85651; 86140

== ENCOUNTER → 2020-11-10 11:26 | Outpatient (CLI) | payer MEDICARE, OTHER, SELFPAY ==
[2020-11-10 11:49] LABS: Basophils # 0.1 K/mm3 (0-0.2); Basophils % 0.8 % (0.1-2.0); Eosinophils # 0.5 K/mm3 (0.0-0.4); Eosinophils % 6.2 % (0.1-12.0); Hemoglobin 13.1 g/dL (14.1-18.0); Mean Corpuscular HGB Conc 31.2 g/dL (31.8-35.4); Mean Corpuscular Volume 92.7 fl (80-94); Mean Platelet Volume 9.6 fl (7.4-10.4); Monocytes # 0.4 K/mm3 (0.1-1.0); Monocytes % 5.5 % (1.7-9.3); Neutrophils # 4.4 K/mm3 (1.8-7.8); Neutrophils % 60.6 % (37.0-80.0); Platelet Count 275 K/mm3 (142-424); Red Blood Count 4.52 M/mm3 (4.60-6.20); Red Cell Distribution Width 15.3 % (11.5-17.5); White Blood Count 7.2 K/mm3 (4.8-10.8)
[2020-11-10 12:15] LABS: Alanine Aminotransferase 16 U/L (12-78); Albumin Level 3.9 g/dl (3.5-5.0); Albumin/Globulin Ratio 1.1 (1.1-1.8); Alkaline Phosphatase 96 U/L (38-126); Anion Gap 9.6 mEq/L (5-15); Aspartate Amino Transferase 19 U/L (17-59); Bilirubin,Total 0.3 mg/dl (0.2-1.3); Blood Urea Nitrogen 32 mg/dl (9-20); Calcium 9.1 mg/dl (8.4-10.2); Carbon Dioxide 28 mmol/L (22.0-30.0); Chloride 104 mmol/L (98-107); Estimated Glomerular Filt Rate 33 ml/min (>60); GFR (African American) 40 ML/MIN (>60); Globulin 3.4 g/dL (1.3-3.2); Glucose 320 mg/dl (74-100); Potassium 4.6 mmoL/L (3.5-5.1); Sodium 137 mmol/L (136-145); Total Protein,Serum 7.3 g/dl (6.3-8.2)
[2020-11-10 12:20] LABS: C-Reactive Protein 8.9 mg/L (0-4)
[2020-11-10 12:31] LABS: Erythrocyte Sedimentation Rate 99 mm/hr (0-20)
== END ==
PROVIDERS: Visit Provider Nurse Practitioner
DX: E11.621 Type 2 diabetes mellitus with foot ulcer (principal); L97.529 Non-pressure chronic ulcer of other part of left foot with unspecified severity
CPT/HCPCS: 36415; 80053; 85025; 85651; 86140

== ENCOUNTER 2020-11-19 10:00 | Outpatient (RCR) | payer MEDICARE, OTHER, SELFPAY ==
--- NOTE | 2020-08-24 14:12 | HMH.PTOPWND ---
Rehab Outpt Wound Evaluation Rehab OP Wound Evaluation Start: 08/24/20 14:07 Freq: Status: Active Protocol: Document 08/24/20 14:07 EDILBERTO (Rec: 08/24/20 14:12 PHOMODESTO [id number]) Electronically Signed By Reinier Bai, PT 08/24/20 14:07 Subjective/History History History Pt is 75 yowm who presents with L plantar great toe wound x ~ 4 mos per his reports. X- rays were negative for osteomyelitis. He reports no known injury, and he states I had a callus there and then when we took it off there was a hole under there. 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 Last A1c was 8.1%. He also has PMH of CAD, HTN, COPD, MARION, CRI chronic LBP, and obesity. Subjective Subjective Pt reports no c/o pain at this time. Wound Eval Wound Left Medial Great Toe Wound Type Diabetic Foot Ulcer Is This a Chronic Wound Yes Wound Length (cm) 1.7 Wound Width (cm) 0.9 Wound Bed Appearance Dusky Red,[place] Percentage Granulated (%) 95 Wound Margins Description callus Undermining Position 9 Undermining Length (cm) 0.2 Drainage Description Serosanguineous Drainage Amount Moderate Wound Topical Solution/Irrigant Medicated Ointment Primary Dressing Composite Comment polymem 2 x 2 Wound Debridement Method Sharps,Forceps,Gauze Wound Debridement Amount of Tissue Minimal Removed Dressing Change Patient Tolerance Tolerated Well Wound Problems/Impairments Impairments Problems/Impairmments Wound Care Needs,Subjective C/ O Pain,Impaired Self Care/Self Management Prognosis Rehab Potential Good Clinical Impression Consistent with Diagnosis Yes Short Term Goals Number of Weeks 4 Decrease Wound Area Yes: by 50% Pattern Marking Supervisor Goals Number of Weeks 8 Decrease Wound Area Yes: by 100% Patient to be Ind w/ Home Wound Care/ Yes Dressing Changes Outpatient Therapy Plan of Care Treatment Plan May Include Therapeutic Exercise Including Home Yes Exercise Program Manual Therapy Techniques Yes Neuromuscular Re-education Yes Therapeutic Activities to Return to Yes Previous Functional/Work
--- NOTE | 2020-09-24 10:05 | HMH.RHREAS ---
Rehab Reassessment Rehab OP Re-assessment Start: 09/24/20 10:00 Freq: Status: Active Protocol: Document 09/24/20 10:02 EDILBERTO (Rec: 09/24/20 10:05 EDILBERTO [id number]) Electronically Signed By Reinier Bai, PT 09/24/20 10:02 Rehab Re-assessment Subjective Subjective Pt with no c/o pain or discomfort. He reports changing his dressing every other day. Objective Objective Notes L great toe medial wound: L= 0 .5 cm, W= 1.3 cm. Assessment Progress Assessment Progressing as Expected Assessment Notes Pt with granulation tissue at wound base, but continues to have isaak wound maceration and callus. Patient goals met none Goals Not Met ST LT,2 Revised Goals none Plan Plan Continue per initial POC. Frequency of Therapy 2 wk Duration of therapy 8 wks Time and Billing Re-Eval Time 15 Re-Eval Billing Units 1 PHYSICIAN CERTIFICATION: I certify the specified therapy services for Twan Polanco JR are required, authorized, and reviewed every 30 days.
--- NOTE | 2020-11-02 10:44 | HMH.RHREAS ---
Rehab Reassessment Rehab OP Re-assessment Start: 09/24/20 10:00 Freq: Status: Active Protocol: Document 11/02/20 10:42 EDILBERTO (Rec: 11/02/20 10:44 EDILBERTO [id number]) Electronically Signed By Reinier Bai, PT 11/02/20 10:42 Rehab Re-assessment Subjective Subjective Pt reports no new c/o in the L great toe. Objective Objective Notes Wound appears healthy at base, but remains surrounded by callus tissue. Left GT wound: L= 1.3 cm, W= 0.4 cm. Assessment Progress Assessment Progressing as Expected Assessment Notes Pt with granulation tissue at wound base, but continues to have isaak wound maceration and callus. Pt does not appear to be performing much care for his wound at home. Patient goals met none Goals Not Met ST LT,2 Revised Goals none Plan Plan Continue per initial POC. Frequency of Therapy 2 wk Duration of therapy 8 wks Time and Billing Re-Eval Time 15 Re-Eval Billing Units 1 PHYSICIAN CERTIFICATION: I certify the specified therapy services for Twan Polanco are required, authorized, and reviewed every 30 days.
== END 2020-11-19 10:05 | disposition home or self-care (01) ==
LOC: PT 10:00
PROVIDERS: Visit Provider Podiatrist
DX: E11.621 Type 2 diabetes mellitus with foot ulcer (principal); L97.529 Non-pressure chronic ulcer of other part of left foot with unspecified severity; Z79.4 Long term (current) use of insulin
CPT/HCPCS: 97162; 97164; 97597

== ENCOUNTER 2020-12-03 18:58 | Emergency (ER) | payer MEDICARE, OTHER, SELFPAY ==
[2020-12-03 19:13] VITALS: BP 124/67; PULSE 73; RESP 19; TEMP 36.9; O2SAT 98; BMI 36.6
--- NOTE | 2020-12-03 19:21 | HMH.EDUTC ---
[facility] [place] Clinical Impression: Red [place] Disposition: Home, Self-Care Condition on Discharge: Good Instructions: DI for Red Eye Additional Instructions: Arrive at [facility] at 8 am Referrals: Kaveh Benoit MD [Primary Care Provider] - Time of Disposition: 19:48 Medical Decision Making - Bj Inquiry Pt receiving controlled substance: No Vital Signs: 12/03/20 19:13 Temperature 98.4 F Temperature Source Oral Pulse Rate [Right Brachial] 73 Respiratory Rate 19 Blood Pressure [Right Arm] 124/67 Blood Pressure Mean [Right Arm] 86 Blood Pressure Source [Right Arm] Automatic Cuff Blood Pressure Position [Right Arm] Sitting 02 Sat by Pulse Oximetry 98 Oxygen Delivery Method Room Air Medical Decision Narrative: Discussed with Dr Moore in ER. Patient will see [place] [facility] in the am. [facility] [place] - General Stated complaint: infected eye Time Seen by Provider: 12/03/20 19:21 Mode of Arrival: Ambulatory Source of Information: Patient Limitations: No Limitations Description of Symptoms (Recalled from Triage Doc. by RN): Left eye redness and swelling. HEENT Symptoms (Recalled from RN notes): Yes Resp Symptoms (Recalled from RN notes): No Skin Symptoms (Recalled from RN notes): No MS Symptoms (Recalled from RN notes): No Functional Status (Recalled from RN notes): wnl - History of Present Illness Provider Complaint: Left eye redness and swelling. STarted 3 days ago. Used red eye drops, then switched to antibiotic ointment yesterday. Eye is swollen, red and draining. Painful to open eye. Watery drainage like sand. Eye was matted this am. No known trauma to eye. H/O cataract repair. Onset (ago): day(s) (3) Location: eyes Radiation: non-radiation Relieving factors: none Exacerbating factors: none Associated symptoms: denies other symptoms Treatments prior to arrival: none - Related Data Home Medications Medication Instructions Recorded Confirmed Urea [Uramaxin] 1 applic TOPICAL BID 11/18/19 12/02/20 Aspirin [Aspir 81] 81 mg PO DAILY 04/24/20 12/02/20 Furosemide [Furosemide 40MG tAB*] 40 mg PO DAILY 04/24/20 12/02/20 Lidocaine [Lidoderm 5% transdermal 1 patch TOPICAL DAILY 04/24/20 12/02/20 patch] Spironolactone [Spironolactone 25 mg PO DAILY 04/24/20 12/02/20 25mg Tablet] dapagliflozin 5 mg tablet 5 mg PO tab 10/28/20 12/02/20 Previous Rx's Medication Instructions Recorded blood sugar diagnostic See Rx Instructions .ROUTE 06/04/20 .MEDSUPPLY #100 each lancets See Rx Instructions .ROUTE 06/04/20 .MEDSUPPLY #100 each losartan 25 mg tablet 25 mg PO DAILY #90 tab 07/26/20 diclofenac sodium 1 % topical gel 4 g TOPICAL QID PRN 30 Days #100 g 08/03/20 pen needle, diabetic 32 gauge x See Rx Instructions .ROUTE 08/09/20 .COMPLEX #100 each gentamicin 0.1 % topical cream 1 applic TOPICAL TID #30 g 08/17/20 albuterol sulfate 90 mcg/actuation 2 puff INHALATION Q8HP PRN #18 g 10/03/20 aerosol inhaler insulin aspar prot-insulin aspart 15 unit SQ BID #15 ml 10/03/20 100 unit/mL (70-30) subcutaneous pen atorvastatin 20 mg tablet See Rx Instructions .ROUTE 11/04/20 .COMPLEX #90 tab carvedilol 6.25 mg tablet 6.25 mg PO BID #180 tab 11/04/20 clopidogrel 75 mg tablet 75 mg PO DAILY #90 tab 11/04/20 glipizide 10 mg tablet See Rx Instructions .ROUTE 11/04/20 .COMPLEX #180 tab linagliptin 5 mg tablet See Rx Instructions .ROUTE 11/04/20 .COMPLEX #90 tab paroxetine HCl 10 mg tablet See Rx Instructions .ROUTE 11/04/20 .COMPLEX #90 tab triamcinolone acetonide 0.1 % 1 applic TOPICAL BID 30 Days #30 g 11/09/20 topical ointment phentermine 37.5 mg tablet 37.5 mg PO DAILY #30 tab 11/29/20 ergocalciferol (vitamin D2) 1,250 See Rx Instructions .ROUTE 11/30/20 mcg (50,000 unit) capsule .COMPLEX #14 cap insulin glargine 100 unit/mL (3 See Rx Instructions .ROUTE 11/30/20 mL) subcutaneous pen .COMPLEX #15 ml alprazolam 0.5 mg tablet 0.5 mg PO TID #90 tab 12/01/20
[2020-12-03 19:51] VITALS: BP 124/67; PULSE 73; RESP 19; TEMP 36.9; O2SAT 98
== END 2020-12-03 19:53 | disposition home or self-care (01) ==
PROVIDERS: Emergency Provider Physician Assistant; PCP Emergency Medicine
DX: H10.32 Unspecified acute conjunctivitis, left eye (principal); F41.8 Other specified anxiety disorders; E11.9 Type 2 diabetes mellitus without complications; I25.10 Atherosclerotic heart disease of native coronary artery without angina pectoris; J44.9 Chronic obstructive pulmonary disease, unspecified; E78.5 Hyperlipidemia, unspecified; I10 Essential (primary) hypertension; Z79.899 Other long term (current) drug therapy
CPT/HCPCS: 99202; G0463

== ENCOUNTER 2020-12-15 11:18 | Emergency (ER) | payer MEDICARE, OTHER, SELFPAY ==
[2020-12-15 11:18] VITALS: BP 94/54; BP 99/66; PULSE 77; PULSE 78; RESP 17; RESP 18; TEMP 36.7; O2SAT 96; O2SAT 98; BMI 35.2
--- NOTE | 2020-12-15 11:26 | ECG_ITS ---
APPROVED REPORT Exam: Resting ECG HR:72 bpm ECG Measurements Heart Rate [address] 196 P 37 QRSd 96 QRS 40 QT 412 T 72 QTc 451 Conclusion Normal sinus rhythm Normal ECG Electronically signed by : Jose Ray, 12/16/2020 08:39:23
--- NOTE | 2020-12-15 11:27 | HMH.EDGENADL ---
ED Disposition Clinical Impression: Dyspnea Qualifiers: Dyspnea type: unspecified Qualified Code(s): R06.00 - Dyspnea, unspecified Disposition: Home, Self-Care Condition on Discharge: Good Instructions: DI for Shortness of Breath Additional Instructions: Follow-up with Dr. Benoit in his office at your next regularly scheduled visit Referrals: Kaveh Benoit MD [Primary Care Provider] - - Critical Care Critical Care Time: No Attestation: On , the high probability of a clinically significant, sudden or life threatening deterioration of the following system(s) required my full and direct attention, intervention and personal management. The time I documented below is in addition to time spent performing reported procedures but includes the following listed in this critical care notation. Medical Decision Making - Bj Inquiry Pt receiving controlled substance: No Vital Signs: 12/15/20 11:18 12/15/20 12:48 12/15/20 13:12 Temperature 98.1 F Temperature Source Oral Pulse Rate [Right] 78 72 69 Respiratory Rate 17 Blood Pressure [Right Arm] 99/66 L 102/56 L 108/58 L Blood Pressure Mean [Right Arm] 77 71 74 Blood Pressure Source [Right Arm] Automatic Cuff Automatic Cuff Blood Pressure Position [Right Arm] Sitting Sitting 02 Sat by Pulse Oximetry 96 95 95 Oxygen Delivery Method Room Air Room Air Room Air - Lab Data Lab Results 12/15/20 11:30: WBC 8.5, RBC 4.56 L, Hgb 12.9 L, Hct 41.5 L, MCV 91.1, MCH 28.3, MCHC 31.0 L, RDW 14.1, Plt Count 317, MPV 7.0 L, Neut % (Auto) 66.3, Lymph % (Auto) 23.4, [place] % (Auto) 6.6, Eos % (Auto) 3.3, Baso % (Auto) 0.4, Neut # (Auto) 5.6, Lymph # (Auto) 2.0, Miner # (Auto) 0.6, Eos # (Auto) 0.3, Baso # (Auto) 0.0 12/15/20 11:30: Sodium 140, Potassium 3.8, Chloride 107, Carbon Dioxide 23, Anion Gap 13.8, BUN 36 H, Creatinine 2.20 H, Estimated Creat Clear 50, Estimated GFR 29 L, Est GFR ( Amer) 36 L, Glucose 108 H, Calcium 9.7, Total Bilirubin 0.5, AST 32, ALT 20, Alkaline Phosphatase 98, Troponin I < 0.01, Total Protein 8.1, Albumin 4.2, Globulin 3.9 H, Albumin/Globulin Ratio 1.1 12/15/20 11:30: NT-Pro-B Natriuret Pep 147 H 12/15/20 11:46: Specimen Source L radial, O2 % Room air, ABG pH 7.48 H, ABG pCO2 25.8 L, ABG pO2 100.5 H, ABG HCO3 19.0 L, ABG Total CO2 19.7 L, ABG O2 Saturation 98, ABG Base Excess -4.5 L, Jose Test Acceptable Result diagrams: 12/15/20 11:30 12/15/20 11:30 Orders (Tests/Meds): ORDERS Category Date Time Status Chest XR 2 view (NOT portable) [XR chest 2V] Stat Exams 12/15/20 11:50 Taken Troponin I Q3H Lab 12/15/20 15:00 Ordered Troponin I Q3H Lab 12/15/20 18:00 Ordered ECG Request by /Jyoti Stat Y 12/15/20 11:48 Ordered - ECG Data Tracing #1 EKG interpreted by Tyree Clifford MD: Rhythm: sinus Rate: 72 [place]: normal Ectopy: none Conduction: normal ST Segment Changes: none T Wave Changes: none Q Waves: none No evidence of acute ischemia or injury Baseline artifact and wander present, but I consider the EKG adequate for accurate interpretation. Prior electrocardiagrams reviewed. No change from prior tracings. - Physician Consults Physician Consulted: Cy Time: 13:38 Reason -: Pt condition Comment/Response: Patient to follow-up in his office at his next regularly scheduled visit General Adult HPI - General Stated complaint: SOA Time Seen by Provider: 12/15/20 11:27 - History of Present Illness HPI narrative: Complains of increased shortness of breath today. Has chronic problems breathing and uses oxygen and BiPAP at night, but feels more short of breath today. Denies chest pain, cough, fever, or change in swelling. Has chronic swelling of the legs, chronically left is greater than right. Seen by Dr. Benoit in the office today and sent to the emergency department. Patient states he also has a nebulizer at home to be used as needed, but does not use it on an every day basis. He is not on inhalers.
[2020-12-15 11:48] LABS: ABG Base Excess -4.5 mmol/L (-2.4-2.3); ABG Oxygen Saturation 98 % (90-100); ABG PCO2 25.8 mmhg (35.0-45.0); ABG PH 7.48 mmol/L (7.35-7.45); ABG PO2 100.5 mmhg (80-100); ABG TCO2 19.7 mmhg (23-27)
--- NOTE | 2020-12-15 11:50 | XR_ITS ---
PROCEDURE: XR CHEST 2V CLINICAL HISTORY: soa COMPARISON: CR CXR1 CHEST-PORTABLE from 04/26/2017 CR XR CHEST PORTABLE from 11/18/2019 CR XR CHEST PORTABLE from 02/28/2020 FINDINGS: The cardiomediastinal silhouette and pulmonary vascularity are within normal limits. The lungs are clear without infiltrates, suspicious nodules, or pleural effusions. No acute bony abnormalities. IMPRESSION: No acute findings. Dictated by: Jose Hoffman MD 12/15/2020 15:56 Jose Hoffman MD in [place] 12/15/2020 15:56
[2020-12-15 11:51] LABS: Allen's Test ACCEPTABLE; Oxygen ROOM AIR %; Source L RADIAL
[2020-12-15 12:01] LABS: Chloride 107 mmol/L (98-107); Potassium 3.8 mmoL/L (3.5-5.1); Sodium 140 mmol/L (136-145)
[2020-12-15 12:04] LABS: Alanine Aminotransferase 20 U/L (12-78); Albumin Level 4.2 g/dl (3.5-5.0); Albumin/Globulin Ratio 1.1 (1.1-1.8); Alkaline Phosphatase 98 U/L (38-126); Anion Gap 13.8 mEq/L (5-15); Aspartate Amino Transferase 32 U/L (17-59); Bilirubin,Total 0.5 mg/dl (0.2-1.3); Blood Urea Nitrogen 36 mg/dl (9-20); Carbon Dioxide 23 mmol/L (22.0-30.0); Creatinine Clearance Estimated 50 mL/min (50-200); Estimated Glomerular Filt Rate 29 ml/min (>60); GFR (African American) 36 ML/MIN (>60); Globulin 3.9 g/dL (1.3-3.2); Total Protein,Serum 8.1 g/dl (6.3-8.2)
[2020-12-15 12:05] LABS: Calcium 9.7 mg/dl (8.4-10.2); Glucose 108 mg/dl (74-100)
[2020-12-15 12:13] LABS: NT Pro Brain Natriuretic Pep. 147 pg/mL (0-125)
[2020-12-15 12:15] LABS: Basophils % 0.4 % (0.1-2.0); Eosinophils # 0.3 K/mm3 (0.0-0.4); Eosinophils % 3.3 % (0.1-12.0); Hematocrit 41.5 % (42.0-52.0); Hemoglobin 12.9 g/dL (14.1-18.0); Lymphocytes % 23.4 % (10-50); Mean Corpuscular Hemoglobin 28.3 pg (27.0-31.2); Mean Corpuscular Volume 91.1 fl (80-94); Monocytes # 0.6 K/mm3 (0.1-1.0); Monocytes % 6.6 % (1.7-9.3); Neutrophils # 5.6 K/mm3 (1.8-7.8); Neutrophils % 66.3 % (37.0-80.0); Platelet Count 317 K/mm3 (142-424); Red Blood Count 4.56 M/mm3 (4.60-6.20); Red Cell Distribution Width 14.1 % (11.5-17.5); White Blood Count 8.5 K/mm3 (4.8-10.8)
[2020-12-15 12:18] LABS: Troponin I < 0.01 ng/ml (0.00-0.034)
[2020-12-15 12:48] VITALS: BP 102/56; PULSE 72; O2SAT 95
[2020-12-15 13:12] VITALS: BP 108/58; PULSE 69; O2SAT 95
[2020-12-15 13:30] VITALS: BP 112/61; PULSE 68; RESP 18; O2SAT 100
[2020-12-15 13:44] VITALS: BP 110/76; PULSE 74; RESP 20; TEMP 36.7; O2SAT 98
== END 2020-12-15 13:46 | disposition home or self-care (01) ==
PROVIDERS: Emergency Provider Emergency Medicine; PCP Emergency Medicine
DX: R06.00 Dyspnea, unspecified (principal); J44.9 Chronic obstructive pulmonary disease, unspecified; I25.10 Atherosclerotic heart disease of native coronary artery without angina pectoris; E11.9 Type 2 diabetes mellitus without complications; K21.9 Gastro-esophageal reflux disease without esophagitis; I10 Essential (primary) hypertension; E78.5 Hyperlipidemia, unspecified; Z79.899 Other long term (current) drug therapy
CPT/HCPCS: 71046; 80053; 82803; 83880; 84484; 85025; 93005; 99283

== ENCOUNTER → 2020-12-16 09:08 | Outpatient (POV) | payer MEDICARE, OTHER, SELFPAY | PROVIDERS: Visit Provider Audiologist | DX: Z00.00 Encounter for general adult medical examination without abnormal findings (principal) ==

== ENCOUNTER → 2020-12-30 10:00 | Outpatient (POV) | payer MEDICARE, SELFPAY | PROVIDERS: Visit Provider Audiologist | DX: Z00.00 Encounter for general adult medical examination without abnormal findings (principal) ==

== ENCOUNTER → 2021-01-18 17:56 | Outpatient (CLI) | payer MEDICARE, OTHER, SELFPAY | PROVIDERS: Visit Provider Nurse Practitioner | DX: Z51.89 Encounter for other specified aftercare (principal); E11.621 Type 2 diabetes mellitus with foot ulcer; L97.522 Non-pressure chronic ulcer of other part of left foot with fat layer exposed | CPT/HCPCS: 87070; 87077; 87186; 87205 ==

== ENCOUNTER → 2021-01-19 09:09 | Outpatient (CLI) | payer MEDICARE, OTHER, SELFPAY ==
--- NOTE | 2021-01-19 09:39 | XR_ITS ---
PROCEDURE: XR FOOT WT BEARING LT 3V CLINICAL INDICATION: foot pain COMPARISON: CR XR FOOT WT BEARING LT 3V from 05/10/2020 CR XR FOOT WT BEARING LT 3V from 07/21/2020 CR XR FOOT WT BEARING LT 3V from 08/18/2020 CR XR FOOT WT BEARING LT 3V from 09/29/2020 FINDINGS: No fracture or dislocation. No lytic or blastic change. There is normal mineralization. Osteoarthritic changes are present at the talonavicular and navicular cuneiform joint with superior displacement of the navicular by 4 mm resulting in pes planus. There is a prominent calcaneal spur unchanged. A bony spur is also present along the plantar and mid aspect of the foot. Osteosclerosis with some fragmentation noted in the navicular cuneiform region Hammertoe deformity of the 2nd toe. No bony destructive process. IMPRESSION: Degenerative changes with pes planus as described above. Hammertoe deformity 2nd toe. Overall no significant change Dictated by: Jose Hoffman MD 01/19/2021 14:09 Jose Hoffman MD in [place] 01/19/2021 14:09
[2021-01-19 09:58] LABS: Basophils % 0.6 % (0.1-2.0); Eosinophils # 0.4 K/mm3 (0.0-0.4); Hematocrit 35.6 % (42.0-52.0); Hemoglobin 11.3 g/dL (14.1-18.0); Lymphocytes # 1.6 K/mm3 (0.7-4.5); Lymphocytes % 21.2 % (10-50); Mean Corpuscular HGB Conc 31.6 g/dL (31.8-35.4); Mean Corpuscular Volume 88.6 fl (80-94); Monocytes # 0.5 K/mm3 (0.1-1.0); Neutrophils % 66.2 % (37.0-80.0); Platelet Count 288 K/mm3 (142-424); Red Blood Count 4.02 M/mm3 (4.60-6.20); Red Cell Distribution Width 14.1 % (11.5-17.5); White Blood Count 7.5 K/mm3 (4.8-10.8)
[2021-01-19 10:08] LABS: Chloride 107 mmol/L (98-107); Potassium 4.9 mmoL/L (3.5-5.1); Sodium 140 mmol/L (136-145)
[2021-01-19 10:09] LABS: Albumin Level 3.6 g/dl (3.5-5.0)
[2021-01-19 10:11] LABS: Alanine Aminotransferase 15 U/L (12-78); Albumin Level 3.6 g/dl (3.5-5.0); Albumin/Globulin Ratio 1.2 (1.1-1.8); Alkaline Phosphatase 84 U/L (38-126); Anion Gap 10.9 mEq/L (5-15); Aspartate Amino Transferase 23 U/L (17-59); Bilirubin,Total 0.4 mg/dl (0.2-1.3); Blood Urea Nitrogen 37 mg/dl (9-20); Carbon Dioxide 27 mmol/L (22.0-30.0); Estimated Glomerular Filt Rate 35 ml/min (>60); GFR (African American) 42 ML/MIN (>60); Total Protein,Serum 6.6 g/dl (6.3-8.2)
[2021-01-19 10:12] LABS: Calcium 8.8 mg/dl (8.4-10.2); Glucose 78 mg/dl (74-100); Phosphorous 3.9 mg/dl (2.5-4.5)
[2021-01-19 10:17] LABS: C-Reactive Protein 9.2 mg/L (0-4)
[2021-01-19 11:07] LABS: Erythrocyte Sedimentation Rate 118 mm/hr (0-20)
== END ==
PROVIDERS: Nurse Practitioner; Visit Provider Internal Medicine Nephrology
DX: Z51.89 Encounter for other specified aftercare (principal); H57.89 Other specified disorders of eye and adnexa; N18.30 Chronic kidney disease, stage 3 unspecified; M79.672 Pain in left foot
CPT/HCPCS: 36415; 73630; 80053; 82040; 84100; 85025; 85651; 86140

== ENCOUNTER → 2021-02-08 15:18 | Outpatient (CLI) | payer MEDICARE, OTHER, SELFPAY ==
[2021-02-08 16:04] LABS: Basophils % 0.5 % (0.1-2.0); Eosinophils # 0.3 K/mm3 (0.0-0.4); Eosinophils % 3.6 % (0.1-12.0); Hematocrit 39.4 % (42.0-52.0); Hemoglobin 12.4 g/dL (14.1-18.0); Lymphocytes # 1.9 K/mm3 (0.7-4.5); Lymphocytes % 26.7 % (10-50); Mean Corpuscular HGB Conc 31.5 g/dL (31.8-35.4); Mean Corpuscular Hemoglobin 27.8 pg (27.0-31.2); Mean Corpuscular Volume 88.3 fl (80-94); Mean Platelet Volume 6.9 fl (7.4-10.4); Monocytes # 0.4 K/mm3 (0.1-1.0); Monocytes % 6.3 % (1.7-9.3); Neutrophils # 4.5 K/mm3 (1.8-7.8); Neutrophils % 62.9 % (37.0-80.0); Platelet Count 302 K/mm3 (142-424); Red Blood Count 4.46 M/mm3 (4.60-6.20); Red Cell Distribution Width 14.1 % (11.5-17.5); White Blood Count 7.1 K/mm3 (4.8-10.8)
[2021-02-08 16:33] LABS: Alanine Aminotransferase 19 U/L (12-78); Albumin Level 4.2 g/dl (3.5-5.0); Albumin/Globulin Ratio 1.4 (1.1-1.8); Alkaline Phosphatase 85 U/L (38-126); Anion Gap 15.4 mEq/L (5-15); Aspartate Amino Transferase 24 U/L (17-59); Bilirubin,Total 0.3 mg/dl (0.2-1.3); Blood Urea Nitrogen 49 mg/dl (9-20); Calcium 9.3 mg/dl (8.4-10.2); Carbon Dioxide 25 mmol/L (22.0-30.0); Chloride 107 mmol/L (98-107); Estimated Glomerular Filt Rate 23 ml/min (>60); GFR (African American) 28 ML/MIN (>60); Globulin 3.1 g/dL (1.3-3.2); Glucose 81 mg/dl (74-100); Potassium 5.4 mmoL/L (3.5-5.1); Sodium 142 mmol/L (136-145); Total Protein,Serum 7.3 g/dl (6.3-8.2)
[2021-02-08 16:38] LABS: C-Reactive Protein 2.2 mg/L (0-4)
[2021-02-08 16:39] LABS: Erythrocyte Sedimentation Rate 25 mm/hr (0-20)
== END ==
PROVIDERS: Visit Provider Nurse Practitioner
DX: H57.89 Other specified disorders of eye and adnexa (principal); Z51.89 Encounter for other specified aftercare
CPT/HCPCS: 36415; 80053; 85025; 85651; 86140

== ENCOUNTER → 2021-03-01 12:00 | Outpatient (CLI) | payer MEDICARE, OTHER, SELFPAY ==
--- NOTE | 2021-03-01 12:13 | XR_ITS ---
PROCEDURE: XR FOOT WT BEARING RT 3V CLINICAL INDICATION: comparison COMPARISON: CR XR FOOT WT BEARING LT 3V from 07/21/2020 CR XR FOOT WT BEARING LT 3V from 08/18/2020 CR XR FOOT WT BEARING LT 3V from 09/29/2020 CR XR FOOT WT BEARING LT 3V from 01/19/2021 FINDINGS: No fracture or dislocation. No lytic or blastic change. There is normal mineralization. Mild degenerative changes 1st MTP joint Other findings:There is a small Achilles enthesophyte and small calcaneal spur. 3 mm metallic density is noted in the soft tissues anterior to the distal tibia IMPRESSION: Small metallic foreign body noted along the anterior distal aspect of the tibia with degenerative changes Dictated by: Jose Hoffman MD 03/01/2021 12:52 Jose Hoffman MD in [place] 03/01/2021 12:52
--- NOTE | 2021-03-01 12:13 | XR_ITS ---
PROCEDURE: XR FOOT WT BEARING LT 3V CLINICAL INDICATION: Pain and inflammation of left foot. COMPARISON: CR XR FOOT WT BEARING LT 3V from 07/21/2020 CR XR FOOT WT BEARING LT 3V from 08/18/2020 CR XR FOOT WT BEARING LT 3V from 09/29/2020 CR XR FOOT WT BEARING LT 3V from 01/19/2021 FINDINGS: Severe osteoarthritic changes are present at the navicular cuneiform joint with mild osteoarthritis of the talonavicular joint. There is some hypertrophy of the anterior aspect the navicular. Cystic changes are present involving the navicular with cortical irregularity of the navicular cuneiform joint. Developing Charcot joint is suspected with overall no significant change compared to 01/19/2021. There is pes planus with hammertoe deformity of the 2nd toe. Prominent spurring noted along the plantar surface of the calcaneus. A bone spur is also present along the plantar surface of the foot at the cuboid region. Overall no significant change compared to the previous exam. IMPRESSION: No change in the degenerative changes with possible Charcot joint with pes planus and bony spurring and 2nd toe hammertoe deformity Dictated by: Jose Hoffman MD 03/01/2021 12:57 Jose Hoffman MD in [place] 03/01/2021 12:57
[2021-03-01 13:45] LABS: Erythrocyte Sedimentation Rate 45 mm/hr (0-20)
[2021-03-01 14:33] LABS: Basophils % 0.6 % (0.1-2.0); Eosinophils # 0.3 K/mm3 (0.0-0.4); Eosinophils % 4.6 % (0.1-12.0); Hematocrit 37.9 % (42.0-52.0); Hemoglobin 12.3 g/dL (14.1-18.0); Lymphocytes # 1.7 K/mm3 (0.7-4.5); Lymphocytes % 27.5 % (10-50); Mean Corpuscular HGB Conc 32.5 g/dL (31.8-35.4); Mean Corpuscular Hemoglobin 28.5 pg (27.0-31.2); Mean Corpuscular Volume 87.6 fl (80-94); Mean Platelet Volume 7.6 fl (7.4-10.4); Monocytes # 0.4 K/mm3 (0.1-1.0); Neutrophils # 3.7 K/mm3 (1.8-7.8); Neutrophils % 60.3 % (37.0-80.0); Platelet Count 257 K/mm3 (142-424); Red Blood Count 4.32 M/mm3 (4.60-6.20); Red Cell Distribution Width 14.8 % (11.5-17.5); White Blood Count 6.2 K/mm3 (4.8-10.8)
[2021-03-01 15:28] LABS: Chloride 104 mmol/L (98-107); Potassium 5.3 mmoL/L (3.5-5.1); Sodium 140 mmol/L (136-145)
[2021-03-01 15:30] LABS: Blood Urea Nitrogen 33 mg/dl (9-20)
[2021-03-01 15:31] LABS: Alanine Aminotransferase 16 U/L (12-78); Albumin Level 4.1 g/dl (3.5-5.0); Albumin/Globulin Ratio 1.4 (1.1-1.8); Alkaline Phosphatase 92 U/L (38-126); Anion Gap 12.3 mEq/L (5-15); Aspartate Amino Transferase 23 U/L (17-59); Bilirubin,Total 0.3 mg/dl (0.2-1.3); Calcium 8.7 mg/dl (8.4-10.2); Carbon Dioxide 29 mmol/L (22.0-30.0); Estimated Glomerular Filt Rate 33 ml/min (>60); GFR (African American) 40 ML/MIN (>60); Glucose 125 mg/dl (74-100); Total Protein,Serum 7.1 g/dl (6.3-8.2)
[2021-03-01 15:36] LABS: C-Reactive Protein 7.7 mg/L (0-4)
== END ==
PROVIDERS: Visit Provider Nurse Practitioner
DX: Z51.89 Encounter for other specified aftercare (principal); H57.89 Other specified disorders of eye and adnexa; M14.672 Charcot's joint, left ankle and foot; E11.8 Type 2 diabetes mellitus with unspecified complications; Z79.4 Long term (current) use of insulin
CPT/HCPCS: 36415; 73630; 80053; 85025; 85651; 86140

== ENCOUNTER → 2021-03-14 17:07 | Outpatient (CLI) | payer MEDICARE, OTHER, SELFPAY ==
[2021-03-14 17:56] LABS: Basophils % 0.6 % (0.1-2.0); Eosinophils # 0.3 K/mm3 (0.0-0.4); Eosinophils % 4.3 % (0.1-12.0); Hematocrit 39.4 % (42.0-52.0); Hemoglobin 12.7 g/dL (14.1-18.0); Lymphocytes # 1.9 K/mm3 (0.7-4.5); Lymphocytes % 27.6 % (10-50); Mean Corpuscular HGB Conc 32.3 g/dL (31.8-35.4); Mean Corpuscular Hemoglobin 28.7 pg (27.0-31.2); Mean Corpuscular Volume 88.9 fl (80-94); Mean Platelet Volume 6.9 fl (7.4-10.4); Monocytes # 0.4 K/mm3 (0.1-1.0); Monocytes % 5.6 % (1.7-9.3); Neutrophils # 4.2 K/mm3 (1.8-7.8); Neutrophils % 61.9 % (37.0-80.0); Platelet Count 286 K/mm3 (142-424); Red Blood Count 4.43 M/mm3 (4.60-6.20); White Blood Count 6.7 K/mm3 (4.8-10.8)
[2021-03-14 18:27] LABS: Alanine Aminotransferase 20 U/L (12-78); Albumin Level 4.2 g/dl (3.5-5.0); Albumin/Globulin Ratio 1.4 (1.1-1.8); Alkaline Phosphatase 89 U/L (38-126); Anion Gap 15.5 mEq/L (5-15); Aspartate Amino Transferase 28 U/L (17-59); Bilirubin,Total 0.4 mg/dl (0.2-1.3); Blood Urea Nitrogen 38 mg/dl (9-20); Calcium 9.1 mg/dl (8.4-10.2); Carbon Dioxide 25 mmol/L (22.0-30.0); Chloride 108 mmol/L (98-107); Estimated Glomerular Filt Rate 27 ml/min (>60); GFR (African American) 32 ML/MIN (>60); Globulin 3.1 g/dL (1.3-3.2); Glucose 72 mg/dl (74-100); Potassium 5.5 mmoL/L (3.5-5.1); Sodium 143 mmol/L (136-145); Total Protein,Serum 7.3 g/dl (6.3-8.2)
[2021-03-14 18:35] LABS: C-Reactive Protein 2.7 mg/L (0-4)
[2021-03-14 19:26] LABS: Erythrocyte Sedimentation Rate 24 mm/hr (0-20)
[2021-03-14 19:34] LABS: Hemoglobin A1C 6.8 % (4.0-6.0)
== END ==
PROVIDERS: Visit Provider Nurse Practitioner
DX: E11.621 Type 2 diabetes mellitus with foot ulcer (principal); L97.529 Non-pressure chronic ulcer of other part of left foot with unspecified severity; Z51.89 Encounter for other specified aftercare; Z79.4 Long term (current) use of insulin
CPT/HCPCS: 80053; 83036; 85025; 85651; 86140

== ENCOUNTER 2021-03-28 13:30 | Outpatient (RCR) | payer MEDICARE, OTHER, SELFPAY ==
--- NOTE | 2021-02-10 14:48 | HMH.PTOPWND ---
Rehab Outpt Wound Evaluation Rehab OP Wound Evaluation Start: 02/10/21 14:09 Freq: Status: Active Protocol: Document 02/10/21 14:41 EDILBERTO (Rec: 02/10/21 14:48 EDILBERTO [id number]) Electronically Signed By Reinier Bai, PT 02/10/21 14:41 Subjective/History History History Pt is 75 yowm who presents with chronic L great toe DFU x ~6-8 mos. He has no c/o pain in the L foot, but also has neuropathy. He reports he changes the dressing every 2 or 3 days, at home. He has PMH of COPD, CAD, HTN, HL, MRSA, Renal Insufficiency, Anxiety. Subjective Subjective Pt with no c/o pain or tenderness this date. Wound Eval Wound Left Distal Great Toe Wound Type Diabetic Foot Ulcer Is This a Chronic Wound Yes Wound Length (cm) 2.0 Wound Width (cm) 1.1 Wound Bed Appearance Dusky Red Wound Margins Description Well Defined Surrounding Tissue Appearance [place]ada Drainage Description Serosanguineous Drainage Amount Moderate Dressing Status Changed,Soiled Wound Topical Solution/Irrigant Saline Irrigant Primary Dressing collagen Comment puracol Wound Secondary Dressing Type Gauze Pad,Gauze Roll/Wrap, Adhering Gauze Roll Wound Debridement Method Gauze Wound Debridement Amount of Tissue None Removed Dressing Change Patient Tolerance Tolerated Well Wound Problems/Impairments Impairments Problems/Impairmments Wound Care Needs,Impaired Self Care/Self Management Prognosis Rehab Potential Fair Clinical Impression Consistent with Diagnosis Yes Short Term Goals Number of Weeks 4 Decrease Wound Area Yes: by 50% Decrease Drainage Yes: by 50% Type Copyist Goals Number of Weeks 8 Decrease Wound Area Yes: by 100% Decrease Drainage Yes: by 100% Outpatient Therapy Plan of Care Treatment Plan May Include Therapeutic Exercise Including Home Yes Exercise Program Manual Therapy Techniques Yes Neuromuscular Re-education Yes Therapeutic Activities to Return to Yes Previous Functional/Work Level ADL/Self Care Education Yes Orthotics/Bracing/Splinting Yes Manual Lymphatic Drainage Yes Wound Care Yes Eval/Re-Eval Yes
--- NOTE | 2021-03-08 14:38 | HMH.RHREAS ---
Rehab Reassessment Rehab OP Re-assessment Start: 03/08/21 14:32 Freq: Status: Active Protocol: Document 03/08/21 14:36 EDILBERTO (Rec: 03/08/21 14:38 EDILBERTO [id number]) Electronically Signed By Reinier Bai, PT 03/08/21 14:36 Rehab Re-assessment Subjective Subjective Pt reports no new c/o. He reports changing dressings every day now which seems to be helping with wound healing. Objective Objective Notes Wound on plantar L great toe appears to to be healthy at the base, some callus remains surrounding the wound. Less drainage noted this date. Wound size: L= 1.7 cm, W= 0.6 cm. Assessment Progress Assessment Progressing as Expected Assessment Notes Improved granulation tissue at ths wound base this date. less drainage noted and no foul odor present. Patient goals met ST,2 Goals Not Met LT,2 Revised Goals none Plan Plan Continue per initial POC. Frequency of Therapy 2 x/wk Duration of therapy 8 Time and Billing Re-Eval Time 15 Re-Eval Billing Units 0 PHYSICIAN CERTIFICATION: I certify the specified therapy services for Twan Polanco JR are required, authorized, and reviewed every 30 days.
== END 2021-06-02 13:35 | disposition home or self-care (01) ==
LOC: PT 13:30
PROVIDERS: PCP Family Medicine; Visit Provider Nurse Practitioner
DX: E11.621 Type 2 diabetes mellitus with foot ulcer (principal); L97.521 Non-pressure chronic ulcer of other part of left foot limited to breakdown of skin; Z79.4 Long term (current) use of insulin
CPT/HCPCS: 97162; 97164; 97597

== ENCOUNTER → 2021-04-07 15:01 | Outpatient (CLI) | payer MEDICARE, OTHER, SELFPAY ==
--- NOTE | 2021-04-07 15:03 | CA_ITS ---
APPROVED REPORT Bilateral Lower Extremity Venous Study for DVT. Comptometer Operator: TRUONG Indications Lower Extremity Pain: evaluate for DVT, HTN, HLD, patient reports swelling x 1 year Vein Imaging CFV (R): compressive, spontaneous, phasic, augmentation FEM (R): compressive, spontaneous, phasic, augmentation POP (R): compressive, spontaneous, phasic, augmentation PTV (R): compressive, spontaneous, phasic, augmentation GSV (R): compressive, spontaneous, phasic, augmentation Peroneals (R):compressive, spontaneous, phasic, augmentation GAS (R): compressive, spontaneous, phasic, augmentation CFV (L): compressive, spontaneous, phasic, augmentation FEM (L): compressive, spontaneous, phasic, augmentation POP (L): compressive, spontaneous, phasic, augmentation PTV (L): compressive, spontaneous, phasic, augmentation GSV (L): compressive, spontaneous, phasic, augmentation Peroneals (L):compressive, spontaneous, phasic, augmentationcompressive, spontaneous, phasic, augmentation GAS (L): compressive, spontaneous, phasic, augmentation Findings Study suggest no evidence of DVT or SVT of the bilateral lower extremities. Diffuse subq edema Conclusion Study suggests no evidence of DVT or SVT of the bilateral lower extremities. Electronically signed by : Jose oHffman MD 04/08/2021 15:07:12
== END ==
PROVIDERS: PCP Family Medicine; Visit Provider Podiatrist
DX: M79.661 Pain in right lower leg (principal); M79.662 Pain in left lower leg
CPT/HCPCS: 93970

== ENCOUNTER → 2021-04-13 15:31 | Outpatient (CLI) | payer MEDICARE, SELFPAY ==
[2021-04-13 16:23] LABS: Basophils % 0.4 % (0.1-2.0); Eosinophils # 0.1 K/mm3 (0.0-0.4); Eosinophils % 0.7 % (0.1-12.0); Hematocrit 34.9 % (42.0-52.0); Hemoglobin 11.9 g/dL (14.1-18.0); Lymphocytes # 1.4 K/mm3 (0.7-4.5); Lymphocytes % 14.1 % (10-50); Mean Corpuscular Volume 85.3 fl (80-94); Mean Platelet Volume 7.5 fl (7.4-10.4); Monocytes # 0.5 K/mm3 (0.1-1.0); Monocytes % 5.4 % (1.7-9.3); Neutrophils # 7.6 K/mm3 (1.8-7.8); Neutrophils % 79.5 % (37.0-80.0); Platelet Count 230 K/mm3 (142-424); Red Blood Count 4.09 M/mm3 (4.60-6.20); Red Cell Distribution Width 15.4 % (11.5-17.5); White Blood Count 9.5 K/mm3 (4.8-10.8)
[2021-04-13 17:18] LABS: Chloride 105 mmol/L (98-107)
[2021-04-13 17:19] LABS: Potassium 4.5 mmoL/L (3.5-5.1); Sodium 139 mmol/L (136-145)
[2021-04-13 17:21] LABS: Alanine Aminotransferase 16 U/L (12-78); Alkaline Phosphatase 82 U/L (38-126); Anion Gap 11.5 mEq/L (5-15); Aspartate Amino Transferase 21 U/L (17-59); Bilirubin,Total 0.8 mg/dl (0.2-1.3); Blood Urea Nitrogen 31 mg/dl (9-20); Carbon Dioxide 27 mmol/L (22.0-30.0); Estimated Glomerular Filt Rate 35 ml/min (>60); GFR (African American) 42 ML/MIN (>60)
[2021-04-13 17:22] LABS: Albumin Level 3.8 g/dl (3.5-5.0); Albumin/Globulin Ratio 1.3 (1.1-1.8); Calcium 8.8 mg/dl (8.4-10.2); Glucose 131 mg/dl (74-100); Total Protein,Serum 6.8 g/dl (6.3-8.2)
[2021-04-13 17:27] LABS: Erythrocyte Sedimentation Rate 57 mm/hr (0-20)
[2021-04-13 18:05] LABS: C-Reactive Protein 56.7 mg/L (0-4)
== END ==
PROVIDERS: Visit Provider Podiatrist
DX: Z01.818 Encounter for other preprocedural examination (principal); Z20.822 Contact with and (suspected) exposure to COVID-19
CPT/HCPCS: 36415; 80053; 85025; 85651; 86140; U0003

== ENCOUNTER 2021-04-15 06:23 | Day surgery (SDC) | payer MEDICARE, SELFPAY ==
[2021-04-14 10:09] VITALS: BMI 40.6
[2021-04-15 07:08] VITALS: BP 137/68; PULSE 70; RESP 18; TEMP 36.6; O2SAT 99
[2021-04-15 08:09] LABS: POC Glucose,Bedside 126 (70-110)
[2021-04-15 08:36] VITALS: BP 116/62; PULSE 65; RESP 18; TEMP 36.2; O2SAT 96
[2021-04-15 08:48] VITALS: BP 116/62; PULSE 65; RESP 18; O2SAT 96
--- NOTE | 2021-04-15 09:53 | HMH.OPNOTE ---
Date of procedure: 04/15/21 Pre-op Diagnosis:: 1. Left hallux ulcer 2. Left diabetic foot ulcer Post-op Diagnosis:: Same Procedure performed:: 1. Left hallux ulcer wound debridement 2. Delayed primary closure 3. Application of injectable graft Surgeon:: Heike Oliveira DPM Anesthesia: local (10cc 0.5% marcaine plain) Estimated blood loss (mL): 10 Clinical Note:: Patient is a 75-year-old diabetic male who presents with the left great toe diabetic ulcer. He has had this on and off for the last year. Multiple imaging has been performed which has been negative for osteomyelitis. Patient has a left Charcot foot with increased pressure to the hallux region. We discussed conservative versus surgical treatment options. Conservative treatment options include local wound care, oral and IV antibiotics, change in shoe wear, taping/padding, and off-loading. He has failed conservative care. We discussed surgery for surgical wound debridement and application of wound graft. Patient understands that there is a chance that the foot may change shape after surgery. Patient understands that they could have wound healing complications including delayed healing and infection. We discussed that if the wound does not heal, it is possible that they may need a more proximal amputation and could result in further loss of digits, loss of partial foot or loss of leg. We discussed the risks and benefits in great detail. Other surgical risks include: prolonged pain and swelling, further infection requiring oral or IV antibiotics, delay in healing of soft tissue or bone, nerve or blood vessel damage, CRPS/RSD, DVT, anesthesia complications, and even . All questions answered. Patient verbalized understanding. Consent obtained. Necessary labs and pre-op testing ordered: CBC, BMP, ESR, CRP, covid. Patient is to be NWB in post op shoe/short fracture boot, with DME (has walker). Recommended RKS. Operative findings:: Left foot has some dry skin. There is a diabetic ulcer noted to the plantar medial aspect of the left hallux. There is some periwound maceration noted. There is less edema and minimal erythema noted. Left foot Charcot stable. Predebridement the wound was 1.3 x 0.5 x 0.2 cm. Wound base was 75% granular, 25% yellow fibrotic with slough noted. Utilizing a 15 blade and forceps, the wound was sharply excisionally debrided through skin into/involving sub q layer but not to deep fascia or bone. No acute signs of infection noted at this time. Biofilm and fibrotic slough were debrided. No evidence of purulence or malodor. No ascending cellulitis. Post debridement the wound was 100% granular and measured 1.3x0.8x0.3cm. Delayed primary closure was performed reapproximating the skin edges. Post DPC, there was an area centrally which measured 0.2 x 0.2 x 0.1 cm. Dermabond used to reapproximate this area as the skin was very fragile and tore when trying to suture through it. Operative note:: On this date and time patient was deemed an appropriate surgical candidate. With informed consent signed, the patient was taken to the local procedure operating theater room. The patient was positioned supine. No anesthesia was induced. No tourniquet used. Local anesthesia used, 10 cc of 0.5% marcaine plain to the left hallux.. Left hallux ulcer debridement: The left lower extremity was prepped and draped in normal sterile fashion. Attention was directed to the plantar medial aspect of the hallux where an ulcer was noted. Utilizing a 15 blade, forceps and a curette the ulcer was sharply excisionally debrided through the skin into involving subcutaneous tissue. No signs of infection noted. See operative findings for pre and postop measurements. Some bleeding noted. Electrocautery used to control bleeding. Bacitracin irrigation was used to flush the ulcer site. Skin was cleansed. Left foot delayed priamry closure: Post debridement, 100% granular wound base was noted. No purulence or signs of inf
== END 2021-04-15 08:50 | disposition home or self-care (01) ==
LOC: OUTP 06:24
PROVIDERS: PCP Family Medicine; Visit Provider Podiatrist
DX: E11.621 Type 2 diabetes mellitus with foot ulcer (principal); E11.610 Type 2 diabetes mellitus with diabetic neuropathic arthropathy; L97.522 Non-pressure chronic ulcer of other part of left foot with fat layer exposed; Z79.4 Long term (current) use of insulin; E55.9 Vitamin D deficiency, unspecified; Z79.01 Long term (current) use of anticoagulants; I25.10 Atherosclerotic heart disease of native coronary artery without angina pectoris; I10 Essential (primary) hypertension; Z79.899 Other long term (current) drug therapy
CPT/HCPCS: 11042; 82962; C1762

== ENCOUNTER → 2021-04-26 11:53 | Outpatient (CLI) | payer MEDICARE, SELFPAY ==
[2021-04-26 12:16] LABS: Basophils # 0.1 K/mm3 (0-0.2); Basophils % 0.6 % (0.1-2.0); Eosinophils # 0.2 K/mm3 (0.0-0.4); Eosinophils % 2.7 % (0.1-12.0); Hematocrit 38.4 % (42.0-52.0); Hemoglobin 12.7 g/dL (14.1-18.0); Lymphocytes # 2.1 K/mm3 (0.7-4.5); Lymphocytes % 28.1 % (10-50); Mean Corpuscular HGB Conc 33.1 g/dL (31.8-35.4); Mean Corpuscular Hemoglobin 28.2 pg (27.0-31.2); Mean Corpuscular Volume 85.2 fl (80-94); Mean Platelet Volume 8.1 fl (7.4-10.4); Monocytes # 0.4 K/mm3 (0.1-1.0); Monocytes % 5.8 % (1.7-9.3); Neutrophils # 4.6 K/mm3 (1.8-7.8); Neutrophils % 62.8 % (37.0-80.0); Platelet Count 260 K/mm3 (142-424); Red Blood Count 4.51 M/mm3 (4.60-6.20); White Blood Count 7.4 K/mm3 (4.8-10.8)
[2021-04-26 12:59] LABS: Alanine Aminotransferase 14 U/L (12-78); Albumin Level 3.9 g/dl (3.5-5.0); Albumin/Globulin Ratio 1.2 (1.1-1.8); Alkaline Phosphatase 84 U/L (38-126); Aspartate Amino Transferase 22 U/L (17-59); Bilirubin,Total 0.4 mg/dl (0.2-1.3); Blood Urea Nitrogen 40 mg/dl (9-20); Carbon Dioxide 26 mmol/L (22.0-30.0); Chloride 108 mmol/L (98-107); Estimated Glomerular Filt Rate 29 ml/min (>60); GFR (African American) 36 ML/MIN (>60); Globulin 3.2 g/dL (1.3-3.2); Glucose 99 mg/dl (74-100); Sodium 146 mmol/L (136-145); Total Protein,Serum 7.1 g/dl (6.3-8.2)
[2021-04-26 13:00] LABS: Erythrocyte Sedimentation Rate 52 mm/hr (0-20)
[2021-04-26 13:04] LABS: C-Reactive Protein 5.4 mg/L (0-4)
== END ==
PROVIDERS: Visit Provider Podiatrist
DX: Z98.890 Other specified postprocedural states (principal); H57.89 Other specified disorders of eye and adnexa
CPT/HCPCS: 36415; 80053; 85025; 85651; 86140

== ENCOUNTER → 2021-05-24 14:06 | Outpatient (CLI) | payer MEDICARE, SELFPAY ==
--- NOTE | 2021-05-24 14:11 | XR_ITS ---
PROCEDURE: XR FOOT WT BEARING LT 3V CLINICAL INDICATION: Charcot of left foot. COMPARISON: CR XR FOOT WT BEARING LT 3V from 09/29/2020 CR XR FOOT WT BEARING LT 3V from 01/19/2021 CR XR FOOT WT BEARING LT 3V from 03/01/2021 CR XR FOOT WT BEARING RT 3V from 03/01/2021 FINDINGS: There is pes planus. Mixed cystic and osteo sclerotic changes involve the navicular with some compression of the navicular with hypertrophic change of the navicular cuneiform joint consistent with Charcot joint not significantly changed. No acute findings are evident. Hammertoe deformity involves the 2nd toe. IMPRESSION: Midfoot Charcot joint unchanged Dictated by: Jose Hoffman MD 05/24/2021 15:54 Jose Hoffman MD in [place] 05/24/2021 15:54
== END ==
PROVIDERS: PCP Family Medicine; Visit Provider Podiatrist
DX: M14.672 Charcot's joint, left ankle and foot (principal)
CPT/HCPCS: 73630

== ENCOUNTER → 2021-06-09 14:19 | Outpatient (CLI) | payer MEDICARE, SELFPAY ==
[2021-06-09 14:42] LABS: Basophils % 0.7 % (0.1-2.0); Eosinophils # 0.3 K/mm3 (0.0-0.4); Eosinophils % 4.4 % (0.1-12.0); Hematocrit 39.4 % (42.0-52.0); Hemoglobin 12.8 g/dL (14.1-18.0); Lymphocytes # 1.7 K/mm3 (0.7-4.5); Lymphocytes % 25.8 % (10-50); Mean Corpuscular HGB Conc 32.5 g/dL (31.8-35.4); Mean Corpuscular Hemoglobin 29.6 pg (27.0-31.2); Mean Corpuscular Volume 91.1 fl (80-94); Mean Platelet Volume 7.6 fl (7.4-10.4); Monocytes # 0.4 K/mm3 (0.1-1.0); Monocytes % 5.5 % (1.7-9.3); Neutrophils # 4.2 K/mm3 (1.8-7.8); Neutrophils % 63.7 % (37.0-80.0); Platelet Count 301 K/mm3 (142-424); Red Blood Count 4.33 M/mm3 (4.60-6.20); Red Cell Distribution Width 14.6 % (11.5-17.5); White Blood Count 6.7 K/mm3 (4.8-10.8)
[2021-06-09 15:14] LABS: Erythrocyte Sedimentation Rate 28 mm/hr (0-20)
[2021-06-09 15:19] LABS: Hemoglobin A1C 7.7 % (4.0-6.0)
[2021-06-09 15:50] LABS: Alanine Aminotransferase 27 U/L (12-78); Albumin Level 3.9 g/dl (3.5-5.0); Albumin/Globulin Ratio 1.2 (1.1-1.8); Alkaline Phosphatase 79 U/L (38-126); Anion Gap 17.8 mEq/L (5-15); Aspartate Amino Transferase 30 U/L (17-59); Bilirubin,Total 0.4 mg/dl (0.2-1.3); Blood Urea Nitrogen 30 mg/dl (9-20); Calcium 8.9 mg/dl (8.4-10.2); Carbon Dioxide 23 mmol/L (22.0-30.0); Chloride 105 mmol/L (98-107); Estimated Glomerular Filt Rate 40 ml/min (>60); GFR (African American) 48 ML/MIN (>60); Globulin 3.2 g/dL (1.3-3.2); Glucose 74 mg/dl (74-100); Potassium 4.8 mmoL/L (3.5-5.1); Sodium 141 mmol/L (136-145); Total Protein,Serum 7.1 g/dl (6.3-8.2)
[2021-06-09 15:55] LABS: C-Reactive Protein 5.2 mg/L (0-4)
== END ==
PROVIDERS: Visit Provider Podiatrist
DX: Z51.89 Encounter for other specified aftercare (principal); E11.42 Type 2 diabetes mellitus with diabetic polyneuropathy; Z79.4 Long term (current) use of insulin; T81.31XD Disruption of external operation (surgical) wound, not elsewhere classified, subsequent encounter
CPT/HCPCS: 36415; 80053; 83036; 85025; 85651; 86140

== ENCOUNTER 2021-06-23 13:00 | Outpatient (RCR) | payer MEDICARE, SELFPAY ==
--- NOTE | 2021-06-16 14:58 | HMH.PTOPWND ---
Rehab Outpt Wound Evaluation Rehab OP Wound Evaluation Start: 06/16/21 14:49 Freq: Status: Active Protocol: Document 06/16/21 14:49 PWEMILIANO (Rec: 06/16/21 14:58 PWMIRIANAMS [id number]) Electronically Signed By Etienne Ambriz, PT 06/16/21 14:49 Subjective/History History History This is the initial Physical [facility]er[facility] wound clinic evaluation for Twan Shelleytox. Pt is a 76 y/o male w/ a long standing hx of diabetic wound on L foot. Pt most recently had surgical debvridment of devitalized tissue w/ attempt at primary closure s/p sx. Pt was non- compliant w/ WBing status and caused a dehisence of surgical closure. Pt now reports to wound clinic for secondary closure of wounds. Pt has two wounds, one on first toe, 2nd on 2nd toe. Subjective Subjective Pt reports he is diabetic and his sugar today was 170 Wound Eval Wound Right Lower Great Toe Wound Type Diabetic Foot Ulcer Wound Length (cm) 2.0 Wound Width (cm) 1.0 Wound Bed Appearance Beefy Red Percentage Granulated (%) 100 Wound Margins Description Well Defined Surrounding Tissue Temperature Warm Drainage Description Sanguineous Drainage Amount Scant Drainage Odor No Odor Dressing Status Soiled Wound Topical Solution/Irrigant Saline Irrigant Primary Dressing Biosynthetic Dressing Comment medihoney gel on teg AG mesh Wound Secondary Dressing Type Biosynthetic Dressing Comment purocol tegederm ag mesh Wound Debridement Method Sharps,Gauze Wound Debridement Amount of Tissue Minimal Removed Wound Debridement Result Stopped Due to Bleeding Dressing Change Date 06/16/21 Dressing Change Patient Tolerance Tolerated Well Right Upper Toe - 2nd Digit Wound Type Diabetic Foot Ulcer Is This a Chronic Wound Yes Wound Length (cm) 1.0 Wound Width (cm) 1.1 Wound Bed Appearance Yellow,White,Slough Percentage Granulated (%) 0 Percentage of Slough (%) 100 Percentage of Eschar (Yellow) (%) 100 Wound Margins Description Well Defined Surrounding Tissue Appearance National
== END 2021-06-23 13:05 | disposition home or self-care (01) ==
LOC: PT 13:00
PROVIDERS: PCP Family Medicine; Visit Provider Podiatrist
DX: T81.31XA Disruption of external operation (surgical) wound, not elsewhere classified, initial encounter (principal); E11.621 Type 2 diabetes mellitus with foot ulcer; L97.529 Non-pressure chronic ulcer of other part of left foot with unspecified severity; Z79.4 Long term (current) use of insulin
CPT/HCPCS: 97162; 97597

== ENCOUNTER 2021-06-27 12:09 | Observation (INO) | payer MEDICARE, SELFPAY ==
[2021-06-27] VITALS (13 sets, daily range): BP systolic 87–167; BP diastolic 40–89; PULSE 60–76; RESP 16–22; TEMP 36.8–38.1; O2SAT 90–99; BMI 40.6
--- NOTE | 2021-06-27 12:09 | ECG_ITS ---
APPROVED REPORT Exam: Resting ECG HR:76 bpm ECG Measurements Heart Rate 76 AXES MI 172 P 9 QRSd 104 QRS 30 QT 384 T 42 QTc 432 Conclusion Normal sinus rhythm Normal ECG Electronically signed by : Jose Ray MD 06/28/2021 17:35:50
--- NOTE | 2021-06-27 12:13 | XR_ITS ---
PROCEDURE: XR CHEST PORTABLE CLINICAL HISTORY: sob COMPARISON: CR XR CHEST PORTABLE from 11/18/2019 CR XR CHEST PORTABLE from 02/28/2020 CR XR CHEST 2V from 12/15/2020 FINDINGS: There are low lung volumes. Patchy areas of ground-glass infiltrate and atelectatic changes noted in the mid lower lung zones. Lung apices are clear. Normal heart size. No acute bony abnormalities. IMPRESSION: Multifocal areas of atelectasis with patchy infiltrate. This may be seen with Covid19 pneumonia. Please correlate with clinical parameters. Dictated by: Jose Hoffman MD 06/27/2021 14:05 Jose Hoffman MD in [place] 06/27/2021 14:05
[2021-06-27 12:25] LABS: Influenza A, PCR Not Detected (NotDetected); Influenza B, PCR Not Detected (NotDetected)
[2021-06-27 12:28] LABS: Basophils % 0.6 % (0.1-2.0); Eosinophils % 0.6 % (0.1-12.0); Hematocrit 41.6 % (42.0-52.0); Hemoglobin 13.7 g/dL (14.1-18.0); Lymphocytes # 0.8 K/mm3 (0.7-4.5); Lymphocytes % 24.1 % (10-50); Mean Corpuscular HGB Conc 32.9 g/dL (31.8-35.4); Mean Corpuscular Hemoglobin 29.4 pg (27.0-31.2); Mean Corpuscular Volume 89.6 fl (80-94); Mean Platelet Volume 7.2 fl (7.4-10.4); Monocytes # 0.3 K/mm3 (0.1-1.0); Monocytes % 8.3 % (1.7-9.3); Neutrophils # 2.2 K/mm3 (1.8-7.8); Neutrophils % 66.5 % (37.0-80.0); Platelet Count 154 K/mm3 (142-424); Red Blood Count 4.65 M/mm3 (4.60-6.20); Red Cell Distribution Width 13.9 % (11.5-17.5); White Blood Count 3.4 K/mm3 (4.8-10.8)
[2021-06-27 12:33] LABS: Chloride 103 mmol/L (98-107); Potassium 5.1 mmoL/L (3.5-5.1); Sodium 136 mmol/L (136-145)
[2021-06-27 12:35] LABS: Alanine Aminotransferase 22 U/L (12-78); Aspartate Amino Transferase 52 U/L (17-59); Blood Urea Nitrogen 35 mg/dl (9-20); Creatinine Clearance Estimated 59 mL/min (50-200); Estimated Glomerular Filt Rate 31 ml/min (>60); GFR (African American) 38 ML/MIN (>60)
[2021-06-27 12:36] LABS: Albumin Level 3.3 g/dl (3.5-5.0); Albumin/Globulin Ratio 0.9 (1.1-1.8); Alkaline Phosphatase 80 U/L (38-126); Anion Gap 15.1 mEq/L (5-15); Bilirubin,Total 0.5 mg/dl (0.2-1.3); Calcium 8.1 mg/dl (8.4-10.2); Carbon Dioxide 23 mmol/L (22.0-30.0); Globulin 3.8 g/dL (1.3-3.2); Glucose 258 mg/dl (74-100); Total Protein,Serum 7.1 g/dl (6.3-8.2)
[2021-06-27 12:48] LABS: Troponin I 0.04 ng/ml (0.00-0.034)
[2021-06-27 12:57] LABS: Coronavirus 19, PCR Detected (NotDetected)
--- NOTE | 2021-06-27 14:41 | HMH.EDGENADL ---
ED Disposition Clinical Impression: COVID-19, Acute respiratory failure with hypoxia, Elevated troponin I level CKD (chronic kidney disease) Qualifiers: Chronic kidney disease stage: unspecified stage Qualified Code(s): N18.9 - Chronic kidney disease, unspecified Disposition: Admitted As Inpatient Condition on Discharge: Fair Time of Disposition: 18:26 - Critical Care Critical Care Time: No Attestation: On 06/27/21, the high probability of a clinically significant, sudden or life threatening deterioration of the following system(s) required my full and direct attention, intervention and personal management. The time I documented below is in addition to time spent performing reported procedures but includes the following listed in this critical care notation. Medical Decision Making - Medical Records Medical records reviewed: Yes: I reviewed the patient's medical records. - Bj Inquiry Pt receiving controlled substance: No Vital Signs: 06/27/21 12:11 06/27/21 14:28 06/27/21 14:30 Temperature 100.5 F H Temperature Source Oral Pulse Rate 70 74 Pulse Rate [Right Radial] 76 Respiratory Rate 16 22 18 Blood Pressure 108/63 L 106/60 L Blood Pressure [Right Radial Artery] 146/87 H Blood Pressure Mean 73 77 Blood Pressure Mean [Right Radial Artery] 106 Blood Pressure Source [Right Radial Artery] Automatic Cuff Blood Pressure Position [Right Radial Artery] Sitting 02 Sat by Pulse Oximetry 90 L 98 99 Oxygen Delivery Method Room Air 06/27/21 15:01 06/27/21 16:00 Temperature Temperature Source Pulse Rate 73 71 Pulse Rate [Right Radial] Respiratory Rate 18 20 Blood Pressure 87/40 L 104/60 L Blood Pressure [Right Radial Artery] Blood Pressure Mean 71 74 Blood Pressure Mean [Right Radial Artery] Blood Pressure Source [Right Radial Artery] Blood Pressure Position [Right Radial Artery] 02 Sat by Pulse Oximetry 97 97 Oxygen Delivery Method - Lab Data Lab results reviewed: Yes: I reviewed the patient's lab results. Lab Results 06/27/21 12:15: NT-Pro-B Natriuret Pep 243 H 06/27/21 12:18: WBC 3.4 L, RBC 4.65, Hgb 13.7 L, Hct 41.6 L, MCV 89.6, MCH 29.4, MCHC 32.9, RDW 13.9, Plt Count 154, MPV 7.2 L, Neut % (Auto) 66.5, Lymph % (Auto) 24.1, [place] % (Auto) 8.3, Eos % (Auto) 0.6, Baso % (Auto) 0.6, Neut # (Auto) 2.2, Lymph # (Auto) 0.8, [place] # (Auto) 0.3, Eos # (Auto) 0.0, Baso # (Auto) 0.0 06/27/21 12:18: Sodium 136, Potassium 5.1, Chloride 103, Carbon Dioxide 23, Anion Gap 15.1 H, BUN 35 H, Creatinine 2.10 H, Estimated Creat Clear 59, Estimated GFR 31 L, Est GFR ( Amer) 38 L, Glucose 258 H, Calcium 8.1 L, Total Bilirubin 0.5, AST 52, ALT 22, Alkaline Phosphatase 80, Troponin I 0.04 H, Total Protein 7.1, Albumin 3.3 L, Globulin 3.8 H, Albumin/Globulin Ratio 0.9 L 06/27/21 12:18: SARS-CoV-2 (PCR) Detected A, Influenza A Untype (PCR) Not detected, Influenza Type B (PCR) Not detected 06/27/21 14:30: Troponin I 0.03 Result diagrams: 06/27/21 12:18 06/27/21 12:18 Orders (Tests/Meds): ED MEDICATIONS Generic Name Dose Route Start Last Admin Trade Name Freq PRN Reason Stop Dose Admin Azithromycin 500 mg/ Sodium 250 mls @ 250 mls/hr 06/27/21 14:30 06/27/21 14:42 Chloride IV 07/11/21 14:29 250 mls/hr Q24H KEM Administration Ceftriaxone Sodium 1 gm/ 50 mls @ 100 mls/hr 06/27/21 14:30 06/27/21 14:42 Sodium Chloride IV 07/11/21 14:29 100 mls/hr Q24H KEM Administration Discontinued Medications Generic Name Dose Route Start Last Admin Trade Name Freq PRN Reason Stop Dose Admin Acetaminophen 1,000 mg 06/27/21 12:45 06/27/21 12:49 Acetaminophen 500mg Tab PO 06/27/21 12:46 1,000 mg ONCE ONE Administration Dexamethasone Sodium Phosphate 6 mg 06/27/21 14:23 06/27/21 14:42 Dexamethasone 4mg/Ml 1ml Vial IV 06/27/21 14:24 6 mg ONCE ONE Administration - ECG Data Tracing #1 I reviewed this ECG and interpreted as documented b
[2021-06-27 15:08] LABS: NT Pro Brain Natriuretic Pep. 243 pg/mL (0-125)
--- NOTE | 2021-06-27 15:14 | PC.NURSE ---
pt ambulated to bathroom with SB assistance
[2021-06-27 15:16] LABS: Troponin I 0.03 ng/ml (0.00-0.034)
--- NOTE | 2021-06-27 17:40 | PC.NURSE ---
speaking to Dr England
--- NOTE | 2021-06-27 17:48 | PC.NURSE ---
Speaking to MD about admission
[2021-06-27 19:33] LABS: Ferritin 177 ng/ml (17.9-464)
--- NOTE | 2021-06-27 20:45 | PC.NURSE ---
PT ARRIVED TO FLOOR VIA W/C FROM ED W/STAFF AT 2044
[2021-06-28] VITALS: BP 171/75; PULSE 69; PULSE 70; RESP 20; TEMP 36.2; O2SAT 92
[2021-06-28 00:16] LABS: POC Glucose,Bedside 299 (70-110)
[2021-06-28 03:44] VITALS: BP 120/56; PULSE 61; RESP 20; TEMP 36.8; O2SAT 91
[2021-06-28 04:00] VITALS: PULSE 60
--- NOTE | 2021-06-28 04:20 | PC.NURSE ---
Patient is A&O x4. Patient has rested well this shift. He has sores located on his left first 2 toes and his right pinky toe. Pictures located under nurse wound note. Patient has remained on 2LNC this RN's shift. No acute changes, will continue to monitor,call light within reach.
[2021-06-28 06:07] VITALS: BMI 40.6
[2021-06-28 06:19] LABS: POC Glucose,Bedside 285 (70-110)
[2021-06-28 06:46] LABS: Basophils % 0.4 % (0.1-2.0); Hematocrit 40.2 % (42.0-52.0); Lymphocytes # 0.5 K/mm3 (0.7-4.5); Lymphocytes % 23.3 % (10-50); Mean Corpuscular HGB Conc 32.3 g/dL (31.8-35.4); Mean Corpuscular Hemoglobin 28.9 pg (27.0-31.2); Mean Corpuscular Volume 89.5 fl (80-94); Mean Platelet Volume 8.8 fl (7.4-10.4); Monocytes # 0.2 K/mm3 (0.1-1.0); Monocytes % 8.7 % (1.7-9.3); Neutrophils # 1.4 K/mm3 (1.8-7.8); Neutrophils % 67.6 % (37.0-80.0); Platelet Count 158 K/mm3 (142-424); Red Cell Distribution Width 14.2 % (11.5-17.5); White Blood Count 2.1 K/mm3 (4.8-10.8)
[2021-06-28 07:00] LABS: Alanine Aminotransferase 20 U/L (12-78); Albumin Level 3.1 g/dl (3.5-5.0); Albumin/Globulin Ratio 0.9 (1.1-1.8); Alkaline Phosphatase 76 U/L (38-126); Anion Gap 16.8 mEq/L (5-15); Aspartate Amino Transferase 47 U/L (17-59); Bilirubin,Total 0.3 mg/dl (0.2-1.3); Blood Urea Nitrogen 40 mg/dl (9-20); Calcium 8.1 mg/dl (8.4-10.2); Carbon Dioxide 20 mmol/L (22.0-30.0); Chloride 104 mmol/L (98-107); Creatinine Clearance Estimated 66 mL/min (50-200); Estimated Glomerular Filt Rate 35 ml/min (>60); GFR (African American) 42 ML/MIN (>60); Globulin 3.5 g/dL (1.3-3.2); Glucose 303 mg/dl (74-100); Potassium 4.8 mmoL/L (3.5-5.1); Sodium 136 mmol/L (136-145); Total Protein,Serum 6.6 g/dl (6.3-8.2)
--- NOTE | 2021-06-28 07:16 | HMH.HPDC ---
General - General Admission date:: 06/27/21 Discharge date: 06/28/21 *Admission Date: 06/27/21 *Chief complaint: Weakness *History of present illness: 76-year-old male presented to the emergency department at the encouragement of friends. Patient had 2 to 3 days of malaise cough and mild shortness of breath on exertion. Patient has home oxygen. In the emergency department he underwent evaluation with findings of positive COVID-19 test and chest x-ray consistent with bilateral pneumonia. Patient was maintaining his O2 sats in the 90s on 2 L of oxygen. Patient was admitted and begun on COVID-19 protocol with Remdesivir and dexamethasone. This morning he notes feeling significantly better. [facility] History I have reviewed the patient's past medical history: Yes Medical History: Reports:: Anxiety, Chronic Obstructive Pulmonary Disease (COPD), Coronary Artery Disease, Depression, Diabetes Mellitus Type 2, Gastroesophageal Reflux Disease(GERD), Hyperlipidemia, Hypertension, Lung Disease, Renal Disease, Renal Insufficiency Denies:: Cancer, Diabetes Mellitus Type 1, Internal Pacemaker, MRSA, Seizures *Have you ever received a pneumonia vaccine?: No *Have you received a flu vaccine this season?: No Other Medical History: Reports: Arthritis, Glaucoma, Other Laterality Cases: Bilateral: Arthroscopy Knee Other Surgeries: Yes: Appendectomy, Cardiac Catheterization, Cardiac Surgery (stents), Cholecystectomy, Colonoscopy, Coronary Stent, Other. No: Pacemaker Amputation: No Fractures: No - *Social History Smoking Status: Never smoker Alcohol Intake: never Alcohol Intake Frequency:: holidays/special occasions only Substance Use Type: denies use *Occupational Status:: retired Housing: house Household Members: other *Travel in the last 8 weeks: None - Psychiatric History Pschychiatric History:: Reports:: Anxiety, Depression Family Hx:: No significant family history Review of Systems - Constitutional Reports body ache(s), Reports chills, Reports lack of energy - ENT Denies ear discharge - *Cardiovascular Denies chest pain at rest, Denies chest pain with activity - *Respiratory Reports cough, Reports shortness of breath with activity, Denies chest congestion - *Gastrointestinal Denies belching, Denies bloating - *Genitourinary Denies difficulty urinating - *Musculoskeletal Reports abnormal walking, Reports joint pain Exam Vital signs and Labs for Last 24 Hours: Temp Pulse Resp BP Pulse Ox 98.2 F 60 20 120/56 L 91 L 06/28/21 03:44 06/28/21 04:00 06/28/21 03:44 06/28/21 03:44 06/28/21 03:44 Laboratory Results - last 24 hr 06/27/21 12:15: NT-Pro-B Natriuret Pep 243 H 06/27/21 12:18: WBC 3.4 L, RBC 4.65, Hgb 13.7 L, Hct 41.6 L, MCV 89.6, MCH 29.4, MCHC 32.9, RDW 13.9, Plt Count 154, MPV 7.2 L, Neut % (Auto) 66.5, Lymph % (Auto) 24.1, [place] % (Auto) 8.3, Eos % (Auto) 0.6, Baso % (Auto) 0.6, Neut # (Auto) 2.2, Lymph # (Auto) 0.8, [place] # (Auto) 0.3, Eos # (Auto) 0.0, Baso # (Auto) 0.0 06/27/21 12:18: Sodium 136, Potassium 5.1, Chloride 103, Carbon Dioxide 23, Anion Gap 15.1 H, BUN 35 H, Creatinine 2.10 H, Estimated Creat Clear 59, Estimated GFR 31 L, Est GFR ( Amer) 38 L, Glucose 258 H, Calcium 8.1 L, Total Bilirubin 0.5, AST 52, ALT 22, Alkaline Phosphatase 80, Troponin I 0.04 H, Total Protein 7.1, Albumin 3.3 L, Globulin 3.8 H, Albumin/Globulin Ratio 0.9 L 06/27/21 12:18: SARS-CoV-2 (PCR) Detected A, Influenza A Untype (PCR) Not detected, Influenza Type B (PCR) Not detected 06/27/21 14:30: Troponin I 0.03 06/27/21 14:30: Ferritin 177, C-Reactive Protein 68.0 H 06/27/21 23:17: POC Glucose 299 H 06/28/21 05:54: POC Glucose 285 H 06/28/21 06:25: WBC 2.1 L D, RBC 4.50 L, Hgb 13.0 L, Hct 40.2 L, MCV 89.5, MCH 28.9, MCHC 32.3, RDW 14.2, Plt Count 158, MPV 8.8, Neut % (Auto) 67.6, Lymph % (Auto) 23.3, [place] % (Auto) 8.7, Eos % (Auto) 0.0 L, Baso % (Auto) 0.4, Neut # (Auto) 1.4 L, Lymph # (Auto) 0.5 L, [place] # (Auto) 0.2, E
--- NOTE | 2021-06-28 07:31 | SW/DCPLANNER ---
Addendum entered by Aggie Donovan 06/28/21 08:37: A PORTABLE TANK IS ON ITS WAY... Original Note: PATIENT IS DISCHARGING HOME TODAY AND WILL NEED A PORTABLE TANK TO LEAVE THE HOSPITAL.. WILL NOTIFY NESTOR TO BRING THE 02 UP PRIOR TO DISCHARGE...
--- NOTE | 2021-06-28 07:58 | PC.WOUNDNOTE ---
Left toe left foot right foot
[2021-06-28 08:00] VITALS: BP 140/86; PULSE 75; RESP 19; TEMP 36.9; O2SAT 90
== END 2021-06-28 10:20 | disposition home or self-care (01) ==
LOC: ER 13:18 → 2ND 18:26
PROVIDERS: Admitting Provider Family Medicine; Emergency Provider Family Medicine; PCP Family Medicine; Visit Provider Family Medicine
DX: U07.1 COVID-19 (principal); J96.01 Acute respiratory failure with hypoxia; J12.82 Pneumonia due to coronavirus disease 2019
CPT/HCPCS: 71045; 80053; 82728; 82962; 83880; 84484; 85025; 86140; 93005; 96365; 96366; 96375; 99284; C9803; G0378; J0456; U0003; U0005

== ENCOUNTER 2021-06-30 08:42 | Inpatient (IN) | payer MEDICARE, SELFPAY ==
[2021-06-30] VITALS (23 sets, daily range): BP systolic 76–158; BP diastolic 33–94; PULSE 56–74; RESP 2–32; TEMP 36.2–37; O2SAT 50–99; BMI 40.6; BMI 35.6
--- NOTE | 2021-06-30 08:48 | PC.NURSE ---
rt called for a bipap
--- NOTE | 2021-06-30 08:54 | ECG_ITS ---
APPROVED REPORT Exam: Resting ECG HR:74 bpm ECG Measurements Heart Rate 74 AXES RI 210 P 27 QRSd 102 QRS 52 QT 408 T 57 QTc 452 Conclusion Sinus rhythm with 1st degree AV block Otherwise normal ECG Electronically signed by : Jose Ray MD 07/01/2021 17:39:34
--- NOTE | 2021-06-30 08:55 | PC.NURSE ---
RT CALLED FOR BIPAP.
--- NOTE | 2021-06-30 08:58 | XR_ITS ---
PROCEDURE: XR CHEST PORTABLE CLINICAL HISTORY: covid+ COMPARISON: CR XR CHEST PORTABLE from 02/28/2020 CR XR CHEST 2V from 12/15/2020 CR XR CHEST PORTABLE from 06/27/2021 FINDINGS: Mild cardiomegaly without failure. Consolidation with atelectatic change noted in the mid lower lung zones on both sides and appears somewhat worse compared to the previous exam. No evidence of pneumothorax. No effusions. No acute bony abnormalities. IMPRESSION: Worsening bilateral pneumonia Dictated by: Jose Hoffman MD 06/30/2021 09:28 Jose Hoffman MD in [place] 06/30/2021 09:28
--- NOTE | 2021-06-30 09:03 | PC.NURSE ---
RT AT BEDSIDE WITH BIPAP. PT CURRENTLY 83% ON NRB AT 15L.
[2021-06-30 09:05] LABS: Basophils # 0.1 K/mm3 (0-0.2); Basophils % 0.8 % (0.1-2.0); Chloride 105 mmol/L (98-107); Eosinophils % 0.1 % (0.1-12.0); Hematocrit 46.8 % (42.0-52.0); Hemoglobin 14.8 g/dL (14.1-18.0); Lymphocytes # 0.6 K/mm3 (0.7-4.5); Lymphocytes % 7.5 % (10-50); Mean Corpuscular HGB Conc 31.7 g/dL (31.8-35.4); Mean Corpuscular Hemoglobin 29.3 pg (27.0-31.2); Mean Corpuscular Volume 92.5 fl (80-94); Monocytes # 0.4 K/mm3 (0.1-1.0); Monocytes % 5.3 % (1.7-9.3); Neutrophils # 6.4 K/mm3 (1.8-7.8); Neutrophils % 86.3 % (37.0-80.0); Platelet Count 245 K/mm3 (142-424); Red Blood Count 5.06 M/mm3 (4.60-6.20); Red Cell Distribution Width 14.6 % (11.5-17.5); White Blood Count 7.4 K/mm3 (4.8-10.8)
[2021-06-30 09:06] LABS: Potassium 5.2 mmoL/L (3.5-5.1); Sodium 142 mmol/L (136-145)
[2021-06-30 09:08] LABS: Alanine Aminotransferase 27 U/L (12-78); Aspartate Amino Transferase 52 U/L (17-59); Blood Urea Nitrogen 63 mg/dl (9-20); Creatinine Clearance Estimated 48 mL/min (50-200); Estimated Glomerular Filt Rate 24 ml/min (>60); GFR (African American) 29 ML/MIN (>60)
[2021-06-30 09:09] LABS: Albumin Level 3.6 g/dl (3.5-5.0); Albumin/Globulin Ratio 0.9 (1.1-1.8); Alkaline Phosphatase 86 U/L (38-126); Anion Gap 20.2 mEq/L (5-15); Bilirubin,Total 0.3 mg/dl (0.2-1.3); Calcium 8.6 mg/dl (8.4-10.2); Carbon Dioxide 22 mmol/L (22.0-30.0); Globulin 3.9 g/dL (1.3-3.2); Glucose 312 mg/dl (74-100); Total Protein,Serum 7.5 g/dl (6.3-8.2)
[2021-06-30 09:12] LABS: MANUAL DIFFERENTIAL MANUAL DIFFERENTIAL (MANUAL DIFF)
[2021-06-30 09:21] LABS: Troponin I 0.08 ng/ml (0.00-0.034)
[2021-06-30 09:30] LABS: Hypochromasia 1+; Lymphocytes % 5 % (10-50); Monocytes % 4 % (2-9); Neutrophils % 91 % (42-76); Platelet Estimate Normal; Total Cells Counted 100
--- NOTE | 2021-06-30 09:36 | HMH.EDGENADL ---
ED Disposition Clinical Impression: Pneumonia due to COVID-19 virus Respiratory failure with hypoxia Qualifiers: Chronicity: acute Qualified Code(s): J96.01 - Acute respiratory failure with hypoxia Hypotension Qualifiers: Hypotension type: unspecified hypotension type Qualified Code(s): I95.9 - Hypotension, unspecified Disposition: Admitted As Inpatient Condition on Discharge: Serious Referrals: Provider,Referral, MD [Primary Care Provider] - - Critical Care Critical Care Time: Yes Attestation: On 06/30/21, the high probability of a clinically significant, sudden or life threatening deterioration of the following system(s) required my full and direct attention, intervention and personal management. The time I documented below is in addition to time spent performing reported procedures but includes the following listed in this critical care notation. Total Critical Care Time: 30 Vital system(s) involved:: Circulatory Failure, Respiratory Failure My critical care processes included: Assessment & monitoring of V/S, Initial and Re-exams, Data Review/Interpretation, Coordinating Care, Medication Orders and management, Documentation Medical Decision Making - Bj Inquiry Pt receiving controlled substance: No Vital Signs: 06/30/21 08:42 06/30/21 08:53 06/30/21 09:21 Temperature 98.6 F Temperature Source Oral Pulse Rate [Right] 74 Respiratory Rate 32 H Blood Pressure [Right Arm] 81/52 L Blood Pressure Mean [Right Arm] 61 02 Sat by Pulse Oximetry 50 L 81 L 98 Oxygen Delivery Method Room Air Non-Rebreather BiPAP Oxygen Flow Rate (LPM) 15 - Lab Data Lab Results 06/30/21 08:50: WBC 7.4 D, RBC 5.06, Hgb 14.8, Hct 46.8, MCV 92.5, MCH 29.3, MCHC 31.7 L, RDW 14.6, Plt Count 245 D, MPV 9.0, Neut % (Auto) 86.3 H, Lymph % (Auto) 7.5 L, [place] % (Auto) 5.3, Eos % (Auto) 0.1, Baso % (Auto) 0.8, Neut # (Auto) 6.4, Lymph # (Auto) 0.6 L, [place] # (Auto) 0.4, Eos # (Auto) 0.0, Baso # (Auto) 0.1, Total Counted 100, Neutrophils % (Manual) 91 H, Lymphocytes % (Manual) 5 L, Monocytes % (Manual) 4, Platelet Estimate Normal, Hypochromasia 1+ 06/30/21 08:50: Sodium 142, Potassium 5.2 H, Chloride 105, Carbon Dioxide 22, Anion Gap 20.2 H, BUN 63 H D, Creatinine 2.60 H D, Estimated Creat Clear 48, Estimated GFR 24 L, Est GFR ( Amer) 29 L D, Glucose 312 H, Calcium 8.6, Total Bilirubin 0.3, AST 52, ALT 27 D, Alkaline Phosphatase 86, Troponin I 0.08 H, Total Protein 7.5, Albumin 3.6, Globulin 3.9 H, Albumin/Globulin Ratio 0.9 L 06/30/21 09:39: Specimen Source Left radial, O2 % 100, ABG pH 7.41, ABG pCO2 30.5 L, ABG pO2 89.0, ABG HCO3 18.8 L, ABG Total CO2 19.7 L, ABG O2 Saturation 96, ABG Base Excess -5.9 L, Jose Test Acceptable, Vent Rate 20, PEEP 10 06/30/21 09:45: SARS-CoV-2 (PCR) Detected A, Influenza A Untype (PCR) Not detected, Influenza Type B (PCR) Not detected 06/30/21 09:45: Lactate 1.9 Result diagrams: 06/30/21 08:50 06/30/21 08:50 Orders (Tests/Meds): ED MEDICATIONS Generic Name Dose Route Start Last Admin Trade Name Freq PRN Reason Stop Dose Admin Sodium Chloride 2,330 mls @ 1,165 mls/hr 06/30/21 10:57 06/30/21 11:01 Sod Chlor 0.9% 1000ml Bag 30 ml/kg infuse over 2 hr (2330 ml) 06/30/21 12:56 1,165 mls/hr IV Administration .Q2H ONE Discontinued Medications Generic Name Dose Route Start Last Admin Trade Name Freq PRN Reason Stop Dose Admin Sodium Chloride 1,000 mls @ 250 mls/hr 06/30/21 09:30 06/30/21 09:25 Sod Chlor 0.9% 1000ml Bag IV 07/30/21 09:29 250 mls/hr .Q4H KEM Administration Sodium Chloride 1,000 mls @ 999 mls/hr 06/30/21 09:45 06/30/21 09:15 Sod Chlor 0.9% 1000ml Bag IV 06/30/21 10:45 999 mls/hr .Q1H1M KEM Administration ORDERS Category Date Time Status Troponin I Q3H Lab 06/30/21 12:00 Ordered Troponin I Q3H Lab 06/30/21 15:00 Ordered Blood Culture Stat Micro 06/30/21 09:45 Received - Radiology Data #1 Image(s): Chest
[2021-06-30 09:41] LABS: ABG Base Excess -5.9 mmol/L (-2.4-2.3); ABG HCO3 18.8 mmhg (22.0-26.0); ABG Oxygen Saturation 96 % (90-100); ABG PCO2 30.5 mmhg (35.0-45.0); ABG PH 7.41 mmol/L (7.35-7.45); ABG TCO2 19.7 mmhg (23-27)
[2021-06-30 09:44] LABS: Oxygen 100 %
[2021-06-30 09:45] LABS: Allen's Test Acceptable; PEEP 10; Source Left Radial; Vent Rate 20
[2021-06-30 09:59] LABS: Influenza A, PCR Not Detected (NotDetected); Influenza B, PCR Not Detected (NotDetected)
[2021-06-30 10:08] LABS: Lactic Acid 1.9 mmol/L (0.7-2.1)
[2021-06-30 10:19] LABS: Coronavirus 19, PCR Detected (NotDetected)
--- NOTE | 2021-06-30 10:23 | PC.NURSE ---
PT DOES NOT MEET SIRS OR SEPSIS CRITERIA PER DR. NEWBERRY.
--- NOTE | 2021-06-30 10:57 | PC.NURSE ---
Dr Clifford speaking with Dr England
--- NOTE | 2021-06-30 11:15 | PC.NURSE ---
1110 bed assignment requested room 213, all staff notified
--- NOTE | 2021-06-30 11:44 | PC.NURSE ---
FIO2 DOWN TO 50% BY DR MUÑOZ.
--- NOTE | 2021-06-30 11:46 | PC.NURSE ---
WITH FIO2 AT 50%, PT O2 SATTING AT 82%. CALL OUT TO [facility].
--- NOTE | 2021-06-30 11:54 | PC.NURSE ---
Dr. Siegel advised that he had turned down the FIO2. Pt sats started to decline to 80%, notified Dr. Siegel and he advised to turn it up to 75 and wait 5 mins if pt did not increase then to turn up the FIO2 again. Also notified resp that pt needed duoneb treatment.
--- NOTE | 2021-06-30 12:13 | PC.NURSE ---
RT AT BEDSIDE FOR THOMAS
--- NOTE | 2021-06-30 12:29 | PC.NURSE ---
REPORT GIVEN TO RACHEL HAND.
--- NOTE | 2021-06-30 12:30 | PC.NURSE ---
DUONEB RECEIVED & FIO2 INCREASED TO 75%, PT MAINTAINING O2 AT 91% WITH GOOD PLETH.
[2021-06-30 12:31] LABS: Troponin I 0.11 ng/ml (0.00-0.034)
--- NOTE | 2021-06-30 12:45 | HMH.PULMCON ---
*Reason for consult:: Acute hypoxic respiratory failure, COVID-19 pneumonia *History of present illness: Mr. Polanco 76-year-old female recently admitted to the hospital with respiratory symptoms and was discharged with dexamethasone and levofloxacin after receiving remdesivir for a day scented to the hospital with progressively worsening respiratory distress. Patient admits to dry cough. He denies any productive phlegm. On presentation to ED patient found to be hypoxic needing noninvasive ventilatory support to maintain his oxygenation and desired levels and pulmonary was called for further management. [facility] History I have reviewed the patient's past medical history: Yes Medical History: Reports:: Anxiety, Chronic Obstructive Pulmonary Disease (COPD), Coronary Artery Disease, Depression, Diabetes Mellitus Type 2, Gastroesophageal Reflux Disease(GERD), Hyperlipidemia, Hypertension, Lung Disease, Renal Disease, Renal Insufficiency Denies:: Cancer, Diabetes Mellitus Type 1, Internal Pacemaker, MRSA, Seizures *Have you ever received a pneumonia vaccine?: No *Have you received a flu vaccine this season?: No Other Medical History: Reports: Arthritis, Glaucoma, Other Laterality Cases: Bilateral: Arthroscopy Knee Other Surgeries: Yes: Appendectomy, Cardiac Catheterization, Cardiac Surgery (stents), Cholecystectomy, Colonoscopy, Coronary Stent, Other. No: Pacemaker Amputation: No Fractures: No - *Social History Last grade of school completed: Some college Smoking Status: Never smoker Alcohol Intake: never Alcohol Intake Frequency:: holidays/special occasions only Substance Use Type: denies use Last Used Substance: unknown *Occupational Status:: retired Housing: house Household Members: other *Travel in the last 8 weeks: Inside the [place] - Psychiatric History Expresses thoughts of harming self/others: None Suicide Plan Description: No Plan Pschychiatric History:: Reports:: Anxiety, Depression Family Hx:: No significant family history ROS - Cons Reports anorexia - Card Reports shortness of breath, Reports shortness of breath with activity - Resp Respiratory: Reports chest congestion, Reports cough, Reports non-productive cough, Reports dyspnea on exertion - GI Gastrointestingal: Denies: abdominal pain - Psych Reports abnormal sleep pattern Meds Home Medications Medication Instructions Recorded Confirmed Type Urea [Uramaxin] 1 applic TOPICAL BID PRN 11/18/19 06/30/21 History Aspirin [Aspir 81] 81 mg PO DAILY 04/24/20 06/30/21 History Furosemide [Furosemide 40MG tAB*] 40 mg PO DAILY 04/24/20 06/30/21 History Lidocaine [Lidoderm 5% transdermal 1 patch TOPICAL DAILY 04/24/20 06/30/21 History patch] Spironolactone [Spironolactone 25 mg PO DAILY 04/24/20 06/30/21 History 25mg Tablet] losartan 25 mg tablet 25 mg PO DAILY #90 tab 07/26/20 06/30/21 Rx diclofenac sodium 1 % topical gel 4 g TOPICAL QID PRN 30 Days #100 g 08/03/20 06/30/21 Rx albuterol sulfate 90 mcg/actuation 2 puff INHALATION Q8HP PRN #18 g 10/03/20 06/30/21 Rx aerosol inhaler insulin aspar prot-insulin aspart 15 unit SQ BID #15 ml 10/03/20 06/30/21 Rx 100 unit/mL (70-30) subcutaneous pen dapagliflozin 5 mg tablet 5 mg PO DAILY tab 10/28/20 06/30/21 History carvedilol 6.25 mg tablet 6.25 mg PO BID #180 tab 11/04/20 06/30/21 Rx clopidogrel 75 mg tablet 75 mg PO DAILY #90 tab 11/04/20 06/30/21 Rx acetaminophen 300 mg-codeine 30 mg 1 tab PO DAILY tab 03/01/21 06/30/21 History tablet ALPRAZolam [Xanax 0.5mg tab] 0.5 mg PO TID 04/15/21 06/30/21 History Atorvastatin Calcium [Lipitor 20mg 20 mg PO HS 04/15/21 06/30/21 History Tab] Gabapentin 300 mg PO DAILY 04/15/21 06/30/21 History Insulin Glargine,Hum.rec.anlog 50 units SUBCONJ HS 04/15/21 06/30/21 History [Lantus Solostar 100 Units/mL 3mL flexpen] Linagliptin [Tradjenta 5mg tablet] 5 ng PO DAILY 04/15/21 06/30/21 History Neomycin/Bacit/P-Myx/Hydrocort 1 applic OPH
--- NOTE | 2021-06-30 14:55 | HMH.PHAINT ---
MEDICATION RECONCILIATION COMPLETE USING SURESCRIPTS AND PREVIOUS DISCHARGE PAPERWORK
--- NOTE | 2021-06-30 15:05 | PC.NURSE ---
PT'S BLUE SHIRT, PANTS, HAT, CELLPHONE, DENTURE CUP & O2 TANK IN LABELED PT BELONGINGS BAG. SENT UP WITH PT ON BED.
--- NOTE | 2021-06-30 15:34 | CA_ITS ---
APPROVED REPORT Bilateral Lower Extremity Venous Study for DVT. [employer]: JUNG Indications COVID-19, hypoxia Vein Imaging CFV (R): compressive, spontaneous, phasic, augmentation SFJ (R): compressive, spontaneous, phasic, augmentation FEM (R): compressive, spontaneous, phasic, augmentation POP (R): compressive, spontaneous, phasic, augmentation DFV (R): compressive, spontaneous, phasic, augmentation PTV (R): compressive, spontaneous, phasic, augmentation GSV (R): compressive, spontaneous, phasic, augmentation SSV (R): compressive, spontaneous, phasic, augmentation Peroneals (R):compressive, spontaneous, phasic, augmentation GAS (R): compressive, spontaneous, phasic, augmentation CFV (L): compressive, spontaneous, phasic, augmentation SFJ (L): compressive, spontaneous, phasic, augmentation FEM (L): compressive, spontaneous, phasic, augmentation POP (L): compressive, spontaneous, phasic, augmentation DFV (L): compressive, spontaneous, phasic, augmentation PTV (L): compressive, spontaneous, phasic, augmentation GSV (L): compressive, spontaneous, phasic, augmentation SSV (L): compressive, spontaneous, phasic, augmentation Peroneals (L):compressive, spontaneous, phasic, augmentation GAS (L): compressive, spontaneous, phasic, augmentation Findings Color flow duplex demonstrates no evidence of DVT of the following bilateral lower extremity Veins:Common Femoral Vein, Femoral Vein, Popliteal Vein, Posterior Tibial Veins, Peroneal Veins, Deep Femoral Vein. Negative for DVT. Conclusion Negative for DVT. Electronically signed by : Jose Hoffman MD 06/30/2021 16:35:28
[2021-06-30 16:03] LABS: Troponin I 0.14 ng/ml (0.00-0.034)
[2021-06-30 16:06] LABS: NT Pro Brain Natriuretic Pep. 2230 pg/mL (0-125)
[2021-06-30 16:31] LABS: Ferritin 446 ng/ml (17.9-464)
[2021-06-30 17:12] LABS: POC Glucose,Bedside 172 (70-110)
--- NOTE | 2021-06-30 18:44 | PC.WOUNDNOTE ---
LT foot 3rd toe LT foot posterior great toe
[2021-07-01] VITALS (16 sets, daily range): BP systolic 155–176; BP diastolic 57–94; PULSE 59–85; RESP 4–30; TEMP 36.4–36.7; O2SAT 87–97; BMI 38.0
[2021-07-01 00:12] LABS: POC Glucose,Bedside 102 (70-110)
--- NOTE | 2021-07-01 01:48 | PC.NURSE ---
He has slept t/o the night. He continues on the bipap @ 100%FiO2. NSR with occasional PAC on telemetry. Glucose 102 at bedtime. His sister called once and was concerned about his kidneys. At that time he had not voided this shift but has since voided 650mL. DSG on toes of his left foot were placed by previous shift with pics on the chart.
--- NOTE | 2021-07-01 03:09 | PC.NURSE ---
FiO2 decreased to 80% at this time.
--- NOTE | 2021-07-01 05:23 | PC.NURSE ---
Right foot 5th toe with unstageable.
[2021-07-01 06:21] LABS: Basophils % 0.4 % (0.1-2.0); Hemoglobin 13.8 g/dL (14.1-18.0); Lymphocytes # 0.5 K/mm3 (0.7-4.5); Lymphocytes % 8.2 % (10-50); Mean Corpuscular HGB Conc 31.2 g/dL (31.8-35.4); Mean Corpuscular Hemoglobin 29.3 pg (27.0-31.2); Mean Platelet Volume 9.1 fl (7.4-10.4); Monocytes # 0.3 K/mm3 (0.1-1.0); Monocytes % 4.2 % (1.7-9.3); Neutrophils # 5.4 K/mm3 (1.8-7.8); Neutrophils % 87.3 % (37.0-80.0); Platelet Count 156 K/mm3 (142-424); Red Blood Count 4.69 M/mm3 (4.60-6.20); Red Cell Distribution Width 14.6 % (11.5-17.5); White Blood Count 6.2 K/mm3 (4.8-10.8)
[2021-07-01 06:23] LABS: MANUAL DIFFERENTIAL MANUAL DIFFERENTIAL (MANUAL DIFF)
[2021-07-01 06:34] LABS: POC Glucose,Bedside 146 (70-110)
[2021-07-01 06:44] LABS: Alanine Aminotransferase 16 U/L (12-78); Albumin Level 3.1 g/dl (3.5-5.0); Albumin/Globulin Ratio 0.9 (1.1-1.8); Alkaline Phosphatase 72 U/L (38-126); Anion Gap 16.8 mEq/L (5-15); Aspartate Amino Transferase 49 U/L (17-59); Bilirubin,Total 0.2 mg/dl (0.2-1.3); Blood Urea Nitrogen 53 mg/dl (9-20); Calcium 7.9 mg/dl (8.4-10.2); Carbon Dioxide 18 mmol/L (22.0-30.0); Chloride 116 mmol/L (98-107); Creatinine Clearance Estimated 65 mL/min (50-200); Estimated Glomerular Filt Rate 37 ml/min (>60); GFR (African American) 45 ML/MIN (>60); Globulin 3.4 g/dL (1.3-3.2); Glucose 162 mg/dl (74-100); Potassium 4.8 mmoL/L (3.5-5.1); Sodium 146 mmol/L (136-145); Total Protein,Serum 6.5 g/dl (6.3-8.2)
[2021-07-01 06:47] LABS: Lymphocytes % 10 % (10-50); Monocytes % 4 % (2-9); Neutrophils % 86 % (42-76); Total Cells Counted 100
[2021-07-01 06:48] LABS: Hypochromasia 1+; Platelet Estimate Normal
[2021-07-01 06:50] LABS: C-Reactive Protein 61.6 mg/L (0-4)
--- NOTE | 2021-07-01 07:16 | HMH.HP ---
*Admission Date: 06/30/21 *Chief complaint: Shortness of breath *History of present illness: 76-year-old male diagnosed with COVID-19 pneumonia earlier in the week but discharged home as he had home supplemental oxygen to use and was satting well on 3 L return to the emergency department yesterday in respiratory distress. EMS was contacted and arrived at the patient's home. Patient's O2 sat was in the 50s. Patient's home concentrator maxes out at 5 L/min. Patient was brought to the ER. With the assistance of nonrebreather he was able to get his sats to the 70s and in the ER was placed on BiPAP which brought his O2 sats to the 90s. He is remained on BiPAP with FiO2 of 80%. Patient is admitted for treatment of COVID-19 pneumonia with acute respiratory failure. [facility] History I have reviewed the patient's past medical history: Yes Medical History: Reports:: Anxiety, Congestive Heart Failure, Chronic Obstructive Pulmonary Disease (COPD), Coronary Artery Disease, Depression, Diabetes Mellitus Type 2, Gastroesophageal Reflux Disease(GERD), Hyperlipidemia, Hypertension, Lung Disease, Myocardial Infarction, Peripheral Vascular Disease, Renal Disease, Renal Insufficiency Denies:: Cancer, Diabetes Mellitus Type 1, Internal Pacemaker, MRSA, Seizures *Have you ever received a pneumonia vaccine?: Yes *Have you received a flu vaccine this season?: Yes Other Medical History: Reports: Arthritis, Glaucoma, Other Laterality Cases: Bilateral: Arthroscopy Knee Other Surgeries: Yes: Appendectomy, Cardiac Catheterization, Cardiac Surgery (stents), Cholecystectomy, Colonoscopy, Coronary Stent, Other. No: Pacemaker Amputation: No Fractures: No - *Social History Last grade of school completed: Some college Smoking Status: Never smoker Alcohol Intake: never Alcohol Intake Frequency:: holidays/special occasions only Substance Use Type: denies use Last Used Substance: unknown *Occupational Status:: retired Housing: house Household Members: other *Travel in the last 8 weeks: Inside the [place] - Psychiatric History Expresses thoughts of harming self/others: None Suicide Plan Description: No Plan Pschychiatric History:: Reports:: Anxiety, Depression Family Hx:: No significant family history Review of Systems - Constitutional Reports body ache(s), Reports lack of energy, Denies anorexia, Denies chills - Eyes Denies blurry vision, Denies change in vision - ENT Denies difficulty swallowing, Denies ear discharge - *Cardiovascular Denies chest pain, Denies chest pain at rest, Denies chest pain with activity - *Respiratory Denies chest congestion, Denies cough - *Gastrointestinal Denies abdominal pain, Denies belching - *Genitourinary Denies difficulty urinating, Denies blood in semen - *Musculoskeletal Denies joint pain, Denies decreased muscle mass - Integumentary/Breasts Denies bleeding lesions - *Neurologic Denies weakness Meds Home Medications Medication Instructions Recorded Confirmed Type Urea [Uramaxin] 1 applic TOPICAL BID PRN 11/18/19 06/30/21 History Aspirin [Aspir 81] 81 mg PO DAILY 04/24/20 06/30/21 History Furosemide [Furosemide 40MG tAB*] 40 mg PO DAILY 04/24/20 06/30/21 History Lidocaine [Lidoderm 5% transdermal 1 patch TOPICAL DAILY 04/24/20 06/30/21 History patch] Spironolactone [Spironolactone 25 mg PO DAILY 04/24/20 06/30/21 History 25mg Tablet] losartan 25 mg tablet 25 mg PO DAILY #90 tab 07/26/20 06/30/21 Rx diclofenac sodium 1 % topical gel 4 g TOPICAL QID PRN 30 Days #100 g 08/03/20 06/30/21 Rx albuterol sulfate 90 mcg/actuation 2 puff INHALATION Q8HP PRN #18 g 10/03/20 06/30/21 Rx aerosol inhaler insulin aspar prot-insulin aspart 15 unit SQ BID #15 ml 10/03/20 06/30/21 Rx 100 unit/mL (70-30) subcutaneous pen dapagliflozin 5 mg tablet 5 mg PO DAILY tab 10/28/20 06/30/21 History carvedilol 6.25 mg tablet 6.25 mg PO BID #180 tab 11/04/20 06/30/21 Rx clopidogrel 75 mg tablet 75 mg PO QUIQUE
--- NOTE | 2021-07-01 08:25 | P.CONPHA_ITS ---
[facility] Pharmacy VTE Monitoring - Patient Demographics Admission date: 06/30/21 Report Date: 07/01/21 Time: 08:25 Allergies/Adverse Reactions: Patient Allergies doxycycline Allergy (Intermediate, Verified 06/09/21 13:25) Rash Height: 1.83 m Weight: 127.187 kg Patient Problems: Current Active Problems (Last Updated 06/03/19 @ 11:58 by Carrie Banegas RN) Pneumonia due to COVID-19 virus (Acute) Respiratory failure with hypoxia (Acute) Hypotension (Acute) Acute kidney injury (nontraumatic) (Acute) Stage 3b chronic kidney disease (Acute) Morbid obesity (Acute) Diabetes mellitus type 2 in obese (Acute) Type 2 diabetes mellitus with hyperglycemia (Acute) Long-term insulin use (Acute) HHD (hypertensive heart disease) (Chronic) CAD (coronary artery disease) (Chronic) - VTE Risk Labs: VTE Related Lab Results Hgb 13.8 g/dL (14.1-18.0) L 07/01/21 05:44 Hct 44.0 % (42.0-52.0) 07/01/21 05:44 Plt Count 156 K/mm3 (142-424) D 07/01/21 05:44 BUN 53 mg/dl (9-20) H 07/01/21 05:44 Creatinine 1.80 mg/dl (0.66-1.25) H D 07/01/21 05:44 Estimated Creat Clear 65 mL/min (50-200) 07/01/21 05:44 Was VTE Risk Assessment Performed: Yes VTE Risk Level: Moderate Risk - Prophylaxis VTE Prophylaxis Ordered?: Yes Types of VTE Prophylaxis: TEDS Knee High, Pharmacological Location of Applied Device: Bilateral Lower Extremeties Pharmacologic Type: Enoxaparin
--- NOTE | 2021-07-01 09:11 | HMH.PULMPN ---
Internal Medicine - PN: Subj *Date: 07/01/21 *Time: 12:30 Interval history: No acute respiratory events overnight. Exam - Constitutional Constitutional:: Present: no acute distress, comfortable - HENMT Exam HENMT: Present: normocephalic, atraumatic - Eye Exam Eyes:: Present: normal appearance both eyes and related structures - Neck Exam Neck:: Present: normal visual inspection - Respiratory Exam Respiratory:: Present: able to speak in complete sentences, respiratory distress. Absent: wheezing - Cardiovascular Exam Cardiac:: Present: S1, S2 - GI Exam GI:: Present: soft, obese - Skin Exam Skin: Present: warm - Neurological Exam Neurological: Present: alert, awake, normal cognition - Extremities Exam Extremities: Present: no cyanosis, no clubbing, no edema Assessment and Plan (1) Respiratory failure with hypoxia Status: Acute Qualifiers: Chronicity: acute Qualified Code(s): J96.01 - Acute respiratory failure with hypoxia Category: Medical Code(s): J96.91 - Respiratory failure, unspecified with hypoxia (2) Pneumonia due to COVID-19 virus Status: Acute Category: Medical Code(s): U07.1 - COVID-19; J12.82 - Pneumonia due to coronavirus disease 2019 (3) Acute kidney injury (nontraumatic) Status: Acute Category: Medical Code(s): N17.9 - Acute kidney failure, unspecified (4) Stage 3b chronic kidney disease Status: Acute Category: Medical Code(s): N18.32 - Chronic kidney disease, stage 3b (5) Morbid obesity Status: Acute Category: Medical Code(s): E66.01 - Morbid (severe) obesity due to excess calories (6) Diabetes mellitus type 2 in obese Status: Acute Category: Medical Code(s): E11.69 - Type 2 diabetes mellitus with other specified complication; E66.9 - Obesity, unspecified (7) Type 2 diabetes mellitus with hyperglycemia Status: Acute Category: Medical Code(s): E11.65 - Type 2 diabetes mellitus with hyperglycemia (8) Long-term insulin use Status: Acute Category: Medical Code(s): Z79.4 - [facility] (current) use of insulin (9) CAD (coronary artery disease) Status: Chronic Qualifiers: Coronary Disease-Associated Artery/Lesion type: unspecified vessel or lesion type [place] vs. transplanted heart: [place] heart Associated angina: without angina Qualified Code(s): I25.10 - Atherosclerotic heart disease of [place] coronary artery without angina pectoris Category: Medical Code(s): I25.10 - Atherosclerotic heart disease of [place] coronary artery without angina pectoris (10) HHD (hypertensive heart disease) Status: Chronic Qualifiers: Heart failure presence: without heart failure Qualified Code(s): I11.9 - Hypertensive heart disease without heart failure Category: Medical Code(s): I11.9 - Hypertensive heart disease without heart failure - Assessment and plan all Dx Assessment and Plan for all problems:: #COVID-19 pneumonia: #Community-acquired pneumonia: #Acute hypoxic respiratory failure: 76-year-old recently diagnosed with COVID-19 pneumonia on 06/27/21 and discharged home on levofloxacin and dexamethasone presented to the hospital with progressively worsening respiratory distress associated with nonproductive cough. Chest x-ray admission showed worsening pulmonary infiltrates bilaterally. No evidence of leukocytosis. Lymphopenia noted. CRP 61.6 on this admission Lower extremity Doppler negative for DVT. No CTA performed. Renal function creatinine continue to improve. We will closely monitor. Plan: -Continue BiPAP ventilatory support, aggressively wean FiO2 as tolerated, decreased to 60% this morning. Follow with D-dimer no CTA performed. Given improvement in his respiratory status we will continue to monitor and hold off in performing CT at this point of time. Lower extremity Doppler negative. -Continue to hold his maintenance fluids at this point of time. Renal function improving from yesterday. Patient
[2021-07-01 11:29] LABS: POC Glucose,Bedside 213 (70-110)
[2021-07-01 16:44] LABS: POC Glucose,Bedside 178 (70-110)
[2021-07-01 23:49] LABS: POC Glucose,Bedside 141 (70-110)
[2021-07-02] VITALS (20 sets, daily range): BP systolic 74–181; BP diastolic 51–93; PULSE 59–80; RESP 5–31; TEMP 35.7–37.9; O2SAT 72–97; BMI 37.6
[2021-07-02 07:06] LABS: Basophils # 0.1 K/mm3 (0-0.2); Basophils % 0.4 % (0.1-2.0); Eosinophils % 0.2 % (0.1-12.0); Hematocrit 40.2 % (42.0-52.0); Hemoglobin 13.4 g/dL (14.1-18.0); Lymphocytes # 0.7 K/mm3 (0.7-4.5); Lymphocytes % 6.1 % (10-50); Mean Corpuscular HGB Conc 33.3 g/dL (31.8-35.4); Mean Corpuscular Hemoglobin 29.8 pg (27.0-31.2); Mean Corpuscular Volume 89.7 fl (80-94); Mean Platelet Volume 9.4 fl (7.4-10.4); Monocytes # 0.5 K/mm3 (0.1-1.0); Monocytes % 4.2 % (1.7-9.3); Neutrophils # 10.9 K/mm3 (1.8-7.8); Platelet Count 240 K/mm3 (142-424); Red Blood Count 4.48 M/mm3 (4.60-6.20); Red Cell Distribution Width 14.7 % (11.5-17.5); White Blood Count 12.2 K/mm3 (4.8-10.8)
[2021-07-02 07:08] LABS: MANUAL DIFFERENTIAL MANUAL DIFFERENTIAL (MANUAL DIFF)
[2021-07-02 07:39] LABS: Alanine Aminotransferase 21 U/L (12-78); Albumin Level 2.9 g/dl (3.5-5.0); Albumin/Globulin Ratio 0.9 (1.1-1.8); Alkaline Phosphatase 75 U/L (38-126); Anion Gap 17.7 mEq/L (5-15); Aspartate Amino Transferase 67 U/L (17-59); Bilirubin,Total 0.6 mg/dl (0.2-1.3); Blood Urea Nitrogen 48 mg/dl (9-20); Calcium 8.4 mg/dl (8.4-10.2); Carbon Dioxide 16 mmol/L (22.0-30.0); Chloride 119 mmol/L (98-107); Creatinine Clearance Estimated 72 mL/min (50-200); Estimated Glomerular Filt Rate 42 ml/min (>60); GFR (African American) 51 ML/MIN (>60); Globulin 3.4 g/dL (1.3-3.2); Glucose 163 mg/dl (74-100); Potassium 5.7 mmoL/L (3.5-5.1); Sodium 147 mmol/L (136-145); Total Protein,Serum 6.3 g/dl (6.3-8.2)
[2021-07-02 08:24] LABS: Lymphocytes % 13 % (10-50); Monocytes % 4 % (2-9); Neutrophils % 81 % (42-76); Platelet Estimate Normal; RBC Morphology Normal; Total Cells Counted 100
--- NOTE | 2021-07-02 08:29 | HMH.ACPN2 ---
Internal Medicine - PN: Subj *Date: 07/02/21 *Time: 08:29 Interval history: Patient is remained stable on BiPAP over the last 24 hours. Any disruption in BiPAP will cause O2 sats to drop to the 60s. Despite hypoxia patient denies feeling short of breath. Exam Vital signs and Labs for Last 24 Hours: Temp Pulse Resp BP Pulse Ox 98.4 F 76 21 178/92 H 84 L 07/02/21 07:48 07/02/21 07:48 07/02/21 07:48 07/02/21 07:48 07/02/21 07:48 Laboratory Results - last 24 hr 07/01/21 11:05: POC Glucose 213 H 07/01/21 13:07: D-Dimer 1.40 H 07/01/21 16:08: POC Glucose 178 H 07/01/21 23:41: POC Glucose 141 H 07/02/21 06:51: WBC 12.2 H D, RBC 4.48 L, Hgb 13.4 L, Hct 40.2 L, MCV 89.7, MCH 29.8, MCHC 33.3, RDW 14.7, Plt Count 240 D, MPV 9.4, Neut % (Auto) 89.0 H, Lymph % (Auto) 6.1 L, [place] % (Auto) 4.2, Eos % (Auto) 0.2, Baso % (Auto) 0.4, Neut # (Auto) 10.9 H, Lymph # (Auto) 0.7, [place] # (Auto) 0.5, Eos # (Auto) 0.0, Baso # (Auto) 0.1, Total Counted 100, Neutrophils % (Manual) 81 H, Lymphocytes % (Manual) 13, Monocytes % (Manual) 4, Basophils % (Manual) 2.0 H, Platelet Estimate Normal, RBC Morphology Normal 07/02/21 06:51: Sodium 147 H, Potassium 5.7 H, Chloride 119 H, Carbon Dioxide 16 L, Anion Gap 17.7 H, BUN 48 H, Creatinine 1.60 H, Estimated Creat Clear 72, Estimated GFR 42 L, Est GFR ( Amer) 51 L, Glucose 163 H, Calcium 8.4, Total Bilirubin 0.6, AST 67 H D, ALT 21 D, Alkaline Phosphatase 75, Total Protein 6.3, Albumin 2.9 L, Globulin 3.4 H, Albumin/Globulin Ratio 0.9 L I & O for Last 24 hours: Intake & Output 06/29/21 06/30/21 07/01/21 07/02/21 11:59 11:59 11:59 11:59 Intake Total 1656 / 1656 600 / 600 Output Total 1600 / 1600 2550 / 2550 Balance 56 / 56 -1950 / -1950 Weight 300 lb 280 lb 6.4 oz 278 lb Narrative: Patient looks comfortable laying in bed. He is alert and oriented. Oropharynx is dry from BiPAP use. Lungs have scattered rales and rhonchi heard both anteriorly and posteriorly. Heart is a regular rate and rhythm. Abdomen is obese. Assessment and Plan (1) Respiratory failure with hypoxia Status: Acute Qualifiers: Chronicity: acute Qualified Code(s): J96.01 - Acute respiratory failure with hypoxia Category: Medical Code(s): J96.91 - Respiratory failure, unspecified with hypoxia (2) Pneumonia due to COVID-19 virus Status: Acute Category: Medical Code(s): U07.1 - COVID-19; J12.82 - Pneumonia due to coronavirus disease 2019 (3) Acute kidney injury (nontraumatic) Status: Acute Category: Medical Code(s): N17.9 - Acute kidney failure, unspecified (4) Stage 3b chronic kidney disease Status: Chronic Category: Medical Code(s): N18.32 - Chronic kidney disease, stage 3b (5) Morbid obesity Status: Chronic Category: Medical Code(s): E66.01 - Morbid (severe) obesity due to excess calories (6) Diabetes mellitus type 2 in obese Status: Chronic Category: Medical Code(s): E11.69 - Type 2 diabetes mellitus with other specified complication; E66.9 - Obesity, unspecified (7) Type 2 diabetes mellitus with hyperglycemia Status: Chronic Category: Medical Code(s): E11.65 - Type 2 diabetes mellitus with hyperglycemia (8) Long-term insulin use Status: Chronic Category: Medical Code(s): Z79.4 - nursing home (current) use of insulin (9) CAD (coronary artery disease) Status: Chronic Qualifiers: Coronary Disease-Associated Artery/Lesion type: unspecified vessel or lesion type [place] vs. transplanted heart: [place] heart Associated angina: without angina Qualified Code(s): I25.10 - Atherosclerotic heart disease of [place] coronary artery without angina pectoris Category: Medical Code(s): I25.10 - Atherosclerotic heart disease of [place] coronary artery without angina pectoris (10) HHD (hypertensive heart disease) Status: Chronic Qualifiers: Heart failure presence: without heart failure Qualified Code(s): I11.9 - Hypertensive
--- NOTE | 2021-07-02 10:22 | HMH.PHACONS ---
- Pharmacy Consult Date: 07/02/21 Time: 10:22 Referring provider: DR. BARR Reason for Consult:: VANCOMYCIN DOSING Allergies and ADEs:: Allergies Allergy/AdvReac Type Severity Reaction Status Date / Time doxycycline Allergy Intermediate Rash Verified 06/09/21 13:25 Home Medications:: Home Medications Medication Instructions Recorded Confirmed Type Urea [Uramaxin] 1 applic TOPICAL BID PRN 11/18/19 06/30/21 History Aspirin [Aspir 81] 81 mg PO DAILY 04/24/20 06/30/21 History Furosemide [Furosemide 40MG tAB*] 40 mg PO DAILY 04/24/20 06/30/21 History Lidocaine [Lidoderm 5% transdermal 1 patch TOPICAL DAILY 04/24/20 06/30/21 History patch] Spironolactone [Spironolactone 25 mg PO DAILY 04/24/20 06/30/21 History 25mg Tablet] losartan 25 mg tablet 25 mg PO DAILY #90 tab 07/26/20 06/30/21 Rx diclofenac sodium 1 % topical gel 4 g TOPICAL QID PRN 30 Days #100 g 08/03/20 06/30/21 Rx albuterol sulfate 90 mcg/actuation 2 puff INHALATION Q8HP PRN #18 g 10/03/20 06/30/21 Rx aerosol inhaler insulin aspar prot-insulin aspart 15 unit SQ BID #15 ml 10/03/20 06/30/21 Rx 100 unit/mL (70-30) subcutaneous pen dapagliflozin 5 mg tablet 5 mg PO DAILY tab 10/28/20 06/30/21 History carvedilol 6.25 mg tablet 6.25 mg PO BID #180 tab 11/04/20 06/30/21 Rx clopidogrel 75 mg tablet 75 mg PO DAILY #90 tab 11/04/20 06/30/21 Rx acetaminophen 300 mg-codeine 30 mg 1 tab PO DAILY tab 03/01/21 06/30/21 History tablet ALPRAZolam [Xanax 0.5mg tab] 0.5 mg PO TID 04/15/21 06/30/21 History Atorvastatin Calcium [Lipitor 20mg 20 mg PO HS 04/15/21 06/30/21 History Tab] Gabapentin 300 mg PO DAILY 04/15/21 06/30/21 History Insulin Glargine,Hum.rec.anlog 50 units SUBCONJ HS 04/15/21 06/30/21 History [Lantus Solostar 100 Units/mL 3mL flexpen] Linagliptin [Tradjenta 5mg tablet] 5 mg PO DAILY 04/15/21 06/30/21 History Neomycin/Bacit/P-Myx/Hydrocort 1 applic OPHTHALMIC QID 04/15/21 06/30/21 History [Mnt-Sxwdc-Zlal-Hc Eye Ointment] PARoxetine HCl [Paxil] 10 mg PO DAILY 04/15/21 06/30/21 History Triamcinolone Acetonide 1 applic TOPICAL BID PRN 04/15/21 06/30/21 History glipiZIDE [Glipizide] 10 mg PO BID 04/15/21 06/30/21 History tramadol 50 mg tablet 50 mg PO Q6H PRN #30 tab 04/15/21 06/30/21 Rx mupirocin 2 % topical ointment 1 applic TOPICAL TID #15 g 05/23/21 06/30/21 Rx levofloxacin 500 mg tablet 500 mg PO DAILY 14 Days #14 tab 06/09/21 06/30/21 Rx Ergocalciferol (Vitamin D2) 1 tab PO WEEKLY 06/27/21 06/30/21 History [Drisdol] dexAMETHasone [Dexamethasone] 6 mg PO DAILY 06/30/21 06/30/21 History blood sugar diagnostic See Rx Instructions .ROUTE 07/01/21 Rx .MEDSUPPLY #50 each Height: 1.83 m Weight: 126.099 kg Laboratory Results:: Laboratory Results - last 24 hr 07/01/21 11:05: POC Glucose 213 H 07/01/21 13:07: D-Dimer 1.40 H 07/01/21 16:08: POC Glucose 178 H 07/01/21 23:41: POC Glucose 141 H 07/02/21 06:51: WBC 12.2 H D, RBC 4.48 L, Hgb 13.4 L, Hct 40.2 L, MCV 89.7, MCH 29.8, MCHC 33.3, RDW 14.7, Plt Count 240 D, MPV 9.4, Neut % (Auto) 89.0 H, Lymph % (Auto) 6.1 L, [place] % (Auto) 4.2, Eos % (Auto) 0.2, Baso % (Auto) 0.4, Neut # (Auto) 10.9 H, Lymph # (Auto) 0.7, [place] # (Auto) 0.5, Eos # (Auto) 0.0, Baso # (Auto) 0.1, Total Counted 100, Neutrophils % (Manual) 81 H, Lymphocytes % (Manual) 13, Monocytes % (Manual) 4, Basophils % (Manual) 2.0 H, Platelet Estimate Normal, RBC Morphology Normal 07/02/21 06:51: Sodium 147 H, Potassium 5.7 H, Chloride 119 H, Carbon Dioxide 16 L, Anion Gap 17.7 H, BUN 48 H, Creatinine 1.60 H, Estimated Creat Clear 72, Estimated GFR 42 L, Est GFR ( Amer) 51 L, Glucose 163 H, Calcium 8.4, Total Bilirubin 0.6, AST 67 H D, ALT 21 D, Alkaline Phosphatase 75, Total Protein 6.3, Albumin 2.9 L, Globulin 3.4 H, Albumin/Globulin Ratio 0.9 L Medical History: Reports:: Anxiety, Congestive Heart Failure, Chronic Obstructive Pulmonary Disease (COPD), Coronary Artery Disease, Depression, Diabetes M
--- NOTE | 2021-07-02 13:58 | ECG_ITS ---
APPROVED REPORT Exam: Resting ECG HR:98 bpm ECG Measurements Heart Rate 98 AXES PA 212 P 16 QRSd 104 QRS 72 QT 346 T 2 QTc 441 Conclusion Sinus rhythm with marked sinus arrhythmia with 1st degree AV block Nonspecific ST abnormality Abnormal ECG Electronically signed by : Jose Ray MD 07/03/2021 20:53:41
--- NOTE | 2021-07-02 14:03 | XR_ITS ---
PROCEDURE INFORMATION: Exam: XR Chest Exam date and time: 07/02/2021 2:03 PM Age: 76 years old Clinical indication: Device placement; Ett placement (vent status); Patient HX: Et tube placement , code blue TECHNIQUE: Imaging protocol: XR of the chest. Views: 1 view. COMPARISON: CR XR CHEST PORTABLE 06/30/2021 9:18 AM FINDINGS: Tubes, catheters and devices: Endotracheal tube terminates 5 cm above the favian. Lungs: Patchy bilateral opacities may represent multifocal pneumonia. Pleural spaces: Unremarkable. No pleural effusion. No pneumothorax. Heart/Mediastinum: Cardiomegaly Bones/joints: Unremarkable. IMPRESSION: 1. Endotracheal tube terminates 5 cm above the favian. 2. Patchy bilateral opacities may represent multifocal pneumonia.
[2021-07-02 14:13] LABS: ABG Base Excess -17.4 mmol/L (-2.4-2.3); ABG HCO3 11.8 mmhg (22.0-26.0); ABG Oxygen Saturation 90 % (90-100); ABG PCO2 36.6 mmhg (35.0-45.0); ABG PO2 78.8 mmhg (80-100); ABG TCO2 12.9 mmhg (23-27)
[2021-07-02 14:14] LABS: Allen's Test Non Applicable; Oxygen 100% AMBU %; Source Right Radial
[2021-07-02 14:17] LABS: ABG PH 7.13 mmol/L (7.35-7.45)
--- NOTE | 2021-07-02 14:17 | HMH.RR ---
Acute Rapid Response Note - Subjective Date Responded: 07/02/21 Time Responded: 13:45 - Objective Findings: Vital Signs - Last 4 Hours Temperature 98.7 F 07/02/21 11:30 Temperature Source Axillary 07/02/21 11:30 Pulse Rate 70 07/02/21 11:56 Respiratory Rate 22 07/02/21 11:30 Blood Pressure 181/86 H 07/02/21 11:30 Blood Pressure Mean 117 07/02/21 11:30 Blood Pressure Source Automatic Cuff 07/02/21 11:30 Blood Pressure Position Supine 07/02/21 11:30 02 Sat by Pulse Oximetry 92 L 07/02/21 11:56 Oxygen Delivery Method 07/02/21 11:56 Oxygen Flow Rate (LPM) 80 07/02/21 11:56 Lab Results for Past 12 Hours 07/02/21 : Specimen Source Right radial, O2 % 100% ambu, Jose Test Non applicable 07/02/21 06:51: Sodium 147 H, Potassium 5.7 H, Chloride 119 H, Carbon Dioxide 16 L, Anion Gap 17.7 H, BUN 48 H, Creatinine 1.60 H, Estimated Creat Clear 72, Estimated GFR 42 L, Est GFR ( Amer) 51 L, Glucose 163 H, Calcium 8.4, Total Bilirubin 0.6, AST 67 H D, ALT 21 D, Alkaline Phosphatase 75, Total Protein 6.3, Albumin 2.9 L, Globulin 3.4 H, Albumin/Globulin Ratio 0.9 L 07/02/21 06:51: WBC 12.2 H D, RBC 4.48 L, Hgb 13.4 L, Hct 40.2 L, MCV 89.7, MCH 29.8, MCHC 33.3, RDW 14.7, Plt Count 240 D, MPV 9.4, Neut % (Auto) 89.0 H, Lymph % (Auto) 6.1 L, [place] % (Auto) 4.2, Eos % (Auto) 0.2, Baso % (Auto) 0.4, Neut # (Auto) 10.9 H, Lymph # (Auto) 0.7, [place] # (Auto) 0.5, Eos # (Auto) 0.0, Baso # (Auto) 0.1, Total Counted 100, Neutrophils % (Manual) 81 H, Lymphocytes % (Manual) 13, Monocytes % (Manual) 4, Basophils % (Manual) 2.0 H, Platelet Estimate Normal, RBC Morphology Normal My Orders Category Date Time Status propofoL [Diprivan 10mg/mL 100mL Bottle] 100 ml Med 07/02/21 14:15 Active IV 5 mcg/kg/min - Other Other Findings: CODE BLUE called. Patient reportedly pulled off his BiPAP mask and was found asystolic. CPR has been started and a dose of epinephrine has been administered. He is receiving bag mask ventilations upon my arrival. He is apneic and pulseless on my arrival. Rhythm remains asystole. CPR was continued. Intubation was performed with a glide scope and 8.0 endotracheal tube. Tube seem to pass between the cords. Good end-tidal CO2 and breath sounds bilaterally. Good fogging of the tube. Patient regained spontaneous circulation. Had a brief episode of ventricular tachycardia requiring defibrillation. Afterwards he was in sinus rhythm. EKG showed sinus rhythm with a rate of 98 without acute injury pattern. ABGs and chest x-ray ordered. The patient was placed on ventilator, settings per respiratory therapy. Chest x-ray shows good position of endotracheal tube. Rapid Response Exam - General General appearance: alert, in no apparent distress - Eye Eye exam: Present: other (Fixed and dilated pupils) - Chest Chest inspection: Present: other (Apneic upon my arrival) - Cardiovascular Cardiovascular exam: Present: other (Pulseless upon arrival) - Neurological Exam Neurological exam: Present: other (Unresponsive) - Skin Skin exam: Present: warm RR Procedures/Assess/Plan - Bedside Intubation Laryngoscope: fiber optic video scope Tube size: 8 Tube uncuffed: No Secured Depth: 22 Secured location: lips Placement confirmation: visualized tube passing through cords, equal breath sounds bilaterally, no breath sounds over epigastrium, confirmation by capnometry Intubation Complications: none - Assessment and plan all Dx Assessment and Plan for all problems:: Respiratory arrest
[2021-07-02 14:52] LABS: Basophils # 0.1 K/mm3 (0-0.2); Basophils % 0.6 % (0.1-2.0); Hematocrit 45.7 % (42.0-52.0); Hemoglobin 13.7 g/dL (14.1-18.0); Lymphocytes # 1.6 K/mm3 (0.7-4.5); Lymphocytes % 9.6 % (10-50); Mean Corpuscular HGB Conc 30.1 g/dL (31.8-35.4); Mean Corpuscular Hemoglobin 28.7 pg (27.0-31.2); Mean Corpuscular Volume 95.5 fl (80-94); Mean Platelet Volume 9.4 fl (7.4-10.4); Monocytes # 0.6 K/mm3 (0.1-1.0); Monocytes % 3.6 % (1.7-9.3); Neutrophils # 14.5 K/mm3 (1.8-7.8); Neutrophils % 86.1 % (37.0-80.0); Platelet Count 320 K/mm3 (142-424); Red Blood Count 4.78 M/mm3 (4.60-6.20); Red Cell Distribution Width 14.7 % (11.5-17.5); White Blood Count 16.8 K/mm3 (4.8-10.8)
--- NOTE | 2021-07-02 15:15 | PC.NURSE ---
Pt now in COVID ICU room 263. This RN is now taking over pt care. Gr with urometer inserted. Collaborated with Dr. Michaud, who ordered 1L LR bolus, 1 amp Bicarb, Fentanyl gtt, Propofol gtt, and Levophed gtt is hypotensive. Orders faxed to pharmacy.
--- NOTE | 2021-07-02 15:42 | PC.NURSE ---
nursing in [place] noticed pt had pulled bipap off. This nurse had just left pt room approx two minutes prior. pt noted to be agonal breathing and nursing was unable to palpate a pulse. CPR initiated 1 epi @1346 asystole 1347 epi 1349 pause 1351 71 pulse intubation @1351 #8 tube vtach @ 1352 shock 200 alie @ 1353 rate 112 @ 1353 1358 xray 1359 tube placement verified 1359 190/102 report called to Jyoti in ICU [place] Alvarez notified phu ALMAGUER notified. pt transferred
[2021-07-02 16:10] LABS: ABG Base Excess -7.6 mmol/L (-2.4-2.3); ABG Oxygen Saturation 74 % (90-100); ABG PCO2 40.7 mmhg (35.0-45.0); ABG PH 7.29 mmol/L (7.35-7.45); ABG TCO2 20.2 mmhg (23-27)
[2021-07-02 16:11] LABS: Allen's Test Acceptable; Oxygen 100 %; PEEP 15; Source Left Radial; Tidal Volume 480; Vent Rate 24
[2021-07-02 16:12] LABS: ABG PO2 44.4 mmhg (80-100)
--- NOTE | 2021-07-02 17:38 | XR_ITS ---
PROCEDURE INFORMATION: Exam: XR Chest Exam date and time: 07/02/2021 5:38 PM Age: 76 years old Clinical indication: Device placement; Other: Central line placement; Additional info: Central line insertion TECHNIQUE: Imaging protocol: XR of the chest. Views: 1 view. COMPARISON: CR XR CHEST PORTABLE 07/02/2021 1:57 PM FINDINGS: Tubes, catheters and devices: Endotracheal tube terminates in good position at the clavicles. Left subclavian line terminates in the SVC. Gastric suction tube tip obscured by pads. Lungs: Bilateral pulmonary opacities are similar to prior. Pleural spaces: No pneumothorax. Heart/Mediastinum: Unremarkable. No cardiomegaly. Bones/joints: Unremarkable. Soft tissues: Pad projects over the epigastrium. IMPRESSION: 1. Left subclavian line tip terminates in the SVC 2. Gastric suction tube tip is obscured by overlying equipment
--- NOTE | 2021-07-02 18:09 | HMH.GSCON ---
*Admission Date: 06/30/21 *Reason for consult:: Central venous access *History of present illness: This is a 76-year-old gentleman undergoing care for Covid pneumonia status post rapid response requiring intubation earlier today. He was found to have inadequate venous access and the surgical service was consulted for deep line placement. Please see Dr. Michaud's consult HPI forwarded below. Forwarded from pulmonology consultation: Mr. Polanco 76-year-old female recently admitted to the hospital with respiratory symptoms and was discharged with dexamethasone and levofloxacin after receiving remdesivir for a day scented to the hospital with progressively worsening respiratory distress. Patient admits to dry cough. He denies any productive phlegm. On presentation to ED patient found to be hypoxic needing noninvasive ventilatory support to maintain his oxygenation and desired levels and pulmonary was called for further management. Review of Systems - Review of Systems Review of systems:: unable to obtain - *Neurologic Denies weakness [facility] History Medical History: Reports:: Anxiety, Congestive Heart Failure, Chronic Obstructive Pulmonary Disease (COPD), Coronary Artery Disease, Depression, Diabetes Mellitus Type 2, Gastroesophageal Reflux Disease(GERD), Hyperlipidemia, Hypertension, Lung Disease, Myocardial Infarction, Peripheral Vascular Disease, Renal Disease, Renal Insufficiency Denies:: Cancer, Diabetes Mellitus Type 1, Internal Pacemaker, MRSA, Seizures *Have you ever received a pneumonia vaccine?: Yes *Have you received a flu vaccine this season?: Yes Other Medical History: Reports: Arthritis, Glaucoma, Other Laterality Cases: Bilateral: Arthroscopy Knee Other Surgeries: Yes: Appendectomy, Cardiac Catheterization, Cardiac Surgery (stents), Cholecystectomy, Colonoscopy, Coronary Stent, Other. No: Pacemaker Amputation: No Fractures: No - *Social History Last grade of school completed: Some college Smoking Status: Never smoker Alcohol Intake: never Alcohol Intake Frequency:: holidays/special occasions only Substance Use Type: denies use Last Used Substance: unknown *Occupational Status:: retired Housing: house Household Members: other *Travel in the last 8 weeks: [facility] - Psychiatric History Expresses thoughts of harming self/others: None Suicide Plan Description: No Plan Pschychiatric History:: Reports:: Anxiety, Depression Family Hx:: No significant family history Meds Home Medications Medication Instructions Recorded Confirmed Type RX: Urea [Uramaxin] 1 applic TOPICAL BID PRN 11/18/19 06/30/21 History RX: Aspirin [Aspir 81] 81 mg PO DAILY 04/24/20 06/30/21 History RX: Furosemide [Furosemide 40MG 40 mg PO DAILY 04/24/20 06/30/21 History tAB*] RX: Lidocaine [Lidoderm 5% 1 patch TOPICAL DAILY 04/24/20 06/30/21 History transdermal patch] RX: Spironolactone [Spironolactone 25 mg PO DAILY 04/24/20 06/30/21 History 25mg Tablet] losartan 25 mg tablet 25 mg PO DAILY #90 tab 07/26/20 06/30/21 Rx diclofenac sodium 1 % topical gel 4 g TOPICAL QID PRN 30 Days #100 g 08/03/20 06/30/21 Rx albuterol sulfate 90 mcg/actuation 2 puff INHALATION Q8HP PRN #18 g 10/03/20 06/30/21 Rx aerosol inhaler insulin aspar prot-insulin aspart 15 unit SQ BID #15 ml 10/03/20 06/30/21 Rx 100 unit/mL (70-30) subcutaneous pen dapagliflozin 5 mg tablet 5 mg PO DAILY tab 10/28/20 06/30/21 History carvedilol 6.25 mg tablet 6.25 mg PO BID #180 tab 11/04/20 06/30/21 Rx clopidogrel 75 mg tablet 75 mg PO DAILY #90 tab 11/04/20 06/30/21 Rx acetaminophen 300 mg-codeine 30 mg 1 tab PO DAILY tab 03/01/21 06/30/21 History tablet RX: ALPRAZolam [Xanax 0.5mg 0.5 mg PO TID 04/15/21 06/30/21 History tab] RX: Atorvastatin Calcium [Lipitor 20 mg PO HS 04/15/21 06/30/21 History 20mg Tab] RX: Gabapentin 300 mg PO DAILY 04/15/21 06/30/21 History RX: Insulin Glargine,Hum.rec.anlog 50 units SUBCONJ 04/15/21
[2021-07-02 18:11] LABS: Microscopic,Cath URINE MICROSCOPIC (MICROSCOPIC)
--- NOTE | 2021-07-02 18:11 | P.OP_ITS ---
Date of procedure: 07/02/21 Pre-op Diagnosis:: Inadequate venous access Post-op Diagnosis:: Same Procedure performed:: 7 Indonesian triple-lumen catheter placement (left subclavian vein access) Surgeon:: Abiodun Aguilera MD Anesthesia: other (Ongoing sedation) Estimated blood loss (mL): 10 Operative findings:: Initial access with adequate blood flow; however, angulation around clavicle made line placement and adequate. Second access site more lateral utilized. Operative note:: After informed consent was obtained the patient was maintained in a supine position. His left neck and chest were prepped and draped in a sterile fashion. He was then transferred to a Trendelenburg position. A large bore needle was utilized to access the left subclavian vein. Placement of the guidewire was somewhat difficult. The catheter could not be advanced appropriately on the guidewire secondary to angulation around the clavicle. The decision was made to forego additional attempts at this site and a more lateral site was chosen. The left subclavian vein was accessed without difficulty. Utilizing a modified Seldinger technique the 7 Indonesian triple-lumen catheter was secured at 17 cm. All ports flushed. The brown port did not draw . Chest x-ray is pending. Condition: critical Disposition: no change Specimens:: None Complications:: No immediate. Chest x-ray pending.
[2021-07-02 18:12] LABS: Appearance,Urine/Cath SL CLOUDY (Clear); Bilirubin,Cath Negative (Negative); Blood, Urine/Cath 2+ (Negative); Color,Urine/Cath STRAW (Yellow); Glucose,Urine/Cath (UA) 2+ (Negative); Ketones,Urine/Cath Negative (Negative); Leukocyte Esterase,Cath TRACE (Negative); Nitrate,Cath Negative (Negative); Protein,Urine/Cath 2+ (Negative); Specific Gravity, Urine/Cath 1.025 (1.005-1.030); Urobilinogen,Cath 0.2 EU/dl (0.2)
[2021-07-02 18:19] LABS: Bacteria,Urine/Cath 3+ /lpf; Sperm,Urine/Cath OCC /lpf; WBC,Urine/Cath 20-50 #/hpf (0-3); Yeast,Urine/Cath 1+
--- NOTE | 2021-07-02 23:14 | XR_ITS ---
PROCEDURE INFORMATION: Exam: XR Chest Exam date and time: 07/02/2021 11:14 PM Age: 76 years old Clinical indication: Device placement; Ng tube; Additional info: G-tube placement. TECHNIQUE: Imaging protocol: XR of the chest. Views: 1 view. COMPARISON: CR XR CHEST PORTABLE 07/02/2021 5:39 PM FINDINGS: Lungs: Unremarkable. No consolidation. Pleural spaces: Unremarkable. No pleural effusion. No pneumothorax. Heart/Mediastinum: See Vasculature finding. Vasculature: Images from different times are provided. A left approach line is seen that terminates in the left brachiocephalic vein. There appears to be endotracheal tube begins at the level of the clavicles. A pad projects over heart on some images. An NG tube is not seen. Bones/joints: Unremarkable. IMPRESSION: NG tube not seen on these images.
[2021-07-03] VITALS (37 sets, daily range): BP systolic 92–149; BP diastolic 52–76; PULSE 59–83; RESP 16–26; TEMP 36.6–37.9; O2SAT 91–99; BMI 37.5
[2021-07-03 01:18] LABS: POC Glucose,Bedside 166 (70-110)
--- NOTE | 2021-07-03 04:27 | PC.NURSE ---
His O2 was in the high 70s to low 80s at the beginning of the shift. Neb with 15LPM added and his sats have increased. He is currently 99%. Vent settings: AC mode: TV 480 PEEP 15 Rate 24 FiO2 100% He is currently on levophed @ 5, propofol @ 60, and fentanyl @ 75. Left subclavian DSG was changed via sterile technique. HOB elevated 30 degrees. F/c patent with yellow, clear urine. Previous shift attempted NG placement in his left nare and NG placement was attempted in his right nare this shift, but verification of placement could not be heard by auscultation nor chest x-ray; therefore, both have been removed.
--- NOTE | 2021-07-03 04:39 | PC.NURSE ---
2100: NG noted to left nare. Unable to auscultate placement. CXR earlier today can not confirm placement. NG tube removed. PO meds held. 2200: 16 montserratian NG placed in right nare. Unable to auscultate placement. CXR ordered to confirm placement. 2314: Virtual Rad read states unable to see NG on film. NG removed. 2330: Attempted to place an OG and was unsuccessful. Patient's tongue is very large, oral care performed. After multiple attempts unable to get NG/OG placed.
[2021-07-03 05:23] LABS: POC Glucose,Bedside 299 (70-110)
[2021-07-03 05:23] LABS: POC Glucose,Bedside 316 (70-110)
--- NOTE | 2021-07-03 06:00 | XR_ITS ---
PROCEDURE INFORMATION: Exam: XR Chest Exam date and time: 07/03/2021 6:00 AM Age: 76 years old Clinical indication: Device placement; Ett placement (vent status); Additional info: Intubation covid TECHNIQUE: Imaging protocol: XR of the chest. Views: 1 view. COMPARISON: CR XR CHEST PORTABLE 07/02/2021 11:25 PM FINDINGS: Tubes, catheters and devices: Endotracheal tube terminates 7 cm above the favian. PICC line terminates in the brachiocephalic vein and could be advanced 5 cm. Lungs: Patchy bilateral opacities may represent multifocal pneumonia including COVID-19. Pleural spaces: Unremarkable. No pleural effusion. No pneumothorax. Heart/Mediastinum: Unremarkable. No cardiomegaly. Bones/joints: Unremarkable. IMPRESSION: 1. Patchy bilateral opacities may represent multifocal pneumonia including COVID-19. 2. PICC line terminates in the brachiocephalic vein and could be advanced 5 cm.
[2021-07-03 06:46] LABS: Basophils # 0.1 K/mm3 (0-0.2); Basophils % 0.5 % (0.1-2.0); Hematocrit 38.6 % (42.0-52.0); Lymphocytes # 0.6 K/mm3 (0.7-4.5); Lymphocytes % 4.5 % (10-50); Mean Corpuscular Hemoglobin 29.3 pg (27.0-31.2); Mean Corpuscular Volume 94.5 fl (80-94); Mean Platelet Volume 8.2 fl (7.4-10.4); Monocytes # 0.6 K/mm3 (0.1-1.0); Monocytes % 4.3 % (1.7-9.3); Neutrophils % 90.8 % (37.0-80.0); Platelet Count 314 K/mm3 (142-424); Red Blood Count 4.08 M/mm3 (4.60-6.20); Red Cell Distribution Width 15.1 % (11.5-17.5); White Blood Count 14.3 K/mm3 (4.8-10.8)
[2021-07-03 06:49] LABS: MANUAL DIFFERENTIAL MANUAL DIFFERENTIAL (MANUAL DIFF)
[2021-07-03 06:59] LABS: Hypochromasia 1+; Lymphocytes % 8 % (10-50); Neutrophils % 89 % (42-76); Platelet Estimate Normal; Total Cells Counted 100
[2021-07-03 07:00] LABS: Alanine Aminotransferase 168 U/L (12-78); Albumin Level 2.8 g/dl (3.5-5.0); Albumin/Globulin Ratio 0.9 (1.1-1.8); Alkaline Phosphatase 94 U/L (38-126); Aspartate Amino Transferase 221 U/L (17-59); Bilirubin,Total 0.5 mg/dl (0.2-1.3); Blood Urea Nitrogen 58 mg/dl (9-20); Calcium 8.1 mg/dl (8.4-10.2); Carbon Dioxide 17 mmol/L (22.0-30.0); Chloride 116 mmol/L (98-107); Creatinine Clearance Estimated 50 mL/min (50-200); Estimated Glomerular Filt Rate 28 ml/min (>60); GFR (African American) 34 ML/MIN (>60); Globulin 3.2 g/dL (1.3-3.2); Glucose 299 mg/dl (74-100); Sodium 145 mmol/L (136-145)
[2021-07-03 08:58] LABS: ABG Base Excess -9.1 mmol/L (-2.4-2.3); ABG HCO3 17.7 mmhg (22.0-26.0); ABG Oxygen Saturation 98 % (90-100); ABG PCO2 38.8 mmhg (35.0-45.0); ABG PH 7.28 mmol/L (7.35-7.45); ABG PO2 131.5 mmhg (80-100); ABG TCO2 18.9 mmhg (23-27)
[2021-07-03 09:09] LABS: Allen's Test Patient Unable; Oxygen 100 %; PEEP 15; Source Right Radial; Tidal Volume 480; Vent Rate 24
--- NOTE | 2021-07-03 09:13 | DIET.NUTRFU ---
Addendum entered by Cat Perry 07/04/21 09:27: Water flushes of 153ml q 4h, not 30-60ml. Addendum entered by Cat Perry 07/04/21 09:21: Pt continues to require high rate propofol providing significant additional kcal, TF regimen order altered to decreased rate and entered to initiate. Recommend initiating continuous TF regimen of Pulmocare at 20ml/h and advancing as tolerated by 10ml/h q 8h to goal rate of 42ml/h. Recommend minimal water flushes of 30-60ml q 4h. Water flushes of 153ml q 4h meet additional fluid needs not provided by formula. This regimen provides 1500kcal, 63g protein, 93g fat, 106g cho, and 785ml free water(1700ml total fluids with flushes). Will monitor pt to alter regimen as indicated. Original Note: Pt intubated, nutrition consult received for enteral nutrition orders. Pt with COVID, DM, CHF, CKD. Electrolytes wnl, MAP>60. Currently receiving propofol, not receiving IVF. Upon MD order, recommend initiating continuous TF regimen of pulmocare 1.5 at 20ml/h and advancing as tolerated by 10ml/h q 8 h to goal rate of 56ml/h. Water flushes of 160ml q 4h meet additional fluid needs not provided by formula. This regimen provides 2000kcal, 83g protein, 123g fat, 140g cho, and 1044ml free water. (2000ml total fluids with flushes) Will monitor pt to alter regimen as indicated.
--- NOTE | 2021-07-03 09:22 | HMH.ACPN2 ---
Internal Medicine - PN: Subj *Date: 07/03/21 *Time: 09:22 Interval history: BHUMIKA ALEJO was called on the patient yesterday afternoon when he was found having removed his BiPAP with agonal respirations. Please see BHUMIKA ALEJO note. Patient was intubated and subsequently transferred to the special care unit. Patient remains heavily sedated on propofol and fentanyl. IV access was lost and central line has been placed. Patient is also on Levophed for pressure support. Patient is been stable overnight maintaining O2 sats in the 90s with FiO2 of 100%, PEEP 15, rate of 24. Exam Vital signs and Labs for Last 24 Hours: Temp Pulse Resp BP Pulse Ox 98 F 60 24 109/61 L 99 07/03/21 07:00 07/03/21 07:00 07/03/21 07:00 07/03/21 07:00 07/03/21 07:00 Laboratory Results - last 24 hr 07/02/21 11:35: POC Glucose 166 H 07/02/21 14:32: WBC 16.8 H D, RBC 4.78, Hgb 13.7 L, Hct 45.7, MCV 95.5 H, MCH 28.7, MCHC 30.1 L, RDW 14.7, Plt Count 320 D, MPV 9.4, Neut % (Auto) 86.1 H, Lymph % (Auto) 9.6 L, [place] % (Auto) 3.6, Eos % (Auto) 0.0 L, Baso % (Auto) 0.6, Neut # (Auto) 14.5 H, Lymph # (Auto) 1.6, [place] # (Auto) 0.6, Eos # (Auto) 0.0, Baso # (Auto) 0.1 07/02/21 15:15: Specimen Source Left radial, O2 % 100, ABG pH 7.29 L, ABG pCO2 40.7, ABG pO2 44.4 L, ABG HCO3 19.0 L, ABG Total CO2 20.2 L, ABG O2 Saturation 74 L*, ABG Base Excess -7.6 L, Jose Test Acceptable, Vent Rate 24, Tidal Volume 480, PEEP 15 07/02/21 15:30: Urine Color Straw, Urine Appearance Sl cloudy, Urine pH 6.0, Ur Specific [place] 1.025, Urine Protein 2+, Urine Glucose (UA) 2+, Urine Ketones Negative, Urine Blood 2+, Urine Nitrate Negative, Urine Bilirubin Negative, Urine Urobilinogen 0.2, Ur Leukocyte Esterase Trace, Urine RBC 10-20, Urine WBC 20-50 A, Ur Squamous Epith Cells 3-5, Urine Bacteria 3+ A, Urine Yeast 1+, Urine Sperm Occ 07/02/21 20:12: POC Glucose 316 H* 07/02/21 : Specimen Source Right radial, O2 % 100% ambu, ABG pH 7.13 L*, ABG pCO2 36.6, ABG pO2 78.8 L, ABG HCO3 11.8 L, ABG Total CO2 12.9 L, ABG O2 Saturation 90, ABG Base Excess -17.4 L, Jose Test Non applicable 07/03/21 05:16: POC Glucose 299 H 07/03/21 06:00: Specimen Source Right radial, O2 % 100, ABG pH 7.28 L, ABG pCO2 38.8, ABG pO2 131.5 H, ABG HCO3 17.7 L, ABG Total CO2 18.9 L, ABG O2 Saturation 98, ABG Base Excess -9.1 L, Jose Test Patient unable, Vent Rate 24, Tidal Volume 480, PEEP 15 07/03/21 06:15: WBC 14.3 H, RBC 4.08 L, Hgb 12.0 L D, Hct 38.6 L, MCV 94.5 H, MCH 29.3, MCHC 31.0 L, RDW 15.1, Plt Count 314, MPV 8.2, Neut % (Auto) 90.8 H, Lymph % (Auto) 4.5 L, [place] % (Auto) 4.3, Eos % (Auto) 0.0 L, Baso % (Auto) 0.5, Neut # (Auto) 13.0 H, Lymph # (Auto) 0.6 L, [place] # (Auto) 0.6, Eos # (Auto) 0.0, Baso # (Auto) 0.1, Total Counted 100, Neutrophils % (Manual) 89 H, Band Neutrophils % 3.0, Lymphocytes % (Manual) 8 L, Platelet Estimate Normal, Hypochromasia 1+ 07/03/21 06:15: Sodium 145, Potassium 5.0, Chloride 116 H, Carbon Dioxide 17 L, Anion Gap 17.0 H, BUN 58 H, Creatinine 2.30 H D, Estimated Creat Clear 50, Estimated GFR 28 L, Est GFR ( Amer) 34 L D, Glucose 299 H D, Calcium 8.1 L, Total Bilirubin 0.5, AST 221 H D, ALT 168 H D, Alkaline Phosphatase 94, Total Protein 6.0 L, Albumin 2.8 L, Globulin 3.2, Albumin/Globulin Ratio 0.9 L I & O for Last 24 hours: Intake & Output 06/30/21 07/01/21 07/02/21 07/03/21 11:59 11:59 11:59 11:59 Intake Total 1656 / 1656 840 / 840 2669.667 / 2669.667 Output Total 1600 / 1600 2550 / 2550 2390 / 2390 Balance 56 / 56 -1710 / -1710 279.667 / 279.667 Weight 300 lb 280 lb 6.4 oz 278 lb 277 lb 3 oz Microbiology Reports for the Last 24 Hours: Microbiology 07/02/21 15:30 Sputum - Expectorated Sputum Gram Stain - Final 07/02/21 15:30 Sputum - Expectorated Sputum Sputum Culture - Preliminary 06/30/21 04:50 Nose - Nasal MRSA Culture - Final Negative 06/30/21 09:45 Blood Blood Culture - Preliminary NO GR
[2021-07-03 11:55] LABS: POC Glucose,Bedside 259 (70-110)
[2021-07-04] VITALS (32 sets, daily range): BP systolic 86–179; BP diastolic 51–83; PULSE 57–79; RESP 0–26; TEMP 37.1–38.8; O2SAT 82–100; BMI 37.5
--- NOTE | 2021-07-04 03:16 | PC.NURSE ---
Vents settings as follows: FiO2 100%, R 26, TV 480, PEEP 15. O2 sat currently 98%. 18 NG to (R) nare. Pt remains on Fentanyl gtt @ 75 mcg/hr. Propofol @ 60 mcg/kg/min. Levophed titrated from 4 mcg to 2 mcg/min this am. VS currently stable. Pt has been febrile this shift. Medicated per dec. Urine output 875 thus far. Pt repositioned and bathed this shift. Will continue to monitor.
--- NOTE | 2021-07-04 03:17 | PC.NURSE ---
Total bath and bed change this shift. Pt tolerated fair.
--- NOTE | 2021-07-04 03:20 | PC.NURSE ---
Levophed gtt decreased to 2mcg/min at this time. BP currently 120's systolic and maintaining.
--- NOTE | 2021-07-04 04:32 | PC.NURSE ---
Levo gtt stopped at this time. Pt BP has consistently been >110 systolic this shift.
--- NOTE | 2021-07-04 05:18 | PC.NURSE ---
labs drawn from central line at this time per MWALDEMAR Arreguin
--- NOTE | 2021-07-04 06:00 | XR_ITS ---
PROCEDURE INFORMATION: Exam: XR Chest Exam date and time: 07/04/2021 6:00 AM Age: 76 years old Clinical indication: Device placement; Ett placement (vent status); Additional info: Intubation covid TECHNIQUE: Imaging protocol: XR of the chest. Views: 1 view. COMPARISON: CR XR CHEST PORTABLE 07/03/2021 5:39 AM FINDINGS: Tubes, catheters and devices: The ET tubes is 8 cm from the favian. Central venous catheter distal tip overlies the superior mediastinum likely the brachiocephalic vein Lungs: Patchy opacities are present bilaterally unchanged from prior study. . Pleural spaces: Unremarkable. No pleural effusion. No pneumothorax. Heart/Mediastinum: Unremarkable. No cardiomegaly. Vasculature: Bones/joints: Unremarkable. IMPRESSION: Stable exam
[2021-07-04 06:04] LABS: POC Glucose,Bedside 280 (70-110)
[2021-07-04 06:04] LABS: POC Glucose,Bedside 338 (70-110)
[2021-07-04 06:05] LABS: Basophils % 0.3 % (0.1-2.0); Hematocrit 36.4 % (42.0-52.0); Hemoglobin 11.1 g/dL (14.1-18.0); Lymphocytes # 0.3 K/mm3 (0.7-4.5); Mean Corpuscular HGB Conc 30.5 g/dL (31.8-35.4); Mean Corpuscular Hemoglobin 29.1 pg (27.0-31.2); Mean Corpuscular Volume 95.3 fl (80-94); Mean Platelet Volume 8.4 fl (7.4-10.4); Monocytes # 0.3 K/mm3 (0.1-1.0); Monocytes % 3.7 % (1.7-9.3); Neutrophils # 6.2 K/mm3 (1.8-7.8); Platelet Count 248 K/mm3 (142-424); Red Blood Count 3.82 M/mm3 (4.60-6.20); White Blood Count 6.8 K/mm3 (4.8-10.8)
[2021-07-04 06:18] LABS: MANUAL DIFFERENTIAL MANUAL DIFFERENTIAL (MANUAL DIFF)
[2021-07-04 06:25] LABS: Alanine Aminotransferase 111 U/L (12-78); Albumin Level 2.5 g/dl (3.5-5.0); Albumin/Globulin Ratio 0.8 (1.1-1.8); Alkaline Phosphatase 84 U/L (38-126); Anion Gap 12.1 mEq/L (5-15); Aspartate Amino Transferase 117 U/L (17-59); Bilirubin,Total 0.2 mg/dl (0.2-1.3); Blood Urea Nitrogen 57 mg/dl (9-20); Calcium 7.9 mg/dl (8.4-10.2); Carbon Dioxide 21 mmol/L (22.0-30.0); Chloride 118 mmol/L (98-107); Creatinine Clearance Estimated 52 mL/min (50-200); Estimated Glomerular Filt Rate 29 ml/min (>60); GFR (African American) 36 ML/MIN (>60); Globulin 3.2 g/dL (1.3-3.2); Glucose 324 mg/dl (74-100); Potassium 5.1 mmoL/L (3.5-5.1); Sodium 146 mmol/L (136-145); Total Protein,Serum 5.7 g/dl (6.3-8.2)
--- NOTE | 2021-07-04 06:31 | PC.NURSE ---
Dr England at bedside at this time.
[2021-07-04 06:47] LABS: Hypochromasia 1+; Lymphocytes % 15 % (10-50); Neutrophils % 79 % (42-76); Platelet Estimate Normal; Total Cells Counted 100
[2021-07-04 06:56] LABS: ABG Base Excess -7.7 mmol/L (-2.4-2.3); ABG HCO3 18.2 mmhg (22.0-26.0); ABG Oxygen Saturation 98 % (90-100); ABG PCO2 35.1 mmhg (35.0-45.0); ABG PH 7.33 mmol/L (7.35-7.45); ABG PO2 108.5 mmhg (80-100); ABG TCO2 19.3 mmhg (23-27)
[2021-07-04 07:11] LABS: Oxygen 100 %
[2021-07-04 07:12] LABS: Lactate Arterial 2.2 mmol/L (0.4-2.0); PEEP 15; Source Left Radial; Tidal Volume 480; Vent Rate 26
--- NOTE | 2021-07-04 07:13 | HMH.ACPN2 ---
Internal Medicine - PN: Subj *Date: 07/04/21 *Time: 07:13 Interval history: Patient is remained stable. No respiratory events over the last 24 hours. Levophed has been turned off early this morning with current map of 66. Exam Vital signs and Labs for Last 24 Hours: Temp Pulse Resp BP Pulse Ox 98.9 F 60 24 94/55 L 97 07/04/21 06:51 07/04/21 06:51 07/04/21 06:51 07/04/21 06:51 07/04/21 06:51 Laboratory Results - last 24 hr 07/03/21 06:00: Specimen Source Right radial, O2 % 100, ABG pH 7.28 L, ABG pCO2 38.8, ABG pO2 131.5 H, ABG HCO3 17.7 L, ABG Total CO2 18.9 L, ABG O2 Saturation 98, ABG Base Excess -9.1 L, Jose Test Patient unable, Vent Rate 24, Tidal Volume 480, PEEP 15 07/03/21 11:13: POC Glucose 259 H 07/03/21 16:16: POC Glucose 280 H 07/04/21 05:10: Sodium 146 H, Potassium 5.1, Chloride 118 H, Carbon Dioxide 21 L, Anion Gap 12.1, BUN 57 H, Creatinine 2.20 H, Estimated Creat Clear 52, Estimated GFR 29 L, Est GFR ( Amer) 36 L, Glucose 324 H, Calcium 7.9 L, Total Bilirubin 0.2, AST 117 H D, ALT 111 H D, Alkaline Phosphatase 84, Total Protein 5.7 L, Albumin 2.5 L D, Globulin 3.2, Albumin/Globulin Ratio 0.8 L 07/04/21 05:10: WBC 6.8 D, RBC 3.82 L, Hgb 11.1 L, Hct 36.4 L, MCV 95.3 H, MCH 29.1, MCHC 30.5 L, RDW 15.0, Plt Count 248, MPV 8.4, Neut % (Auto) 91.0 H, Lymph % (Auto) 5.0 L, Jack % (Auto) 3.7, Eos % (Auto) 0.0 L, Baso % (Auto) 0.3, Neut # (Auto) 6.2, Lymph # (Auto) 0.3 L, Jack # (Auto) 0.3, Eos # (Auto) 0.0, Baso # (Auto) 0.0, Total Counted 100, Neutrophils % (Manual) 79 H, Band Neutrophils % 6.0, Lymphocytes % (Manual) 15, Platelet Estimate Normal, Hypochromasia 1+ 07/04/21 05:55: POC Glucose 338 H* 07/04/21 06:00: Specimen Source Left radial, O2 % 100, Jose Test n/a, Vent Rate 26, Tidal Volume 480, PEEP 15 I & O for Last 24 hours: Intake & Output 07/01/21 07/02/21 07/03/21 07/04/21 11:59 11:59 11:59 11:59 Intake Total 1656 / 1656 840 / 840 2669.667 / 2669.667 1994.165 / 1994.165 Output Total 1600 / 1600 2550 / 2550 2775 / 2925 1705 / 1705 Balance 56 / 56 -1710 / -1710 -105.333 / -255.333 290.165 / 290.165 Weight 280 lb 6.4 oz 278 lb 277 lb 3 oz 277 lb Microbiology Reports for the Last 24 Hours: Microbiology 07/02/21 15:30 Urine,Catheterized Urine Culture - Preliminary NO GROWTH AFTER 24 HOURS 07/02/21 15:30 Sputum - Expectorated Sputum Gram Stain - Final 07/02/21 15:30 Sputum - Expectorated Sputum Sputum Culture - Preliminary 06/30/21 04:50 Nose - Nasal MRSA Culture - Final Negative Narrative: Patient remains heavily sedated. Lung exam reveals distant breath sounds. Heart sounds are also distant. Abdomen is obese and soft with hypoactive bowel sounds. Lower extremities have no edema. Assessment and Plan (1) Respiratory failure with hypoxia Status: Acute Qualifiers: Chronicity: acute Qualified Code(s): J96.01 - Acute respiratory failure with hypoxia Category: Medical Code(s): J96.91 - Respiratory failure, unspecified with hypoxia (2) Acute kidney injury (nontraumatic) Status: Acute Category: Medical Code(s): N17.9 - Acute kidney failure, unspecified (3) Pneumonia due to COVID-19 virus Status: Acute Category: Medical Code(s): U07.1 - COVID-19; J12.82 - Pneumonia due to coronavirus disease 2019 (4) CAD (coronary artery disease) Status: Chronic Qualifiers: Coronary Disease-Associated Artery/Lesion type: unspecified vessel or lesion type [place] vs. transplanted heart: [place] heart Associated angina: without angina Qualified Code(s): I25.10 - Atherosclerotic heart disease of [place] coronary artery without angina pectoris Category: Medical Code(s): I25.10 - Atherosclerotic heart disease of [place] coronary artery without angina pectoris (5) Diabetes mellitus type 2 in obese Status: Chronic Category: Medical Code(s): E11.69 - Type 2 diabetes mellitus with
--- NOTE | 2021-07-04 07:51 | XR_ITS ---
PROCEDURE: XR CHEST PORTABLE CLINICAL HISTORY: decreasing sats COMPARISON: CR XR CHEST PORTABLE from 07/02/2021 CR XR CHEST PORTABLE from 07/03/2021 CR XR CHEST PORTABLE from 07/04/2021 FINDINGS: 8:03 a.m.. Endotracheal tube is in good position at the T3-T4 level. Left subclavian central venous line tip in the region of the left brachiocephalic vein. Nasogastric tube is present. The tip is in the region of the body of stomach. Airspace opacification once again noted in both lower lobes and left upper lobe consistent with bilateral pneumonia overall not significantly changed. No evidence of pneumothorax. IMPRESSION: Overall no change in the bilateral pneumonia and the tubes and lines Dictated by: Jose Hoffman MD 07/04/2021 08:23 Jose Hoffman MD in [facility] 07/04/2021 08:23
[2021-07-04 13:13] LABS: POC Glucose,Bedside 358 (70-110)
--- NOTE | 2021-07-04 14:54 | HMH.PULMPN ---
Internal Medicine - PN: Subj *Date: 07/04/21 *Time: 14:54 Interval history: Patient respiratory status rapidly declined over the weekend. He is currently intubated and sedated. He also explains cardiopulmonary arrest status post resuscitation with ROSC. Exam - Constitutional Constitutional:: Absent: no acute distress, comfortable - HENMT Exam HENMT: Present: normocephalic - Eye Exam Eyes:: Present: normal appearance both eyes and related structures - Neck Exam Neck:: Present: normal visual inspection - Respiratory Exam Respiratory:: Present: respiratory distress, crackles - Cardiovascular Exam Cardiac:: Present: S1, S2 - GI Exam GI:: Present: soft, obese - Skin Exam Skin: Present: warm - Neurological Exam Neurological: Absent: alert, normal cognition - Extremities Exam Extremities: Present: edema Assessment and Plan (1) Respiratory failure with hypoxia Status: Acute Qualifiers: Chronicity: acute Qualified Code(s): J96.01 - Acute respiratory failure with hypoxia Category: Medical Code(s): J96.91 - Respiratory failure, unspecified with hypoxia (2) Acute kidney injury (nontraumatic) Status: Acute Category: Medical Code(s): N17.9 - Acute kidney failure, unspecified (3) Pneumonia due to COVID-19 virus Status: Acute Category: Medical Code(s): U07.1 - COVID-19; J12.82 - Pneumonia due to coronavirus disease 2019 (4) CAD (coronary artery disease) Status: Chronic Qualifiers: Coronary Disease-Associated Artery/Lesion type: unspecified vessel or lesion type [place] vs. transplanted heart: [place] heart Associated angina: without angina Qualified Code(s): I25.10 - Atherosclerotic heart disease of [place] coronary artery without angina pectoris Category: Medical Code(s): I25.10 - Atherosclerotic heart disease of [place] coronary artery without angina pectoris (5) Diabetes mellitus type 2 in obese Status: Chronic Category: Medical Code(s): E11.69 - Type 2 diabetes mellitus with other specified complication; E66.9 - Obesity, unspecified (6) HHD (hypertensive heart disease) Status: Chronic Qualifiers: Heart failure presence: without heart failure Qualified Code(s): I11.9 - Hypertensive heart disease without heart failure Category: Medical Code(s): I11.9 - Hypertensive heart disease without heart failure (7) Long-term insulin use Status: Chronic Category: Medical Code(s): Z79.4 - exterminator helper termite (current) use of insulin (8) Morbid obesity Status: Chronic Category: Medical Code(s): E66.01 - Morbid (severe) obesity due to excess calories (9) Stage 3b chronic kidney disease Status: Chronic Category: Medical Code(s): N18.32 - Chronic kidney disease, stage 3b (10) Type 2 diabetes mellitus with hyperglycemia Status: Chronic Category: Medical Code(s): E11.65 - Type 2 diabetes mellitus with hyperglycemia (11) Poor venous access Status: Acute Category: Medical Code(s): I87.8 - Other specified disorders of veins - Assessment and plan all Dx Assessment and Plan for all problems:: #COVID-19 pneumonia: #Community-acquired pneumonia: #Acute hypoxic respiratory failure: 76-year-old recently diagnosed with COVID-19 pneumonia on 06/27/21 and discharged home on levofloxacin and dexamethasone presented to the hospital with progressively worsening respiratory distress associated with nonproductive cough. Chest x-ray admission showed worsening pulmonary infiltrates bilaterally. No evidence of leukocytosis. Lymphopenia noted. CRP 61.6 on this admission Lower extremity Doppler negative for DVT. No CTA performed. Patient on admission needing noninvasive ventilatory support, his oxygen requirements gradually increased over the weekend and patient experienced cardiac arrest likely secondary to hypoxia after he removed his BiPAP and found to be hypoxic, underwent CPR with return of spontaneous circulation and has been intubated for airway
[2021-07-04 18:21] LABS: POC Glucose,Bedside 360 (70-110)
[2021-07-04 21:41] LABS: POC Glucose,Bedside 358 (70-110)
[2021-07-05] VITALS (37 sets, daily range): BP systolic 92–169; BP diastolic 51–79; PULSE 50–90; RESP 22–29; TEMP 34.7–36.8; O2SAT 85–100; BMI 37.9
[2021-07-05 05:41] LABS: POC Glucose,Bedside 348 (70-110)
--- NOTE | 2021-07-05 06:00 | XR_ITS ---
PROCEDURE INFORMATION: Exam: XR Chest Exam date and time: 07/05/2021 6:00 AM Age: 76 years old Clinical indication: Device placement; Ett placement (vent status); Patient HX: Covid; Additional info: Intubation TECHNIQUE: Imaging protocol: XR of the chest. Views: 1 view. COMPARISON: CR XR CHEST PORTABLE 07/04/2021 8:02 AM FINDINGS: Tubes, catheters and devices: ET tube is in good position. Central venous catheter is in good position. Lungs: Retrocardiac opacity is present. There is improvement in the right lung base. Pleural spaces: Unremarkable. No pleural effusion. No pneumothorax. Heart/Mediastinum: Unremarkable. No cardiomegaly. Bones/joints: Unremarkable. IMPRESSION: Improving right lung base aeration.
--- NOTE | 2021-07-05 07:14 | HMH.ACPN2 ---
Internal Medicine - PN: Subj *Date: 07/05/21 *Time: 07:14 Interval history: Patient had no acute events over the last 24 hours. He remained stable on mechanical ventilation. Exam Vital signs and Labs for Last 24 Hours: Temp Pulse Resp BP Pulse Ox 97.9 F 54 L 24 99/59 L 93 L 07/05/21 04:00 07/05/21 06:00 07/05/21 06:00 07/05/21 06:00 07/05/21 06:00 Laboratory Results - last 24 hr 07/04/21 06:00: ABG pH 7.33 L, ABG pCO2 35.1, ABG pO2 108.5 H, ABG HCO3 18.2 L, ABG Total CO2 19.3 L, ABG O2 Saturation 98, ABG Base Excess -7.7 L 07/04/21 13:01: POC Glucose 358 H* 07/04/21 18:02: POC Glucose 360 H* 07/04/21 20:18: POC Glucose 358 H* 07/05/21 05:03: POC Glucose 348 H* I & O for Last 24 hours: Intake & Output 07/02/21 07/03/21 07/04/21 07/05/21 11:59 11:59 11:59 11:59 Intake Total 840 / 840 2669.667 / 2669.667 2005.415 / 2005.415 3039.274 / 3039.274 Output Total 2550 / 2550 2775 / 2925 1705 / 1705 1060 / 1060 Balance -1710 / -1710 -105.333 / -255.333 300.415 / 203.722 7766.274 / 1979.274 Weight 278 lb 277 lb 3 oz 277 lb 280 lb 1 oz Microbiology Reports for the Last 24 Hours: Microbiology 07/04/21 16:08 Sputum - Endotracheal Tube Aspirate Gram Stain - Final 07/02/21 15:30 Urine,Catheterized Urine Culture - Final NO GROWTH AFTER 48 HOURS 07/02/21 15:30 Sputum - Expectorated Sputum Gram Stain - Final 07/02/21 15:30 Sputum - Expectorated Sputum Sputum Culture - Preliminary - Constitutional no acute distress - *Routine Respiratory Exam Present: rales, distant breath sounds - *Routine Cardiovascular Exam Present: RRR - *Routine Abdominal Exam Present: soft, normoactive bowel sounds. Absent: tenderness - *Routine Extremities Exam Absent: edema Assessment and Plan (1) Respiratory failure with hypoxia Status: Acute Qualifiers: Chronicity: acute Qualified Code(s): J96.01 - Acute respiratory failure with hypoxia Category: Medical Code(s): J96.91 - Respiratory failure, unspecified with hypoxia (2) Acute kidney injury (nontraumatic) Status: Acute Category: Medical Code(s): N17.9 - Acute kidney failure, unspecified (3) Pneumonia due to COVID-19 virus Status: Acute Category: Medical Code(s): U07.1 - COVID-19; J12.82 - Pneumonia due to coronavirus disease 2019 (4) CAD (coronary artery disease) Status: Chronic Qualifiers: Coronary Disease-Associated Artery/Lesion type: unspecified vessel or lesion type [place] vs. transplanted heart: [place] heart Associated angina: without angina Qualified Code(s): I25.10 - Atherosclerotic heart disease of [place] coronary artery without angina pectoris Category: Medical Code(s): I25.10 - Atherosclerotic heart disease of [place] coronary artery without angina pectoris (5) Diabetes mellitus type 2 in obese Status: Chronic Category: Medical Code(s): E11.69 - Type 2 diabetes mellitus with other specified complication; E66.9 - Obesity, unspecified (6) HHD (hypertensive heart disease) Status: Chronic Qualifiers: Heart failure presence: without heart failure Qualified Code(s): I11.9 - Hypertensive heart disease without heart failure Category: Medical Code(s): I11.9 - Hypertensive heart disease without heart failure (7) Long-term insulin use Status: Chronic Category: Medical Code(s): Z79.4 - exterminator (current) use of insulin (8) Morbid obesity Status: Chronic Category: Medical Code(s): E66.01 - Morbid (severe) obesity due to excess calories (9) Stage 3b chronic kidney disease Status: Chronic Category: Medical Code(s): N18.32 - Chronic kidney disease, stage 3b (10) Type 2 diabetes mellitus with hyperglycemia Status: Chronic Category: Medical Code(s): E11.65 - Type 2 diabetes mellitus with hyperglycemia (11) Poor venous access Status: Acute Category: Medical Code(s): I87.8 - Other specified disorders of veins - A
--- NOTE | 2021-07-05 07:20 | CA_ITS ---
APPROVED REPORT EXAM: Comprehensive 2D, Doppler, and color-flow Echocardiogram Telecommunication Operator: Meeta Gómez CRT Ht: 6 ft 0 in Wt: 280lbs BSA: 2.46 BP: 99/59 mmHg Indications: Covid 19, Congestive Heart Failure, COPD, Diabetes, Obesity, CAD, Hyperlipidemia, post code, intubated, sstents,, renal disease, PVD 2D Dimensions LVOT 2.05 cm (M/F) 1.5-2.5 M-Mode Dimensions RVDd 2.86 cm (0.9-2.6) LA Diam 3.24 cm (1.9-4.0) LVDd 5.02 cm (3.5-5.7) Ao Diam 4.05 cm (2.0-3.7) LVDs 3.15 cm (3.5-5.7) IVSd 1.88 cm (0.6-1.1) PWd 1.13 cm (0.6-1.1) EF (Teich) 67.00% FS 37.30% EDV (Teich) 119.30 mL TAPSE 1.41 (<1.7) ESV (Teich) 39.40 mL LV Diastology E Decel Time 320.00 (160-240 msec) E/A Ratio 0.68 Aortic Valve AO Peak GR. 6.20 mmHg Mitral Valve MV E Max Gutierrez. 49.00 (40-130 cm/s) MV A Velocity 72.00 (40-130 cm/s) E/A Ratio 0.68 MV Decel. Time 320.00 (160-240 ms) MV PHT 94.00 ms Pulmonary Valve PV Peak Velocity 60.00 (50-150 cm/s) Tricuspid Valve TR P. Velocity 217.00 cm/s RAP Estimate 10.00 mmHg RVSP 28.80 mmHg Left Ventricle Technically very difficult study because of the patient factors and poor acoustic windows, repeat study with Definity contrast is recommended. Left atrium is mildly enlarged, left ventricle is normal size, mild concentric left ventricular hypertrophy, visually estimated ejection fraction is probably 55%, there is no obvious regional wall motion abnormality in the visualized segments. Grade 1 diastolic dysfunction seen without tissue Doppler evidence of raise left atrial pressure. Right Ventricle Right atrium and right ventricle are mildly enlarged with normal contractility. Aortic Valve Aortic valve is minimally thickened and fibrosed, there is no Doppler evidence of aortic stenosis or aortic insufficiency. Mitral Valve Mitral valve grossly normal, there is mild mitral regurgitation. Tricuspid Valve Tricuspid grossly normal, there is mild tricuspid regurgitation, tricuspid regurgitation jet velocity is inadequate for calculation of the right ventricular systolic pressure. Pulmonic Valve Pulmonic valve is poorly visualized. Great Vessels Aortic root is normal size. Inferior vena cava is poorly visualized. Pericardium No significant pericardial effusion noted. Conclusion 1. Technically very difficult and poor study, repeat study with Definity contrast is recommended. Probably preserved left ventricular systolic function, visually estimated ejection fraction 55% there is no regional wall motion abnormality in the visualized segments. Grade 1 diastolic dysfunction seen without tissue Doppler evidence of raise left atrial pressure. 2. Mildly enlarged right ventricle with normal contractility. 3. Mild mitral and tricuspid regurgitation. 4. No significant pericardial effusion noted. Electronically signed by : Joseph Nunez MD 07/05/2021 19:23:27
[2021-07-05 07:25] LABS: Alanine Aminotransferase 97 U/L (12-78); Albumin Level 2.9 g/dl (3.5-5.0); Albumin/Globulin Ratio 0.8 (1.1-1.8); Alkaline Phosphatase 95 U/L (38-126); Anion Gap 13.7 mEq/L (5-15); Aspartate Amino Transferase 140 U/L (17-59); Bilirubin,Total 0.4 mg/dl (0.2-1.3); Blood Urea Nitrogen 67 mg/dl (9-20); Calcium 8.2 mg/dl (8.4-10.2); Carbon Dioxide 19 mmol/L (22.0-30.0); Chloride 117 mmol/L (98-107); Creatinine Clearance Estimated 47 mL/min (50-200); Estimated Glomerular Filt Rate 25 ml/min (>60); GFR (African American) 31 ML/MIN (>60); Globulin 3.5 g/dL (1.3-3.2); Glucose 378 mg/dl (74-100); Potassium 5.7 mmoL/L (3.5-5.1); Sodium 144 mmol/L (136-145); Total Protein,Serum 6.4 g/dl (6.3-8.2)
[2021-07-05 07:35] LABS: ABG Base Excess -10.5 mmol/L (-2.4-2.3); ABG HCO3 16.7 mmhg (22.0-26.0); ABG Oxygen Saturation 98 % (90-100); ABG PCO2 38.6 mmhg (35.0-45.0); ABG PH 7.25 mmol/L (7.35-7.45); ABG TCO2 17.8 mmhg (23-27)
[2021-07-05 07:38] LABS: Lactate Arterial 1.6 mmol/L (0.4-2.0)
--- NOTE | 2021-07-05 07:55 | PC.NURSE ---
0005- LEVOPHED TITRATED TO 5 MCG/MIN 0115- PROPOFOL TITRATED 50 MCG/KG/MIN 0500- PROPOFOL TITRATED 30 MCG/KG/MIN; HR 52-54
[2021-07-05 08:26] LABS: Oxygen 80 %; PEEP 18; Source Right Radial; Tidal Volume 480; Vent Rate 24
--- NOTE | 2021-07-05 08:45 | PC.NURSE ---
PEEP turned down to [address] Michaud.
--- NOTE | 2021-07-05 09:24 | HMH.PULMPN ---
Internal Medicine - PN: Subj *Date: 07/05/21 *Time: 11:04 Interval history: No acute respiratory events overnight. Patient currently remains on stable vent settings. Exam - Constitutional Constitutional:: Present: no acute distress, comfortable - HENMT Exam HENMT: Present: normocephalic, atraumatic - Eye Exam Eyes:: Present: normal appearance both eyes and related structures - Neck Exam Neck:: Present: normal visual inspection - Respiratory Exam Respiratory:: Present: respiratory distress, crackles - Cardiovascular Exam Cardiac:: Present: S1, S2 - GI Exam GI:: Present: soft, distended - Skin Exam Skin: Present: no rash - Neurological Exam Neurological: Absent: alert, awake, normal cognition - Extremities Exam Extremities: Present: no cyanosis, no clubbing, no edema Assessment and Plan (1) Respiratory failure with hypoxia Status: Acute Qualifiers: Chronicity: acute Qualified Code(s): J96.01 - Acute respiratory failure with hypoxia Category: Medical Code(s): J96.91 - Respiratory failure, unspecified with hypoxia (2) Acute kidney injury (nontraumatic) Status: Acute Category: Medical Code(s): N17.9 - Acute kidney failure, unspecified (3) Pneumonia due to COVID-19 virus Status: Acute Category: Medical Code(s): U07.1 - COVID-19; J12.82 - Pneumonia due to coronavirus disease 2019 (4) CAD (coronary artery disease) Status: Chronic Qualifiers: Coronary Disease-Associated Artery/Lesion type: unspecified vessel or lesion type [place] vs. transplanted heart: [place] heart Associated angina: without angina Qualified Code(s): I25.10 - Atherosclerotic heart disease of [place] coronary artery without angina pectoris Category: Medical Code(s): I25.10 - Atherosclerotic heart disease of [place] coronary artery without angina pectoris (5) Diabetes mellitus type 2 in obese Status: Chronic Category: Medical Code(s): E11.69 - Type 2 diabetes mellitus with other specified complication; E66.9 - Obesity, unspecified (6) HHD (hypertensive heart disease) Status: Chronic Qualifiers: Heart failure presence: without heart failure Qualified Code(s): I11.9 - Hypertensive heart disease without heart failure Category: Medical Code(s): I11.9 - Hypertensive heart disease without heart failure (7) Long-term insulin use Status: Chronic Category: Medical Code(s): Z79.4 - intermediate accountant (current) use of insulin (8) Morbid obesity Status: Chronic Category: Medical Code(s): E66.01 - Morbid (severe) obesity due to excess calories (9) Stage 3b chronic kidney disease Status: Chronic Category: Medical Code(s): N18.32 - Chronic kidney disease, stage 3b (10) Type 2 diabetes mellitus with hyperglycemia Status: Chronic Category: Medical Code(s): E11.65 - Type 2 diabetes mellitus with hyperglycemia (11) Poor venous access Status: Acute Category: Medical Code(s): I87.8 - Other specified disorders of veins - Assessment and plan all Dx Assessment and Plan for all problems:: #COVID-19 pneumonia: #Community-acquired pneumonia: #Acute hypoxic respiratory failure: 76-year-old recently diagnosed with COVID-19 pneumonia on 06/27/21 and discharged home on levofloxacin and dexamethasone presented to the hospital with progressively worsening respiratory distress associated with nonproductive cough. Chest x-ray admission showed worsening pulmonary infiltrates bilaterally. No evidence of leukocytosis. Lymphopenia noted. CRP 61.6 on this admission Lower extremity Doppler negative for DVT. No CTA performed. Patient on admission needing noninvasive ventilatory support, his oxygen requirements gradually increased over the weekend and patient experienced cardiac arrest likely secondary to hypoxia after he removed his BiPAP and found to be hypoxic, underwent CPR with return of spontaneous circulation and has been intubated for airway protection at that point and has
[2021-07-05 10:40] LABS: Vancomycin,Trough 10.3 ug/mL (5.0-10.0)
[2021-07-05 15:31] LABS: Vancomycin,Peak 9.7 ug/ml (11-39)
[2021-07-05 21:16] LABS: POC Glucose,Bedside 390 (70-110)
[2021-07-05 21:16] LABS: POC Glucose,Bedside 308 (70-110)
[2021-07-06] VITALS (33 sets, daily range): BP systolic 92–162; BP diastolic 50–82; PULSE 50–74; RESP 16–28; TEMP 36–36.8; O2SAT 74–100; BMI 38.9
--- NOTE | 2021-07-06 01:54 | PC.NURSE ---
Circuit disconnect occurred during turning and his O2 decreased. His FiO2 has since been increased to 100%. Sinus timmy on telemetry. Current vent settings: AC mode Tidal Volume 480 PEEP 16 Rate 24 FiO2 100%
--- NOTE | 2021-07-06 06:00 | XR_ITS ---
PROCEDURE INFORMATION: Exam: XR Chest Exam date and time: 07/06/2021 6:00 AM Age: 76 years old Clinical indication: Device placement; Ett placement (vent status); Patient HX: Covid; Additional info: Intubation TECHNIQUE: Imaging protocol: XR of the chest. Views: 1 view. COMPARISON: CR XR CHEST PORTABLE 07/05/2021 4:49 AM FINDINGS: Tubes, catheters and devices: Endotracheal tube remains in place with the tip above the favian. The PICC line remains in place. Lungs: There is worsening of the airspace disease throughout both lungs. Pleural spaces: Unremarkable. No pleural effusion. No pneumothorax. Heart/Mediastinum: Unremarkable. No cardiomegaly. Bones/joints: Unremarkable. IMPRESSION: There is worsening of the airspace disease throughout both lungs.
[2021-07-06 06:16] LABS: ABG Base Excess -11.7 mmol/L (-2.4-2.3); ABG HCO3 15.8 mmhg (22.0-26.0); ABG Oxygen Saturation 77 % (90-100); ABG PCO2 38.5 mmhg (35.0-45.0); ABG PH 7.23 mmol/L (7.35-7.45)
[2021-07-06 06:17] LABS: Alanine Aminotransferase 80 U/L (12-78); Albumin Level 2.8 g/dl (3.5-5.0); Albumin/Globulin Ratio 0.8 (1.1-1.8); Alkaline Phosphatase 86 U/L (38-126); Anion Gap 14.5 mEq/L (5-15); Aspartate Amino Transferase 123 U/L (17-59); Bilirubin,Total 0.4 mg/dl (0.2-1.3); Blood Urea Nitrogen 76 mg/dl (9-20); Calcium 8.4 mg/dl (8.4-10.2); Carbon Dioxide 20 mmol/L (22.0-30.0); Chloride 119 mmol/L (98-107); Creatinine Clearance Estimated 50 mL/min (50-200); Estimated Glomerular Filt Rate 27 ml/min (>60); GFR (African American) 32 ML/MIN (>60); Globulin 3.6 g/dL (1.3-3.2); Glucose 306 mg/dl (74-100); Potassium 5.5 mmoL/L (3.5-5.1); Sodium 148 mmol/L (136-145); Total Protein,Serum 6.4 g/dl (6.3-8.2)
[2021-07-06 06:23] LABS: Allen's Test Patient Unable; Oxygen 100 %; PEEP 18; Source Left Radial; Tidal Volume 480; Vent Rate 26
--- NOTE | 2021-07-06 06:23 | PC.NURSE ---
Respiratory is in the room with him. His O2 is 96% at this time.
--- NOTE | 2021-07-06 06:28 | PC.NURSE ---
Called x-ray about stat chest x-ray results.
--- NOTE | 2021-07-06 07:14 | HMH.ACPN2 ---
Internal Medicine - PN: Subj *Date: 07/06/21 *Time: 07:14 Interval history: Patient had a malfunction in his respiratory circuit overnight leading to desaturations which staff has been working to recover from all night. O2 sats dropped to the 70s and 80s. With some recruitment maneuvers or ambo bagging the patient's O2 sats would rise to the 80s and 90s but would soon drop down to the 80s despite increase in FiO2 as well as gradually increasing the PEEP. Patient is sedated but not breathing with the vent this morning. Exam Vital signs and Labs for Last 24 Hours: Temp Pulse Resp BP Pulse Ox 97.2 F L 72 28 H 113/67 96 07/06/21 05:00 07/06/21 06:48 07/06/21 05:00 07/06/21 06:48 07/06/21 06:48 Laboratory Results - last 24 hr 07/05/21 05:30: Sodium 144, Potassium 5.7 H, Chloride 117 H, Carbon Dioxide 19 L, Anion Gap 13.7, BUN 67 H, Creatinine 2.50 H, Estimated Creat Clear 47, Estimated GFR 25 L, Est GFR ( Amer) 31 L, Glucose 378 H, Calcium 8.2 L, Total Bilirubin 0.4, AST 140 H, ALT 97 H, Alkaline Phosphatase 95, Total Protein 6.4, Albumin 2.9 L D, Globulin 3.5 H, Albumin/Globulin Ratio 0.8 L 07/05/21 06:00: ABG Lactate 1.6 07/05/21 06:00: Specimen Source Right radial, O2 % 80, ABG pH 7.25 L, ABG pCO2 38.6, ABG pO2 108.0 H, ABG HCO3 16.7 L, ABG Total CO2 17.8 L, ABG O2 Saturation 98, ABG Base Excess -10.5 L, Jose Test N/a, Vent Rate 24, Tidal Volume 480, PEEP 18 07/05/21 08:53: Vancomycin Trough 10.3 H 07/05/21 11:49: POC Glucose 390 H* 07/05/21 13:33: Vancomycin Peak 9.7 L 07/05/21 16:09: POC Glucose 308 H* 07/06/21 05:47: Sodium 148 H, Potassium 5.5 H, Chloride 119 H, Carbon Dioxide 20 L, Anion Gap 14.5, BUN 76 H, Creatinine 2.40 H, Estimated Creat Clear 50, Estimated GFR 27 L, Est GFR ( Amer) 32 L, Glucose 306 H, Calcium 8.4, Total Bilirubin 0.4, AST 123 H, ALT 80 H, Alkaline Phosphatase 86, Total Protein 6.4, Albumin 2.8 L, Globulin 3.6 H, Albumin/Globulin Ratio 0.8 L 07/06/21 06:00: Specimen Source Left radial, O2 % 100, ABG pH 7.23 L*, ABG pCO2 38.5, ABG pO2 47.0 L, ABG HCO3 15.8 L, ABG Total CO2 17.0 L, ABG O2 Saturation 77 L*, ABG Base Excess -11.7 L, Jose Test Patient unable, Vent Rate 26, Tidal Volume 480, PEEP 18 I & O for Last 24 hours: Intake & Output 07/03/21 07/04/21 07/05/21 07/06/21 11:59 11:59 11:59 11:59 Intake Total 2669.667 / 2669.667 2004.415 / 2004.415 3073.482 / 3073.482 1241 / 1241 Output Total 2775 / 2925 1705 / 1705 1060 / 1060 905 / 905 Balance -105.333 / -255.333 300.415 / 877.856 7477.48 / 48 336 / 336 Weight 277 lb 3 oz 277 lb 280 lb 1 oz 287 lb 8 oz Microbiology Reports for the Last 24 Hours: Microbiology 06/30/21 09:45 Blood Blood Culture - Final NO GROWTH AFTER 5 DAYS 06/30/21 09:45 Blood Blood Culture - Final NO GROWTH AFTER 5 DAYS 07/02/21 15:30 Sputum - Expectorated Sputum Gram Stain - Final 07/02/21 15:30 Sputum - Expectorated Sputum Sputum Culture - Preliminary Narrative: Patient remains sedated and is not responsive to verbal or tactile stimulus. Breath sounds are distant. Patient is not breathing with the vent. Heart has a regular rate and rhythm. Abdomen is soft and nontender. Extremities have no edema. Patient required paralytic. I was present and pushed rocuronium 50 mg. After ministration of paralytic patient was no longer overbreathing the vent. O2 sats began to rise. Assessment and Plan (1) Respiratory failure with hypoxia Status: Acute Qualifiers: Chronicity: acute Qualified Code(s): J96.01 - Acute respiratory failure with hypoxia Category: Medical Code(s): J96.91 - Respiratory failure, unspecified with hypoxia (2) Acute kidney injury (nontraumatic) Status: Acute Category: Medical Code(s): N17.9 - Acute kidney failure, unspecified (3) Pneumonia due to COVID-19 virus Status: Acute Category: Medical Code(s): U07.1 - COVID-19; J12.82
[2021-07-06 07:42] LABS: ABG Base Excess -10.3 mmol/L (-2.4-2.3); ABG HCO3 16.8 mmhg (22.0-26.0); ABG Oxygen Saturation 90 % (90-100); ABG PCO2 38.4 mmhg (35.0-45.0); ABG PH 7.26 mmol/L (7.35-7.45); ABG TCO2 17.9 mmhg (23-27)
[2021-07-06 08:58] LABS: Allen's Test Patient Unable; Lactate Arterial 1.6 mmol/L (0.4-2.0); Oxygen 100 %; PEEP 18; Source Left Radial; Tidal Volume 480; Vent Rate 26
--- NOTE | 2021-07-06 09:02 | HMH.PULMPN ---
Internal Medicine - PN: Subj *Date: 07/07/21 *Time: 09:23 Interval history: No acute respiratory vents overnight, patient can remain on high ventilatory support. Exam - Constitutional Constitutional:: Present: no acute distress, comfortable - HENMT Exam HENMT: Present: normocephalic - Neck Exam Neck:: Present: normal visual inspection - Respiratory Exam Respiratory:: Present: respiratory distress, decreased breath sounds, crackles, rales - Cardiovascular Exam Cardiac:: Present: S1, S2 - GI Exam GI:: Present: soft - Skin Exam Skin: Present: warm - Neurological Exam Neurological: Absent: alert, awake, normal cognition Assessment and Plan (1) Respiratory failure with hypoxia Status: Acute Qualifiers: Chronicity: acute Qualified Code(s): J96.01 - Acute respiratory failure with hypoxia Category: Medical Code(s): J96.91 - Respiratory failure, unspecified with hypoxia (2) Acute kidney injury (nontraumatic) Status: Acute Category: Medical Code(s): N17.9 - Acute kidney failure, unspecified (3) Pneumonia due to COVID-19 virus Status: Acute Category: Medical Code(s): U07.1 - COVID-19; J12.82 - Pneumonia due to coronavirus disease 2019 (4) CAD (coronary artery disease) Status: Chronic Qualifiers: Coronary Disease-Associated Artery/Lesion type: unspecified vessel or lesion type [place] vs. transplanted heart: [place] heart Associated angina: without angina Qualified Code(s): I25.10 - Atherosclerotic heart disease of [place] coronary artery without angina pectoris Category: Medical Code(s): I25.10 - Atherosclerotic heart disease of [place] coronary artery without angina pectoris (5) Diabetes mellitus type 2 in obese Status: Chronic Category: Medical Code(s): E11.69 - Type 2 diabetes mellitus with other specified complication; E66.9 - Obesity, unspecified (6) HHD (hypertensive heart disease) Status: Chronic Qualifiers: Heart failure presence: without heart failure Qualified Code(s): I11.9 - Hypertensive heart disease without heart failure Category: Medical Code(s): I11.9 - Hypertensive heart disease without heart failure (7) Long-term insulin use Status: Chronic Category: Medical Code(s): Z79.4 - prison (current) use of insulin (8) Morbid obesity Status: Chronic Category: Medical Code(s): E66.01 - Morbid (severe) obesity due to excess calories (9) Stage 3b chronic kidney disease Status: Chronic Category: Medical Code(s): N18.32 - Chronic kidney disease, stage 3b (10) Type 2 diabetes mellitus with hyperglycemia Status: Chronic Category: Medical Code(s): E11.65 - Type 2 diabetes mellitus with hyperglycemia (11) Poor venous access Status: Acute Category: Medical Code(s): I87.8 - Other specified disorders of veins - Assessment and plan all Dx Assessment and Plan for all problems:: #COVID-19 pneumonia: #Community-acquired pneumonia: #Acute hypoxic respiratory failure: 76-year-old recently diagnosed with COVID-19 pneumonia on 06/27/21 and discharged home on levofloxacin and dexamethasone presented to the hospital with progressively worsening respiratory distress associated with nonproductive cough. Chest x-ray admission showed worsening pulmonary infiltrates bilaterally. No evidence of leukocytosis. Lymphopenia noted. CRP 61.6 on this admission Lower extremity Doppler negative for DVT. No CTA performed. Patient on admission needing noninvasive ventilatory support, his oxygen requirements gradually increased over the weekend and patient experienced cardiac arrest likely secondary to hypoxia after he removed his BiPAP and found to be hypoxic, underwent CPR with return of spontaneous circulation and has been intubated for airway protection at that point and has been intubated since then. Plan: - Continue mechanical ventilatory support - Continue AnalgoSedation with Propofol and Fentanyl with CPOT gal less than or eu
--- NOTE | 2021-07-06 14:51 | DIET.NUTRFU ---
Addendum entered by Cat Perry 07/08/21 15:32: Tube feeds initiated last night, tolerating well. Did have diarrhea yesterday but not today. Significant rise in K and decline renal failure. TGL was 487 yesterday, recommend monitoring this and checking Lipase. BG high- avg. 350. Original Note: Per nursing tube feeds still on hold, levophed has been weaned to 5mcg/m, recommend initiating. If TF not initiated in next 24h, recommend IVF, pt without significant fluids past 48h. Na high 148, K high 5.5, BUN increased 76, BG high >300. Weight up 6#, likely fluid retention. Pt has not had a BM t/o stay.
--- NOTE | 2021-07-06 18:08 | PC.NURSE ---
Pt is currently sedated and mechanically ventilated. Lungs are diminished t/o. His spangler is bedside draining cloudy urine. He has had several loose stools this shift. Familyy called and updated on POC. No changes from morning assessment.
--- NOTE | 2021-07-06 23:18 | PC.NURSE ---
He remains deeply sedated. Sinus timmy on telemetry. Vent settings: Tidal Volume 480 PEEP 20 Rate 26 FiO2 100%
[2021-07-07] VITALS (36 sets, daily range): BP systolic 84–137; BP diastolic 47–69; PULSE 56–81; RESP 26–27; TEMP 36–37.3; O2SAT 75–100; BMI 39.2
[2021-07-07 00:50] LABS: POC Glucose,Bedside 276 (70-110)
[2021-07-07 00:50] LABS: POC Glucose,Bedside 289 (70-110)
--- NOTE | 2021-07-07 01:17 | PC.NURSE ---
0056-notified [facility] of [facility]. Spoke with Aimee. She stated [facility] would call back after they determine if his case will be followed.
--- NOTE | 2021-07-07 02:35 | XR_ITS ---
PROCEDURE INFORMATION: Exam: XR Chest Exam date and time: 07/07/2021 2:35 AM Age: 76 years old Clinical indication: Shortness of breath; Patient HX: SOA, covid +, TECHNIQUE: Imaging protocol: XR of the chest. Views: 1 view. COMPARISON: CR XR CHEST PORTABLE 07/06/2021 5:03 AM FINDINGS: Tubes, catheters and devices: Multiple overlying cardiac leads are present. The endogastric tube is noted with distal portion overlying the stomach. Left-sided PICC tip is overlying the superior vena cava. Endotracheal tube noted with the tip above the favian approximately 4.5 cm Lungs: Persistent bilateral diffuse airspace opacities. Pleural spaces: Unremarkable. No pleural effusion. No pneumothorax. Heart/Mediastinum: Unremarkable. No cardiomegaly. Bones/joints: Unremarkable. IMPRESSION: 1. Persistent bilateral diffuse airspace opacities. 2. Support catheters noted, as above. No pneumothorax.
--- NOTE | 2021-07-07 02:36 | PC.NURSE ---
He began to overbreath the vent around 0209 and his sats decreased to the 50s. Fentanyl and propofol maxed. Respiratory would manually bag him and his sats would increase to the 90s but would quickly drop. Rapid response red was called at 0211. Dr. Ray was paged and he gave order for versed 2mg IV q 2 hours PRN. He received a dose of versed. His sats continued to drop after administration of versed. Dr. Michaud was contacted and gave order for Rocuronium [place] 50mg IV once. Dr. Benoit administered Rocuronium and his sats stayed in the 90s and he no longer was overbreathing the vent. Chest x-ray obtained and Dr. Benoit viewed x-ray at the bedside.
--- NOTE | 2021-07-07 04:44 | PC.NURSE ---
0442-f/u with [facility]. Coordinator is unavailable at this time. Aimee stated that [facility] would call back.
--- NOTE | 2021-07-07 04:46 | PC.NURSE ---
Aimee with [facility] called back at this time and stated that [facility] will not be following and care may be withdrawn if that situation arises.
[2021-07-07 06:32] LABS: Alanine Aminotransferase 59 U/L (12-78); Albumin Level 2.8 g/dl (3.5-5.0); Albumin/Globulin Ratio 0.8 (1.1-1.8); Alkaline Phosphatase 93 U/L (38-126); Anion Gap 15.9 mEq/L (5-15); Aspartate Amino Transferase 93 U/L (17-59); Bilirubin,Total 0.4 mg/dl (0.2-1.3); Carbon Dioxide 18 mmol/L (22.0-30.0); Chloride 118 mmol/L (98-107); Creatinine Clearance Estimated 39 mL/min (50-200); Estimated Glomerular Filt Rate 20 ml/min (>60); GFR (African American) 24 ML/MIN (>60); Globulin 3.4 g/dL (1.3-3.2); Glucose 346 mg/dl (74-100); Potassium 4.9 mmoL/L (3.5-5.1); Sodium 147 mmol/L (136-145); Total Protein,Serum 6.2 g/dl (6.3-8.2)
[2021-07-07 06:37] LABS: Blood Urea Nitrogen 88 mg/dl (9-20)
[2021-07-07 07:14] LABS: ABG Base Excess -12.1 mmol/L (-2.4-2.3); ABG HCO3 16.6 mmhg (22.0-26.0); ABG Oxygen Saturation 89 % (90-100); ABG PCO2 47.1 mmhg (35.0-45.0); ABG PO2 64.6 mmhg (80-100)
--- NOTE | 2021-07-07 07:19 | HMH.ACPN2 ---
Internal Medicine - PN: Subj *Date: 07/07/21 *Time: 07:20 Interval history: Patient was stable throughout the day yesterday but overnight had continuous episodes of desaturations requiring the patient to be paralyzed with subsequent increase in sedation. Currently O2 sat is 89% while mechanically ventilated. Exam Vital signs and Labs for Last 24 Hours: Temp Pulse Resp BP Pulse Ox 97.5 F L 66 26 H 106/55 L 89 L 07/07/21 06:32 07/07/21 06:32 07/07/21 06:32 07/07/21 06:32 07/07/21 06:32 Laboratory Results - last 24 hr 07/06/21 03:56: POC Glucose 276 H 07/06/21 06:00: ABG Lactate 1.6 07/06/21 06:00: Specimen Source Left radial, O2 % 100, ABG pH 7.26 L, ABG pCO2 38.4, ABG pO2 64.0 L, ABG HCO3 16.8 L, ABG Total CO2 17.9 L, ABG O2 Saturation 90, ABG Base Excess -10.3 L, Jose Test Patient unable, Vent Rate 26, Tidal Volume 480, PEEP 18 07/06/21 10:56: POC Glucose 289 H 07/07/21 04:40: Sodium 147 H, Potassium 4.9, Chloride 118 H, Carbon Dioxide 18 L, Anion Gap 15.9 H, BUN 88 H, Creatinine 3.10 H D, Estimated Creat Clear 39, Estimated GFR 20 L, Est GFR ( Amer) 24 L D, Glucose 346 H, Calcium 8.0 L, Total Bilirubin 0.4, AST 93 H, ALT 59 D, Alkaline Phosphatase 93, Total Protein 6.2 L, Albumin 2.8 L, Globulin 3.4 H, Albumin/Globulin Ratio 0.8 L I & O for Last 24 hours: Intake & Output 07/04/21 07/05/21 07/06/21 07/07/21 11:59 11:59 11:59 11:59 Intake Total 415 / 3073.482 / 3482 1692.292 / 2004.292 1674.607 / 1674.607 Output Total 1705 / 1705 1060 / 1060 1100 / 1175 715 / 715 Balance 300.415 / 348.700 3127 592.292 / 830.292 959.607 / 959.607 Weight 277 lb 280 lb 1 oz 287 lb 8 oz 289 lb 11.2 oz Microbiology Reports for the Last 24 Hours: Microbiology 07/02/21 15:30 Sputum - Expectorated Sputum Gram Stain - Final 07/02/21 15:30 Sputum - Expectorated Sputum Sputum Culture - Final Normal Respiratory [place] 07/04/21 16:08 Sputum - Endotracheal Tube Aspirate Gram Stain - Final 07/04/21 16:08 Sputum - Endotracheal Tube Aspirate Sputum Culture - Preliminary Narrative: Patient is sedated. Lungs have diminished breath sounds. Heart has a regular rate and rhythm. Abdomen is soft and obese. Lower extremities are warm to the touch. Gr catheter is anchored with tea colored urine Assessment and Plan (1) Respiratory failure with hypoxia Status: Acute Qualifiers: Chronicity: acute Qualified Code(s): J96.01 - Acute respiratory failure with hypoxia Category: Medical Code(s): J96.91 - Respiratory failure, unspecified with hypoxia (2) Acute kidney injury (nontraumatic) Status: Acute Category: Medical Code(s): N17.9 - Acute kidney failure, unspecified (3) Pneumonia due to COVID-19 virus Status: Acute Category: Medical Code(s): U07.1 - COVID-19; J12.82 - Pneumonia due to coronavirus disease 2019 (4) CAD (coronary artery disease) Status: Chronic Qualifiers: Coronary Disease-Associated Artery/Lesion type: unspecified vessel or lesion type [place] vs. transplanted heart: [place] heart Associated angina: without angina Qualified Code(s): I25.10 - Atherosclerotic heart disease of [place] coronary artery without angina pectoris Category: Medical Code(s): I25.10 - Atherosclerotic heart disease of [place] coronary artery without angina pectoris (5) Diabetes mellitus type 2 in obese Status: Chronic Category: Medical Code(s): E11.69 - Type 2 diabetes mellitus with other specified complication; E66.9 - Obesity, unspecified (6) HHD (hypertensive heart disease) Status: Chronic Qualifiers: Heart failure presence: without heart failure Qualified Code(s): I11.9 - Hypertensive heart disease without heart failure Category: Medical Code(s): I11.9 - Hypertensive heart disease without heart failure (7) Long-term insulin use Status: Chronic Category: Medical Code(s): Z79.4 - technician terminal and repeater
[2021-07-07 07:53] LABS: Basophils # 0.1 K/mm3 (0-0.2); Basophils % 0.4 % (0.1-2.0); Eosinophils # 0.1 K/mm3 (0.0-0.4); Eosinophils % 0.3 % (0.1-12.0); Hematocrit 37.3 % (42.0-52.0); Lymphocytes # 0.8 K/mm3 (0.7-4.5); Lymphocytes % 5.1 % (10-50); Mean Corpuscular Volume 93.6 fl (80-94); Mean Platelet Volume 9.4 fl (7.4-10.4); Monocytes # 0.4 K/mm3 (0.1-1.0); Monocytes % 2.5 % (1.7-9.3); Neutrophils # 14.4 K/mm3 (1.8-7.8); Neutrophils % 91.7 % (37.0-80.0); Platelet Count 234 K/mm3 (142-424); Red Blood Count 3.99 M/mm3 (4.60-6.20); Red Cell Distribution Width 15.1 % (11.5-17.5); White Blood Count 15.7 K/mm3 (4.8-10.8)
[2021-07-07 07:58] LABS: Oxygen 100 %
[2021-07-07 07:59] LABS: Allen's Test ACCEPTABLE; PEEP 20; Source R RADIAL; Tidal Volume 480; Vent Rate 26
[2021-07-07 08:00] LABS: ABG PH 7.16 mmol/L (7.35-7.45)
[2021-07-07 08:01] LABS: MANUAL DIFFERENTIAL MANUAL DIFFERENTIAL (MANUAL DIFF)
[2021-07-07 08:38] LABS: Lactate Arterial 2.1 mmol/L (0.4-2.0)
[2021-07-07 08:48] LABS: Lymphocytes % 14 % (10-50); Monocytes % 1 % (2-9); Neutrophils % 85 % (42-76); Platelet Estimate Normal; RBC Morphology Normal; Total Cells Counted 100
--- NOTE | 2021-07-07 09:25 | HMH.PULMPN ---
Internal Medicine - PN: Subj *Date: 07/07/21 *Time: 15:46 Interval history: Patient had an episode of desaturation overnight. Current saturations within normal limits. Exam - Constitutional Constitutional:: Absent: no acute distress, comfortable - HENMT Exam HENMT: Present: normocephalic, atraumatic - Eye Exam Eyes:: Present: normal appearance both eyes and related structures - Neck Exam Neck:: Present: normal visual inspection - Respiratory Exam Respiratory:: Present: decreased breath sounds, crackles, rales - Cardiovascular Exam Cardiac:: Present: S1, S2 - GI Exam GI:: Present: soft - Skin Exam Skin: Present: warm - Neurological Exam Neurological: Absent: alert, awake, normal cognition Assessment and Plan (1) Respiratory failure with hypoxia Status: Acute Qualifiers: Chronicity: acute Qualified Code(s): J96.01 - Acute respiratory failure with hypoxia Category: Medical Code(s): J96.91 - Respiratory failure, unspecified with hypoxia (2) Acute kidney injury (nontraumatic) Status: Acute Category: Medical Code(s): N17.9 - Acute kidney failure, unspecified (3) Pneumonia due to COVID-19 virus Status: Acute Category: Medical Code(s): U07.1 - COVID-19; J12.82 - Pneumonia due to coronavirus disease 2019 (4) CAD (coronary artery disease) Status: Chronic Qualifiers: Coronary Disease-Associated Artery/Lesion type: unspecified vessel or lesion type [place] vs. transplanted heart: [place] heart Associated angina: without angina Qualified Code(s): I25.10 - Atherosclerotic heart disease of [place] coronary artery without angina pectoris Category: Medical Code(s): I25.10 - Atherosclerotic heart disease of [place] coronary artery without angina pectoris (5) Diabetes mellitus type 2 in obese Status: Chronic Category: Medical Code(s): E11.69 - Type 2 diabetes mellitus with other specified complication; E66.9 - Obesity, unspecified (6) HHD (hypertensive heart disease) Status: Chronic Qualifiers: Heart failure presence: without heart failure Qualified Code(s): I11.9 - Hypertensive heart disease without heart failure Category: Medical Code(s): I11.9 - Hypertensive heart disease without heart failure (7) Long-term insulin use Status: Chronic Category: Medical Code(s): Z79.4 - manager intermediate (current) use of insulin (8) Morbid obesity Status: Chronic Category: Medical Code(s): E66.01 - Morbid (severe) obesity due to excess calories (9) Stage 3b chronic kidney disease Status: Chronic Category: Medical Code(s): N18.32 - Chronic kidney disease, stage 3b (10) Type 2 diabetes mellitus with hyperglycemia Status: Chronic Category: Medical Code(s): E11.65 - Type 2 diabetes mellitus with hyperglycemia (11) Poor venous access Status: Acute Category: Medical Code(s): I87.8 - Other specified disorders of veins - Assessment and plan all Dx Assessment and Plan for all problems:: #COVID-19 pneumonia: #Community-acquired pneumonia: #Acute hypoxic respiratory failure: 76-year-old recently diagnosed with COVID-19 pneumonia on 06/27/21 and discharged home on levofloxacin and dexamethasone presented to the hospital with progressively worsening respiratory distress associated with nonproductive cough. Chest x-ray admission showed worsening pulmonary infiltrates bilaterally. No evidence of leukocytosis. Lymphopenia noted. CRP 61.6 on this admission Lower extremity Doppler negative for DVT. No CTA performed. Patient on admission needing noninvasive ventilatory support, his oxygen requirements gradually increased over the weekend and patient experienced cardiac arrest likely secondary to hypoxia after he removed his BiPAP and found to be hypoxic, underwent CPR with return of spontaneous circulation and has been intubated for airway protection at that point and has been intubated since then. Plan: - Continue mechanical ventilatory support - Co
[2021-07-07 09:48] LABS: VBG Base Excess -12.1 mmol/L (-2.4-2.3); VBG HCO3 16.4 mmol/L (23-30); VBG PCO2 46.4 mmol/L (35-51); VBG PO2 59.3 mmol/L (28-40); VBG Total CO2 17.9 mmol/L (23-27)
[2021-07-07 09:51] LABS: VBG PH 7.17 mmol/L (7.31-7.41)
[2021-07-07 10:05] LABS: ABG Base Excess -11.7 mmol/L (-2.4-2.3); ABG HCO3 16.6 mmhg (22.0-26.0); ABG Oxygen Saturation 89 % (90-100); ABG PCO2 47.1 mmhg (35.0-45.0); ABG PH 7.16 mmol/L (7.35-7.45); ABG PO2 64.6 mmhg (80-100)
--- NOTE | 2021-07-07 10:05 | HMH.ACPN2 ---
Internal Medicine - PN: Subj *Date: 07/07/21 *Time: 10:05 Exam Vital signs and Labs for Last 24 Hours: Temp Pulse Resp BP Pulse Ox 98.1 F 63 26 H 84/47 L 96 07/07/21 08:00 07/07/21 09:00 07/07/21 09:00 07/07/21 09:00 07/07/21 09:00 Laboratory Results - last 24 hr 07/06/21 03:56: POC Glucose 276 H 07/06/21 10:56: POC Glucose 289 H 07/07/21 04:40: Sodium 147 H, Potassium 4.9, Chloride 118 H, Carbon Dioxide 18 L, Anion Gap 15.9 H, BUN 88 H, Creatinine 3.10 H D, Estimated Creat Clear 39, Estimated GFR 20 L, Est GFR ( Amer) 24 L D, Glucose 346 H, Calcium 8.0 L, Total Bilirubin 0.4, AST 93 H, ALT 59 D, Alkaline Phosphatase 93, Total Protein 6.2 L, Albumin 2.8 L, Globulin 3.4 H, Albumin/Globulin Ratio 0.8 L 07/07/21 06:00: Specimen Source R radial, O2 % 100, ABG pH 7.16 L*, ABG pCO2 47.1 H, ABG pO2 64.6 L, ABG HCO3 16.6 L, ABG Total CO2 18.0 L, ABG O2 Saturation 89 L, ABG Base Excess -12.1 L, Jose Test Acceptable, Vent Rate 26, Tidal Volume 480, PEEP 20 07/07/21 06:00: ABG Lactate 2.1 H 07/07/21 07:45: WBC 15.7 H, RBC 3.99 L, Hgb 12.0 L, Hct 37.3 L, MCV 93.6, MCH 30.0, MCHC 32.0, RDW 15.1, Plt Count 234, MPV 9.4, Neut % (Auto) 91.7 H, Lymph % (Auto) 5.1 L, [place] % (Auto) 2.5, Eos % (Auto) 0.3, Baso % (Auto) 0.4, Neut # (Auto) 14.4 H, Lymph # (Auto) 0.8, [place] # (Auto) 0.4, Eos # (Auto) 0.1, Baso # (Auto) 0.1, Total Counted 100, Neutrophils % (Manual) 85 H, Lymphocytes % (Manual) 14, Monocytes % (Manual) 1 L, Platelet Estimate Normal, RBC Morphology Normal 07/07/21 09:26: VBG pH 7.17 L, VBG pCO2 46.4, VBG pO2 59.3 H, VBG HCO3 16.4 L, VBG Total CO2 17.9 L, VBG O2 Saturation 86.0 H, VBG Base Excess -12.1 L I & O for Last 24 hours: Intake & Output 07/04/21 07/05/21 07/06/21 07/07/21 23:59 23:59 23:59 23:59 Intake Total 2916.232 / 3244.232 1486.208 / 9285.060 3402.417 / 2346.225 1943.482 / 1321.482 Output Total 1430 / 1755 935 / 935 1030 / 1030 345 / 345 Balance 1486.232 / 1489.232 551.208 / 551.208 476.417 / 476.417 976.482 / 976.482 Weight 125.645 kg 127.034 kg 130.408 kg 131.406 kg Microbiology Reports for the Last 24 Hours: Microbiology 07/02/21 15:30 Sputum - Expectorated Sputum Gram Stain - Final 07/02/21 15:30 Sputum - Expectorated Sputum Sputum Culture - Final Normal Respiratory [place] 07/04/21 16:08 Sputum - Endotracheal Tube Aspirate Gram Stain - Final 07/04/21 16:08 Sputum - Endotracheal Tube Aspirate Sputum Culture - Preliminary Assessment and Plan (1) Respiratory failure with hypoxia Status: Acute Qualifiers: Chronicity: acute Qualified Code(s): J96.01 - Acute respiratory failure with hypoxia Category: Medical Code(s): J96.91 - Respiratory failure, unspecified with hypoxia (2) Acute kidney injury (nontraumatic) Status: Acute Category: Medical Code(s): N17.9 - Acute kidney failure, unspecified (3) Pneumonia due to COVID-19 virus Status: Acute Category: Medical Code(s): U07.1 - COVID-19; J12.82 - Pneumonia due to coronavirus disease 2019 (4) CAD (coronary artery disease) Status: Chronic Qualifiers: Coronary Disease-Associated Artery/Lesion type: unspecified vessel or lesion type [place] vs. transplanted heart: [place] heart Associated angina: without angina Qualified Code(s): I25.10 - Atherosclerotic heart disease of [place] coronary artery without angina pectoris Category: Medical Code(s): I25.10 - Atherosclerotic heart disease of [place] coronary artery without angina pectoris (5) Diabetes mellitus type 2 in obese Status: Chronic Category: Medical Code(s): E11.69 - Type 2 diabetes mellitus with other specified complication; E66.9 - Obesity, unspecified (6) HHD (hypertensive heart disease) Status: Chronic Qualifiers: Heart failure presence: without heart failure Qualified Code(s): I11.9 - Hypertensive heart disease without heart failure Category: Medical Code(s): I11.9 - Hypertensive h
[2021-07-07 10:06] LABS: Allen's Test ACCEPTABLE; Oxygen 100 %; PEEP 20; Tidal Volume 480; Vent Rate 26
[2021-07-07 10:46] LABS: Triglycerides 487 mg/dl (30-150)
--- NOTE | 2021-07-07 11:28 | PC.NURSE ---
pt desatting into 70's, MD Vera and RT Mary to bedside, bagging pt to get saturations up, placed pt in reverse trendelenburg position, pt's sats back up to 92%
[2021-07-07 11:51] LABS: VBG Base Excess -13.5 mmol/L (-2.4-2.3); VBG HCO3 15.3 mmol/L (23-30); VBG Oxygen Saturation 86.6 % (50-70); VBG PCO2 44.8 mmol/L (35-51); VBG PO2 61.3 mmol/L (28-40); VBG Total CO2 16.7 mmol/L (23-27)
[2021-07-07 12:11] LABS: VBG PH 7.15 mmol/L (7.31-7.41)
[2021-07-07 12:39] LABS: Reflex Lactic Add Lactic Reflex
[2021-07-07 14:12] LABS: Lactic Acid Follow Up (RFLX 1) 1.2 mmol/L (0.7-2.1)
--- NOTE | 2021-07-07 15:49 | XR_ITS ---
PROCEDURE INFORMATION: Exam: XR Abdomen Exam date and time: 07/07/2021 3:49 PM Age: 76 years old Clinical indication: Bloating; Additional info: Distension TECHNIQUE: Imaging protocol: XR of the abdomen. Views: Frontal supine view of the abdomen. 1 View. COMPARISON: [id number] CT abdomen pelvis wo con 10/25/2017 1:32 AM FINDINGS: Gastrointestinal tract: The bowel gas pattern is nonobstructive and nonspecific. A large amount of stool is noted throughout the colon. Bones/joints: The lumbar spine demonstrates mild degenerative changes at multiple levels. IMPRESSION: 1. The bowel gas pattern is nonobstructive and nonspecific. 2. A large amount of stool is noted throughout the colon.
[2021-07-08] VITALS (32 sets, daily range): BP systolic 82–108; BP diastolic 43–53; PULSE 78–95; RESP 26; TEMP 36.3–37.6; O2SAT 89–93; BMI 39.0
--- NOTE | 2021-07-08 02:59 | PC.NURSE ---
No changes to vent settings. Current vent settings: AC mode Tidal Volume 480 PEEP 20 Rate 26 FiO2 100% Bilateral feet mottled and cool to touch. Blankets have been applied to feet. Suspected deep tissue injury noted to right buttock. Pulmocare has been started.
--- NOTE | 2021-07-08 05:04 | PC.NURSE ---
No urine output.
[2021-07-08 05:22] LABS: Basophils # 0.1 K/mm3 (0-0.2); Basophils % 0.4 % (0.1-2.0); Eosinophils % 0.1 % (0.1-12.0); Lymphocytes # 0.3 K/mm3 (0.7-4.5); Lymphocytes % 2.3 % (10-50); Mean Corpuscular HGB Conc 30.8 g/dL (31.8-35.4); Mean Corpuscular Hemoglobin 29.3 pg (27.0-31.2); Mean Corpuscular Volume 95.1 fl (80-94); Mean Platelet Volume 9.7 fl (7.4-10.4); Monocytes # 0.4 K/mm3 (0.1-1.0); Monocytes % 2.8 % (1.7-9.3); Neutrophils # 12.7 K/mm3 (1.8-7.8); Neutrophils % 94.5 % (37.0-80.0); Platelet Count 246 K/mm3 (142-424); Red Blood Count 3.58 M/mm3 (4.60-6.20); Red Cell Distribution Width 15.3 % (11.5-17.5); White Blood Count 13.5 K/mm3 (4.8-10.8)
[2021-07-08 05:24] LABS: MANUAL DIFFERENTIAL MANUAL DIFFERENTIAL (MANUAL DIFF)
[2021-07-08 05:25] LABS: Chloride 115 mmol/L (98-107); Potassium 5.8 mmoL/L (3.5-5.1); Sodium 145 mmol/L (136-145)
[2021-07-08 05:27] LABS: Creatinine Clearance Estimated 23 mL/min (50-200); Estimated Glomerular Filt Rate 11 ml/min (>60); GFR (African American) 13 ML/MIN (>60)
[2021-07-08 05:28] LABS: Alanine Aminotransferase 48 U/L (12-78); Albumin Level 2.7 g/dl (3.5-5.0); Albumin/Globulin Ratio 0.8 (1.1-1.8); Alkaline Phosphatase 104 U/L (38-126); Anion Gap 20.8 mEq/L (5-15); Aspartate Amino Transferase 81 U/L (17-59); Bilirubin,Total 0.2 mg/dl (0.2-1.3); Calcium 7.9 mg/dl (8.4-10.2); Carbon Dioxide 15 mmol/L (22.0-30.0); Globulin 3.6 g/dL (1.3-3.2); Glucose 251 mg/dl (74-100); Total Protein,Serum 6.3 g/dl (6.3-8.2)
[2021-07-08 05:32] LABS: Blood Urea Nitrogen 95 mg/dl (9-20)
[2021-07-08 05:33] LABS: POC Glucose,Bedside 253 (70-110)
[2021-07-08 05:36] LABS: Hemoglobin 10.5 g/dL (14.1-18.0)
--- NOTE | 2021-07-08 05:54 | PC.NURSE ---
Checked for BM. O2 sats dropped while been moved. Pustular discharge around meatus of penis. Nodules noted on right testicle.
--- NOTE | 2021-07-08 05:57 | PC.NURSE ---
Checked for BM. O2 sats dropped while being moved. Purulent discharge around meatus of penis. Nodules noted on right testicle.
--- NOTE | 2021-07-08 06:00 | XR_ITS ---
PROCEDURE INFORMATION: Exam: XR Chest Exam date and time: 07/08/2021 6:00 AM Age: 76 years old Clinical indication: Condition or disease; Lung condition and disease; Pneumonia; Patient HX: Covid, intubation TECHNIQUE: Imaging protocol: XR of the chest. Views: 1 view. COMPARISON: CR XR CHEST PORTABLE 07/07/2021 2:40 AM FINDINGS: Tubes, catheters and devices: Nasogastric tube overlies the stomach. The exam is under penetrated. Lungs: Some patchy airspace disease is noted. Pleural spaces: Unremarkable. No pleural effusion. No pneumothorax. Heart/Mediastinum: The heart is upper limits of normal in size. Bones/joints: Unremarkable. IMPRESSION: Stable patchy airspace
[2021-07-08 06:52] LABS: Monocytes % 2 % (2-9); Neutrophils % 98 % (42-76); Nucleated Red Blood Cells 1; Platelet Estimate Normal; Total Cells Counted 100
[2021-07-08 06:53] LABS: Hypochromasia 3+; Macrocytosis 1+
--- NOTE | 2021-07-08 06:59 | HMH.ACPN2 ---
Internal Medicine - PN: Subj *Date: 07/08/21 *Time: 06:59 Interval history: Patient is remained stable over the last 24 hours. He remains sedated and intubated. Nursing staff reports patient has a white discharge from the urethral meatus. He has some mild mottling of the extremities. Patient has had a little over 30 mL of urine output over the last 12 hours. Urine is dark and tea colored. Tube feeds were initiated overnight. Patient remains on Levophed. Exam Vital signs and Labs for Last 24 Hours: Temp Pulse Resp BP Pulse Ox 99.1 F 86 26 H 95/52 L 90 L 07/08/21 06:00 07/08/21 06:57 07/08/21 06:57 07/08/21 06:57 07/08/21 06:57 Laboratory Results - last 24 hr 07/07/21 04:40: Triglycerides 487 H 07/07/21 06:00: Specimen Source R radial, O2 % 100, ABG pH 7.16 L*, ABG pCO2 47.1 H, ABG pO2 64.6 L, ABG HCO3 16.6 L, ABG Total CO2 18.0 L, ABG O2 Saturation 89 L, ABG Base Excess -12.1 L, Jose Test Acceptable, Vent Rate 26, Tidal Volume 480, PEEP 20 07/07/21 06:00: O2 % 100, ABG pH 7.16 L*, ABG pCO2 47.1 H, ABG pO2 64.6 L, ABG HCO3 16.6 L, ABG Total CO2 18.0 L, ABG O2 Saturation 89 L, ABG Base Excess -11.7 L, Jose Test Acceptable, ABG Lactate 2.1 H, Vent Rate 26, Tidal Volume 480, PEEP 20 07/07/21 07:45: WBC 15.7 H, RBC 3.99 L, Hgb 12.0 L, Hct 37.3 L, MCV 93.6, MCH 30.0, MCHC 32.0, RDW 15.1, Plt Count 234, MPV 9.4, Neut % (Auto) 91.7 H, Lymph % (Auto) 5.1 L, [place] % (Auto) 2.5, Eos % (Auto) 0.3, Baso % (Auto) 0.4, Neut # (Auto) 14.4 H, Lymph # (Auto) 0.8, [place] # (Auto) 0.4, Eos # (Auto) 0.1, Baso # (Auto) 0.1, Total Counted 100, Neutrophils % (Manual) 85 H, Lymphocytes % (Manual) 14, Monocytes % (Manual) 1 L, Platelet Estimate Normal, RBC Morphology Normal 07/07/21 09:26: VBG pH 7.17 L, VBG pCO2 46.4, VBG pO2 59.3 H, VBG HCO3 16.4 L, VBG Total CO2 17.9 L, VBG O2 Saturation 86.0 H, VBG Base Excess -12.1 L 07/07/21 11:48: VBG pH 7.15 L, VBG pCO2 44.8, VBG pO2 61.3 H, VBG HCO3 15.3 L, VBG Total CO2 16.7 L, VBG O2 Saturation 86.6 H, VBG Base Excess -13.5 L 07/07/21 14:00: Lactate 1.2 07/08/21 04:30: Sodium 145, Potassium 5.8 H, Chloride 115 H, Carbon Dioxide 15 L, Anion Gap 20.8 H, BUN 95 H, Creatinine 5.20 H D, Estimated Creat Clear 23, Estimated GFR 11 L*, Est GFR ( Amer) 13 L* D, Glucose 251 H D, Calcium 7.9 L, Total Bilirubin 0.2, AST 81 H, ALT 48, Alkaline Phosphatase 104, Total Protein 6.3, Albumin 2.7 L, Globulin 3.6 H, Albumin/Globulin Ratio 0.8 L 07/08/21 04:30: WBC 13.5 H, RBC 3.58 L, Hgb 10.5 L D, Hct 34.0 L, MCV 95.1 H, MCH 29.3, MCHC 30.8 L, RDW 15.3, Plt Count 246, MPV 9.7, Neut % (Auto) 94.5 H, Lymph % (Auto) 2.3 L, [place] % (Auto) 2.8, Eos % (Auto) 0.1, Baso % (Auto) 0.4, Neut # (Auto) 12.7 H, Lymph # (Auto) 0.3 L, [place] # (Auto) 0.4, Eos # (Auto) 0.0, Baso # (Auto) 0.1, Total Counted 100, Neutrophils % (Manual) 98 H, Monocytes % (Manual) 2, Nucleated RBCs 1, Platelet Estimate Normal, RBC Morphology Not Reportable, Hypochromasia 3+, Macrocytosis 1+ 07/08/21 05:16: POC Glucose 253 H I & O for Last 24 hours: Intake & Output 07/05/21 07/06/21 07/07/21 07/08/21 11:59 11:59 11:59 11:59 Intake Total 3073.482 / 3073.482 1692.292 / 2004.292 2047.024 / 3519.024 3015.332 / 3015.332 Output Total 1060 / 1060 1100 / 1175 810 / 835 130 / 130 Balance / 592.292 / 106.647 6946.024 / 2684.024 2885.332 / 2885.332 Weight 280 lb 1 oz 287 lb 8 oz 289 lb 11.2 oz 298 lb 4.567 oz Narrative: Patient is sedated and has no response to verbal or tactile stimulus. Lungs have distant breath sounds. Heart has a regular rate and rhythm. Abdomen is soft and obese. Urethral meatus has a thick white discharge. Lower extremities have no edema but from the distal schmidt to the ankle skin is cool to the touch. Gr catheter is anchored and has dark reddish-brown urine Assessment and Plan (1) Respiratory failure with hypoxia Status: Acute Qualifiers: Chronicity: acute Qualified Code(s): J96.01 - Acute respiratory failure
[2021-07-08 07:14] LABS: Oxygen 100 %; PEEP 20; Source R BRACHIAL; Tidal Volume 480; Vent Rate 26
[2021-07-08 07:15] LABS: Lactate Arterial 1.9 mmol/L (0.4-2.0)
[2021-07-08 07:17] LABS: ABG PH 7.05 mmol/L (7.35-7.45)
[2021-07-08 07:18] LABS: ABG Base Excess -16.4 mmol/L (-2.4-2.3); ABG HCO3 13.7 mmhg (22.0-26.0); ABG Oxygen Saturation 88 % (90-100); ABG PCO2 51.3 mmhg (35.0-45.0); ABG PO2 67.9 mmhg (80-100); ABG TCO2 15.3 mmhg (23-27)
--- NOTE | 2021-07-08 07:20 | PC.NURSE ---
received call from RT (Williams Noe) reporting pH 7.[address] Michaud has been updated.
[2021-07-08 09:31] LABS: C-Reactive Protein 320.1 mg/L (0-4)
[2021-07-08 09:33] LABS: Lactate Arterial 1.6 mmol/L (0.4-2.0)
[2021-07-08 09:34] LABS: Reflex Lactic Add Lactic Reflex
[2021-07-08 10:22] LABS: Lactic Acid Follow Up (RFLX 1) 0.9 mmol/L (0.7-2.1)
[2021-07-08 10:36] LABS: VBG Base Excess -18.9 mmol/L (-2.4-2.3); VBG HCO3 12.5 mmol/L (23-30); VBG Oxygen Saturation 79.4 % (50-70); VBG PCO2 53.1 mmol/L (35-51); VBG PO2 55.6 mmol/L (28-40); VBG Total CO2 14.2 mmol/L (23-27)
[2021-07-08 10:46] LABS: POC Glucose,Bedside 199 (70-110)
[2021-07-08 10:57] LABS: VBG PH 6.99 mmol/L (7.31-7.41)
--- NOTE | 2021-07-08 11:00 | PC.NURSE ---
received call from RT (Williams Noe) reporting VBG pH 6.99. Dr. Michaud has been updated.
--- NOTE | 2021-07-08 15:00 | PC.NURSE ---
RESP CARE NOTE: FIO2 decreased to 80% per Dr Michaud.
--- NOTE | 2021-07-08 16:14 | HMH.PULMPN ---
Internal Medicine - PN: Subj *Date: 07/08/21 *Time: 16:14 Interval history: No acute respiratory events overnight. Exam - HENMT Exam HENMT: Present: normocephalic - Eye Exam Eyes:: Present: normal appearance both eyes and related structures - Neck Exam Neck:: Present: normal visual inspection - Respiratory Exam Respiratory:: Present: respiratory distress - Cardiovascular Exam Cardiac:: Present: S1, S2 - GI Exam GI:: Present: soft - Skin Exam Skin: Present: warm - Neurological Exam Neurological: Absent: alert, awake, normal cognition Assessment and Plan (1) Respiratory failure with hypoxia Status: Acute Qualifiers: Chronicity: acute Qualified Code(s): J96.01 - Acute respiratory failure with hypoxia Category: Medical Code(s): J96.91 - Respiratory failure, unspecified with hypoxia (2) Acute kidney injury (nontraumatic) Status: Acute Category: Medical Code(s): N17.9 - Acute kidney failure, unspecified (3) Pneumonia due to COVID-19 virus Status: Acute Category: Medical Code(s): U07.1 - COVID-19; J12.82 - Pneumonia due to coronavirus disease 2019 (4) CAD (coronary artery disease) Status: Chronic Qualifiers: Coronary Disease-Associated Artery/Lesion type: unspecified vessel or lesion type [place] vs. transplanted heart: [place] heart Associated angina: without angina Qualified Code(s): I25.10 - Atherosclerotic heart disease of [place] coronary artery without angina pectoris Category: Medical Code(s): I25.10 - Atherosclerotic heart disease of [place] coronary artery without angina pectoris (5) Diabetes mellitus type 2 in obese Status: Chronic Category: Medical Code(s): E11.69 - Type 2 diabetes mellitus with other specified complication; E66.9 - Obesity, unspecified (6) HHD (hypertensive heart disease) Status: Chronic Qualifiers: Heart failure presence: without heart failure Qualified Code(s): I11.9 - Hypertensive heart disease without heart failure Category: Medical Code(s): I11.9 - Hypertensive heart disease without heart failure (7) Long-term insulin use Status: Chronic Category: Medical Code(s): 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 (8) Morbid obesity Status: Chronic Category: Medical Code(s): E66.01 - Morbid (severe) obesity due to excess calories (9) Stage 3b chronic kidney disease Status: Chronic Category: Medical Code(s): N18.32 - Chronic kidney disease, stage 3b (10) Type 2 diabetes mellitus with hyperglycemia Status: Chronic Category: Medical Code(s): E11.65 - Type 2 diabetes mellitus with hyperglycemia (11) Poor venous access Status: Acute Category: Medical Code(s): I87.8 - Other specified disorders of veins - Assessment and plan all Dx Assessment and Plan for all problems:: #COVID-19 pneumonia: #Community-acquired pneumonia: #Acute hypoxic respiratory failure: 76-year-old recently diagnosed with COVID-19 pneumonia on 06/27/21 and discharged home on levofloxacin and dexamethasone presented to the hospital with progressively worsening respiratory distress associated with nonproductive cough. Chest x-ray admission showed worsening pulmonary infiltrates bilaterally. No evidence of leukocytosis. Lymphopenia noted. CRP 61.6 on this admission Lower extremity Doppler negative for DVT. No CTA performed. Patient on admission needing noninvasive ventilatory support, his oxygen requirements gradually increased over the weekend and patient experienced cardiac arrest likely secondary to hypoxia after he removed his BiPAP and found to be hypoxic, underwent CPR with return of spontaneous circulation and has been intubated for airway protection at that point and has been intubated since then. Plan: - Continue mechanical ventilatory support - Continue AnalgoSedation with versed and Fentanyl with CPOT gal less than or euqal to 2 and RASS goal of 1 to 2 - VAP bundle Elevate head of the bed at 30 to
[2021-07-08 16:29] LABS: POC Glucose,Bedside 240 (70-110)
[2021-07-08 21:07] LABS: POC Glucose,Bedside 264 (70-110)
[2021-07-09] VITALS (7 sets, daily range): BP systolic 89–109; BP diastolic 48–56; PULSE 90–102; RESP 29–45; TEMP 37.1–37.3; O2SAT 84–91
--- NOTE | 2021-07-09 00:44 | PC.NURSE ---
Notified MD Ray of pt status. Pt over breathing vent. Respirations of 52-54. Vent rate set at 26. Unable to get [place]. Pt continues to not have urine output. Levophed increased to 30 at this time. Tube feeding turned off at this time. New orders received. Increase rate to 30. RT aware. Orders carried out.
--- NOTE | 2021-07-09 03:40 | PC.NURSE ---
Spoke with Delmar at 0335. Updated him on pt. New orders received. Give 2 amps of Bicarb and 50 mg rocronium [place]. Orders carried out. MD Benoit notified for administration.
--- NOTE | 2021-07-09 05:09 | P.DN_ITS ---
Pronouncement Note - Date and Time of Date of : 07/09/21 Time of : 05:00 - Additional Data Confirmation of : no pulse, no respirations Family: at bedside Attending/PCP notified?: Yes Attending physician: Jose England MD Was code activated?: No Autopsy requested?: No facility examiner notified?: Yes Organ bank notified?: Yes Advance directives: Yes
[2021-07-09 05:25] LABS: POC Glucose,Bedside 295 (70-110)
--- NOTE | 2021-07-09 06:00 | XR_ITS ---
PROCEDURE INFORMATION: Exam: XR Chest Exam date and time: 07/09/2021 6:00 AM Age: 76 years old Clinical indication: Shortness of breath and other: Respiratory arrest covid; Additional info: Intubation respiratory arrest covid TECHNIQUE: Imaging protocol: XR of the chest. Views: 1 view. COMPARISON: CR XR CHEST PORTABLE 07/08/2021 5:09 AM FINDINGS: Tubes, catheters and devices: Multiple overlying cardiac leads are present. The endogastric tube is noted with distal portion overlying the stomach. Unspecified catheter with tip overlying the left mid chest field. Lungs: Diffuse bilateral bilateral airspace opacities. Pleural spaces: Unremarkable. No pleural effusion. No pneumothorax. Heart/Mediastinum: Unremarkable. No cardiomegaly. Bones/joints: Unremarkable. IMPRESSION: 1. Diffuse bilateral bilateral airspace opacities. 2. Support catheters noted, as above. No pneumothorax.
--- NOTE | 2021-07-09 07:23 | PC.NURSE ---
Sodium Bicarb 2 amps adminstered at 0338. Rocuronium [place] 50 mg administered by 0343.
--- NOTE | 2021-07-09 08:00 | HMH.DCSUM ---
General - General Admission date:: 06/30/21 Discharge date: 07/09/21 HPI HPI: 76-year-old male diagnosed with COVID-19 pneumonia earlier in the week but discharged home as he had home supplemental oxygen to use and was satting well on 3 L return to the emergency department yesterday in respiratory distress. EMS was contacted and arrived at the patient's home. Patient's O2 sat was in the 50s. Patient's home concentrator maxes out at 5 L/min. Patient was brought to the ER. With the assistance of nonrebreather he was able to get his sats to the 70s and in the ER was placed on BiPAP which brought his O2 sats to the 90s. He is remained on BiPAP with FiO2 of 80%. Patient is admitted for treatment of COVID-19 pneumonia with acute respiratory failure. Hospital Course Hospital Course: Patient was admitted for acute respiratory failure requiring BiPAP due to hypoxemia from COVID-19 pneumonia. Upon initial admission patient was stable on BiPAP. On the afternoon of July 02 patient was found in his room having remove the BiPAP with agonal respirations and profound hypoxia that did not respond to reapplication of the BiPAP. A code was called. Patient was intubated and transferred to the intensive care unit. Patient remained on mechanical ventilation with settings per pulmonology service for the remainder of his hospitalization. Initially patient was stable on the ventilator but by July 04 at night patient would have desats down into the 70s that would occasionally require bagging to return sats normal. Patient required repeated administration of paralytics despite heavy sedation with propofol and fentanyl. Echocardiogram revealed normal LV function. Chest x-ray showed bilateral airspace disease that showed no improvement the remainder of hospitalization. On July 07 patient began to show signs of worsening kidney injury. Family had been notified of patient's lack of progress and poor prognosis. On the morning of July 09 patient once again began to desaturate although this time did not respond to bagging and attempts to place the patient back on the ventilator failed as patient was unable to maintain O2 sats and did not breathe with the vent despite his heavy sedation. Family was contacted. Request was made to withdraw life support and patient passed shortly thereafter. Objective Vital signs: Temp Pulse Resp BP Pulse Ox 98.7 F 102 H 38 H 89/48 L 84 L 07/09/21 03:00 07/09/21 04:00 07/09/21 03:00 07/09/21 04:00 07/09/21 04:00 Results Labs on day of discharge: Labs from last 24 hours 07/09/21 07/08/21 07/08/21 04:36 20:53 16:22 ABG Lactate VBG pH VBG pCO2 VBG pO2 VBG HCO3 VBG Total CO2 VBG O2 Saturation VBG Base Excess POC Glucose 295 H 264 H 240 H Lactate C-Reactive Protein 07/08/21 07/08/21 07/08/21 10:39 10:33 09:50 ABG Lactate VBG pH 6.99 L VBG pCO2 53.1 H VBG pO2 55.6 H VBG HCO3 12.5 L VBG Total CO2 14.2 L VBG O2 Saturation 79.4 H VBG Base Excess -18.9 L POC Glucose 199 H Lactate 0.9 C-Reactive Protein 07/08/21 07/06/21 07/04/21 05:13 06:00 06:00 ABG Lactate 1.6 2.2 H VBG pH VBG pCO2 VBG pO2 VBG HCO3 VBG Total CO2 VBG O2 Saturation VBG Base Excess POC Glucose Lactate C-Reactive Protein 320.1 H Preliminary micro results at discharge 07/08/21 06:00 Wound Culture - Preliminary Penis 07/04/21 16:08 Sputum Culture - Preliminary Sputum - Endotracheal Tube Aspirate DS: Diagnosis - Discharge Diagnosis (1) Respiratory failure with hypoxia Status: Acute (2) Acute kidney injury (nontraumatic) Status: Acute (3) Pneumonia due to COVID-19 virus Status: Acute (4) CAD (coronary artery disease) Status: Chronic (5) Diabetes mellitus type 2 in obese Status: Chronic (6) HHD (hypertensive heart disease) Status: Chronic
--- NOTE | 2021-07-09 08:13 | PC.NURSE ---
0416 Rapid Response, CXR, O2 79%, BP 75/27, RT bagging pt 0421 Flor, New orders received: Lasix 100 mg IV, Start vasopressin gtt. 0425 MD Benoit at bedside 0427 Lasix admin. Vasopressin started 045 Son at bedside with pt. O2 sats 41% 0456 Asystole 0500 TOD, pronounced by Cy who was in room. 0509 MD Ray notified 0546 FLOR called Michelle Wayne # [phone] Min home contatcted per request of son, Antonio Polanco
== END 2021-07-09 07:30 | disposition expired | DRG 207 ==
LOC: ER 11:08 → 2ND 11:19 → ICU 07-02 15:26
PROVIDERS: Internal Medicine Pulmonary Disease; Admitting Provider Family Medicine; Emergency Provider Emergency Medicine; PCP Family Medicine; Visit Provider Family Medicine
DX: U07.1 COVID-19 (principal); J12.82 Pneumonia due to coronavirus disease 2019; J96.01 Acute respiratory failure with hypoxia; I13.0 Hypertensive heart and chronic kidney disease with heart failure and stage 1 through stage 4 chronic kidney disease, or unspecified chronic kidney disease; N17.9 Acute kidney failure, unspecified; I47.2 Ventricular tachycardia; J44.0 Chronic obstructive pulmonary disease with (acute) lower respiratory infection; E87.0 Hyperosmolality and hypernatremia; I50.9 Heart failure, unspecified; I25.10 Atherosclerotic heart disease of native coronary artery without angina pectoris; Z95.5 Presence of coronary angioplasty implant and graft; E11.22 Type 2 diabetes mellitus with diabetic chronic kidney disease; Z79.4 Long term (current) use of insulin; Z99.81 Dependence on supplemental oxygen; I25.2 Old myocardial infarction; M19.90 Unspecified osteoarthritis, unspecified site; Z68.39 Body mass index [BMI] 39.0-39.9, adult; E66.01 Morbid (severe) obesity due to excess calories; N18.32 Chronic kidney disease, stage 3b; E87.5 Hyperkalemia; E11.65 Type 2 diabetes mellitus with hyperglycemia
CPT/HCPCS: 31500; 94002; 36569; 36415; 71045; 74018; 80053; 80202; 81001; 82728; 82803; 82962; 83605; 83880; 84478; 84484; 85007; 85025; 85378; 86140; 87040; 87070; 87081; 87086; 87205; 93005; 93306; 93970; 94003; 94640; 94660; 94761; 96365; 96366; 96367; 96375; 99284; 99285; C1751; C9803; G0378; J0456; J2704; J3370; U0003; U0005